=== PATIENT | male | born 1945 | race Caucasian/White ===

== ENCOUNTER 2022-11-18 12:54 | Outpatient (OUT) | payer OTHER, SELFPAY | END 2022-11-18 12:55 | disposition home or self-care (01) | PROVIDERS: PCP Podiatrist Foot & Ankle Surgery; Visit Provider Podiatrist Foot & Ankle Surgery | DX: L60.3 Nail dystrophy (principal) | CPT/HCPCS: 11721 ==

== ENCOUNTER 2022-12-15 11:53 | Outpatient (OUT) | payer OTHER, SELFPAY ==
[2022-12-15 12:46] LABS: Anion Gap 11.4; BUN Creatinine Ratio 17.8; Calcium 8.5 mg/dL (8.5-10.1); Carbon Dioxide 22.7 mmol/L (21.0-32.0); Chloride 104 mmol/L (98-107); Estimated GFR (African America >60 (>=60); Estimated GFR (Non-African Ame >60 (>=60); Glucose 205 mg/dL (74-106); Potassium 4.1 mmol/L (3.5-5.1); Sodium 134 mmol/L (136-145)
[2022-12-15 13:24] LABS: Vitamin B12 <80.0 pg/mL (193.0-986.0)
== END 2022-12-15 11:54 | disposition home or self-care (01) ==
LOC: LAB 11:57
PROVIDERS: PCP Podiatrist Foot & Ankle Surgery; Visit Provider Internal Medicine
DX: E11.42 Type 2 diabetes mellitus with diabetic polyneuropathy (principal); I10 Essential (primary) hypertension
CPT/HCPCS: 36415; 80048; 82607; 82746

== ENCOUNTER 2022-12-17 10:30 | Outpatient (OUT) | payer OTHER, SELFPAY | END 2022-12-17 10:31 | disposition home or self-care (01) | PROVIDERS: PCP Internal Medicine; Visit Provider Internal Medicine | DX: E53.8 Deficiency of other specified B group vitamins (principal) | CPT/HCPCS: 36415; 83516; 86341 ==

== ENCOUNTER 2023-02-04 11:08 | Outpatient (OUT) | payer OTHER, SELFPAY ==
[2023-02-04 12:07] LABS: Alanine Aminotransferase 41 U/L (16-63); Albumin Globulin Ratio 1.1; Albumin Level 3.7 g/dL (3.4-5.0); Alkaline Phosphatase 93 U/L (46-116); Anion Gap 15.9; Aspartate Amino Transferase 24 U/L (15-37); BUN Creatinine Ratio 20.7; Bilirubin Total 0.7 mg/dL (0.2-1.0); Calcium 8.8 mg/dL (8.5-10.1); Carbon Dioxide 26.7 mmol/L (21.0-32.0); Chloride 102 mmol/L (98-107); Chol HDL Ratio 2.6; Cholesterol 105 mg/dL (<=200); Estimated GFR (African America >60 (>=60); Estimated GFR (Non-African Ame >60 (>=60); Globulin 3.3 g/dL; Glucose 193 mg/dL (74-106); HDL Cholesterol 40 mg/dL (40-60); Potassium 4.6 mmol/L (3.5-5.1); Sodium 140 mmol/L (136-145); Triglycerides 140 mg/dL (<=150)
[2023-02-04 12:15] LABS: Estimated Average Glucose 171 mg/dL; Glycohemoglobin A1C 7.6 % (4.5-6.2)
== END 2023-02-04 11:09 | disposition home or self-care (01) ==
LOC: LAB 11:12
PROVIDERS: PCP Internal Medicine; Visit Provider Internal Medicine
DX: I50.32 Chronic diastolic (congestive) heart failure (principal); E78.5 Hyperlipidemia, unspecified; E11.9 Type 2 diabetes mellitus without complications; E53.8 Deficiency of other specified B group vitamins
CPT/HCPCS: 36415; 80053; 80061; 82607; 83036

== ENCOUNTER 2023-03-04 13:05 | Outpatient (OUT) | payer OTHER, SELFPAY ==
--- OUTSIDE RECORDS SUMMARY | 2023-03-04 13:11 | XMS_ITS | CCD ---
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 Name Role Phone PHYSICIAN, DEFAULT Unavailable Unavailable PHYSICIAN, DEFAULT Unavailable Unavailable NADERER, MICHAEL Unavailable Unavailable CHRISTIAN ROSA Unavailable Unavailable GOMEZ, SHANTELL Unavailable Unavailable GOMEZ, SHANTELL Unavailable Unavailable Radha Sawant Unavailable Minerva Irwin Unavailable MUKESH, MATIAS Attending Unavailable CHRISTIANO DOUGLAS Attending Unavailable NADERER, DR MICHAEL Coto Primary Care Unavailable HIGHLANDER, MENDEZ Pedraza Attending Unavailable HIGHLANDER, PETER D Admitting Unavailable NADERER, DR MICHAEL Coto Primary Care Unavailable HIGHLANDER, MENDEZ Pedraza Attending Unavailable HIGHLANDER, PETER D Admitting Unavailable NADERER, DR MICHAEL Coto Primary Care Unavailable HIGHLANDER, MENDEZ Pedraza Attending Unavailable HIGHLANDER, PETER Keila Admitting Unavailable HIGHLANDER, MENDEZ Pedraza Attending Unavailable NADERER, DR MICHAEL Coto Primary Care Unavailable HIGHLANDER, PETER Keila Admitting Unavailable NADERER, DR MICHAEL Coto Admitting Unavailable NADERER, DR MICHAEL Coto Primary Care Unavailable NADERER, DR MICHAEL Coto Consulting Unavailable NADERER, DR MICHAEL Coto Attending Unavailable FAWWAD, TEMPLETON H Attending Unavailable NADERER, DR MICHAEL Coto Primary Care Unavailable FAWWAD, TEMPLETON H Admitting Unavailable FAWWAD, TEMPLETON H Consulting Unavailable ZIEBER, DR ADRIA Cardenas Consulting Unavailable NADERER, DR MICHAEL Coto Primary Care Unavailable MUKESH, MATIAS Attending Unavailable MUKESH, MATIAS Admitting Unavailable MUKESH, MATIAS Consulting Unavailable NADERER, DR MICHAEL Coto Primary Care Unavailable MUKESH, MATIAS Attending Unavailable MUKESH, MATIAS Admitting Unavailable MUKESH, MATIAS Consulting Unavailable SARAVIA, KAYCE Consulting Unavailable NADERER, DR MICHAEL Coto Primary Care Unavailable MUKESH, MATIAS Attending Unavailable MUKESH, MATIAS Admitting Unavailable MUKESH, MATIAS Consulting Unavailable SARAH, DR MICHAEL Coto Attending Unavailable NADERER, DR MICHAEL Coto Admitting Unavailable NADERERonald, DR MICHAEL Coto Primary Care Unavailable NADERERonald, DR MICHAEL Coto Consulting Unavailable MARKER ., DR SALCEDO Attending Unavailable MARKER ., DR SALCEDO Consulting Unavailable NADERER, DR MICHAEL Coto Primary Care Unavailable MARKER ., DR SALCEDO Admitting Unavailable PAULINE WISDOM Consulting Unavailable YELENA DIAZ Unavailable Unavailable Primary Care Provider UnavailGENOVEVA Couch Attending Unavailable GENOVEVA POND Admitting Unavailable DO Trell Damian Attending Provider MD Michael Smith Primary Care Provider Trell Damian Attending Chula Damian, Trell Ramirez Admitting Michael Armendariz Primary Care Unavailable Mitzy Neves Unavailable AMANDA ROSA Attending Unavailable SHAIKH MANJARREZ Attending Unavailable Allergies Allergy Classification Reported Allergen(s) Allergy Type Date of Onset Reaction(s) Facility (1 source) Penicillins Drug allergy (disorder) 05-04-19 18 [facility] (1 source) No Known Allergies; Translations: [No Known Allergies] Propensity to adverse reactions (disorder) [facility] (5 sources) penicillAMINE Drug Allergy he heard [facility] Other (1 source) Penicillin; Translations: [PENICILLIN G] Drug Allergy 10-21-19 [facility] Rep[facility] (1 source) Penicillin Drug Allergy [facility] (1 source) Penicillins Propensity to adverse reactions to drug 09-24-19 23 [facility] Medications Current Medications Medication Drug Class(es) Dates Sig (Normalized) Sig (Original) [id number] 60 actuat albuterol 0.09 mg/actuat metered dose inhaler (1 source) beta2-Adrenergic Agonist Start: 02-14-2023 take 2 puff(s) by inhalation four times daily as needed Albuterol Sulfate HFA 108 (90 Base) MCG/ACT 2 puffs Inhalation 4 times a day prn Feb, Active Aspirin (6 sources) Platelet Aggregation Inhibitor, Nonsteroidal Anti-inflammatory Drug take 1 tablet by mouth once daily aspirin 81 MG EC tablet Take 1 tablet by mouth daily 0 Active Baby Aspirin Act nile atorvastatin (6 sources) HMG-CoA Reductase Inhibitor take 1 tablet by mouth once daily atorvastatin (LIPITOR) 40 MG tablet Take 1 tablet by mouth daily 0 Active Lipitor Active calcium chloride 0.0014 meq/ml / potassium chloride 0.004 meq/ml / sodium chloride 0.103 meq/ml / sodium lactate 0.028 meq/ml injectable solution (1 source) Start: 10-05-2022 lactated ringe rs IV soln infusion cefdinir 300 mg oral capsule (1 source) Cephalosporin Antibacterial Start: 03-20-2022 take 1 capsule by mouth every twelve hours Cefdinir 300 MG 1 capsule Orally BID for 10 days Mar, Active clopidogrel (10 sources) P2Y12 Platelet Inhibitor take 1 tablet by mouth every twenty-four hours Clopidogrel Bisulfate 75 MG 1 tablet Orally Once a day Active Plavix Active doxycycline hyclate 100 mg oral tablet (1 source) Tetracycline-class Drug Start: 02-14-2023 take 1 tablet by mouth every twelve hours Doxycycline Hyclate 100 MG 1 tablet Orally Twice a day for 10 day(s) Feb, Active empagliflozin (2 sources) Sodium-Glucose Cotransporter 2 Inhibitor JARDIANCE Active ferrous sulfate 325 mg oral tablet (5 sources) take 1 tablet by mouth every twenty-four hours FeroSul 325 (65 Fe) MG 1 tablet Orally Once a day Active take 1 tablet by ganga th three times daily at mealtime ferrous sulfate (IRON 325) 325 (65 Fe) M G tablet Take 1 tablet by mouth 3 times daily (with meals) 0 Active furosemide 20 mg oral tablet (5 sources) Loop Diuretic take 1 tablet by mouth every twenty-four hours Furosemide 20 MG 1 tablet Orally Once a day Active glyBURIDE 2.5 mg oral tablet (1 source) Sulfonylurea take 1 tablet by mouth twice daily at mealtime glyBURIDE (DIABETA) 2.5 MG tablet Take 1 tablet by mouth 2 times daily (with meals) 0 Active glyBURIDE 2.5 mg / metFORMIN hydrochloride 500 mg oral tablet (5 sources) Biguanide, Sulfonylurea take 1 tablet by mouth every twenty-four hours Glyburide-Metfor min 2.5-500 MG 1 tablet with a meal Orally Once a day Active hydroCHLOROthiazide 25 mg / lisinopril 20 mg oral tablet (5 sources) Thiazide Diuretic, Angiotensin Converting Enzyme Inhibitor take 1 tablet by mouth every twenty-four hours Lisinopril-hydro CHLOROthiazide 20-25 MG 1 tablet Orally Once a day Active lisinopril 40 mg oral tablet (1 source) Angiotensin Converting Enzyme Inhibitor take 1 tablet by mouth once daily lisinopril (PRINIVIL;ZESTRI L) 40 MG tablet Take 1 tablet by mouth daily 0 Active methylPREDNISolone 4 mg oral tablet (1 source) Corticosteroid Start: 2022 Medrol 4 MG as directed Orally As Directed for 6 days Feb, Active Metoprolol (6 sources) beta-Adrenergic Katie take 1 tablet by mouth once daily metoprolol succinate (TOPROL XL) 50 MG extended release tablet Take 1 tablet by mouth daily 0 Active Toprol XL Active naproxen 500 mg oral tablet (6 sources) Nonsteroidal Anti-inflammatory Drug take 1 tablet by mouth every twelve hours Naproxen 500 MG 1 tablet as needed Orally every 12 hrs Active take 1 tablet by ganga th twice daily at mealtime naproxen (NAPROSYN) 500 MG tablet Take 1 tablet by mouth 2 times daily (with meals) 0 Active ofloxacin 3 mg/ml ophthalmic solution (1 source) Quinolone Antimicrobial Start: 03-20-2022 Ofloxacin 0.3 % 10 drops into affected ear Otic Once a day for 7 day(s) Mar, Active omeprazole 40 mg delayed release oral capsule (1 source) Proton Pump Inhibitor take 1 capsule by mouth once daily omeprazole (PRILOSEC) 40 MG delayed release capsule Take 1 capsule by mouth daily 0 Active phenylephrine hydrochloride 25 mg/ml ophthalmic solution (1 source) alpha-1 Adrenergic Agonist Start: 10-05-2022 phenylephrine (MYDFRIN) 2.5 % ophthalmic solution 1 drop pioglitazone (5 sources) Peroxisome Proliferator Receptor alpha Agonist, Peroxisome Proliferator Receptor gamma Agonist, Thiazolidinedione take 1 tablet by mouth once daily pioglitazone (ACTOS) 45 MG tablet Take 1 tablet by mouth daily 0 Active Pioglitazone HCl Active potassium chloride 10 meq extended release oral tablet (1 source) take 1 tablet by mouth once daily potassium chloride (KLOR-CON) 10 MEQ extended release tablet Take 1 tablet by mouth daily 0 Active predniSONE 20 mg oral tablet (3 sources) Start: 05-27-19 take 1 tablet by mouth every twelve hours prednisone 20 MG 1 tablet Orally Twice a day for 5 days May, Active proparacaine hydrochloride 5 mg/ml ophthalmic solution (1 source) Local Anesthetic Start: 10-06-19 proparacaine (ALCAINE) 0.5 % ophthalmic solution 1 drop 5 ml sodium chloride 9 mg/ml injection (7 sources) Start: 10-06-19 take 1 dose intravenously twice daily 5-40 mL, IntraVENous, EVERY 12 HOURS SCHEDULED (2 times per day), First dose on Wed10/05/22 at 2100, Until Discontinued For Line Patency: Peripheral IV = 5 mL; Midline or Central Line = 10 mL/lumen. If following IV push medication, administer flush at same rate as the IV push. Flush volume is determined by type of infusion therapy being given. F or non-viscous solutions use: Periphera l IV = 5 mL Midline or Central Line = 10 mL/lumen &nbsp ;For viscous solutions (i.e. blood components, parenteral nutrition, contrast media, or after obtaining blood sample) use: Periphera l IV = 10 mL Midline or Central Line = 20 mL/lumen Post-op Start: 10-05-2022 IntraVENous, a t 5-250 mL/hr, PRN, if patient receiving piggyback infusions and maintenance fluids are not ordered OR KVO fluids to protect IV site / prevent frequent line interruptions/ long duration, Starting on Wed10/05/22 at 1144 For piggyback infusion, administer at same rate as piggyback for a total of 25 mL. Enter 25 mL into dose field and piggyback rate into rate field of order. If piggyback is infusing at a rate less than 100 mL/hr, enter 25 mL into dose field and 100 mL/hr into rate field of order. For KVO fluids, enter rate of 20 mL/hr or less into rate field of order. Post-op Start: 10-05-2022 take 5-40 mL intrave nously once as needed 5-40 mL, IntraVENous, PRN, Starting on Wed10/05/22 at 1144, Until Discontinued, Line Care, After every IV line use For Line Patency: Peripheral IV = 5 mL; Midline or Central Line = 10 mL/lumen. If following IV push medication, administer flush at same rate as the IV push. Flush volume is determined by type of infusion therapy being given. For non-viscous solutions use: Peripheral IV = 5 mL Midline or Central Line = 10 mL/lumen For viscous solutions (i.e. blood components, parenteral nutrition, contrast media, or after obtaining blood sample) use: Peripheral IV = 10 mL Midline or Central Line = 20 mL/lumen Post-op Start: 10-05-2022 0.9 % sodium c hloride infusion Start: 10-05-2022 sodium chlorid e flush 0.9 % injection 5-40 mL tetracaine hydrochloride 5 mg/ml ophthalmic solution (1 source) Rosalie Local Anesthetic Start: 10-05-2022 tetraca ine (TETRAVISC) 0.5 % ophthalmic solution 1 drop tropicamide 10 mg/ml ophthalmic solution (1 source) Anticholinergic Start: 10-05-2022 tropicamide (MYDRIACYL) 1 % ophthalmic solution 1 drop Completed/Discontinued Medications Medication Drug Class(es) Dates Sig (Normalized) Sig (Original) sulfamethoxazole 800 mg / trimethoprim 160 mg oral tablet (5 sources) Dihydrofolate Reductase Inhibitor Antibacterial, Sulfonamide Antimicrobial Start: 05-26-2019 take 1 tablet by mouth every twelve hours Bactrim DS 800-160 MG 1 tablet Orally Twice a day for 10 days May, Not-Taking/PRN Problems Active Problems Problem Classification Problem Date Documented Date Episodic/Chronic Cataract (4 sources) 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; Translations: [Combined forms of age-related cataract, left eye] Onset: 10-04-2022 Resolved: 10-05-2022 Chronic Chronic obstructive pulmonary disease and bronchiectasis (1 source) Bronchitis, not specified as acute or chronic Episodic Coronary atherosclerosis and other heart disease (6 sources) Atherosclerotic heart disease of [place] coronary artery with unstable angina pectoris; Translations: [Atherosclerotic heart disease of [place] coronary artery without angina pectoris] Onset: 05-04-2017 Chronic Diabetes mellitus with complications (7 sources) Type 2 diabetes mellitus with hyperglycemia; Translations: [Type 2 diabetes mellitus with diabetic neuropathy, unspecified] Onset: 07-25-2021 Chronic Diabetes mellitus without complication (1 source) Type 2 diabetes mellitus without complications; Translations: [TYPE 2 DIABETES MELLITUS WITHOUT COMPLICATIONS] Onset: 05-04-2017 Chronic Disorders of lipid metabolism (5 sources) Hyperlipidemia, unspecified; Translations: [Pure hypercholesterolemia, unspecified] Onset: 05-04-2017 Chronic Essential hypertension (10 sources) Essential (primary) hypertension; Translations: [Hypertensive disorder] Onset: 05-04-2017 Chronic Fever of unknown origin (4 sources) Fever, unspecified; Translations: [FEVER UNSPECIFIED] Onset: 07-16-2022 Episodic Headache; including migraine (4 sources) Headache; including migraine; Translations: [HEADACHE UNSPECIFIED] Onset: 04-03-2022 Other aftercare (2 sources) retirement (current) use of aspirin; Translations: [DIORAMIST (CURRENT) USE OF ASPIRIN] Onset: 05-04-2017 Episodic Other aftercare (1 source) retirement (current) use of oral hypoglycemic drugs; Translations: [DIORAMIST USE ORAL HYPOGLYCEMIC DX] Onset: 07-20-2022 Episodic Other aftercare (5 sources) Other fpc (current) drug therapy; Translations: [OTH DIORAMIST CURRENT DRUG THERAPY] Onset: 07-23-2021 Episodic Other and ill-defined heart disease (1 source) Heart disease, unspecified; Translations: [Heart disease, unspecified] Onset: 02-01-2023 Chronic Other diseases of kidney and ureters (1 source) Unspecified hydronephrosis; Translations: [UNSPECIFIED HYDRONEPHROSIS] Onset: 07-20-2022 Episodic Other nutritional; endocrine; and metabolic disorders (1 source) Obesity, unspecified; Translations: [OBESITY UNSPECIFIED] Onset: 07-25-2021 Chronic Otitis media and related conditions (2 sources) Otitis media, unspecified, left ear; Translations: [Other acute nonsuppurative otitis media, bilateral] Episodic Unclassified (2 sources) Unknown / UNK(Unknown) Onset: 05-04-2017 Unclassified (1 source) retirement (current) use of oral hypoglycemic drugs; Translations: [MCC (CURRENT) USE OF ORAL HYPOGLYCEMIC DRUGS] Onset: 05-04-2017 Unclassified (1 source) CONTACT W/AND (SUSP) EXPOS COVID-19; Translations: [CONTACT W/AND (SUSP) EXPOS COVID-19] Onset: 07-20-2022 Urinary tract infections (1 source) Urinary tract infection, site not specified; Translations: [UTI SITE NOT SPECIFIED] Onset: 07-20-2022 Episodic Past or Other Problems Problem Classification Problem Date Documented Date Episodic/Chronic Immunizations and screening for infectious disease (1 source) Contact with and (suspected) exposure to other viral communicable diseases; Translations: [Contact with and (suspected) exposure to other viral communicable diseases Z20.828] Onset: 12-05-2020 Resolved: 12-05-2020 Episodic Malaise and fatigue (1 source) Other fatigue; Translations: [OTHER FATIGUE] Onset: 05-04-2017 Episodic Mycoses (1 source) Tinea unguium; Translations: [TINEA UNGUIUM] Onset: 09-23-2021 Episodic Other lower respiratory disease (1 source) Shortness of breath; Translations: [SHORTNESS OF BREATH] Onset: 05-04-2017 Episodic Other lower respiratory disease (2 sources) Shortness of breath; Translations: [Shortness of Breath] Onset: 12-01-2021 Episodic Other lower respiratory disease (4 sources) Other forms of dyspnea; Translations: [OTHER FORMS OF DYSPNEA] Onset: 09-29-2021 Episodic Other skin disorders (1 source) Corns and callosities; Translations: [CORNS AND CALLOSITIES] Onset: 03-31-2022 Episodic Other skin disorders (1 source) Nail dystrophy; Translations: [NAIL DYSTROPHY] Onset: 03-31-2022 Episodic Skin and subcutaneous tissue infections (4 sources) Cutaneous abscess of left foot; Translations: [CUTANEOUS ABSCESS OF LEFT FOOT] Onset: 03-25-2022 Episodic Unclassified (5 sources) Abnormal result of other cardiovascular function study; Translations: [Encounter for screening for malignant neoplasm of prostate] Onset: 05-04-2017 Episodic Viral infection (1 source) COVID-19; Translations: [COVID-19 U07.1] Onset: 12-05-2020 Resolved: 12-05-2020 Results Test Name Value Interpretation Reference Range Facility Alanine aminotransferase [En zymatic activity/volume] in Serum or PlasmaOrdered By: Trell Damian on 02-01-2023 ALT [Catalytic activity/Vol] 30 U/L 7-52 [facility] Albumin [Mass/volume] in Ser um or Plasma by Bromocresol green (BCG) dye binding methoOrdered By: Trell Damian on 02-01-2023 Albumin BCG dye [Mass/Vol] 4.1 g/dL 3.5-5.7 [facility] Alkaline phosphatase [Enzyma tic activity/volume] in Serum or PlasmaOrdered By: Trell Damian on 02-01-2023 ALP [Catalytic activity/Vol] 74 U/L 34-104 [facility] Aspartate aminotransferase [ Enzymatic activity/volume] in Serum or PlasmaOrdered By: Trell Damian on 02-01-2023 AST [Catalytic activity/Vol] 29 U/L 13-39 [facility] Bilirubin Test strip Ql (U)O rdered By: Trell Damian on 02-01-2023 Bilirubin Ql (U) Negative Negative [facility] Bilirubin.total [Mass/volume ] in Serum or PlasmaOrdered By: Trell Damian 02-01-2023 Bilirubin [Mass/Vol] 0.6 mg/dL 0.3-1.0 [facility] Calcium [Mass/volume] in Ser um or PlasmaOrdered By: Trell Damian 02-01-2023 Calcium [Mass/Vol] 9.2 mg/dL 8.6-10.3 [facility] Carbon dioxide, total [Moles /volume] in Serum or PlasmaOrdered By: Trell Damian 02-01-2023 CO2 [Moles/Vol] 27.3 mmol/L 21.0-31.0 [facility] Chloride [Moles/volume] in S jose juan or PlasmaOrdered By: Trell Damian on 02-01-2023 Chloride [Moles/Vol] 104 mmol/L 98-107 [facility] Color Auto (U)Ordered By: Ravinder Damian on 02-01-2023 Color (U) Yellow Yellow [facility] Comprehensive Metabolic Pane alicia 02-01-2023 Albumin [Mass/Vol] 4.1 g/dL Normal 3.5-5.7 [facility] Comment on above: Performed By: #### U A, CMP #### [facility] [address] [place] [address] Albumin/Globulin [Mass ratio] 1.9 {ratio} Normal [facility] Comment on above: Performed By: #### U A, CMP #### [address] ALP [Catalytic activity/Vol] 74 U/L Normal 34-104 [facility] Comment on above: Result Comment: PERF ORMED BY: [place] [address] PATHOLOGIST SOLID WASTE ANALYST OPHELIA ZIMMERMAN M.D. Performed By: #### U A, CMP #### [address] ALT [Catalytic activity/Vol] 30 U/L Normal 7-52 [facility] Comment on above: Performed By: #### U A, CMP #### [address] Anion gap [Moles/Vol] 14.3 mmol/L Normal 6.0-15.0 [facility] Comment on above: Performed By: #### U A, CMP #### [address] AST [Catalytic activity/Vol] 29 U/L Normal 13-39 [facility] Comment on above: Performed By: #### U A, CMP #### [address] Bilirubin [Mass/Vol] 0.6 mg/dL Normal 0.3-1.0 [facility] Comment on above: Performed By: #### U A, CMP #### [facility] [address] [place] [address] Calcium [Mass/Vol] 9.2 mg/dL Normal 8.6-10.3 [facility] Comment on above: Performed By: #### U A, CMP #### [facility] [address] [place] [address] [place] Chloride [Moles/Vol] 104 mmol/L Normal 98-107 [facility] Comment on above: Performed By: #### U A, CMP #### [facility] [address] CO2 [Moles/Vol] 27.3 mmol/L Normal 21.0-31.0 [facility] Comment on above: Performed By: #### U A, CMP #### [facility] [address] Creatinine [Mass/Vol] 1.01 mg/dL Normal 0.70-1.30 [facility] Comment on above: Performed By: #### U A, CMP #### [place] [address] [place] GFR/1.73 sq M.predicted MDRD (S/P/Bld) [Vol rate/Area] mL/min/{1.73_m2} [facility] Comment on above: Performed By: #### U A, CMP #### [place] [address] [place] Globulin (S) [Mass/Vol] 2.2 g/dL [facility] Comment on above: Performed By: #### U A, CMP #### [address] Glucose [Mass/Vol] 183 mg/dL High 70-100 [facility] Comment on above: Result Comment: [facility] Glucose Reference Range is dependent on time and content of last meal. Glucose of more than 200 mg/dL in a nonstressed, ambulatory subject supports the diagnosis of Diabetes Mellitus. ADA recommended reference range Performed By: #### U A, CMP #### [facility] [address] [place] [address] [place] Potassium [Moles/Vol] 4.6 mmol/L Normal 3.5-5.1 [facility] Comment on above: Performed By: #### U A, CMP #### [facility] [address] [place] [address] [place] Protein [Mass/Vol] 6.3 g/dL Low 6.4-8.9 [facility] Comment on above: Performed By: #### U A, CMP #### [facility] [address] [place] [address] [place] Sodium [Moles/Vol] 141 mmol/L Normal 136-145 [facility] Comment on above: Performed By: #### U A, CMP #### [facility] [address] [place] [address] [place] Urea nitrogen [Mass/Vol] 22 mg/dL Normal 7-25 [facility] Comment on above: Performed By: #### U A, CMP #### [facility] [address] Creatinine [Mass/volume] in Serum or PlasmaOrdered By: Trell Damian on 02-01-2023 Creatinine [Mass/Vol] 1.01 mg/dL 0.70-1.30 [facility] echo [facility] echo transthoracic [facility] [address] [place] [address] Echocardiogram Signed Patient: Thea Winston MR#: [id number] 33 : 1945 Acct:[id number] Age/Sex: 77 / M ADM Date: 02/01/23 Loc: Room: Type: [facility] Attending Dr: Trell Damian DO Ordering Provider: Trell Damian DO Date of Service: 02/01/23[facility]: Heart Disease. Copies to: Trell Laird MD Weight: 242 lb Performed By: Kylah Thomas RDCS BSA: 2.4 m2 BP: 128/59 mmHg HR: 67 Reason For Study: Heart Disease. History: PCI. HTN. HLD. DM. Interpretation Summary The left ventricular wall motion is normal. Mild concentric left ventricular hypertrophy. Ejection Fraction = 60-65%. A variety of Doppler measurements indicate impaired left ventricular relaxation, which is associated with grade I/IV or mild diastolic dysfunction. There is trace tricuspid regurgitation. The right ventricular systolic pressure is 35 mmHg. Right ventricular systolic pressure is consistent with mild pulmonary hypertension. The aortic root is 4 cm Mild aortic root dilatation. There is no comparison study available. Procedure/Quality: A two-dimensional transthoracic echocardiogram with color flow and Doppler was performed. The study was technically good in quality. Left Ventricle: The left ventricular size is normal. Mild concentric left ventricular hypertrophy. Upper septal hypertrophy (sigmoid septum), normal variant. Ejection Fraction = 60-65%. A variety of Doppler measurements indicate impaired left ventricular relaxation, which is associated with grade I/IV or mild diastolic dysfunction. The left ventricular wall motion is normal. Left Atrium: The left atrium appears normal in size. Right Atrium: The right atrium appears normal in size. Right Ventricle: The right ventricular size, thickness and function are normal. Aortic Valve: The aortic valve is normal in structure and function. No aortic regurgitation is present. Mitral Valve: The mitral valve is normal in structure and function. There is no mitral regurgitation noted. Tricuspid Valve: The tricuspid valve is normal in structure and function. There is trace tricuspid regurgitation. The right ventricular systolic pressure is 35 mmHg. Right ventricular systolic pressure is consistent with mild pulmonary hypertension. Pulmonic Valve: The pulmonic valve is normal in structure and function. Arteries: Mild aortic root dilatation. The aortic root is 4 cm. Pericardium/Pleura: No pericardial effusion seen. There is no pleural effusion. IVC/Hepatic Viens: The inferior vena cava is normal in size, with a normal collapsibility index. Measurements with Normals IVSd: 1.5 cm (0.7-1.1 cm)LVIDd: 3.9 cm (3.7-5.4 cm) LVPWd: 1.2 cm (0.7-1.1 cm)LVIDs: 2.1 cm (2.3-3.6 cm) LA dimension: 4.6 cm (2.3-4.0 cm)Ao root diam: 3.5 cm(2.0-3.6 cm) asc Aorta Diam: 4.0 cm(2.1-3.4cm) Doppler with Normals LV V1 max: 156.3 cm/sec (0.7-1.7m/s)MV E max jason: 100.0 cm/sec(0.8-1.3m/s) MV A max jason: 86.4 cm/sec(0.0-0.0m/s) MV E/A: 1.2 (<1.5) MMode/2D Measurements Calculations TAPSE: 3.1 cm FS: 45.0 % Ao root area: LVOT diam: 2.4 cm RV S Jason: EDV(Teich): 9.9 cm2 LVOT area: 4.4 cm2 16.3 cm/sec 64.2 ml ESV(Teich): 14.8 ml EF(Teich): 76.9 % __ LVLd ap4: 8.8 cm SV(MOD-sp4): LAV(MOD-sp4): LA A2 area: 19.6 cm2 EDV(MOD-sp4): 74.1 ml 54.5 ml 106.0 ml LAV(MOD-sp2): LA A4 area: 20.9 cm2 LVLs ap4: 7.7 cm 48.7 ml LA length (vol): ESV(MOD-sp4): 6.3 cm 31.9 ml LA vol: 55.2 ml EF(MOD-sp4): 69.9 % LA vol index: 23.2 ml/m2 Doppler Measurements Calculations MV dec time: E/E' lat: 17.3 MV dec slope: Ao V2 max: 0.26 sec E/E' med: 13.1 162.9 cm/sec 382.9 cm/sec2 Ao max P.6 mmHg Ao mean P.6 mmHg Ao V2 mean: 121.8 cm/sec Ao V2 VTI: 34.1 cm MANDI(I,D): 4.2 cm2 MANDI(V,D): 4.2 cm2 __ LV V1 max PG: TV max PG: TR max jason: 9.8 mmHg 32.0 mmHg 282.3 cm/sec LV V1 mean PG: TR max P.9 mmHg 5.6 mmHg LV V1 mean: 111.9 cm/sec LV V1 VTI: 32.5 cm Measurements from QLAB BSA (): 2.4 m2 CI (): ED Mass (): LAEF (): 29.0 % 2.4 l/min/m2 181.0 grams __ DIALLO (): LAVmax (): LAVmin (): 38.0 ml Pat Height (): 53.0 ml 190.0 cm 23.0 ml/m2 __ Pat Weight (HM): 109.8 kg QLAB Heart Model EDV (HM)_phl: 143.0 ml EF (HM)_phl: 59.0 % ED Current (HM)_phl: 60.0 % ESV (HM)_phl: 59.0 ml HR (HM)_phl: 67.0 BPMES Current (HM)_phl: 30.0 % LV Length ED (HM)_phl: 97.0 mmSV (HM)_phl: 85.0 ml ED Default (HM)_phl: 60.0 % LV Length ES (HM)_phl: 78.0 mm ES Default (HM)_phl: 30.0 % Transcribed By: JOHNATHAN Performed At: 02/01/23 0852 Sig (more content not included)... Normal [facility] Globulin Calc (S) [Mass/Vol] Ordered By: Trell Damian on 02-01-2023 Globulin (S) [Mass/Vol] 2.2 g/dL [facility] Glucose [Mass/volume] in Ser um or PlasmaOrdered By: Trell Damian on 02-01-2023 Glucose [Mass/Vol] 183 mg/dL 70-100 [facility] Comment on above: ADA recommended refe rence rangeRandom Glucose Reference Range is dependent on time and content of last meal. Glucose of more than 200 mg/dL in a nonstressed, ambulatory subject supports the diagnosis of Diabetes Mellitus. Ketones Auto test strip (U) [Mass/Vol]Ordered By: Trell Damian on 02-01-2023 Ketones (U) [Mass/Vol] Negative Negative [facility] Nitrite Test strip Ql (U)Ord ered By: Trell Damian on 02-01-2023 Nitrite Ql (U) Negative Negative [facility] No Panel InformationOrdered By: Trell Damian on 02-01-2023 Estimated GFR (CKD-EPI) > 60.0 mL/Min [facility] Creatinine Clearance (Chem N/A [facility] Potassium [Moles/volume] in Serum or PlasmaOrdered By: Trell Damian on 02-01-2023 Potassium [Moles/Vol] 4.6 mmol/L 3.5-5.1 [facility] Protein Auto test strip (U) [Mass/Vol]Ordered By: Trell Damian on 02-01-2023 Protein (U) [Mass/Vol] Negative Negative [facility] Protein [Mass/volume] in Ser um or PlasmaOrdered By: Trell Damian on 02-01-2023 Protein [Mass/Vol] 6.3 g/dL 6.4-8.9 [facility] Serum or plasma albumin/glob ulin mass ratioOrdered By: Trell Damian on 02-01-2023 Albumin/Globulin [Mass ratio] 1.9 {ratio} [facility] Serum or plasma anion gap de terminationOrdered By: Trell Damian on 02-01-2023 Anion gap [Moles/Vol] 14.3 mmol/L 6.0-15.0 [facility] Sodium [Moles/volume] in Ser um or PlasmaOrdered By: Trell Damian on 02-01-2023 Sodium [Moles/Vol] 141 mmol/L 136-145 [facility] Specific gravity Auto test s trip (U) [Rel density]Ordered By: Trell Glass on 02-01-2023 Specific gravity (U) [Rel density] 1.033 1.001-1.03 0 [facility] Urea nitrogen [Mass/volume] in Serum or PlasmaOrdered By: Trell Damian on 02-01-2023 Urea nitrogen [Mass/Vol] 22 mg/dL 7-25 [facility] Urinalysison 02-01-2023 Appearance (U) Clear Normal Clear [facility] Comment on above: Order Comment: Name Collection Type:: Clean-Voided Midstream Performed By: #### U A, CMP #### [facility] [address] [place] [address] [place] Bilirubin,Urine Negative Normal Negative [facility] Comment on above: Order Comment: Name Collection Type:: Clean-Voided Midstream Performed By: #### U A, CMP #### [facility] [address] [place] [address] [place] Color (U) Yellow Normal Yellow [facility] Comment on above: Order Comment: Name Collection Type:: Clean-Voided Midstream Performed By: #### U A, CMP #### [facility] [address] [place] [address] [place] Glucose Ql (U) >=1000 High Normal [facility] Comment on above: Order Comment: Name Collection Type:: Clean-Voided Midstream Performed By: #### U A, CMP #### [facility] [address] [place] [address] [place] Ketones Ql (U) Negative Normal Negative [facility] Comment on above: Order Comment: Name Collection Type:: Clean-Voided Midstream Performed By: #### U A, CMP #### [facility] [address] [place] [address] [place] Leukocyte esterase Test strip Ql (U) Negative Normal Negative [facility] Comment on above: Order Comment: Name Collection Type:: Clean-Voided Midstream Performed By: #### U A, CMP #### [facility] [address] [place] [address] [place] Nitrite,Urine Negative Normal Negative [facility] Comment on above: Order Comment: Name Collection Type:: Clean-Voided Midstream Performed By: #### U A, CMP #### [facility] [address] [place] [address] [place] Occult Blood,Urine Negative Normal Negative [facility] Comment on above: Order Comment: Name Collection Type:: Clean-Voided Midstream Result Comment: PERF ORMED BY: [place] [address] PATHOLOGIST [employer] ANALYST OPHELIA ZIMMERMAN M.D. Performed By: #### U A, CMP #### [facility] [address] [place] [address] [place] pH (U) 5.5 [pH] Normal 5.0-9.0 [facility] Comment on above: Order Comment: Name Collection Type:: Clean-Voided Midstream Performed By: #### U A, CMP #### [facility] [address] Protein,Urine Negative Normal Negative [facility] Comment on above: Order Comment: Name Collection Type:: Clean-Voided Midstream Performed By: #### U A, CMP #### [facility] [address] [place] [address] Specificy [place],Urine 1.033 High 1.001-1.03 0 [facility] Comment on above: Order Comment: Name Collection Type:: Clean-Voided Midstream Performed By: #### U A, CMP #### [facility] [address] [place] [address] Urobilinogen,Urine Normal Normal Normal [facility] Comment on above: Order Comment: Name Collection Type:: Clean-Voided Midstream Performed By: #### U A, CMP #### [facility] [address] [place] [address] Urine clarity by refractomet ry automatedOrdered By: Trell Damian on 02-01-2023 Clarity Refractometry automated (U) Clear Clear [facility] Urine glucose measurement by automated test strip (mass/volume)Ordered By: Trell Damian on 02-01-2023 Glucose Auto test strip (U) [Mass/Vol] >=1000 mg/dL Normal [facility] Urine hemoglobin detection b y automated test stripOrdered By: Trell Damian on 02-01-2023 Hemoglobin Auto test strip Ql (U) Negative Negative [facility] Urine leukocyte esterase det ection by automated test stripOrdered By: Trell Damian on 02-01-2023 Leukocyte esterase Auto test strip Ql (U) Negative Negative [facility] Urobilinogen Auto test strip (U) [Mass/Vol]Ordered By: Trell Damian on 02-01-2023 Urobilinogen (U) [Mass/Vol] Normal mg/dL Normal [facility] pH Auto test strip (U)Ordere d By: Trell Gillianemmaeber on 02-01-2023 pH (U) 5.5 [pH] 5.0-9.0 [facility] Glucose, Whole Bloodon 10-05 Glucose [Mass/Vol] 135 mg/dL High 74 - 100 mg/dL [facility] Interpretation and review of laboratory results Abnormal [facility] CBC AUTO DIFFon 07-17-2022 BASO # 0.0 103/ul Normal 0.0-0.1 [facility] Comment on above: Performed By: #### A 1C #### [facility] [address] [place] [address] Dr. Ana Pandey Basophils/100 WBC (Bld) 0.2 % Normal 0.2-2.0 [facility] Comment on above: Performed By: #### A 1C #### [facility] [address] [place] [address] Dr. Ana Pandey EO # 0.1 103/ul Normal 0.0-0.7 [facility] Comment on above: Performed By: #### A 1C #### [facility] [address] [place] [address] Dr. Ana Pandey Eosinophils/100 WBC (Bld) 0.9 % Normal 0.9-7.0 [facility] Comment on above: Performed By: #### A 1C #### [facility] [address] [place] [address] Dr. Ana Pandey Erythrocyte distribution width (RBC) [Ratio] 15.1 % Critically high 11.0-15.0 [facility] Comment on above: Performed By: #### A 1C #### [facility] [address] [place] [address] Dr. Ana Pandey Hematocrit (Bld) [Volume fraction] 33.6 % Critically low 42.0-54.0 [facility] Comment on above: Performed By: #### A 1C #### [facility] [address] [place] [address] Dr. Ana Pandey Hemoglobin (Bld) [Mass/Vol] 10.9 g/dL Critically low 14.0-18.0 [facility] Comment on above: Performed By: #### A 1C #### [facility] [address] [place] [address] Dr. Ana Pandey IG # 0.05 10e3/ul Critically high 0.00-0.03 [facility] Comment on above: Performed By: #### A 1C #### [facility] [address] [address] [address] Ana Pandey IG % 0.5 % Normal 0.0-0.5 [facility] Comment on above: Performed By: #### A 1C #### [facility] [address] [place] [address] Dr. Ana Pandye LYMPH # 0.9 103/ul Critically low 1.2-3.8 [facility] Comment on above: Performed By: #### A 1C #### [facility] [address] [place] [address] Dr. Ana Pandey Lymphocytes/100 WBC (Bld) 8.5 % Critically low 20.5-60.0 [facility] Comment on above: Performed By: #### A 1C #### [facility] [address] [place] [address] Dr. Ana Pandey MANUAL DIFF REQ NO Normal [facility] Comment on above: Performed By: #### A 1C #### [facility] [address] [place] [address] Dr. Ana Pandey MCH (RBC) [Entitic mass] 29.0 pg Normal 25.9-34.0 [facility] Comment on above: Performed By: #### A 1C #### [facility] [address] [place] [address] Dr. Ana Pandey MCHC (RBC) [Mass/Vol] 32.4 g/dL Normal 29.9-35.2 [facility] Comment on above: Performed By: #### A 1C #### [facility] [address] [place] [address] Dr. Ana Pandey MCV (RBC) [Entitic vol] 89.4 fL Normal 80.0-94.0 [facility] Comment on above: Performed By: #### A 1C #### [facility] [address] [place] [address] Dr. Ana Pandey MONO # 0.6 103/ul Normal 0.3-0.8 [facility] Comment on above: Performed By: #### A 1C #### [facility] [address] [place] [address] Dr. Ana Pandey Monocytes/100 WBC (Bld) 6.1 % Normal 1.7-12.0 [facility] Comment on above: Performed By: #### A 1C #### [facility] [address] [place] [address] Dr. Ana Pandey NEUT # 8.4 103/ul Critically high 1.4-6.5 [facility] Comment on above: Performed By: #### A 1C #### [facility] [address] [place] [address] Dr. Ana Pandey Neutrophils/100 WBC (Bld) 83.8 % Critically high 43.0-75.0 [facility] Comment on above: Performed By: #### A 1C #### [facility] [address] [place] [address] Dr. Ana Pandey Platelet mean volume (Bld) [Entitic vol] 9.7 fL Normal 9.5-13.5 [facility] Comment on above: Performed By: #### A 1C #### [facility] [address] [place] [address] Dr. Ana Pandey PLT 220 103/ul Normal 150-450 [facility] Comment on above: Performed By: #### A 1C #### [facility] [address] [place] [address] Dr. Ana Pandey RBC 3.76 106/ul Critically low 4.70-6.10 [facility] Comment on above: Performed By: #### A 1C #### [facility] [address] [place] [address] Dr. Ana Pandey WBC 10.0 103/ul Normal 4.0-11.0 [facility] Comment on above: Performed By: #### A 1C #### [facility] [address] ABD/PELVIS WO CONon 07-17 CT ABD/PELVIS WO CON EXAMINATION: CT ABD /PELVIS WO CON, 07/16/2022 9:52 PM EDT HISTORY: CALCULUS OF KIDNEY COMPARISON: None. TECHNIQUE: CT scan of the abdomen and pelvis was performed without IV contrast. CT dose reduction technique was used, including Automated Exposure Control. FINDINGS: There is bibasilar atelectasis. There is coronary artery disease. Abdomen: Please note that the sensitivity for detection of focal lesions or vascular disease is markedly reduced without intravenous contrast. The liver and spleen are unremarkable. There is no intra or extrahepatic biliary duct dilatation. The gallbladder is unremarkable. There is mild left hydronephrosis and hydroureter with no renal or ureteral calculus seen. There is colonic diverticulosis without evidence of acute inflammation. Otherwise, the pancreas, adrenal glands, right kidney, and bowel loops, including the appendix, are unremarkable. There is no mesenteric or retroperitoneal lymphadenopathy. Pelvis: There is borderline prostatomegaly. There is urinary bladder wall thickening with diverticula. The rectum is unremarkable. There is no iliac or inguinal lymphadenopathy. There is mild atherosclerotic disease. Bone windows show no aggressive osseous lesions. IMPRESSION: 1. Mild left hydronephrosis and hydroureter with no ureteral calculus seen. These findings could be secondary to a recently passed calculus. 2. Borderline prostamegaly. 3. Urinary bladder wall thickening and diverticula. These findings could be secondary to chronic outlet obstruction from the prostatomegaly; however, please correlate with urinalysis for infection. 4. Colonic diverticulosis without evidence of acute inflammation. 5. Normal appendix. Electronically authenticated by: Bowen WISDOM Date: 2022-07-16 23:30 Normal [facility] CULTURE BLOODon 07-17-2022 Microscopic examination of blood, culture Culture Observations: NO GROWTH AT 36-48 HOURS. FINAL TO FOLLOW. Normal [facility] Comment on above: Performed By: #### B TEST SPECIALIST, CMP #### [facility] [address] [address] [address] Ana Pandey Microscopic examination of blood, culture Culture Observations: NO GROWTH AT 36-48 HOURS. FINAL TO FOLLOW. Normal [facility] Comment on above: Performed By: #### B TEST SPECIALIST, CMP #### [facility] [address] [place] [address] Dr. Ana Pandey CULTURE URINEon 07-17-2022 CULTURE URINE Culture Observations : AMINA TO FOLLOW. Isolate 1 Escherichia coli >100,000 cfu/mL of Normal [facility] Comment on above: Performed By: #### B TEST SPECIALIST, CMP #### [facility] [address] [place] [address] Dr. Ana Pandey ER URINE PROFILEon 3 Bilirubin Ql (U) Negative Normal NEGATIVE [facility] Comment on above: Performed By: #### Sumaya MEDELLIN UMICRO #### [facility] [address] [place] [address] Dr. Ana Pandey Clarity (U) CLEAR Normal CLEAR [facility] Comment on above: Performed By: #### Sumaya MEDELLIN UMICRO #### [facility] [address] [place] [address] Dr. Ana Pandey Color (U) LT. YELLOW Normal YELLOW [facility] Comment on above: Performed By: #### Sumaya MEDELLIN UMICRO #### [facility] [address] [place] [address] Dr. Ana BENITEZ A micrscopic examina tion will be performed if indicated. Normal [facility] Comment on above: Performed By: #### Sumaya MEDELLIN UMICRO #### [facility] [address] [place] [address] Dr. Ana Pandey Glucose Ql (U) Negative Normal NEGATIVE [facility] Comment on above: Performed By: #### Sumaya MEDELLIN UMICRO #### [facility] [address] [place] [address] Dr. Ana Pandey Hemoglobin Ql (U) MODERATE Abnormal NEGATIVE [facility] Comment on above: Performed By: #### Sumaya MEDELLIN UMICRO #### [facility] [address] [place] [address] Dr. Ana Pandey Ketones Ql (U) Negative Normal NEGATIVE [facility] Comment on above: Performed By: #### JUSTYNA FARAHRO #### [facility] [address] [place] [address] Dr. Ana Pandey LEUKOCYTES MODERATE Abnormal NEGATIVE [facility] Comment on above: Performed By: #### Sumaya MEDELLIN UMICRO #### [facility] [address] [place] [address] Dr. Ana Pandey Nitrite Ql (U) Positive Abnormal NEGATIVE [facility] Comment on above: Performed By: #### JUSTYNA FARAHRO #### [facility] [address] [place] [address] Dr. Ana Pandey pH (U) 5.0 [pH] Normal 5-9 [facility] Comment on above: Performed By: #### JUSTYNA FARAHRO #### [facility] [address] [place] [address] Dr. Ana Pandey SPEC GRAVITY 1.025 Normal 1.005-<=1. 025 [facility] Comment on above: Performed By: #### JUSTYNA FARAHRO #### [facility] [address] [place] [address] Dr. Ana Pandey UA PROTEIN Negative Normal NEGATIVE/ TRACE [facility] Comment on above: Performed By: #### JUSTYNA FARAHRO #### [facility] [address] [place] [address] Dr. Ana Pandey UR MICRO IND INDICATED Normal [facility] Comment on above: Performed By: #### JUSTYNA FARAHRO #### [facility] [address] [place] [address] Dr. Ana Pandey Urobilinogen Qn (U) 0.2 {Casie'U}/dL Normal 0.2 - 1. 0 [facility] Comment on above: Performed By: #### JUSTYNA FARAHRO #### [facility] [address] [place] [address] Dr. Ana Pandey LACTATE/LACTIC ACIDon 2022 Lactate [Moles/Vol] 2.0 mmol/L Normal 0.4-2.0 [facility] Comment on above: Performed By: #### L ACT #### [facility] [address] [address] [address] Ana Pandey PROF 14(COMP METB)on 023 Albumin [Mass/Vol] 3.2 g/dL Critically low 3.4-5.0 [facility] Comment on above: Performed By: #### C MP #### [facility] [address] [place] [address] Dr. Ana Pandey Albumin/Globulin [Mass ratio] 1.0 {ratio} Normal [facility] Comment on above: Performed By: #### C MP #### [facility] [address] [place] [address] Dr. Ana Pandey ALP [Catalytic activity/Vol] 75 U/L Normal 46-116 [facility] Comment on above: Performed By: #### C MP #### [facility] [address] [place] [address] Dr. Ana Pandey ALT [Catalytic activity/Vol] 24 U/L Normal 16-63 [facility] Comment on above: Performed By: #### C MP #### [facility] [address] [place] [address] Dr. Ana Pandey Anion gap [Moles/Vol] 13.0 mmol/L Normal [facility] Comment on above: Performed By: #### C MP #### [facility] [address] [place] [address] Dr. Ana Pandey AST [Catalytic activity/Vol] 19 U/L Normal 15-37 [facility] Comment on above: Performed By: #### C MP #### [facility] [address] [place] [address] Dr. Ana Pandey Bilirubin [Mass/Vol] 0.6 mg/dL Normal 0.2-1.0 [facility] Comment on above: Performed By: #### C MP #### [facility] [address] [place] [address] Dr. Ana Pandey Calcium [Mass/Vol] 8.6 mg/dL Normal 8.5-10.[address] [facility] Comment on above: Performed By: #### C MP #### [facility] [address] [address] [address] Ana Pandey Chloride [Moles/Vol] 106 mmol/L Normal 98-107 [facility] Comment on above: Performed By: #### C MP #### [facility] [address] [address] [address] Ana Pandey CO2 [Moles/Vol] 25.0 mmol/L Normal 21.0-32.0 [facility] Comment on above: Performed By: #### C MP #### [facility] [address] [address] [address] Ana Pandey Creatinine [Mass/Vol] 1.34 mg/dL Critically high 0.70-1.30 [facility] Comment on above: Performed By: #### C MP #### [facility] [address] [place] [address] Dr. Ana Pandey EGFR-AF TANZANIAN >60 Normal >=60 [facility] Comment on above: Performed By: #### C MP #### [facility] [address] [address] [address] Ana Pandey EGFR-NON AF TANZANIAN 52 mL/min/1.73m2 Critically low >=60 [facility] Comment on above: Performed By: #### C MP #### [facility] [address] [address] [address] Ana Pandey Globulin (S) [Mass/Vol] 3.2 g/dL Normal [facility] Comment on above: Performed By: #### C MP #### [facility] [address] [address] [address] Ana Pandey Glucose [Mass/Vol] 136 mg/dL Critically high 74-106 [facility] Comment on above: Performed By: #### C MP #### [facility] [address] [address] [address] Ana Pandey Potassium [Moles/Vol] 4.0 mmol/L Normal 3.5-5.1 [facility] Comment on above: Performed By: #### C MP #### [facility] [address] [address] [address] Ana Pandey Protein [Mass/Vol] 6.4 g/dL Normal 6.4-8.2 [facility] [place] Comment on above: Performed By: #### C MP #### [facility] [address] [place] [address] Dr. Ana Pandey Sodium [Moles/Vol] 140 mmol/L Normal 136-145 [facility] Comment on above: Performed By: #### C MP #### [facility] [address] [place] [address] Dr. Ana Pandey Urea nitrogen [Mass/Vol] 23.0 mg/dL Critically high 7.0-18.0 [facility] Comment on above: Performed By: #### C MP #### [facility] [address] [place] [address] Dr. Ana Pandey Urea nitrogen/Creatinine [Mass ratio] 17.2 mg/mg Normal [facility] Comment on above: Performed By: #### C MP #### [facility] [address] [place] [address] Dr. Ana Pandey URINE MICROSCOPIC ONLYon BACTERIA LARGE Abnormal NONE SEEN [facility] Comment on above: Performed By: #### JUSTYNA FARAHRO #### [facility] [address] [place] [address] Dr. Ana Pandey Bacteria identified Cx Nom (U) INDICATED Normal [facility] Comment on above: Performed By: #### Sumaya MEDELLIN UMICRO #### [facility] [address] [place] [address] Dr. Ana Pandey CAST NONE SEEN Normal NONE SEEN [facility] Comment on above: Performed By: #### Sumaya MEDELLIN UMICRO #### [facility] [address] [place] [address] Dr. Ana Pandey Crystals LM Nom (Urine sed) NONE SEEN Normal NONE SEEN [facility] Comment on above: Performed By: #### Sumaya MEDELLIN UMICRO #### [facility] [address] [place] [address] Dr. Ana Pandey Epithelial cells LM Ql (Urine sed) RARE Normal NONE SEEN /RARE [facility] Comment on above: Performed By: #### E LACIE UMЕЛЕНАRO #### [facility] [address] [place] [address] Dr. Ana Pandey MUCOUS NONE SEEN Normal NONE SEEN [facility] Comment on above: Performed By: #### E LACIE UMICRO #### [facility] [address] [place] [address] Dr. Ana Pandey RBC 0-2 Normal 0-2 [facility] Comment on above: Performed By: #### E LACIE UMICRO #### [facility] [address] [place] [address] Dr. Ana Pandey WBC 20-50 Abnormal NONE SEEN [facility] Comment on above: Performed By: #### Sumaya MEDELLIN UMICRO #### [facility] [address] [place] [address] Dr. Ana Pandey XR CHEST 1 Von 07-17-2022 XR CHEST 1 V EXAM: XR CHEST 1 V HISTORY: COUGH COMPARISON: Chest x-ray 09/10/2021 TECHNIQUE: Single frontal view chest x-ray FINDINGS: Mild bibasilar linear atelectasis. No lung consolidation, large pleural effusions, pneumothorax, or acute bony abnormality. Cardiac size is borderline prominent, similar to prior exam. IMPRESSION: Mild bibasilar streaky linear lung atelectasis. Otherwise, no radiographic evidence for acute chest abnormality. Electronically authenticated by: YELENA DIAZ Date: 2022-07-16 23:14 Normal [facility] Covid-19 PCR (CVDTBH)on 07-06 SARS-CoV-2 (COVID-19) RNA EDD+probe Ql (Unsp spec) Not detected Normal NOT DETECTED [facility] Comment on above: Performed By: #### A 1C #### [facility] [address] [place] [address] Dr. Ana Pandey INFLUENZA A AND B AGon 07-16 INFLUENZA A AG Negative Normal NEGATIVE SEE COMMENT [facility] Comment on above: Performed By: #### A 1C #### [facility] [address] [place] [address] Dr. Ana Pandey INFLUENZA B AG Negative Normal NEGATIVE SEE COMMENT [facility] Comment on above: Performed By: #### A 1C #### [facility] [address] [place] [address] Dr. Ana Pandey SYMPTOMATIC COVID-19 ANTIGEN on 07-16-2022 EUA Statement SEE BELOW Normal [facility] Comment on above: Result Comment: This test has not been FDA cleared or approved, but has been authorized by the FDA under an Emergency Use Authorization (EUA) for use by authorized laboratories certified under CLIA that meet the requirements to perform moderate or high complexity testing. This test has been authorized only for the detection of proteins from SARS-CoV-2, not for any other viruses or pathogens. The emergency use of this test is authorized for the duration of the declaration that circumstances exist justifying the authorization of emergency use of in vitro diagnostic tests for detection and/or diagnosis of Covid-19 under section 564(b)(1) of the Act, 21 U.S.C. 360bbb-3(b)(1), unless the declaration is terminated or authorization is revoked sooner. Performed By: #### C VDAGS #### [facility] [address] [place] [address] Dr. Ana Pandey SARS-CoV-2 (COVID-19) RNA EDD+probe Ql (Unsp spec) Negative Normal NEGATIVE [facility] Comment on above: Performed By: #### C VDAGS #### [facility] [address] [place] [address] Dr. Ana Pandey Follow-Upon 05-20-2022 Follow-Up [id number] Rom Winston 1945 M Date Provider Department Center 05/20/2022 MATIAS LOZA [facility] Family History Problem Relation Age of Onset Heart disease Father Family Status - Relation Status Age at Father Level of Service:39404 DE OFFICE/OUTPATIENT ESTABLISHED MOD MDM 30-39 MIN Reason for Visit and Comments: Follow-up [621628] Normal [facility] GLYCOHEMOGLOBIN A1Con 2022 ADA RECOMMENDATION SEE BELOW Normal [facility] Comment on above: Result Comment: ADA RECOMMENDED LIMIT 4.0 - 6.0 ADA THERAPEUTIC TARGET < 7.0 ACTION SUGGESTED > 7.0 Performed By: #### A 1C #### [facility] [address] [address] [address] Ana Pandey Glucose [Mass/Vol] 154 mg/dL Normal [facility] Comment on above: Performed By: #### A 1C #### [facility] [address] [address] [address] Ana Pandey HbA1c (Bld) [Mass fraction] 7.0 % Critically high 4.5-6.2 [facility] Comment on above: Performed By: #### A 1C #### [facility] [address] [place] [address] Dr. Ana Pandey SED RATE [facility] 2022 SED RATE 30 mm/hr Critically high <=20 [facility] Comment on above: Performed By: #### A 1C #### [facility] [address] [place] [address] Dr. Ana Pandey Office Visiton 12-01-2021 Follow-up visit [id number] Rom Winston s Ronald 1945 Date Provider Department Center 12/01/2021 CHRISTIANO LAFLEUR SIENNA [place] Family History Problem Relation Age of Onset Heart disease Father Family Status - Relation Status Age at Father Level of Service:86709 DE OFFICE/OUTPATIENT ESTABLISHED MOD MDM 30-39 MIN Reason for Visit and Comments: Coronary Artery Disease [187] Shortness of Breath [736989] Hypertension [860093] Normal [facility] Abstracton 11-07-2021 Abstract [id number] Rom Winston 1945 Date Provider Department Center 11/07/2021 CATA FRENCH SIENNA [place] Family History Problem Relation Age of Onset Heart disease Father Family Status - Relation Status Age at Father Normal [facility] NM STRESS/REST MULTIon 09-29 NM STRESS/REST MULTI Patient: LEONARDO WINSTON TOMMY Tate Exam Date: 09/29/2021 : 1945 Gender:M Ordering : MATIAS MAYORGA Admission #: [id number] Family : Order #: [id number] CLICK HERE TO VIEW EXAM RADIOLOGY REPORT PROCEDURE: RADIONUCLIDE IMAGING STRESS/REST MULTI COMPARISON: NM STRESS/REST MULTI, 04/16/2017. INDICATIONS: Dyspnea on exertion TECHNIQUE: Exam Description: Stress/Rest one day protocol gated SPECT Rest Imagin.4 mCi Tc-99m Cardiolite IV on 09/29/2021 Stress Imaging 30.1 mCi Tc-99m Cardiolite IV on 09/29/2021 Exercise Protocol: 0.4 mg Lexiscan given IV Heart Rate (bpm): Rest: 60 Max: 83 PMHR: 58 Blood Pressure: Rest: 154/76 Max: 154/76 Symptoms: Rest and peak stress ECG findings were normal and the exercise portion of the study was normal per attending physician Dr. Sanchez . For more details please see separate cardiac stress test report. FINDINGS: QUALITY OF STUDY: Excellent. PERFUSION DEFECT: None. LOCATION: N/A SIZE: N/A. SEVERITY: N/A. TYPE: N/A. WALL MOTION: Normal. LV SIZE: Normal. 95 mL. TID / TCD: None; 0.9 LVEF: Normal. Calculated EF 69%. SUMMARY: Myocardial perfusion imaging study is NORMAL. CONCLUSION: 1. Normal nuclear medicine myocardial perfusion scan. Dictated by: Adria Graham M.D. on 09/29/2021 at 15:18 Approved by: Adria Graham M.D. on 09/29/2021 at 15:22 Normal [facility] PROF CHEM 8 (BAS METB)on Anion gap [Moles/Vol] 13.1 mmol/L Normal [facility] Comment on above: Performed By: #### B TEST SPECIALIST, CMP #### [facility] [address] [address] [address] Ana Pandey Calcium [Mass/Vol] 8.6 mg/dL Normal 8.5-10.[address] [facility] Comment on above: Performed By: #### B TEST SPECIALIST, CMP #### [facility] [address] [address] [address] Ana Pandey Chloride [Moles/Vol] 104 mmol/L Normal 98-107 [facility] Comment on above: Performed By: #### B TEST SPECIALIST, CMP #### [facility] [address] [address] [address] Ana Pandey CO2 [Moles/Vol] 25.9 mmol/L Normal 21.0-32.0 [facility] Comment on above: Performed By: #### B TEST SPECIALIST, CMP #### [facility] [address] [address] [address] Ana Pandey Creatinine [Mass/Vol] 0.92 mg/dL Normal 0.70-1.30 [facility] Comment on above: Performed By: #### B TEST SPECIALIST, CMP #### [facility] [address] [address] [address] Ana Pandey EGFR-AF TANZANIAN >60 Normal >=60 [facility] Comment on above: Performed By: #### B TEST SPECIALIST, CMP #### [facility] [address] [place] [address] Dr. Ana Pandey EGFR-NON AF TANZANIAN >60 Normal >=60 [facility] Comment on above: Performed By: #### B TEST SPECIALIST, CMP #### [facility] [address] [address] [address] Ana Pandey Glucose [Mass/Vol] 102 mg/dL Normal 74-[address] [facility] Comment on above: Performed By: #### B TEST SPECIALIST, CMP #### [facility] [address] [address] [address] Ana Pandey Potassium [Moles/Vol] 4.0 mmol/L Normal 3.5-5.1 [facility] Comment on above: Performed By: #### B TEST SPECIALIST, CMP #### [facility] [address] [address] [address] Ana Pandey Sodium [Moles/Vol] 139 mmol/L Normal 136-145 [facility] Comment on above: Performed By: #### B TEST SPECIALIST, CMP #### [facility] [address] [address] [address] Ana Pandey Urea nitrogen [Mass/Vol] 24.0 mg/dL Critically high 7.0-18.0 [facility] Comment on above: Performed By: #### B TEST SPECIALIST, CMP #### [facility] [address] [place] [address] Dr. Ana Pandey Urea nitrogen/Creatinine [Mass ratio] 26.1 mg/mg Normal [facility] Comment on above: Performed By: #### B TEST SPECIALIST, CMP #### [facility] [address] [place] [address] Dr. Ana Pandey BNPon 09-10-2021 Natriuretic peptide B (Bld) [Mass/Vol] 305.0 pg/mL Normal <=1,800.0 [facility] Comment on above: Performed By: #### B TEST SPECIALIST, CMP #### [facility] [address] [place] [address] Dr. Ana Pandey CBC AUTO DIFFon 09-10-2021 BASO # 0.0 103/ul Normal 0.0-0.1 [facility] Comment on above: Performed By: #### A 1C #### [facility] [address] [place] [address] Dr. Ana Pandey Basophils/100 WBC (Bld) 0.5 % Normal 0.2-2.0 [facility] Comment on above: Performed By: #### A 1C #### [facility] [address] [place] [address] Dr. Ana Pandey EO # 0.1 103/ul Normal 0.0-0.7 [facility] Comment on above: Performed By: #### A 1C #### [facility] [address] [place] [address] Dr. Ana Pandey Eosinophils/100 WBC (Bld) 1.9 % Normal 0.9-7.0 [facility] Comment on above: Performed By: #### A 1C #### [facility] [address] [place] [address] Dr. Ana Pandey Erythrocyte distribution width (RBC) [Ratio] 15.4 % Critically high 11.0-15.0 [facility] Comment on above: Performed By: #### A 1C #### [facility] [address] [place] [address] Dr. Ana Pandey Hematocrit (Bld) [Volume fraction] 38.6 % Critically low 42.0-54.0 [facility] Comment on above: Performed By: #### A 1C #### [facility] [address] [place] [address] Dr. Ana Pandey Hemoglobin (Bld) [Mass/Vol] 12.2 g/dL Critically low 14.0-18.0 [facility] Comment on above: Performed By: #### A 1C #### [facility] [address] [place] [address] Dr. Ana Pandey IG # 0.01 10e3/ul Normal 0.00-0.03 [facility] Comment on above: Performed By: #### A 1C #### [facility] [address] [place] [address] Dr. Ana Pandey IG % 0.1 % Normal 0.0-0.5 [facility] Comment on above: Performed By: #### A 1C #### [facility] [address] [place] [address] Dr. Ana Pandey LYMPH # 1.6 103/ul Normal 1.2-3.8 [facility] Comment on above: Performed By: #### A 1C #### [facility] [address] [place] [address] Dr. Ana Pandey Lymphocytes/100 WBC (Bld) 21.1 % Normal 20.5-60.0 [facility] Comment on above: Performed By: #### A 1C #### [facility] [address] [place] [address] Dr. Ana Pandey MANUAL DIFF REQ NO Normal [facility] Comment on above: Performed By: #### A 1C #### [facility] [address] [place] [address] Dr. Ana Pandey MCH (RBC) [Entitic mass] 28.7 pg Normal 25.9-34.0 [facility] Comment on above: Performed By: #### A 1C #### [facility] [address] [place] [address] Dr. Ana Pandey MCHC (RBC) [Mass/Vol] 31.6 g/dL Normal 29.9-35.2 [facility] Comment on above: Performed By: #### A 1C #### [facility] [address] [address] [address] Ana Pandey MCV (RBC) [Entitic vol] 90.8 fL Normal 80.0-94.0 [facility] Comment on above: Performed By: #### A 1C #### [facility] [address] [address] [address] Ana Pandey MONO # 0.6 103/ul Normal 0.3-0.8 [facility] Comment on above: Performed By: #### A 1C #### [facility] [address] [address] [address] Ana Pandey Monocytes/100 WBC (Bld) 7.4 % Normal 1.7-12.0 [facility] Comment on above: Performed By: #### A 1C #### [facility] [address] [address] [address] Ana Pandey NEUT # 5.1 103/ul Normal 1.4-6.5 [facility] Comment on above: Performed By: #### A 1C #### [facility] [address] [address] [address] Ana Pandey Neutrophils/100 WBC (Bld) 69.0 % Normal 43.0-75.0 [facility] Comment on above: Performed By: #### A 1C #### [facility] [address] [address] [address] Ana Pandey Platelet mean volume (Bld) [Entitic vol] 9.9 fL Normal 9.5-13.5 [facility] Comment on above: Performed By: #### A 1C #### [facility] [address] [address] [address] Ana Pandey PLT 194 103/ul Normal 150-450 [facility] Comment on above: Performed By: #### A 1C #### [facility] [address] [address] [address] Ana Pandey RBC 4.25 106/ul Critically low 4.70-6.10 [facility] Comment on above: Performed By: #### A 1C #### [facility] [address] [place] [address] Dr. Ana Pandey WBC 7.4 103/ul Normal 4.0-11.0 [facility] Comment on above: Performed By: #### A 1C #### [facility] [address] [place] [address] Dr. Ana Pandey PROF 14(COMP METB)on 022 Albumin [Mass/Vol] 3.5 g/dL Normal 3.4-5.[address] [facility] Comment on above: Performed By: #### B TEST SPECIALIST, CMP #### [facility] [address] [place] [address] Dr. Ana Pandey Albumin/Globulin [Mass ratio] 1.2 {ratio} Normal [facility] Comment on above: Performed By: #### B TEST SPECIALIST, CMP #### [facility] [address] [place] [address] Dr. Ana Pandey ALP [Catalytic activity/Vol] 67 U/L Normal 46-116 [facility] Comment on above: Performed By: #### B TEST SPECIALIST, CMP #### [facility] [address] [place] [address] Dr. Ana Pandey ALT [Catalytic activity/Vol] 37 U/L Normal 16-63 [facility] Comment on above: Performed By: #### B TEST SPECIALIST, CMP #### [facility] [address] [place] [address] Dr. Ana Pandey Anion gap [Moles/Vol] 11.6 mmol/L Normal [facility] Comment on above: Performed By: #### B TEST SPECIALIST, CMP #### [facility] [address] [place] [address] Dr. Ana Pandey AST [Catalytic activity/Vol] 30 U/L Normal 15-37 [facility] Comment on above: Performed By: #### B TEST SPECIALIST, CMP #### [facility] [address] [place] [address] Dr. Ana Pandey Bilirubin [Mass/Vol] 0.5 mg/dL Normal 0.2-1.0 [facility] Comment on above: Performed By: #### B TEST SPECIALIST, CMP #### [facility] [address] [address] [address] Ana Pandey Calcium [Mass/Vol] 8.9 mg/dL Normal 8.5-10.[address] [facility] Comment on above: Performed By: #### B TEST SPECIALIST, CMP #### [facility] [address] [address] [address] Ana Pandey Chloride [Moles/Vol] 107 mmol/L Normal 98-107 [facility] Comment on above: Performed By: #### B TEST SPECIALIST, CMP #### [facility] [address] [place] [address] Dr. Ana Pandey CO2 [Moles/Vol] 26.9 mmol/L Normal 21.0-32.0 [facility] Comment on above: Performed By: #### B TEST SPECIALIST, CMP #### [facility] [address] [place] [address] Dr. Ana Pandey Creatinine [Mass/Vol] 0.93 mg/dL Normal 0.70-1.30 [facility] Comment on above: Performed By: #### B TEST SPECIALIST, CMP #### [facility] [address] [place] [address] Dr. Ana Pandey EGFR-AF TANZANIAN >60 Normal >=60 [facility] Comment on above: Performed By: #### B TEST SPECIALIST, CMP #### [facility] [address] [place] [address] Dr. Ana Pandey EGFR-NON AF TANZANIAN >60 Normal >=60 [facility] Comment on above: Performed By: #### B TEST SPECIALIST, CMP #### [facility] [address] [address] [address] Ana Pandey Globulin (S) [Mass/Vol] 2.8 g/dL Normal [facility] Comment on above: Performed By: #### B TEST SPECIALIST, CMP #### [facility] [address] [address] [address] Ana Pandey Glucose [Mass/Vol] 169 mg/dL Critically high 74-106 [facility] Comment on above: Performed By: #### B TEST SPECIALIST, CMP #### [facility] [address] [address] [address] Ana Pandey Potassium [Moles/Vol] 4.5 mmol/L Normal 3.5-5.1 [facility] Comment on above: Performed By: #### B TEST SPECIALIST, CMP #### [facility] [address] [address] [address] Ana Pandey Protein [Mass/Vol] 6.3 g/dL Critically low 6.4-8.2 [facility] Comment on above: Performed By: #### B TEST SPECIALIST, CMP #### [facility] [address] [address] [address] Ana Pandey Sodium [Moles/Vol] 141 mmol/L Normal 136-[address] [facility] Comment on above: Performed By: #### B TEST SPECIALIST, CMP #### [facility] [address] [place] [address] Dr. Ana Pandey Urea nitrogen [Mass/Vol] 20.0 mg/dL Critically high 7.0-18.0 [facility] Comment on above: Performed By: #### B TEST SPECIALIST, CMP #### [facility] [address] [address] [address] Ana Pandey Urea nitrogen/Creatinine [Mass ratio] 21.5 mg/mg [facility] Comment on above: Performed By: #### B TEST SPECIALIST, CMP #### [facility] [address] [address] [address] Ana Pandey XR CHEST 2 Von 09-10-2021 XR CHEST 2 V EXAM: CHEST 2 VIEWS HISTORY: Dyspnea TECHNIQUE: PA and lateral views chest. COMPARISON: None. FINDINGS: The lungs are mildly hyperinflated with small bilateral pleural effusions and mild bibasilar atelectasis. No lobar consolidation or pneumothorax. Pulmonary vasculature is within normal limits. The cardiomediastinal silhouette is normal. IMPRESSION: 1. Small bilateral pleural effusions with mild bibasilar atelectasis. No focal lung consolidation. 2. Normal heart size. Negative for pulmonary edema. Electronically authenticated by: KAYCE SARAVIA Date: 2021-09-10 14:23 Normal [facility] CBC AUTO DIFFon 07-23-2021 BASO # 0.1 103/ul Normal 0.0-0.1 [facility] Comment on above: Performed By: #### C BC #### [facility] [address] [place] [address] Dr. Ana Pandey Basophils/100 WBC (Bld) 0.6 % Normal 0.2-2.0 [facility] Comment on above: Performed By: #### C BC #### [facility] [address] [address] [address] Ana Pandey EO # 0.2 103/ul Normal 0.0-0.7 [facility] Comment on above: Performed By: #### C BC #### [facility] [address] [place] [address] Dr. Ana Pandey Eosinophils/100 WBC (Bld) 2.5 % Normal 0.9-7.0 [facility] Comment on above: Performed By: #### C BC #### [facility] [address] [place] [address] Dr. Ana Pandey Erythrocyte distribution width (RBC) [Ratio] 15.0 % Normal 11.0-15.0 [facility] [facility] Comment on above: Performed By: #### C BC #### [facility] [address] [place] [address] Dr. Ana Pandey Hematocrit (Bld) [Volume fraction] 46.4 % Normal 42.0-54.0 [facility] Comment on above: Performed By: #### C BC #### [facility] [address] [place] [address] Dr. Ana Pandey Hemoglobin (Bld) [Mass/Vol] 14.2 g/dL Normal 14.0-18.0 [facility] Comment on above: Performed By: #### C BC #### [facility] [address] [place] [address] Dr. Ana Pandey IG # 0.02 10e3/ul Normal 0.00-0.03 [facility] Comment on above: Performed By: #### C BC #### [facility] [address] [place] [address] Dr. Ana Pandey IG % 0.2 % Normal 0.0-0.5 [facility] Comment on above: Performed By: #### C BC #### [facility] [address] [place] [address] Dr. Ana Pandey LYMPH # 2.5 103/ul Normal 1.2-3.8 [facility] Comment on above: Performed By: #### C BC #### [facility] [address] [place] [address] Dr. Ana Pandey Lymphocytes/100 WBC (Bld) 27.9 % Normal 20.5-60.0 [facility] Comment on above: Performed By: #### C BC #### [facility] [address] [place] [address] Dr. Ana Pandey MANUAL DIFF REQ NO Normal [facility] Comment on above: Performed By: #### C BC #### [facility] [address] [place] [address] Dr. Ana Pandey MCH (RBC) [Entitic mass] 27.8 pg Normal 25.9-34.0 [facility] Comment on above: Performed By: #### C BC #### [facility] [address] [place] [address] Dr. Ana Pandey MCHC (RBC) [Mass/Vol] 30.6 g/dL Normal 29.9-35.2 [facility] Comment on above: Performed By: #### C BC #### [facility] [address] [place] [address] Dr. Ana Pandey MCV (RBC) [Entitic vol] 90.8 fL Normal 80.0-94.0 [facility] Comment on above: Performed By: #### C BC #### [facility] [address] [place] [address] Dr. Ana Pandey MONO # 0.7 103/ul Normal 0.3-0.8 [facility] Comment on above: Performed By: #### C BC #### [facility] [address] [place] [address] Dr. Ana Pandey Monocytes/100 WBC (Bld) 8.0 % Normal 1.7-12.0 [facility] Comment on above: Performed By: #### C BC #### [facility] [address] [place] [address] Dr. Ana Pandey NEUT # 5.4 103/ul Normal 1.4-6.5 [facility] Comment on above: Performed By: #### C BC #### [facility] [address] [place] [address] Dr. Ana Pandey Neutrophils/100 WBC (Bld) 60.8 % Normal 43.0-75.0 [facility] Comment on above: Performed By: #### C BC #### [facility] [address] [place] [address] Dr. Ana Pandey Platelet mean volume (Bld) [Entitic vol] 10.6 fL Normal 9.5-13.5 [facility] Comment on above: Performed By: #### C BC #### [facility] [address] [place] [address] Dr. Ana Pandey PLT 248 103/ul Normal 150-450 [facility] Comment on above: Performed By: #### C BC #### [facility] [address] [place] [address] Dr. Ana Pandey RBC 5.11 106/ul Normal 4.70-6.10 [facility] Comment on above: Performed By: #### C BC #### [facility] [address] [place] [address] Dr. Ana Pandey WBC 8.8 103/ul Normal 4.0-11.0 [facility] Comment on above: Performed By: #### C BC #### [facility] [address] [place] [address] Dr. Ana Pandey GLYCOHEMOGLOBIN A1Con 2021 ADA RECOMMENDATION SEE BELOW Normal [facility] Comment on above: Result Comment: ADA RECOMMENDED LIMIT 4.0 - 6.0 ADA THERAPEUTIC TARGET < 7.0 ACTION SUGGESTED > 7.0 Performed By: #### A 1C #### [facility] [address] [place] [address] Dr. Ana Pandey Glucose [Mass/Vol] 146 mg/dL Normal [facility] Comment on above: Performed By: #### A 1C #### [facility] [address] [address] [address] Ana Pandey HbA1c (Bld) [Mass fraction] 6.7 % Critically high 4.5-6.2 [facility] Comment on above: Performed By: #### A 1C #### [facility] [address] [address] [address] Ana Pandey LIPID PROFILEon 07-23-2021 CHOL-HDL RATIO NORM SEE BELOW Normal [facility] Comment on above: Result Comment: 3.3 - 4.4 LOW RISK 4.4 - 7.1 AVERAGE RISK 7.1 - 11.0 MODERATE RISK >11.0 HIGH RISK Performed By: #### A 1C #### [facility] [address] [address] [address] Ana Pandey Cholesterol [Mass/Vol] 98 mg/dL Normal <=200 [facility] Comment on above: Performed By: #### A 1C #### [facility] [address] [address] [address] Ana Pandey Cholesterol in HDL [Mass/Vol] 42 mg/dL Normal 40-60 [facility] Comment on above: Performed By: #### A 1C #### [facility] [address] [address] [address] Ana Pandey Cholesterol in LDL [Mass/Vol] 43.2 mg/dL Normal [facility] Comment on above: Performed By: #### A 1C #### [facility] [address] [address] [address] Ana Pandey Cholesterol.total/Cho lesterol in HDL [Mass ratio] 2.3 {ratio} Normal [facility] Comment on above: Performed By: #### A 1C #### [facility] [address] [address] [address] Ana Pandey HDL NORMAL > or = 60 mg/dl - LO W CARDIOVASCULAR RISK <40 mg/dl - HIGH CARDIOVASCULAR RISK Normal [facility] Comment on above: Performed By: #### A 1C #### [facility] [address] [address] [address] Ana Pandey LDL CALC NORMAL SEE BELOW Normal [facility] Comment on above: Result Comment: <100 mg/dl OPTIMAL 100 - 129 mg/dl NEAR OR ABOVE OPTIMAL 130 - 159 mg/dl BORDERLINE HIGH 160 - 189 mg/dl HIGH >190 mg/dl VERY HIGH Performed By: #### A 1C #### [facility] [address] [address] [address] Ana Pandey Triglyceride [Mass/Vol] 64 mg/dL Normal <=150 [facility] Comment on above: Performed By: #### A 1C #### [facility] [address] [address] [address] Ana Pandey VLDL CALC 12.8 mg/dL Normal [facility] Comment on above: Performed By: #### A 1C #### [facility] [address] [place] [address] Dr. Ana Pandey LIVER PROFILEon 07-23-2021 Albumin [Mass/Vol] 3.9 g/dL Normal 3.4-5.[address] [facility] Comment on above: Performed By: #### A 1C #### [facility] [address] [address] [address] Ana Pandey Albumin/Globulin [Mass ratio] 1.2 {ratio} Normal [facility] Comment on above: Performed By: #### A 1C #### [facility] [address] [place] [address] Dr. Ana Pandey ALP [Catalytic activity/Vol] 74 U/L Normal 46-116 [facility] Comment on above: Performed By: #### A 1C #### [facility] [address] [place] [address] Dr. Ana Pandey ALT [Catalytic activity/Vol] 52 U/L Normal 16-63 [facility] Comment on above: Performed By: #### A 1C #### [facility] [address] [place] [address] Dr. Ana Pandey AST [Catalytic activity/Vol] 43 U/L Critically high 15-37 [facility] Comment on above: Performed By: #### A 1C #### [facility] [address] [address] [address] Ana Pandey BILI, CONJUGATED 0.2 mg/dL Normal 0.0-0.2 [facility] Comment on above: Performed By: #### A 1C #### [facility] [address] [place] [address] Dr. Ana Pandey Bilirubin [Mass/Vol] 0.6 mg/dL Normal 0.2-1.0 [facility] Comment on above: Performed By: #### A 1C #### [facility] [address] [place] [address] Dr. Ana Pandey Globulin (S) [Mass/Vol] 3.2 g/dL Normal [facility] Comment on above: Performed By: #### A 1C #### [facility] [address] [place] [address] Dr. Ana Pandey Protein [Mass/Vol] 7.1 g/dL Normal 6.4-8.2 [facility] [place] Comment on above: Performed By: #### A 1C #### [facility] [address] [place] [address] Dr. Ana Pandey MICROALBUMIN, RAND URon 07-06 mALB 1.8 mg/L Normal <=30.0 [facility] Comment on above: Performed By: #### A 1C #### [facility] [address] [place] [address] Dr. Ana Pandey PROF CHEM 8 (BAS METB)on Anion gap [Moles/Vol] 12.1 mmol/L Normal [facility] Comment on above: Performed By: #### A 1C #### [facility] [address] [place] [address] Dr. Ana Pandey Calcium [Mass/Vol] 8.7 mg/dL Normal 8.5-10.1 [facility] Comment on above: Performed By: #### A 1C #### [facility] [address] [place] [address] Dr. Ana Pandey Chloride [Moles/Vol] 102 mmol/L Normal 98-107 [facility] Comment on above: Performed By: #### A 1C #### [facility] [address] [address] [address] Ana Pandey CO2 [Moles/Vol] 28.1 mmol/L Normal 21.0-32.0 [facility] Comment on above: Performed By: #### A 1C #### [facility] [address] [address] [address] Ana Pandey Creatinine [Mass/Vol] 0.94 mg/dL Normal 0.70-1.30 [facility] Comment on above: Performed By: #### A 1C #### [facility] [address] [address] [address] Ana Pandey EGFR-AF TANZANIAN >60 Normal >=60 [facility] Comment on above: Performed By: #### A 1C #### [facility] [address] [address] [address] Ana Pandey EGFR-NON AF TANZANIAN >60 Normal >=60 [facility] Comment on above: Performed By: #### A 1C #### [facility] [address] [address] [address] Ana Pandey Glucose [Mass/Vol] 102 mg/dL Normal 74-106 [facility] Comment on above: Performed By: #### A 1C #### [facility] [address] [address] [address] Ana Pandey Potassium [Moles/Vol] 4.2 mmol/L Normal 3.5-5.1 [facility] Comment on above: Performed By: #### A 1C #### [facility] [address] [address] [address] Ana Pandey Sodium [Moles/Vol] 138 mmol/L Normal 136-145 [facility] Comment on above: Performed By: #### A 1C #### [facility] [address] [address] [address] Ana Pandey Urea nitrogen [Mass/Vol] 28.0 mg/dL Critically high 7.0-18.0 [facility] Comment on above: Performed By: #### A 1C #### [facility] [address] [address] [address] Ana Pandey Urea nitrogen/Creatinine [Mass ratio] 29.8 mg/mg Normal [facility] Comment on above: Performed By: #### A 1C #### [facility] [address] [address] [address] Ana Pandey TSHon 07-23-2021 TSH 4.104 uIU/mL Critically high 0.358-3.74 0 [facility] Comment on above: Performed By: #### A 1C #### [facility] [address] [address] [address] Ana Pandey TSH RANGE SEE BELOW Normal [facility] Comment on above: Result Comment: <0.3 4 UIU/ml HYPERTHYROID 0.34-5.60 UIU/ml EUTHYROID >5.60 UIU/ml HYPOTHYROID Performed By: #### A 1C #### [facility] [address] [address] [address] Ana Pandey COVID Quick Testingon 2020 Result Positive [employer] Other Cardiovascular Lab Reporton 05-05-2017 Cardiovascular Lab Report [facility] Patient Name: [facility] MR #: [id number] Physician: Shantell Gomez,Department of M.D.Medicine Service Date: 05/04/2017Division of Birthdate: 4Cardiology Room #: 3AB [id number] [facility]Services[facility] [place] [id number] Fax Cardiovascular Laboratory ReportREFERRING PHYSICIANS: Christian Rosa M.D. and Michael Smith M.D.CLINICAL PRESENTATION: Mr. Thea Winston is a 71-year-old male, pastmedical history significant for type 2 diabetes mellitus, hyperlipidemia,and hypertension. The patient was recently evaluated by my colleague, Dr.Dan Rosa. The patient reported worsening dyspnea on exertion over thepast 6 months. His noticed that he gets out of breath with mild levelof exertion. He had a cardiac stress test, which showed an inferior fixeddefect. Given his risk factor burden, Dr. Rosa recommended cardiaccatheterization.ANGELIKA KOLB IMPRESSION:1. Severe stenosis of the mid LAD and a large 2nd diagonal branch status post successful bifurcation stenting.2. The circumflex is patent.3. The distal RCA has a 40% stenosis.PLAN:1. Aggressive medical therapy for CAD.2. Aspirin 81 mg daily long-term.3. Plavix 75 mg daily for at least 1 year, consider long-term if low bleeding risk due to bifurcation stenting.4. High-intensity statin therapy. His statin has been switched to atorvastatin 40 mg daily.5. Start metoprolol-XL 25 mg daily for CAD.6. Outpatient followup with Dr. Jacobo Rosa, MS Cardiology.7. Okay to refer to cardiac rehabilitation and okay to start within one week.8. Aggressive medical therapy for diabetes, hypertension, and hyperlipidemia.PROCEDURES: Coronary angiogram, right heart catheterization, ultrasoundguidance for vascular access, conscious sedation 159 minutes, PCI LAD, PCI2nd diagonal branch, FFR of the LAD.INDICATION: Unstable angina, CCS class 3 symptoms, abnormal cardiac stresstest.DESCRIPTION OF PROCEDURE: The patient was brought to the cardiaccatheterization lab in a fasting state. Informed written consent wasobtained. He was prepped and draped in the usual sterile fashion of theright wrist and bilateral groin. Time-out was performed. He was givenVersed and fentanyl for sedation. 1% lidocaine was infiltrated over theright radial artery and the right internal jugular vein. First usingultrasound guidance and micropuncture access technique, a 6-Singaporean sheathwas placed in the right internal jugular vein. Using a Dougherty catheter,the right heart catheterization was then performed. Pressures wereobtained in the right atrium, right ventricle, pulmonary artery, andpulmonary capillary wedge position. Oxygen saturation was drawn from thepulmonary artery and the Sly cardiac output and cardiac index were thencalculated. The Dougherty catheter was then removed.Next, a 6-Singaporean Terumo Glidesheath slender was placed in the right radialartery. The radial anti-vasospasm cocktail of nitroglycerin and verapamilwas administered through the sheath. All catheter exchanges were made overthe J-tip Ayala guidewire. Diagnostic coronary angiography was performedwith a JL3.5, and a JR5 catheter. Coronary angiography was performed inmultiple orthogonal views using hand injection of contrast.At this time, it was apparent that the 2nd diagonal branch was large andhad an 80% stenosis. The mid LAD had a diffuse 70% stenosis. However, Idecided to check the severity with an FFR testing.A [employer] left 6-Singaporean guide was engaged to left main coronaryartery.The [employer] Verrata FFR wire was then zeroed outside of the body and thenthe pressure tracings were normalized at the catheter guide tip. Thevolcano Verrata wire was then manipulated at the distal LAD. The FFR wasthen measured after adenosine was infused at a rate of 140 mcg/kg/minthrough the intravenous access. The FFR was recorded at 0.77, which is inthe ischemic range and is positive FFR test.Next, I elected to proceed with bifurcation stenting of the LAD and the 2nddiagonal branch. The 2nd diagonal branch was a large vessel approximately2.75 mm in diameter. The LAD was a large vessel approximately 3.0-3.5 mmin diameter. I elected to pursue a crush technique. The FFR wire wasalready in the LAD.A Prowater was manipulated to the 2nd diagonal branch.Pre dilation was performed. Initially an Emerge 2.5 x 12 was used in thediagonal branch and an Emerge 3.0 x 15 was used in the LAD and serialdilations of the diagonal branch LAD were performed including a kissingballoon dilation.Next, I tried to pass a 2.75 x 28 mm stent to the 2nd diagonal branch.However, it could not pass. This was then removed.Further pre dilations were performed with a 3.0 x 12 mm balloon.Next, a Synergy 2.5 x 20 mm drug-eluting stent was deployed in the 2nddiagonal branch. It was deployed with a portion back in the LAD. Theportion in the LAD was then crushed using an [employer] apex 3.0 x 12 mmnoncompliant balloon, which was already parked in the mid to distal LAD .The balloons were then removed. After the crush technique, the diagonalwire, which had previously been removed was then re-crossed across thestent struts and then the stent struts were dilated into the side branchusing a sprinter Legend 1.25 x 8 mm balloon and then an Emerge 2.0 x 12 mmballoon and then an NC Quantum apex 2.5 x 12 mm balloon. The entirediagonal stent was then post dilated.Next, the LAD stent was positioned. This was a Synergy 3.0 x 32 mmdrug-eluting stent. The side branch wire was then withdrawn back and theLAD stent was deployed at 14 atmospheres.Next, a proximal optimization technique (POT) was performed, an NC Quantumapex 3.5 x 8 mm noncompliant balloon was inflated at 10-12 atmospheres inthe mid LAD at the ostium of the diagonal side branch and in the proximalportion of the stent.Next, the Prowater was re-crossed across the stent struts into the sidebranch. This was dilated once again using a sprinter Legend 1.25 x 10 mmballoon and then an Emerge 2.0 x 12 mm balloon.Finally a kissing balloon dilation was performed, for final post dilation.A 2.5 x 15 mm NC Quantum apex was positioned in the diagonal branch and a3.0 x 15 mm balloon was positioned in the LAD. The entire length of theLAD stent and diagonal branches were then post dilated and kissing balloondilation was performed at the bifurcation as well at 6 to 8 atmospheresthroughout. At this point, the final result was very good. There was 0%residual stenosis in the mid LAD. The diagonal branch looked very good aswell. It had a 30% stenosis at the outflow of the diagonal stent, but thiswas considered adequate and there were no procedural complications.TOTAL CONSCIOUS SEDATION TIME: 159 minutes.TOTAL CONTRAST: 220 mL.TOTAL FLUOROSCOPY TIME: 40 minutes 57 seconds, 4.4 Gy.FINDINGS: HEMODYNAMICS:1. RA mean 6.2. RV 29/7.3. PA 28/11 (MEP 18).4. Pulmonary capillary wedge pressure mean 11.5. AO 99/61 (MAP 75).6. Sly cardiac output 6.9 L/minute.7. Sly cardiac index 2.9 L/minute per meter squared.8. PA sat 63%, AO sat 94%.CORONARY ANGIOGRAPHY:Left main coronary artery: Patent to the left main. The left mainbifurcates into LAD and the circumflex.Left anterior descending coronary artery: The LAD is a large vessel andgives rise to 2 diagonal branches. The 2nd diagonal branch is a largevessel. The proximal LAD has a 30% stenosis. The mid LAD has 2 areas ofserial 70% stenosis. The severity of this stenosis was confirmed with FFRanalysis, which showed an FFR of 0.77, which is consistent with asignificant ischemia producing stenosis.The 2nd diagonal branch has an 80% stenosis in its proximal segment.After the bifurcation stenting there was 0% residual stenosis in the LADand a widely patent stent. The 2nd diagonal branch has a widely patentstent and has a 30% stenosis after the stent.Left circumflex coronary artery. The circumflex is patent.Right coronary artery. The RCA is a large vessel and has a 30%-40%stenosis in the distal segment. The PDA and LIDIA are widely patent.Electronically Signed by:hSantell Gomez M.D. 05/11/2017 08:15 P Shantell Gomez M.D.Date Dict: 05/04/2017/12:44 P/Shantell Gomez M.D.Date Trans: 05/05/2017 09:35 A/[id number] c: Christian Rosa M.D. [address] [place] [id number] Michael Smith M.D. [facility] [address] [facility] Vital Signs Date Time Vital Sign Value Performing Clinician Facility 02-14-2023 12:10-0500 Body height 190.5 cm Mitzy Neves Other [employer] Other 02-14-2023 12:10-0500 Body mass index (BMI) [Ratio] 30.57 kg/m2 Mitzy Neves Other [employer] [facility] Other 02-14-2023 12:10-0500 Body temperature 98 [degF] Mitzy Neves Other [employer] Other 02-14-2023 12:10-0500 Body weight 110.95 kg Mitzy Neves Other [employer] Other 02-14-2023 12:10-0500 Diastolic blood pressure 60 mm[Hg] Mitzy Neves Other [employer] Other 02-14-2023 12:10-0500 Respiratory rate 18 /min Mitzy Neves Other [employer] Other 02-14-2023 12:10-0500 SaO2% (BldA) [Mass fraction] 98 % Mitzy Neves Other [employer] Other 02-14-2023 12:10-0500 Systolic blood pressure 135 mm[Hg] Mitzy Neves Other [employer] Other 10-05-2022 11:30-0400 Diastolic blood pressure 58 mm[Hg] Genoveva Shamar DO Work Phone: [facility] 10-05-2022 11:30-0400 Heart rate 58 /min Genoveva Shamar DO Work Phone: [facility] 10-05-2022 11:30-0400 Respiratory rate 16 /min Genoveva Shamar DO Work Phone: [facility] 10-05-2022 11:30-0400 SaO2% (BldA) [Mass fraction] 98 % Genoveva Shamar DO Work Phone: [facility] 10-05-2022 11:30-0400 Systolic blood pressure 126 mm[Hg] Genoveva Shamar DO Work Phone: [facility] 10-05-2022 11:11-0400 Body temperature 96.91 [degF] Genoveva Shamar DO Work Phone: [facility] 10-05-2022 10:00-0400 Body height 190.5 cm Genoveva Pond DO Work Phone: [facility] 10-05-2022 10:00-0400 Body mass index (BMI) [Ratio] 32.12 kg/m2 Genoveva Pond DO Work Phone: [facility] 10-05-2022 10:00-0400 Body weight 116.57 kg Genoveva Pond DO Work Phone: [facility] 05-26-2022 12:50-0400 Body height 190.5 cm Minerva Irwin Other [employer] Other 05-26-2022 12:50-0400 Body mass index (BMI) [Ratio] 31.87 kg/m2 Minerva Irwin Other [employer] Other 05-26-2022 12:50-0400 Body temperature 97.1 [degF] Minerva Irwin Other [employer] Other 05-26-2022 12:50-0400 Body weight 115.67 kg Minerva Irwin Other [employer] Other 05-26-2022 12:50-0400 Respiratory rate 18 /min Minerva Irwin Other [employer] Other 05-26-2022 12:50-0400 SaO2% (BldA) [Mass fraction] 97 % Minerva Irwin Other [employer] Other 03-20-2022 14:00-0500 Body height 190.5 cm Minerva Irwin Other [employer] Other 03-20-2022 14:00-0500 Body mass index (BMI) [Ratio] 28.74 kg/m2 Minerva Irwin Other [employer] Other 03-20-2022 14:00-0500 Body temperature 97.7 [degF] Minerva Irwin Other [employer] Other 03-20-2022 14:00-0500 Body weight 104.33 kg Minerva Irwin Other [employer] Other 03-20-2022 14:00-0500 Respiratory rate 18 /min Minerva Irwin Other [employer] Other 03-20-2022 14:00-0500 SaO2% (BldA) [Mass fraction] 97 % Minerva Irwin Other [employer] Other 12-05-2020 17:15-0400 Body height 190.5 cm Radha Savana Other [employer] Other 12-05-2020 17:15-0400 Body temperature 98.8 [degF] Radha Sawant Other [employer] Other 12-05-2020 17:15-0400 SaO2% (BldA) [Mass fraction] 97 % Radha Sawant Other [employer] Other Encounters Encounter Date Encounter Type Care Provider Facility Start: 02-25-2023 End: 02-25-2023 ambulatory SHAIKH LOKI Not Available Start: 02-14-2023 End: 02-14-2023 ambulatory Mitzy Neves Other [employer] Other Start: 02-14-2023 Office outpatient visit 15 minutes Mitzy Neves [facility] Start: 02-09-2023 End: 02-09-2023 ambulatory AMANDA AICHHOLZ Not Available Start: 02-01-2023 End: 02-01-2023 ambulatory Trell Ramirez Nati Facility:[facility] Start: 02-01-2023 End: 02-01-2023 ambulatory MD Michael Smith Work Phone: [facility] Work Phone: Start: 02-01-2023 End: 02-01-2023 Patient encounter procedure MD Michael Smith Work Phone: [facility] Work Phone: Start: 10-05-2022 End: 10-05-2022 ambulatory GENOVEVA Souza [facility] Start: 10-05-2022 End: 10-05-2022 Subsequent hospital visit by physician Genoveva Pond DO [facility] Phone[facility] Start: 07-22-2022 ambulatory MENDEZ Smart [facility] Start: 07-16-2022 End: 07-17-[address] MATIAS MAXWELL . Facility:[facility] Start: 06-26-2022 End: 06-26-2022 ambulatory Minerva Irwin Other [employer] Other Start: 06-26-2022 Telephone encounter Minerva Irwin [facility] Start: 05-26-2022 End: 05-26-2022 ambulatory Minerva Irwin Other [employer] Other Start: 05-26-2022 Office outpatient visit 25 minutes Minerva Irwin [facility] Start: 05-20-2022 End: 05-20-2022 ambulatory MATIAS MAYORGA [facility] Start: 05-08-2022 End: 05-09-[address] MICHAEL SMITH Facility:[facility] Start: 04-03-2022 End: 04-04-2022 ambulatory SHAIKH Vijaya MANJARREZ Facility:[facility] Start: 03-25-2022 End: 03-26-[address] MICHAEL SMITH Facility:[facility] Start: 03-20-2022 End: 03-20-2022 ambulatory Minerva Irwin Other [place] [employer] Other Start: 03-20-2022 Office outpatient visit 25 minutes Minerva Sidhuler [facility] Start: 12-24-2021 End: 12-25-[address] MICHAEL SMITH Facility:[facility] Start: 12-01-2021 End: 12-01-2021 [facility] Start: 09-29-2021 End: 09-30-[address] ADRIA GRAHAM Facility:[facility] Start: 09-18-2021 End: 09-19-[address] MICHAEL SMITH Facility:[facility] Start: 09-15-2021 End: 09-16-[address] MICHAEL SMITH Facility:[facility] Start: 09-10-2021 End: 09-11-2021 ambulatory KAYCE SARAVIA Facility:[facility] Start: 07-23-2021 End: 07-24-[address] MICHAEL SMITH Facility:[facility] Start: 12-05-2020 Office outpatient visit 15 minutes Radha Sawant [facility] Start: 05-04-2017 End: 05-05-2017 Ambulatory MICHAEL SMITH Facility:[facility] Start: 04-28-2017 End: 04-29-2017 Ambulatory DEFAULT PHYSICIAN Facility:[facility] Procedures Date Procedure Procedure Detail Performing Clinician Start: 10-05-2022 GLUCOSE, WHOLE BLOOD Bl air Y Shamar DO Work Phone: Start: 10-05-2022 Ecg routine ecg w/le ast 12 lds w/i&r Genoveva Y Shamar DO Work Phone: Start: 07-23-[address] MICHAEL BLUE Comment on above: Performed By: #### B TEST SPECIALIST, CMP #### [facility] [address] [place], [place] [id number] Dr. Ana Pandey Plan of Treatment Date Care Activity Detail Author Start: 10-06-2022 Influenza vaccination Flu vaccine (# 1) [facility] [employer] [facility] Start: 10-05-2022 Annual Wellness Visi t (AWV) Annual Wellness Visit (AWV) [facility] Start: 10-05-2022 End: 10-05-2022 Xcapsl ctrc rmvl insj io lens prosth w/o ecp EYE CATARACT EMULSIFICATION IOL IMPLANT Combined forms of age-related cataract of left eye 10/05/2022 10:44 AM EDT [facility] Start: 09-01-2008 Pneumococcal 65+ yea rs Vaccine (1 - PCV) Pneumococcal 65+ years Vaccine (1 - PCV) [facility] Start: 09-01-1993 Shingles vaccine (1 of 2) Shingles vaccine (1 of 2) [facility] Start: 09-01-1962 DTaP/Tdap/Td vaccine (1 - Tdap) DTaP/Tdap/Td vaccine (1 - Tdap) [facility] Start: 09-01-1961 Hepatitis C screening Hepatitis C sc reen [facility] Start: 1955 Depression Screen Depression Screen [facility] Start: 09-01-1953 Lipid panel Lipids [facility] Start: 03-03-1944 COVID-19 Vaccine (#1) COVID-19 Vacci ne (#1) [facility] EKG 12 Lead EKG 12 Lead ECG Routine 10/05/2022 10:15 AM EDT [facility] Oxygen therapy [Mini mum Data Set] Initiate Oxygen Therapy Protocol Respiratory Care Routine Daily until discontinued starting 10/05/2022 [facility] Comment on above: Daily until disconti nued starting 10/05/2022 Oxygen therapy [[facility] mum Data Set] Initiate Oxygen Therapy Protocol Respiratory Care Routine Daily until discontinued starting 10/05/2022 [facility] Comment on above: Daily until disconti nued starting 10/05/2022 Immunizations Immunization Date Immunization Notes Care Provider Kimberly triana 09-10-2013 tetanus toxoid, adsorbed Radha Sawant Other [employer] Other Payers Date Payer Category Payer Self-pay [id number] 2023 Unknown [id number] 2020 Unknown [id number] 1959 Medicare [id number] [id number] 1959 Unknown [id number] [id number] 1943 Unknown [id number] 2.16.840.1.327254.3.579.2.593 1943 Unknown [id number] 2.16.840.1.031083.3.579.2.593 1943 Unknown [id number] 2.16.840.1.391841.3.579.2.593 1943 Unknown [id number] 2.16.840.1.881664.3.579.2.593 1943 Unknown [id number] 2.16.840.1.175041.3.579.2.593 1943 Unknown [id number] 2.16.840.1.322705.3.579.2.593 1943 Unknown [id number] 2.16.840.1.694858.3.579.2.593 1943 Unknown [id number] 2.16.840.1.268315.3.579.2.593 1943 Unknown [id number] 2.16.840.1.109024.3.579.2.593 1943 Unknown [id number] 2.16.840.1.372451.3.579.2.593 1943 Unknown [id number] 2.16.840.1.826036.3.579.2.593 1943 Unknown [id number] 2.16.840.1.722234.3.579.2.173 1943 Unknown [id number] 2.16.840.1.785724.3.579.2.1259 1943 Unknown [id number] 2.16.840.1.683586.3.579.2.1259 Medicare [id number] Medicare [facility] [id number] Unknown Unknown [id number] [id number] Social History Date Type Detail Facility Unknown if ever smoked [employer] Other Sex Assigned At Sex Assigned At Bir th [employer] Other Start: 09-22-2022 Tobacco smoking status NHIS Never smoked tobacco [facility] Start: 09-22-2022 Tobacco use and exposure Smokeless tobacco non-user [facility] Start: 10-05-2022 Alcohol intake Lifetime non-d alverto (finding) [facility] Start: 1945 Sex Assigned At Not on file B ON [facility] Start: 1945 Sex Assigned At Male F [facility] Clinical Notes 12-05-2020 to 02-14-2023 Note Date & Type Note Facility 02-14-2023 Evaluation note Encounter Date Diagnosis Assessment Notes Feb, Bronchitis (ICD-10 - J40) Drink plenty fluids, get plenty of rest. Continue home medications as prescribed. Take the doxycycline as prescribed until gone. Take the Medrol Dosepak as prescribed until gone. Use the albuterol inhaler as prescribed as needed for cough or shortness of breath. Continue to take [id number]-hru-stxwd er cough medicine as needed for cough. Follow-up with your family physician if no improvement in 2 to 3 days [employer] Other 07-31-2023 History of Present illness Narrative* Mervat Burgos RN - 10/05/2022 11:32 AM EDT Discharge instructions reviewed with patient and patient's . Both imply understanding. Discharge Criteria Inpatients must meet Criteria 1 through 7. All other patients are either YES or N/A. If a NO is chosen then Anesthesia or Surgeon must be notified. 1. Minimum 30 minutes after last dose of sedative medication. Yes 2. Systolic BP between 90 - 160. Diastolic BP between 60 - 90. Yes 3. Pulse between 60 - 120 Yes 4. Respirations between 8 - 25. Yes 5. SpO2 92% - 100%. Yes 6. Able to cough and swallow or return to baseline function. Yes 7. Alert and oriented or return to baseline mental status. Yes 8. Demonstrates controlled, coordinated movements, ambulates with steady gait, or return to baseline activity function. Yes 9. Minimal or no pain or nausea, or at a level tolerable and acceptable to patient. Yes 10. Takes and retains oral fluids as allowed. Yes 11. Procedural / perioperative site stable. Minimal or no bleeding. Yes 12. If GI endoscopy procedure, minimal or no abdominal distention or passing flatus. N/A 13. Written discharge instructions and emergency telephone number provided. Yes 14. Accompanied by a responsible adult. Yes * Noelle Leary RN - 09/25/2022 7:48 AM EDT Lab work from July from [facility] received in this office. * Noelle Leary RN - 09/24/2022 10:44 AM EDT Spoke with patient regarding recent lab work and EKG. Patient states he just had labs done becauseof a UTI. Patient will call PCP to have lab results sent to this office. Patient has not had an EKG and does not want to come in prior to procedure. Encouraged patient to arrive early day of procedure to complete EKG. Informed patient procedure would be cancelled if EKG shows abnormality, patient verbalizes understanding. * Ewa Trivedi RN - 09/23/2022 11:41 AM EDT Patient received NPO instructions and pre-op medication instructions to be taken on the day of the procedure with a small sip of water. Pt was also given pre-op eye drop instructions from Dr. Moura. Instructed pt to take prilosec and metoprolol with a small sip of water prior to arriving to the hospital the day of surgery. * Ewa Trivedi RN - 09/22/2022 2:30 PM EDT Attempted PAT phone call; no answer; message left to return PAT phone call. documented in this encounterB[facility] Discharge instructions* Discharge Instructions* Mervat Burgos RN - 10/05/2022 11:15 AM EDT SAME DAY SURGERY DISCHARGE INSTRUCTIONS 1. Do not drive or operate hazardous machinery for 24 hours. 2. Do not make important personal or business decisions for 24 hours. 3. Do not drink alcoholic beverages for 24 hours. 4. Do not smoke tobacco products for 24 hours. 5. Limit your activities for 24 hours. Do not engage in heavy work until your surgeon gives you permission. 6. Patient should not be left alone for 12-24 hours following surgical procedure. 7. Wash hands before and after incision care. It is important to practice good personal hygiene during the post op period. 8. Report the following signs or any questions regarding your physical condition to your surgeon immediately: Excessive swelling of, or around the wound area. Redness. Temperature of 100 degrees (F) or above. Excessive pain. 9. Call your surgeon for any questions regarding your surgery. CATARACT DISCHARGE INSTRUCTIONS Do not remove eye patch/shield today. Protect the operated eye during sleep by covering it with clear plastic shield. Tape the shield securely to the face before retiring . Do this for one week after surgery. Avoid bumping the operated eye during the daytime. Sensitivity to light and watering of the eye is normal during the first month. Wearing of dark glasses will help these symptoms and this is optional. Minor crusting and discharge adherent to the lid margins will persist till the incision heals. Cleanse the lids by application of a warm compress several times a day as needed. Use of either the operated eye or unoperated eye is not harmful. Until the new glasses are prescribed, the operated eye may be out of focus and may not see details clearly. Vision maybe clearer in the operated eye without glasses. You may do everything necessary to care for yourself, including hair care, tooth brushing, dressing, etc. Light work,including stooping over and lifting, is not harmful. Please phone if any problems arise during the healing period. The office number is [phone]. Take surgery bag and all eye drops to Dr. Pond's office tomorrow at 9:20am. You may resume your normal diet. Start your eye drops tomorrow after your post-op appointment: Ofloxacin/Polytrim one drop to the operated eye 4 times daily Prednisolone one drop to the operated eye 4 times daily documented in this encounterB[facility] note* Encounter Date Diagnosis Assessment Notes Treatment Notes Treatment Clinical Notes May, Acute effusion of both middle ears (ICD-10 - H65.193) Discussed diagnosis with patient, explained to patient that there is middle ear fluid without signs of bacterial infection, antibiotics are not indicated at this time. This is commonly due to ET dysfunction, viral illness, allergies, barotrauma, or recent AOM. Advised patient that fluid in middle ear may take several weeks to resolve. Take rx medication as directed. Supportive treatment as directed, push fluids/test, Tylenol, heat packs for discomfort. Advised that patient would benefit from ENT referral d/t consistent concerns/visits. Offered referral, patient declines at this time. Patient verbalizes understanding and is agreeable to treatment plan [employer] Other [id number] NoteContinue [facility]UnCl[facility]-2023 NoteHypertension is Overall well controlled- At PCPs office it was 130/72- Even in office he started at 160/78 and when I repeated it he was down to 144/77 Continue all current medications Function been normalUnClinton [facility]03-15-2023 NotePt is here for a 6 month F/U [facility]03-15-2023 NoteUTP CARDIOLOGY PROGRESS NOTE HPI: Thea Winston is a 76 y.o. male here for Coronary artery disease, hypertension, mixed hyperlipidemia 76 y.o. male patient with a past medical history including CAD s/p bifurcating stenting to mid LAD and 2nd diag in 2018, HTN, HLD, DM type II, osteoarthritis. Patient presents to cardiology clinic for follow-up. Overall patient states he feels well denies any activity limiting symptoms reports typical shortness of breath otherwise he is doing well. Lexiscan stress test performed in 09/2021 was without evidence of reversible ischemia. Echo demonstrated normal EF, moderately elevated right sided heart pressures, and mildly dilated ascending aorta at 3.9 cm. 07/23/21 CBC normal Renal function normal BUN 28, creatinine 0.94 Potassium normal 4.2 ALP 74 normal, AST 43 slightly low, ALT 52 otherwise liver function stable Cholesterol 98, HDL 42, Triglycerides 64, LDL 43.2 well-controlled Hemoglobin A1c 6.7 elevated continue risk factor modifications- heart healthy diet, regular exercise as tolerated and continue all medications. Denied chest pain, reports typical shortness of breath with exertion- no worse than usual, denied orthopnea Repeat b/p 144/77 and at PCP office last week states b/p 130/76 Review of Systems Constitutional: Negative. Respiratory: Positive for shortness of breath. Cardiovascular: Negative. Neurological: Negative. Visit Vitals BP 160/78 (BP Location: Left arm, Patient Position: Sitting) Pulse 78 Wt 117 kg (257 lb) SpO2 99% BMI 32.12 kg/m??? Smoking Status Never BSA 2.49 m??? Allergies Allergen Reactions Penicillin G Medications: Current Outpatient Medications on File Prior to Visit Medication Sig Dispense Refill aspirin 81 mg EC tablet Take 81 mg by mouth in the morning. atorvastatin (Lipitor) 40 mg tablet Take 40 mg by mouth in the morning. clopidogrel (Plavix) 75 mg tablet Take by mouth in the morning. ferrous sulfate 325 (65 Fe) MG tablet Take 65 mg by mouth with breakfast. furosemide (Lasix) 20 mg tablet Take 1 tablet by mouth in the morning. glyburide-metformin (Glucovance) 2.5-500 mg tablet Take 1 tablet by mouth with breakfast. lisinopril 40 mg tablet Take 40 mg by mouth in the morning. metoprolol succinate XL (Toprol-XL) 50 mg 24 hr tablet Take 50 mg by mouth in the morning. Do not crush or chew. naproxen (Naprosyn) 500 mg tablet Take 500 mg by mouth with breakfast and with evening meal. omeprazole (PriLOSEC) [address] capsule Take 40 mg by mouth before breakfast. Do not crush or chew. pioglitazone (Actos) 45 mg tablet Take 45 mg by mouth in the morning. potassium chloride ER (Micro-K) 10 mEq ER capsule Take 10 mEq by mouth in the morning and at bedtime. Do not crush or chew. No current facility-administered medications on file prior to visit. Physical Exam: Constitutional: Appearance: Normal appearance. Without apparent distress HENT: Head: Normocephalic and atraumatic. Nose: Nose normal. Mouth/Throat: Mouth: Mucous membranes are moist. Eyes: Extraocular Movements: Extraocular movements intact. Conjunctiva/sclera: Conjunctivae normal. Neck: Vascular: No JVD. Cardiovascular: Rate and Rhythm: Normal rate and regular rhythm. Pulses: Dorsalis pedis pulses are 3 on the right side and 3on the left side. Posterior tibial pulses are 3 on the right side and 3 on the left side. Heart sounds: Normal heart sounds, S1 normal and S2 normal. Pulmonary: Effort: Pulmonary effort is normal. Breath sounds: Normal breath sounds. Abdominal: General: Bowel sounds are normal. Palpations: Abdomen is soft. Musculoskeletal: General: Normal range of motion. Cervical back: Normal range of motion. Right lower leg: No edema. Left lower leg: No edema. Skin: General: Skin is warm and dry. Capillary Refill: Capillary refill takes less than 2 seconds. Neurological: General: No focal deficit present. Mental Status: he is alert and oriented to person, place, and time. Psychiatric: Mood and Affect: Mood normal. Behavior: Behavior normal. Thought Content: Thought content normal. Judgment: Judgment normal. Labs: 09/15/2021- Renal function normal- BUN 24, creatinine 0.92, potassium 4 07/23/21 CBC normal BUN 28, creatinine 0.94 Liver function normal Cholesterol 98, HDL 42, Triglycerides 64, LDL 43.2 A1c 6.7 Last lab values have been reviewed CV Testing: Echo 09/10/2021 Lexiscan stress Test 09/29/2021 normal myocardial perfusion, No ischemic changes noted on EKG Cardiac cath 05/04/2017 No echocardiogram results found for the past 12 months Assessment/Plan: CAD (coronary artery disease) Goal-directed medical therapy- Aspirin, Plavix, Lipitor, Toprol Denies any bleeding tendencies or concerns continue risk factor modifications- heart healthy diet, regular exercise as tolerated and continue all medications. Essential hypertension, benign Hypertension is Overall wel (more content not included)...[facility]03-15-2023 NoteGoal-directed medical therapy- Aspirin, Plavix, Lipitor, Toprol Denies any bleeding tendencies or concerns continue risk factor modifications- heart healthy diet, regular exercise as tolerated and continue all medications.[facility] 03-20-2022 Evaluation note* Encounter Date Diagnosis Assessment Notes Treatment Notes Treatment Clinical Notes Mar, Left acute otitis media (ICD-10 - H66.92) Discussed diagnosis with patient. Advised to take antibiotics as directed, complete entire course even if feeling better. Reviewed allergies and recent antibiotic use with patient. Use rx of drops as directed. Supportive care, Tylenol/Motrin as needed for aches/fever, warm compress to affected ear, push fluids and rest. Avoid use of Q-tips. Follow up with PCP if symptoms do not improve in the next 2-3 days. Immediate eval for severe ear pain, severe headache, neck pain/stiffness, pain, erythema, or redness behind the ear, fever, N/V, hearing loss, fever, or any other new or concerning symptoms. Patient verbalizes understanding and is agreeable to treatment plan [employer] Other 09-26-2022 NoteCardiology Follow Up Progress Note Chief Complaint: follow up HPI: Thea Winston is a 76 y.o. male patient with a past medical history including CAD s/p bifurcating stenting to mid LAD and 2nd diag in 2018, HTN, HLD, DM type II, osteoarthritis. Patient presents to cardiology clinic for follow-up. Patient states that he feels well. He denies any cardiac complaints or concerns. He denies any chest pain or shortness of breath. He has not had any chest pain since his stress test and since being started on lasix. He denies any lower extremity edema. No orthopnea or PND. No palpitations. No near syncope or syncope. Lexiscan stress test performed in 09/2021 was without evidence of reversible ischemia. Echo demonstrated normal EF, moderately elevated right sided heart pressures, and mildly dilated ascending aorta at 3.9 cm. Cardiology ROS: GENERAL: Denies fever, chills, night sweats, weight loss. HEENT: Denies changes in vision, photophobia, changes in hearing, epistaxis, oral bleeding. CARDIOVASCULAR: Denies chest pain, exertional dyspnea, orthopnea/PND, lower extremity edema, palpitations, lightheadedness/dizziness. RESPIRATORY: Denies SOB, coughing, wheezing GI: Denies abdominal pain, nausea/vomiting, heartburn, melena/hematochezia. RENAL: Denies dysuria, hematuria, flank pain. MSK: Denies muscle weakness/pain, arthralgias/joint pain. NEUROLOGIC: Denies LOC, weakness, numbness, headaches. SKIN: Denies abnormal rashes or bleeding. PSYCH: Denies significant anxiety, depression, sleep disturbances. Medications Current Outpatient Medications on File Prior to Visit Medication Sig Dispense Refill aspirin 81 mg EC tablet Take 81 mg by mouth in the morning. atorvastatin (Lipitor) 40 mg tablet Take 40 mg by mouth in the morning. clopidogrel (Plavix) 75 mg tablet Take by mouth in the morning. ferrous sulfate 325 (65 Fe) MG tablet Take 65 mg by mouth with breakfast. furosemide (Lasix) 20 mg tablet Take 1 tablet by mouth in the morning. glyburide-metformin (Glucovance) 2.5-500 mg tablet Take 1 tablet by mouth with breakfast. lisinopril 40 mg tablet Take 40 mg by mouth in the morning. metoprolol succinate XL (Toprol-XL) 50 mg 24 hr tablet Take 50 mg by mouth in the morning. Do not crush or chew. naproxen (Naprosyn) 500 mg tablet Take 500 mg by mouth with breakfast and with evening meal. omeprazole (PriLOSEC) [address] capsule Take 40 mg by mouth before breakfast. Do not crush or chew. pioglitazone (Actos) 45 mg tablet Take 45 mg by mouth in the morning. potassium chloride ER (Micro-K) 10 mEq ER capsule Take 10 mEq by mouth in the morning and at bedtime. Do not crush or chew. No current facility-administered medications on file prior to visit. Allergies Penicillin g Physical Exam VITAL SIGNS: BP 159/75 (BP Location: Left arm, Patient Position: Sitting) Pulse 69 Ht 1.905 m (6' 3 ) Wt 113 kg (250 lb) SpO2 96% BMI 31.25 kg/m??? Constitutional: Well developed, Well nourished, No acute distress, Non-toxic appearance. HENT: Normocephalic, Atraumatic, Bilateral external ears have normal appearance, Bilateral TMs clear, Oropharynx moist, No oral or pharyngeal exudates, Nose appears normal, nares are patent. Eyes: PERRLA, EOMI, Conjunctiva normal, No discharge. Neck: Normal range of motion, No tenderness, Supple, No stridor. No cervical lymphadenopathy noted. Cardiovascular: Normal heart rate, Normal rhythm, No murmurs, No rubs, No gallops. Thorax & Lungs: Normal breath sounds, No respiratory distress, No wheezing, No chest tenderness to palpation. Abdomen: Bowel sounds normal, Soft, Nontender, No masses, No pulsatile masses. Skin: Warm, Dry, No erythema, No rash. Back: No tenderness, No CVA tenderness. Extremities: Intact distal pulses, No edema, No tenderness, No cyanosis, No clubbing. Musculoskeletal: Good range of motion in all major joints with 5/5 muscle strength in all muscle groups, No tenderness to palpation or major deformities noted. Neurologic: Alert & oriented x 3, Normal motor function in all major muscle groups, Normal sensory function to all major dermatomes, No focal deficits noted. Psychiatric: Affect normal, Judgment normal, Mood normal. Impression: -CAD: no angina or anginal equivalents -Heart rate with preserved ejection fraction: continue current medication regimen. Patient appears euvolemic on exam. -Mildly dilated ascending aorta 3.9 cm Plan: -Continue aspirin 81 mg daily, atorvastatin 40 mg daily, clopidogrel 75 mg daily, and Toprol XL 50 mg daily for CAD -Continue Lasix for heart failure with preserved ejection fraction -Would recommend repeating echocardiogram in 1 year for monitoring of ascending aorta -Aggressive risk factor modification -Plan of care discussed with patient. All questions were answered. Patient voices understanding and is agreeable with current plan. -Patient was educated on red flag symptoms. Strict (more content not included)...[facility]09-26-2022 NoteSubjective Thea Winston is a 76 y.o. male. Chief Complaint: Patient here for 2 mo follow up CAD, chest pain, and dyspnea on exertion. Had normal stress test in September 2021. Dr. Smith recently started him on lasix and potassium for LE edema, which has improved. Chest pain has resolved. States his SOB is improving also. Review of Systems Cardiovascular: Positive for dyspnea on exertion and leg swelling. All other systems reviewed and are negative. Objective Physical Exam Vital Signs There were no vitals taken for this visit. Lab Review: Assessment/Plan There were no encounter diagnoses.[facility]07-25-2022 NoteCARDIAC STRESS TEST Requesting Physician: Procedure Date:09/29/2021 INDICATION: Dyspnea on exertion. METHOD: The patient was brought to the Stress Lab in a resting and fasting state. He was connected to the appropriate hemodynamic and electrocardiographic monitoring. He underwent infusion of 0.4 mg of IV Lexiscan. Cardiolite was injected per protocol. He was monitored for the standard duration and transferred to the Nuclear Lab for imaging. There were no complications. FINDINGS: HEMODYNAMICS: Resting heart rate was 60 beats per minute, increasing to a maximum of 82 beats per minute. Resting blood pressure was 154/76, decreasing to 130/62. ELECTROCARDIOGRAPHY: Rest EKG: Sinus rhythm, 60 beats per minute, first degree AV block, right bundle branch block, abnormal EKG. During infusion and recovery: No significant ST-T wave changes noted, no significant arrhythmia seen. FINAL IMPRESSIONS: 1. No ischemic EKG changes seen on Lexiscan Pharmacological Stress Test. 2. Nuclear images are to be read, interpreted and reported in a separate dictation.[facility] [id number] Evaluation note* Encounter Date Diagnosis Assessment Notes Treatment Notes Treatment Clinical Notes Nov, Contact with and (suspected) exposure to other viral communicable diseases (ICD-10 - Z20.828) Nov, COVID-19 (ICD-10 - U07.1) Today you tested positive for the COVID virus. This mean you need to follow all CDC quarantine guidelines found at [email or web address] v. It is important to rest, increase fluids, and stay at home. Contact PCP and inform them of results. Medications like Mucinex, Cepacol, Tylenol, saline nasal spray are over the counter medications that can help with the symptoms. Current guidelines include staying home for at least 10 days, having no fever above 100.4 for 24 hours without medication and having significant improvement of symptoms before you are allowed to stop your quarantine. Contact primary care and ask for guidance is essential to follow up Nov, Other Additional time spent conducting pre-visit phone call, screening for symptoms, instructions on social distancing, application and removal of PPE, and cleaning of examination room, equipment and supplies was preformed. Patient education given for testing methodology and results. Patient care instructions given in writting by [facility] Care At Home document. [employer] Other Evaluation noteNo [employer] Other Evaluation note* Diagnosis Combined forms of age-related cataract of left eye- Primary Other and combined forms of senile cataract documented in this encounter [facility] noteNo assessment information available [facility] Work Phone: Hisjrpm general Narrative - Reported* Type Description Date Medical History DM Medical History HTN Medical History Arthritis Medical History hypercholesterolemia Surgical History Cyst off back Surgical History Polyps removed Surgical History heart stent Surgical History shoulder Hospitalization History see above [employer] Other Hisrtrf general Narrative - Reported* Type Description Date Medical History DM Medical History HTN Medical History Arthritis Medical History hypercholesterolemia Surgical History Cyst off back Surgical History Polyps removed Surgical History heart stent Surgical History shoulder Surgical History cataract surgery 07/2022 Hospitalization History see above [employer] Other Summary Purpose Family History No Family History Records FoundNo Family History Records FoundNo Family History Records FoundNo Family History Records FoundNo Family History Records FoundNo Family History Records Found Advance Directives No Advanced Directives Records FoundLatest Code Status on File Code Status Date Activated Date Inactivated Comments Full Code 10/05/2022 9:57 AM Advance Directive Response Recorded Date/ Time Advance Directives No January 14, 2023 12:44pm Chief Complaint and Reason for Visit Chief Complaint i51.9 Additional Source Comments (unrecognized sect ion and content) No Status Records FoundNo Status Records FoundNo Status Records FoundNo Status Records FoundNo Status Records FoundNo Status Records Found INFORMATION SOURCE (unrecogn ized section and content) DATE CREATED AUTHOR 08/27/2017 [facility] DATE CREATED AUTHOR AUTHOR'S ORGANIZ ATION 05/21/2022 [facility] DATE CREATED AUTHOR AUTHOR'S ORGANIZ ATION 07/20/2022 [facility] DATE CREATED AUTHOR AUTHOR'S ORGANIZ ATION 10/05/2022 [facility] DATE CREATED AUTHOR AUTHOR'S ORGANIZ ATION 02/08/2023 [facility] DATE CREATED AUTHOR AUTHOR'S ORGANIZ ATION 02/26/2023 [facility] EPIC REASON FOR VISIT (unrecogniz ed section and content) Specialty Diagnoses / Procedures Referred By Contbridget t Referred To Contact Diagnoses Combined forms of age-related cataract of left eye Combined forms of age-related cataract of left eye [H25.812] Procedures DE XCAPSL CTRC RMVL INSJ IO LENS PROSTH W/O ECP EYE CATARACT EMULSIFICATION IOL IMPLANT Genoveva Pond Y, DO [address] [place] [address] [facility] [address] [place] [address] Referral ID Status Reason Start Date Expiration Date Visits Re quested Visits Authorized [id number] 1 1 Scheduled Active and Recently Administ ered Medications (unrecognized section and content) Medication Order 10/03/2022 10/04/2022 10/05/2022 phenylephrine (MYDFRIN) 2.5 % ophthalmic solution 1 drop 1 drop, Left Eye, SEE ADMIN INSTRUCTIONS, Starting on Wed10/05/22 at 0957, Until Discontinued, To operative eye(s) for 3-5 doses every 5 minutes, starting 30 minutes prior to surgery until dilated, RPh - enter number of doses based on parameters defined by the physician in the admin. comments., Pre-op (day of surgery) 1023 (Given - Provid er: Elizabeth Williamson RN)1029 (Given - Provider: Elizabeth Williamson RN)1038 (Given - Provider: Elizabeth Williamson RN) proparacaine (ALCAINE) 0.5 % ophthalmic solution 1 drop 1 drop, Left Eye, SEE ADMIN INSTRUCTIONS, Starting on Wed10/05/22 at 0957, Until Discontinued, Into the operative eye(s) every 5 minutes for PRN doses starting 30 minutes prior to surgery., Pre-op (day of surgery) 1023 (Given - Provid er: Elizabeth Williamson RN)1029 (Given - Provider: Elizabeth Williamson RN)1038 (Given - Provider: Elizabeth Williamson RN) sodium chloride flush 0.9 % injection 5-40 mL 5-40 mL, IntraVENous, EVERY 12 HOURS SCHEDULED (2 times per day), First dose on Wed10/05/22 at 1015, Until Discontinued, For Line Patency: Peripheral IV = 5 mL; Midline or Central Line = 10 mL/lumen. If following IV push medication, administer flush at same rate as the IV push. Flush volume is determined by type of infusion therapy being given. For non-viscous solutions use: Peripheral IV = 5 mL Midline or Central Line = 10 mL/lumen For viscous solutions (i.e. blood components, parenteral nutrition, contrast media, or after obtaining blood sample) use: Peripheral IV = 10 mL Midline or Central Line = 20 mL/lumen, Pre-op (day of surgery) 1042 (Canceled Entry - Provider: Elizabeth Williamson RN)2100 (Due) sodium chloride flush 0.9 % injection 5-40 mL 5-40 mL, IntraVENous, EVERY 12 HOURS SCHEDULED (2 times per day), First dose on Wed10/05/22 at 2100, Until Discontinued, For Line Patency: Peripheral IV = 5 mL; Midline or Central Line = 10 mL/lumen. If following IV push medication, administer flush at same rate as the IV push. Flush volume is determined by type of infusion therapy being given. For non-viscous solutions use: Peripheral IV = 5 mL Midline or Central Line = 10 mL/lumen For viscous solutions (i.e. blood components, parenteral nutrition, contrast media, or after obtaining blood sample) use: Peripheral IV = 10 mL Midline or Central Line = 20 mL/lumen, Post-op 2100 (Due) tetracaine (TETRAVISC) 0.5 % ophthalmic solution 1 drop 1 drop, Left Eye, SEE ADMIN INSTRUCTIONS, Starting on Wed10/05/22 at 0957, Until Discontinued, Into the operative eye(s) every 5 minutes for PRN doses starting 30 minutes prior to surgery., Pre-op (day of surgery) 1042 (Given - Provid er: Elizabeth Williamson RN) tropicamide (MYDRIACYL) 1 % ophthalmic solution 1 drop 1 drop, Left Eye, SEE ADMIN INSTRUCTIONS, Starting on Wed10/05/22 at 0957, Until Discontinued, To operative eye(s) for 3-5 doses every 5 minutes, starting 30 minutes prior to surgery until dilated, RPh - enter number of doses based on parameters defined by the physician in the admin. comments., Pre-op (day of surgery) 1023 (Given - Provid er: Elizabeth Williamson RN)1029 (Given - Provider: Elizabeth Williamson RN)1038 (Given - Provider: Elizabeth Williamson RN) Continuous Medication Order 10/03/2022 10/04/2022 10/05/2022 0.9 % sodium chloride infusion IntraVENous, at 125 mL/hr, CONTINUOUS, Starting on Wed10/05/22 at 1015, Pre-op (day of surgery) 1042 (Canceled Entry - Provider: Elizabeth Williamson RN) lactated ringers IV soln infusion IntraVENous, at 100 mL/hr, CONTINUOUS, Starting on Wed10/05/22 at 1015, Pre-op (day of surgery) 1038 (New Bag - Prov ider: Elizabeth Williamson RN) PRN Medication Order 10/03/2022 10/04/2022 10/05/2022 0.9 % sodium chloride infusion IntraVENous, at 5-250 mL/hr, PRN, if patient receiving piggyback infusions and maintenance fluids are not ordered OR KVO fluids to protect IV site / prevent frequent line interruptions/ long duration, Starting on Wed10/05/22 at 0957, For piggyback infusion, administer at same rate as piggyback for a total of 25 mL. Enter 25 mL into dose field and piggyback rate into rate field of order. If piggyback is infusing at a rate less than 100 mL/hr, enter 25 mL into dose field and 100 mL/hr into rate field of order. For KVO fluids, enter rate of 20 mL/hr or less into rate field of order., Pre-op (day of surgery) 0.9 % sodium chloride infusion IntraVENous, at 5-250 mL/hr, PRN, if patient receiving piggyback infusions and maintenance fluids are not ordered OR KVO fluids to protect IV site / prevent frequent line interruptions/ long duration, Starting on Wed10/05/22 at 1144, For piggyback infusion, administer at same rate as piggyback for a total of 25 mL. Enter 25 mL into dose field and piggyback rate into rate field of order. If piggyback is infusing at a rate less than 100 mL/hr, enter 25 mL into dose field and 100 mL/hr into rate field of order. For KVO fluids, enter rate of 20 mL/hr or less into rate field of order., Post-op balanced salts (BSS) 500 mL, EPINEPHrine 0.5 mg (CANCELED) PRN, Starting on Wed10/05/22 at 1123, Intra-op 1123 (Given - Provid er: Genoveva Pond DO) lidocaine PF 1 % injection (CANCELED) PRN, Starting on Wed10/05/22 at 1054, Until Wed10/05/22 at 1109, Intra-op 1054 (Given - Provid er: Genoveva Pond DO) sodium chloride flush 0.9 % injection 5-40 mL 5-40 mL, IntraVENous, PRN, Starting on Wed10/05/22 at 0957, Until Discontinued, Line Care, After every IV line use, For Line Patency: Peripheral IV = 5 mL; Midline or Central Line = 10 mL/lumen. If following IV push medication, administer flush at same rate as the IV push. Flush volume is determined by type of infusion therapy being given. For non-viscous solutions use: Peripheral IV = 5 mL Midline or Central Line = 10 mL/lumen For viscous solutions (i.e. blood components, parenteral nutrition, contrast media, or after obtaining blood sample) use: Peripheral IV = 10 mL Midline or Central Line = 20 mL/lumen, Pre-op (day of surgery) sodium chloride flush 0.9 % injection 5-40 mL 5-40 mL, IntraVENous, PRN, Starting on Wed10/05/22 at 1144, Until Discontinued, Line Care, After every IV line use, For Line Patency: Peripheral IV = 5 mL; Midline or Central Line = 10 mL/lumen. If following IV push medication, administer flush at same rate as the IV push. Flush volume is determined by type of infusion therapy being given. For non-viscous solutions use: Peripheral IV = 5 mL Midline or Central Line = 10 mL/lumen For viscous solutions (i.e. blood components, parenteral nutrition, contrast media, or after obtaining blood sample) use: Peripheral IV = 10 mL Midline or Central Line = 20 mL/lumen, Post-op tetracaine (TETRAVISC) 0.5 % ophthalmic solution (CANCELED) PRN, Starting on Wed10/05/22 at 1040, Until Wed10/05/22 at 1109, Intra-op 1040 (Given - Provid er: Genoveva Pond DO) Care Teams (unrecognized sec tion and content) Team Status: Active Member Role Status Dates Michael Smith MD Primary Care Provider Active Team Status: Inactive Member Role Status Dates Trell Damian DO Attending Provider Activ e Michael Smith MD Primary Care Provider Active Goals (unrecognized section and content) Goals may be documented in a n alternate section FOR RECORDS PERTAINING TO PATIENTS WHO ARE OR HAVE BEEN ENROLLED IN A CHEMICAL DEPENDENCY/SUBSTANCEABUSE PROGRAM, SOME INFORMATION MAY BE OMITTED. This clinical summary was aggregated from multiple sources. Caution should be exercised in using it in the provision of clinical care. This summary normalizes information from multiple sources, and as a consequence, information in this document may materially change the coding, format and clinical context of patient data. In addition, data may be omitted in some cases. CLINICAL DECISIONS SHOULD BE BASED ON THE PRIMARY CLINICAL RECORDS. [employer] [facility]. provides no warranty or guarantee of the accuracy or completeness of information in this document.
--- NOTE | 2023-03-04 13:15 | XR_ITS ---
[address] [address] Patient Name: THEA BONILLA MRN: [id number] date: 1945 Sex: M Assigned Patient Location: [facility] Current Patient Location: Accession/Order Number: [id number] Exam Date: 03/04/2023 13:20 Report Date: 03/05/2023 09:14 At the request of: SHAIKH LOKI Procedure: XR chest 2V EXAM: XR chest 2V HISTORY: Acute Bronchitis With Wheezing J20.9 COMPARISON: None. TECHNIQUE: PA and lateral views of the chest. FINDINGS: The cardiomediastinal silhouette is normal. No focal consolidation is identified. There is no pneumothorax. No pleural effusion is noted. The osseous structures are intact. XR/XR chest 2V IMPRESSION: No acute cardiopulmonary process. Electronically authenticated by: ADA PAINTER Date: 03/05/2023 09:14
== END 2023-03-04 13:06 | disposition home or self-care (01) ==
LOC: RAD 13:09
PROVIDERS: PCP Internal Medicine; Visit Provider Internal Medicine
DX: J20.9 Acute bronchitis, unspecified (principal)
CPT/HCPCS: 71046

== ENCOUNTER 2023-03-17 13:11 | Outpatient (OUT) | payer OTHER, SELFPAY ==
--- OUTSIDE RECORDS SUMMARY | 2023-03-17 13:15 | XMS_ITS | CCD ---
Author Name Unknown Address [address] [place] [address] Organization [facility] Team Providers Care Regulatory Agency Director Name Role Phone PHYSICIAN, DEFAULT Unavailable Unavailable PHYSICIAN, DEFAULT Unavailable Unavailable NADERER, MICHAEL Unavailable Unavailable CHRISTIAN ROSA Unavailable Unavailable GOMEZ, OZIEL Unavailable Unavailable GOMEZ, OZIEL Unavailable Unavailable Radha Sawant Unavailable Minerva Irwin [...] FAWWAD, TEMPLETON H Consulting Unavailable ZIEBER, DR MIC Cardenas Consulting Unavailable NADERER, DR MICHAEL Coto [...] NADERER, DR MICHAEL Coto Primary Care Unavailable NADERERonald, [...] Provider MD Michael Smith Primary Care Provider [phone] Trell Damian Attending Chula Damian, Trell Ramirez Admitting Michael Armendariz Primary Care Unavailable Mitzy Neves Unavailable SHAIKH MANJARREZ Attending Unavailable AMANDA ROSA Attending Unavailable SHAIKH MANJARREZ Attending Unavailable Allergies Allergy Classification Reported Allergen(s) Allergy Type Date of Onset Reaction(s) Facility (1 source) Penicillins Drug allergy (disorder) 05-04-19 18 [facility] Repository (1 source) No Known Allergies; Translations: [No Known Allergies] Propensity to adverse reactions (disorder) [facility] Repository (5 sources) penicillAMINE Drug Allergy he heard [facility] Other (1 source) Penicillin; Translations: [PENICILLIN G] Drug Allergy 10-21-19 [facility] Repository (1 source) Penicillin Drug Allergy [facility] Repository (1 source) Penicillins Propensity to adverse reactions to drug 09-24-19 23 [facility] Medications Current Medications Medication Drug Class(es) Dates Sig (Normalized) Sig (Original) [id number] actuat albuterol 0.09 mg/actuat metered dose [...] disease (6 sources) Atherosclerotic heart disease of [place] coronary artery with unstable angina pectoris; Translations: [Atherosclerotic heart disease of [place] coronary artery without angina pectoris] Onset: 05-04-2017 [...] sources) retirement (current) use of aspirin; Translations: [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) USE OF ASPIRIN] Onset: 05-04-2017 Episodic Other aftercare (1 source) 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; Translations: [MAINTENANCE CRAFTSMAN USE ORAL HYPOGLYCEMIC DX] Onset: 07-20-2022 Episodic Other aftercare (5 sources) Other nursing home (current) drug therapy; Translations: [OTH MAINTENANCE CRAFTSMAN CURRENT DRUG THERAPY] Onset: 07-23-2021 Episodic Other [...] / UNK(Unknown) Onset: 05-04-2017 Unclassified (1 source) 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; Translations: [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) USE OF ORAL HYPOGLYCEMIC DRUGS] Onset: [...] 02-01-2023 ALT [Catalytic activity/Vol] 30 U/L 7-52 [facility] Albumin [Mass/volume] in Ser um or Plasma by Bromocresol green (BCG) dye binding methoOrdered By: Trell Damian on 02-01-2023 Albumin BCG dye [Mass/Vol] 4.1 g/dL 3.5-5.7 [facility] Alkaline phosphatase [Enzyma tic activity/volume] in Serum or PlasmaOrdered By: Trell Damian on 02-01-2023 ALP [Catalytic activity/Vol] 74 U/L 34-104 [facility] Aspartate aminotransferase [ Enzymatic activity/volume] in Serum or PlasmaOrdered By: Trell Damian on 02-01-2023 AST [Catalytic activity/Vol] 29 U/L 13-39 [facility] Bilirubin Test strip Ql (U)O rdered By: Trell Damian on 02-01-2023 Bilirubin Ql (U) Negative Negative [facility] Bilirubin.total [Mass/volume ] in Serum or PlasmaOrdered By: Trell Damian 02-01-2023 Bilirubin [Mass/Vol] 0.6 mg/dL 0.3-1.0 [facility] Calcium [Mass/volume] in Ser um or PlasmaOrdered By: Trell Damian 02-01-2023 Calcium [Mass/Vol] 9.2 mg/dL 8.6-10.3 [facility] Carbon dioxide, total [Moles /volume] in Serum or PlasmaOrdered By: Trell Damian on 02-01-2023 CO2 [Moles/Vol] 27.3 mmol/L 21.0-31.0 [facility] Chloride [Moles/volume] in S jose juan or PlasmaOrdered By: Trell Damian on 02-01-2023 Chloride [Moles/Vol] 104 mmol/L 98-107 [facility] Color Auto (U)Ordered By: Ravinder Damian on 02-01-2023 Color (U) Yellow Yellow [facility] Comprehensive Metabolic Pane alicia 02-01-2023 Albumin [Mass/Vol] 4.1 g/dL Normal 3.5-5.7 [facility] Comment on above: Performed By: #### U A, CMP #### [facility] [address] [place] [address] Albumin/Globulin [Mass ratio] 1.9 {ratio} Normal [facility] Comment on above: Performed By: #### U A, CMP #### [address] ALP [Catalytic activity/Vol] 74 U/L Normal 34-104 [facility] Comment on above: Result Comment: PERF ORMED BY: [place] [address] PATHOLOGIST GROCERY WORKER OPHELIA ZIMMERMAN M.D. Performed By: #### U A, CMP #### [address] ALT [Catalytic activity/Vol] 30 U/L Normal 7-52 [facility] Comment on above: Performed By: #### U A, CMP #### [address] Anion gap [Moles/Vol] 14.3 mmol/L Normal 6.0-15.0 [facility] Comment on above: Performed By: #### U A, CMP #### [address] AST [Catalytic activity/Vol] 29 U/L Normal 13-39 [facility] Comment on above: Performed By: #### U A, CMP #### [facility] [address] [place] [address] Bilirubin [Mass/Vol] 0.6 mg/dL Normal 0.3-1.0 [facility] Comment on above: Performed By: #### U A, CMP #### [address] Calcium [Mass/Vol] 9.2 mg/dL Normal 8.6-10.3 [facility] Comment on above: Performed By: #### U A, CMP #### [address] [place] [address] [place] Chloride [Moles/Vol] 104 mmol/L Normal 98-107 [facility] Comment on above: Performed By: #### U A, CMP #### [address] CO2 [Moles/Vol] 27.3 mmol/L Normal 21.0-31.0 [facility] Comment on above: Performed By: #### U A, CMP #### [address] Creatinine [Mass/Vol] 1.01 mg/dL Normal 0.70-1.30 [facility] Comment on above: Performed By: #### U A, CMP #### [address] GFR/1.73 sq M.predicted MDRD (S/P/Bld) [Vol rate/Area] mL/min/{1.73_m2} [facility] Comment on above: Performed By: #### U A, CMP #### [address] Globulin (S) [Mass/Vol] 2.2 g/dL [facility] Comment on above: Performed By: #### U A, CMP #### [address] Glucose [Mass/Vol] 183 mg/dL High 70-100 [facility] Comment on above: Result Comment: [facility] Glucose Reference Range is dependent on time and content of last meal. Glucose of more than 200 mg/dL in a nonstressed, ambulatory subject supports the diagnosis of Diabetes Mellitus. ADA recommended reference range Performed By: #### U A, CMP #### [place] [address] [place] Potassium [Moles/Vol] 4.6 mmol/L Normal 3.5-5.1 [facility] Comment on above: Performed By: #### U A, CMP #### [address] Protein [Mass/Vol] 6.3 g/dL Low 6.4-8.9 [facility] Comment on above: Performed By: #### U A, CMP #### [facility] [address] Sodium [Moles/Vol] 141 mmol/L Normal 136-145 [facility] Comment on above: Performed By: #### U A, CMP #### [facility] [address] [place] [address] [place] Urea nitrogen [Mass/Vol] 22 mg/dL Normal 7-25 [facility] Comment on above: Performed By: #### U A, CMP #### [facility] [address] Creatinine [Mass/volume] in Serum or PlasmaOrdered By: Trell Damian on 02-01-2023 Creatinine [Mass/Vol] 1.01 mg/dL 0.70-1.30 [facility] echo transthoracicon [facility] echo transthoracic [facility] Main [place] [address] [place] [address] Echocardiogram Signed Patient: Thea Winston MR#: [id number] 33 : 1945 Acct:[id number] Age/Sex: 77 / M ADM Date: 02/01/23 Loc: Room: Type: [facility] Attending Dr: Trell Damian DO Ordering Provider: Trell Damian DO Date of Service: 02/01/23/ [facility] transt[facility]: Heart Disease. Copies to: Trell [...] V1 max: 156.3 cm/sec (0.7-1.7m/s)MV E max cb: 100.0 cm/sec(0.8-1.3m/s) MV A max cb: 86.4 cm/sec(0.0-0.0m/s) MV E/A: 1.2 (<1.5) MMode/2D Measurements Calculations TAPSE: 3.1 cm FS: 45.0 % Ao root area: LVOT diam: 2.4 cm RV S Cb: EDV(Teich): 9.9 cm2 LVOT area: 4.4 cm2 [...] max PG: TV max PG: TR max cb: 9.8 mmHg 32.0 mmHg 282.3 cm/sec LV [...] ES Default (HM)_phl: 30.0 % Transcribed By: SCV Performed At: 02/01/23 0852 Sig (more content not included)... Normal [facility] Globulin Calc (S) [Mass/Vol] Ordered By: Trell Damian on 02-01-2023 Globulin (S) [Mass/Vol] 2.2 g/dL [facility] Glucose [Mass/volume] in Ser um or PlasmaOrdered By: Trell Damian on 02-01-2023 Glucose [Mass/Vol] 183 mg/dL 70-100 [facility] Comment on above: ADA recommended refe rence rangeRandom Glucose Reference Range is dependent on time and content of last meal. Glucose of more than 200 mg/dL in a nonstressed, ambulatory subject supports the diagnosis of Diabetes Mellitus. Ketones Auto test strip (U) [Mass/Vol]Ordered By: Trell Damian on 02-01-2023 Ketones (U) [Mass/Vol] Negative Negative [facility] Nitrite Test strip Ql (U)Ord ered By: Trell Damian on 02-01-2023 Nitrite Ql (U) Negative Negative [facility] No Panel InformationOrdered By: Trell Damian on 02-01-2023 Estimated GFR (CKD-EPI) > 60.0 mL/Min [facility] Creatinine Clearance (Chem N/A [facility] Potassium [Moles/volume] in Serum or PlasmaOrdered By: Trell Damian on 02-01-2023 Potassium [Moles/Vol] 4.6 mmol/L 3.5-5.1 [facility] Protein Auto test strip (U) [Mass/Vol]Ordered By: Trell Glass on 02-01-2023 Protein (U) [Mass/Vol] Negative Negative [facility] Protein [Mass/volume] in Ser um or PlasmaOrdered By: Trell Damian on 02-01-2023 Protein [Mass/Vol] 6.3 g/dL 6.4-8.9 [facility] Serum or plasma albumin/glob ulin mass ratioOrdered By: Trell Damian on 02-01-2023 Albumin/Globulin [Mass ratio] 1.9 {ratio} [facility] Serum or plasma anion gap de terminationOrdered By: Trell Damian on 02-01-2023 Anion gap [Moles/Vol] 14.3 mmol/L 6.0-15.0 [facility] Sodium [Moles/volume] in Ser um or PlasmaOrdered By: Trell Glass on 02-01-2023 Sodium [Moles/Vol] 141 mmol/L 136-145 [facility] Specific gravity Auto test s trip (U) [Rel density]Ordered By: Trell Glass on 02-01-2023 Specific gravity (U) [Rel density] 1.033 1.001-1.03 0 [facility] Urea nitrogen [Mass/volume] in Serum or PlasmaOrdered By: Trell Damian on 02-01-2023 Urea nitrogen [Mass/Vol] 22 mg/dL 7-25 [facility] Urinalysison 02-01-2023 Appearance (U) Clear Normal Clear [facility] Comment on above: Order Comment: Name Collection Type:: Clean-Voided Midstream Performed By: #### U A, CMP #### [facility] [address] [place] [address] [place] Bilirubin,Urine Negative Normal Negative [facility] Comment on above: Order Comment: Name Collection Type:: Clean-Voided Midstream Performed By: #### U A, CMP #### [facility] [address] [place] [address] [place] Color (U) Yellow Normal Yellow [facility] Comment on above: Order Comment: Name Collection Type:: Clean-Voided Midstream Performed By: #### U A, CMP #### [facility] [address] [place] [address] [place] Glucose Ql (U) >=1000 High Normal [facility] Comment on above: Order Comment: Name Collection Type:: Clean-Voided Midstream Performed By: #### U A, CMP #### [facility] [address] [place] [address] [place] Ketones Ql (U) Negative Normal Negative [facility] Comment on above: Order Comment: Name Collection Type:: Clean-Voided Midstream Performed By: #### U A, CMP #### [facility] [address] [place] [address] [place] Leukocyte esterase Test strip Ql (U) Negative Normal Negative [facility] Comment on above: Order Comment: Name Collection Type:: Clean-Voided Midstream Performed By: #### U A, CMP #### [facility] [address] [place] [address] [place] Nitrite,Urine Negative Normal Negative [facility] Comment on above: Order Comment: Name Collection Type:: Clean-Voided Midstream Performed By: #### U A, CMP #### [facility] [address] [place] [address] [place] Occult Blood,Urine Negative Normal Negative [facility] Comment on above: Order Comment: Name Collection Type:: Clean-Voided Midstream Result Comment: PERF ORMED BY: [place] [address] PATHOLOGIST GROCERY WORKER OPHELIA ZIMMERMAN M.D. Performed By: #### U A, CMP #### [facility] [address] pH (U) 5.5 [pH] Normal 5.0-9.0 [facility] Comment on above: Order Comment: Name Collection Type:: Clean-Voided Midstream Performed By: #### U A, CMP #### [facility] [address] [place] [address] Protein,Urine Negative Normal Negative [facility] Comment on above: Order Comment: Name Collection Type:: Clean-Voided Midstream Performed By: #### U A, CMP #### [facility] [address] [place] [address] Specificy [place],Urine 1.033 High 1.001-1.03 0 [facility] Comment on above: Order Comment: Name Collection Type:: Clean-Voided Midstream Performed By: #### U A, CMP #### [facility] [address] [place] [address] Urobilinogen,Urine Normal Normal Normal [facility] Comment on above: Order Comment: Name Collection Type:: Clean-Voided Midstream Performed By: #### U A, CMP #### [facility] [address] [place] [address] Urine clarity by refractomet ry automatedOrdered By: Trell Damian on 02-01-2023 Clarity Refractometry automated (U) Clear Clear [facility] Urine glucose measurement by automated test strip (mass/volume)Ordered By: Trell Damian on 02-01-2023 Glucose Auto test strip (U) [Mass/Vol] >=1000 mg/dL Normal [facility] Urine hemoglobin detection b y automated test stripOrdered By: Trell Damian on 02-01-2023 Hemoglobin Auto test strip Ql (U) Negative Negative [facility] Urine leukocyte esterase det ection by automated test stripOrdered By: Trell Damian on 02-01-2023 Leukocyte esterase Auto test strip Ql (U) Negative Negative [facility] Urobilinogen Auto test strip (U) [Mass/Vol]Ordered By: Trell Damian on 02-01-2023 Urobilinogen (U) [Mass/Vol] Normal mg/dL Normal [facility] pH Auto test strip (U)Ordere d By: Trell Damian on 02-01-2023 pH (U) 5.5 [pH] 5.0-9.0 [facility] Glucose, Whole Bloodon 10-05 Glucose [Mass/Vol] 135 mg/dL High 74 - 100 mg/dL [facility] Interpretation and review of laboratory results Abnormal [facility] CBC AUTO DIFFon 07-17-2022 BASO # 0.0 103/ul Normal 0.0-0.1 [facility] Comment on above: Performed By: #### A 1C #### [facility] [address] [place] [address] Dr. Ana Pandey Basophils/100 WBC (Bld) 0.2 % Normal 0.2-2.0 [facility] Comment on above: Performed By: #### A 1C #### [facility] [address] [place] [address] Dr. Ana Pandey EO # 0.1 103/ul Normal 0.0-0.7 [facility] Comment on above: Performed By: #### A 1C #### [facility] [address] [place] [address] Dr. Ana Pandey Eosinophils/100 WBC (Bld) 0.9 % Normal 0.9-7.0 [facility] Comment on above: Performed By: #### A 1C #### [facility] [address] [address] [address] Ana Pandey Erythrocyte distribution width (RBC) [Ratio] 15.1 % Critically high 11.0-15.0 [facility] Comment on above: Performed By: #### A 1C #### [facility] [address] [place] [address] Dr. Ana Pandey Hematocrit (Bld) [Volume fraction] 33.6 % Critically low 42.0-54.0 [facility] Comment on above: Performed By: #### A 1C #### [facility] [address] [place] [address] Dr. Ana Pandey Hemoglobin (Bld) [Mass/Vol] 10.9 g/dL Critically low 14.0-18.0 [facility] Comment on above: Performed By: #### A 1C #### [facility] [address] [place] [address] Dr. Ana Pandey IG # 0.05 10e3/ul Critically high 0.00-0.03 [facility] Comment on above: Performed By: #### A 1C #### [facility] [address] [place] [address] Dr. Ana Pandey IG % 0.5 % Normal 0.0-0.5 [facility] Comment on above: Performed By: #### A 1C #### [facility] [address] [place] [address] Dr. Ana Pandey LYMPH # 0.9 103/ul Critically low 1.2-3.8 [facility] Comment on above: Performed By: #### A 1C #### [facility] [address] [place] [address] Dr. Ana Pandey Lymphocytes/100 WBC (Bld) 8.5 % Critically low 20.5-60.0 [facility] Comment on above: Performed By: #### A 1C #### [facility] [address] [place] [address] Dr. Ana Pandey MANUAL DIFF REQ NO Normal [facility] Comment on above: Performed By: #### A 1C #### [facility] [address] [place] [address] Dr. Ana Pandey MCH (RBC) [Entitic mass] 29.0 pg Normal 25.9-34.0 [facility] Comment on above: Performed By: #### A 1C #### [facility] [address] [place] [address] Dr. Ana Pandey MCHC (RBC) [Mass/Vol] 32.4 g/dL Normal 29.9-35.2 [facility] Comment on above: Performed By: #### A 1C #### [facility] [address] [place] [address] Dr. Ana Pandey MCV (RBC) [Entitic vol] 89.4 fL Normal 80.0-94.0 [facility] Comment on above: Performed By: #### A 1C #### [facility] [address] [place] [address] Dr. Ana Pandey MONO # 0.6 103/ul Normal 0.3-0.8 [facility] Comment on above: Performed By: #### A 1C #### [facility] [address] [place] [address] Dr. Ana Pandey Monocytes/100 WBC (Bld) 6.1 % Normal 1.7-12.0 [facility] Comment on above: Performed By: #### A 1C #### [facility] [address] [place] [address] Dr. Ana Pandey NEUT # 8.4 103/ul Critically high 1.4-6.5 [facility] Comment on above: Performed By: #### A 1C #### [facility] [address] [place] [address] Dr. Ana Pandey Neutrophils/100 WBC (Bld) 83.8 % Critically high 43.0-75.0 [facility] Comment on above: Performed By: #### A 1C #### [facility] [address] [place] [address] Dr. Ana Pandey Platelet mean volume (Bld) [Entitic vol] 9.7 fL Normal 9.5-13.5 [facility] Comment on above: Performed By: #### A 1C #### [facility] [address] [place] [address] Dr. Ana Pandey PLT 220 103/ul Normal 150-450 [facility] Comment on above: Performed By: #### A 1C #### [facility] [address] [place] [address] Dr. Ana Pandey RBC 3.76 106/ul Critically low 4.70-6.10 [facility] Comment on above: Performed By: #### A 1C #### [facility] [address] [place] [address] Dr. Ana Pandey WBC 10.0 103/ul Normal 4.0-11.0 [facility] Comment on above: Performed By: #### A 1C #### [facility] [address] [address] [address] ABD/PELVIS WO CONon [...] Bowen WISDOM Date: 2022-07-16 23:30 Normal [facility] CULTURE BLOODon 07-17-2022 Microscopic examination of blood, culture Culture Observations: NO GROWTH AT 36-48 HOURS. FINAL TO FOLLOW. Normal [facility] Comment on above: Performed By: #### B HOSPITAL SUPERVISOR, CMP #### [facility] [address] [address] [address] Ana Pandey Microscopic examination of blood, culture Culture Observations: NO GROWTH AT 36-48 HOURS. FINAL TO FOLLOW. Normal [facility] Comment on above: Performed By: #### B HOSPITAL SUPERVISOR, CMP #### [facility] [address] [place] [address] Dr. Ana Pandey CULTURE URINEon 07-17-2022 CULTURE URINE Culture Observations : AMINA TO FOLLOW. Isolate 1 Escherichia coli >100,000 cfu/mL of Normal [facility] Comment on above: Performed By: #### B HOSPITAL SUPERVISOR, CMP #### [facility] [address] [place] [address] Dr. Ana Pandey ER URINE PROFILEon 3 Bilirubin Ql (U) Negative Normal NEGATIVE [facility] Comment on above: Performed By: #### Sumaya MEDELLIN UMЕЛЕНАRO #### [facility] [address] [place] [address] Dr. Ana Pandey Clarity (U) CLEAR Normal CLEAR [facility] Comment on above: Performed By: #### JUSTYNA FARAHRO #### [facility] [address] [place] [address] Dr. Ana Pandey Color (U) LT. YELLOW Normal YELLOW [facility] Comment on above: Performed By: #### JUSTYNA FARAHRO #### [facility] [address] [place] [address] Dr. Ana Pandey ERULYNSEYD A micrscopic examina tion will be performed if indicated. Normal [facility] Comment on above: Performed By: #### Sumaya MEDELLIN UMICRO #### [facility] [address] [place] [address] Dr. Ana Pandey Glucose Ql (U) Negative Normal NEGATIVE [facility] Comment on above: Performed By: #### Sumaya MEDELLIN UMЕЛЕНАRO #### [facility] [address] [place] [address] Dr. Ana Pandey Hemoglobin Ql (U) MODERATE Abnormal NEGATIVE [facility] Comment on above: Performed By: #### Sumaya MEDELLIN UMICRO #### [facility] [address] [place] [address] Dr. Ana Pandey Ketones Ql (U) Negative Normal NEGATIVE [facility] Comment on above: Performed By: #### Sumaya MEDELLIN UMICRO #### [facility] [address] [place] [address] Dr. Ana Pandey LEUKOCYTES MODERATE Abnormal NEGATIVE [facility] Comment on above: Performed By: #### Sumaya MEDELLIN, UMICRO #### [facility] [address] [place] [address] Dr. Ana Pandey Nitrite Ql (U) Positive Abnormal NEGATIVE [facility] Comment on above: Performed By: #### Sumaya MEDELLIN UMICRO #### [facility] [address] [place] [address] Dr. Ana Pandey pH (U) 5.0 [pH] Normal 5-9 [facility] Comment on above: Performed By: #### Sumaya MEDELLIN UMICRO #### [facility] [address] [place] [address] Dr. Ana Pandey SPEC GRAVITY 1.025 Normal 1.005-<=1. 025 [facility] Comment on above: Performed By: #### Sumaya MEDELLIN UMICRO #### [facility] [address] [place] [address] Dr. Ana Pandey UA PROTEIN Negative Normal NEGATIVE/ TRACE [facility] Comment on above: Performed By: #### Sumaya MEDELLIN UMICRO #### [facility] [address] [place] [address] Dr. Ana Pandey UR MICRO IND INDICATED Normal [facility] Comment on above: Performed By: #### Sumaya MEDELLIN UMICRO #### [facility] [address] [place] [address] Dr. Ana Pandey Urobilinogen Qn (U) 0.2 {Casie'U}/dL Normal 0.2 - 1. 0 [facility] Comment on above: Performed By: #### Sumaya MEDELLIN, UMICRO #### [facility] [address] [place] [address] Dr. Ana Pandey LACTATE/LACTIC ACIDon 2022 Lactate [Moles/Vol] 2.0 mmol/L Normal 0.4-2.0 [facility] Comment on above: Performed By: #### L ACT #### [facility] [address] [place] [address] Dr. Ana Pandey PROF 14(COMP METB)on 023 Albumin [Mass/Vol] 3.2 g/dL Critically low 3.4-5.0 [facility] Comment on above: Performed By: #### C MP #### [facility] [address] [place] [address] Dr. Ana Pandey Albumin/Globulin [Mass ratio] 1.0 {ratio} Normal [facility] Comment on above: Performed By: #### C MP #### [facility] [address] [place] [address] Dr. Ana Pandey ALP [Catalytic activity/Vol] 75 U/L Normal 46-116 [facility] Comment on above: Performed By: #### C MP #### [facility] [address] [place] [address] Dr. Ana Pandey ALT [Catalytic activity/Vol] 24 U/L Normal 16-63 [facility] Comment on above: Performed By: #### C MP #### [facility] [address] [place] [address] Dr. Ana Pandey Anion gap [Moles/Vol] 13.0 mmol/L Normal [facility] Comment on above: Performed By: #### C MP #### [facility] [address] [place] [address] Dr. Ana Pandey AST [Catalytic activity/Vol] 19 U/L Normal 15-37 [facility] Comment on above: Performed By: #### C MP #### [facility] [address] [place] [address] Dr. Ana Pandey Bilirubin [Mass/Vol] 0.6 mg/dL Normal 0.2-1.0 [facility] Comment on above: Performed By: #### C MP #### [facility] [address] [place] [address] Dr. Ana Pandey Calcium [Mass/Vol] 8.6 mg/dL Normal 8.5-10.1 [facility] Comment on above: Performed By: #### C MP #### [facility] [address] [address] [address] Ana Pandey Chloride [Moles/Vol] 106 mmol/L Normal 98-107 [facility] Comment on above: Performed By: #### C MP #### [facility] [address] [address] [address] Ana Pandey CO2 [Moles/Vol] 25.0 mmol/L Normal 21.0-32.0 [facility] Comment on above: Performed By: #### C MP #### [facility] [address] [address] [address] Ana Pandey Creatinine [Mass/Vol] 1.34 mg/dL Critically high 0.70-1.30 [facility] Comment on above: Performed By: #### C MP #### [facility] [address] [address] [address] Ana Pandey EGFR-AF HONDURAN >60 Normal >=60 [facility] Comment on above: Performed By: #### C MP #### [facility] [address] [address] [address] Ana Pandey EGFR-NON AF HONDURAN 52 mL/min/1.73m2 Critically low >=60 [facility] Comment on above: Performed By: #### C MP #### [facility] [address] [address] [address] Ana Pandey Globulin (S) [Mass/Vol] 3.2 g/dL Normal [facility] Comment on above: Performed By: #### C MP #### [facility] [address] [address] [address] Ana Pandey Glucose [Mass/Vol] 136 mg/dL Critically high 74-106 [facility] Comment on above: Performed By: #### C MP #### [facility] [address] [address] [address] Ana Pandey Potassium [Moles/Vol] 4.0 mmol/L Normal 3.5-5.1 [facility] Comment on above: Performed By: #### C MP #### [facility] [address] [address] [address] Ana Pandey Protein [Mass/Vol] 6.4 g/dL Normal 6.4-8.2 [facility] Comment on above: Performed By: #### C MP #### [facility] [address] [address] [address] Ana Pandey Sodium [Moles/Vol] 140 mmol/L Normal 136-145 [facility] Comment on above: Performed By: #### C MP #### [facility] [address] [address] [address] Ana Pandey Urea nitrogen [Mass/Vol] 23.0 mg/dL Critically high 7.0-18.0 [facility] Comment on above: Performed By: #### C MP #### [facility] [address] [place] [address] Dr. Ana Pandey Urea nitrogen/Creatinine [Mass ratio] 17.2 mg/mg Normal [facility] Comment on above: Performed By: #### C MP #### [facility] [address] [place] [address] Dr. Ana Pandey URINE MICROSCOPIC ONLYon BACTERIA LARGE Abnormal NONE SEEN [facility] Comment on above: Performed By: #### Sumaya MEDELLIN UMICRO #### [facility] [address] [place] [address] Dr. Ana Pandey Bacteria identified Cx Nom (U) INDICATED Normal [facility] Comment on above: Performed By: #### Sumaya MEDELLIN UMICRO #### [facility] [address] [place] [address] Dr. Ana Pandey CAST NONE SEEN Normal NONE SEEN [facility] Comment on above: Performed By: #### Sumaya MEDELLIN UMICRO #### [facility] [address] [place] [address] Dr. Ana Pandey Crystals LM Nom (Urine sed) NONE SEEN Normal NONE SEEN [facility] Comment on above: Performed By: #### Sumaya MEDELLIN UMICRO #### [facility] [address] [place] [address] Dr. Ana Pandey Epithelial cells LM Ql (Urine sed) RARE Normal NONE SEEN /RARE [facility] Comment on above: Performed By: #### E JUSTYNA MEDELLINRO #### [facility] [address] [place] [address] Dr. Ana Pandey MUCOUS NONE SEEN Normal NONE SEEN [facility] Comment on above: Performed By: #### JUSTYNA FARAHRO #### [facility] [address] [place] [address] Dr. Ana Pandey RBC 0-2 Normal 0-2 [facility] Comment on above: Performed By: #### JUSTYNA FARAHRO #### [facility] [address] [place] [address] Dr. Ana Pandey WBC 20-50 Abnormal NONE SEEN [facility] Comment on above: Performed By: #### JUSTYNA FARAHRO #### [facility] [address] [place] [address] Dr. Ana Pandey XR CHEST 1 Von [...] YELENA DIAZ Date: 2022-07-16 23:14 Normal [facility] Covid-19 PCR (CVDTB)on 07-06 SARS-CoV-2 (COVID-19) RNA EDD+probe Ql (Unsp spec) Not detected Normal NOT DETECTED [facility] Comment on above: Performed By: #### A 1C #### [facility] [address] [place] [address] Dr. Ana Pandey INFLUENZA A AND B AGon 07-16 INFLUENZA A AG Negative Normal NEGATIVE SEE COMMENT [facility] Comment on above: Performed By: #### A 1C #### [facility] [address] [place] [address] Dr. Ana Pandey INFLUENZA B AG Negative Normal NEGATIVE SEE COMMENT [facility] Comment on above: Performed By: #### A 1C #### [facility] [address] [place] [address] Dr. Ana Pandey SYMPTOMATIC COVID-19 ANTIGEN on 07-16-2022 EUA Statement SEE BELOW Normal [facility] Comment on above: Result Comment: This test [...] sooner. Performed By: #### C VDAGS #### [facility] [address] [place] [address] Dr. Ana Pandey SARS-CoV-2 (COVID-19) RNA EDD+probe Ql (Unsp spec) Negative Normal NEGATIVE [facility] Comment on above: Performed By: #### C VDAGS #### [facility] [address] [place] [address] Dr. Ana Pandey Follow-Upon 05-20-2022 Follow-Up [id number] Rom Winston 1945 M Date Provider Department Center 05/20/2022 MATIAS LOZA [facility] Family History Problem Relation Age of Onset Heart disease Father Family Status - Relation Status Age at Father Level of Service:05137 [place] OFFICE/OUTPATIENT ESTABLISHED MOD MDM 30-39 MIN Reason for Visit and Comments: Follow-up [826462] Normal [facility] GLYCOHEMOGLOBIN A1Con 2022 ADA RECOMMENDATION SEE BELOW Normal [facility] Comment on above: Result Comment: ADA RECOMMENDED LIMIT 4.0 - 6.0 ADA THERAPEUTIC TARGET < 7.0 ACTION SUGGESTED > 7.0 Performed By: #### A 1C #### [facility] [address] [address] [address] Ana Pandey Glucose [Mass/Vol] 154 mg/dL Normal [facility] Comment on above: Performed By: #### A 1C #### [facility] [address] [address] [address] Ana Pandey HbA1c (Bld) [Mass fraction] 7.0 % Critically high 4.5-6.2 [facility] Comment on above: Performed By: #### A 1C #### [facility] [address] [address] [address] Ana Pandey SED RATE [facility] 2022 SED RATE 30 mm/hr Critically high <=20 [facility] Comment on above: Performed By: #### A 1C #### [facility] [address] [address] [address] Ana Pandey Office Visiton 12-01-2021 Follow-up visit [id number] Rom Winston 1945 Date Provider Department Center 12/01/2021 CHRISTIANO LAFLEUR SIENNA Bhandari [facility] Family History Problem Relation Age of Onset Heart disease Father Family Status - Relation Status Age at Father Level of Service:97284 [place] OFFICE/OUTPATIENT ESTABLISHED MOD MDM 30-39 MIN Reason for Visit and Comments: Coronary Artery Disease [187] Shortness of Breath [645437] Hypertension [197115] Normal [facility] Abstracton 11-07-2021 Abstract [id number] Rom Winston 1945 Date Provider Department Center 11/07/2021 CATA FRENCH SIENNA [facility] Family History Problem Relation Age of Onset Heart disease Father Family Status - Relation Status Age at Father Normal [facility] NM STRESS/REST MULTIon 09-29 NM STRESS/REST MULTI Patient: LEONARDO WINSTON Exam Date: 09/29/2021 : 1945 Gender:M Ordering : MATIAS MAYORGA Admission #: [id number] Family : Order #: [id number] CLICK HERE TO VIEW EXAM RADIOLOGY REPORT [...] nuclear medicine myocardial perfusion scan. Dictated by: Mic Graham M.D. on 09/29/2021 at 15:18 Approved by: Mic Graham M.D. on 09/29/2021 at 15:22 Normal [facility] PROF CHEM 8 (BAS METB)on Anion gap [Moles/Vol] 13.1 mmol/L Normal [facility] Comment on above: Performed By: #### B HOSPITAL SUPERVISOR, CMP #### [facility] [address] [address] [address] Ana Pandey Calcium [Mass/Vol] 8.6 mg/dL Normal 8.5-10.1 [facility] Comment on above: Performed By: #### B HOSPITAL SUPERVISOR, CMP #### [facility] [address] [address] [address] Ana Pandey Chloride [Moles/Vol] 104 mmol/L Normal 98-107 [facility] Comment on above: Performed By: #### B HOSPITAL SUPERVISOR, CMP #### [facility] [address] [address] [address] Ana Pandey CO2 [Moles/Vol] 25.9 mmol/L Normal 21.0-32.0 [facility] Comment on above: Performed By: #### B HOSPITAL SUPERVISOR, CMP #### [facility] [address] [address] [address] Ana Pandey Creatinine [Mass/Vol] 0.92 mg/dL Normal 0.70-1.30 [facility] Comment on above: Performed By: #### B HOSPITAL SUPERVISOR, CMP #### [facility] [address] [place] [address] Dr. Ana Pandey EGFR-AF HONDURAN >60 Normal >=60 [facility] Comment on above: Performed By: #### B HOSPITAL SUPERVISOR, CMP #### [facility] [address] [place] [address] Dr. Ana Pandey EGFR-NON AF HONDURAN >60 Normal >=60 [facility] Comment on above: Performed By: #### B HOSPITAL SUPERVISOR, CMP #### [facility] [address] [address] [address] Ana Pandey Glucose [Mass/Vol] 102 mg/dL Normal 74-106 [facility] Comment on above: Performed By: #### B HOSPITAL SUPERVISOR, CMP #### [facility] [address] [address] [address] Ana Pandey Potassium [Moles/Vol] 4.0 mmol/L Normal 3.5-5.1 [facility] Comment on above: Performed By: #### B HOSPITAL SUPERVISOR, CMP #### [facility] [address] [address] [address] Ana Pandey Sodium [Moles/Vol] 139 mmol/L Normal 136-145 [facility] Comment on above: Performed By: #### B HOSPITAL SUPERVISOR, CMP #### [facility] [address] [address] [address] Ana Pandey Urea nitrogen [Mass/Vol] 24.0 mg/dL Critically high 7.0-18.0 [facility] Comment on above: Performed By: #### B HOSPITAL SUPERVISOR, CMP #### [facility] [address] [place] [address] Dr. Ana Pandey Urea nitrogen/Creatinine [Mass ratio] 26.1 mg/mg Normal [facility] Comment on above: Performed By: #### B HOSPITAL SUPERVISOR, CMP #### [facility] [address] [place] [address] Dr. Ana Pandey BNPon 09-10-2021 Natriuretic peptide B (Bld) [Mass/Vol] 305.0 pg/mL Normal <=1,800.0 [facility] Comment on above: Performed By: #### B HOSPITAL SUPERVISOR, CMP #### [facility] [address] [place] [address] Dr. Ana Pandey CBC AUTO DIFFon 09-10-2021 BASO # 0.0 103/ul Normal 0.0-0.1 [facility] Comment on above: Performed By: #### A 1C #### [facility] [address] [place] [address] Dr. Ana Pandey Basophils/100 WBC (Bld) 0.5 % Normal 0.2-2.0 [facility] Comment on above: Performed By: #### A 1C #### [facility] [address] [place] [address] Dr. Ana Pandey EO # 0.1 103/ul Normal 0.0-0.7 [facility] Comment on above: Performed By: #### A 1C #### [facility] [address] [place] [address] Dr. Ana Pandey Eosinophils/100 WBC (Bld) 1.9 % Normal 0.9-7.0 [facility] Comment on above: Performed By: #### A 1C #### [facility] [address] [place] [address] Dr. Ana Pandey Erythrocyte distribution width (RBC) [Ratio] 15.4 % Critically high 11.0-15.0 [facility] Comment on above: Performed By: #### A 1C #### [facility] [address] [place] [address] Dr. Ana Pandey Hematocrit (Bld) [Volume fraction] 38.6 % Critically low 42.0-54.0 [facility] Comment on above: Performed By: #### A 1C #### [facility] [address] [place] [address] Dr. Ana Pandey Hemoglobin (Bld) [Mass/Vol] 12.2 g/dL Critically low 14.0-18.0 [facility] Comment on above: Performed By: #### A 1C #### [facility] [address] [place] [address] Dr. Ana Pandey IG # 0.01 10e3/ul Normal 0.00-0.03 [facility] Comment on above: Performed By: #### A 1C #### [facility] [address] [place] [address] Dr. Ana Pandey IG % 0.1 % Normal 0.0-0.5 [facility] Comment on above: Performed By: #### A 1C #### [facility] [address] [place] [address] Dr. Ana Pandey LYMPH # 1.6 103/ul Normal 1.2-3.8 [facility] Comment on above: Performed By: #### A 1C #### [facility] [address] [place] [address] Dr. Ana Pandey Lymphocytes/100 WBC (Bld) 21.1 % Normal 20.5-60.0 [facility] Comment on above: Performed By: #### A 1C #### [facility] [address] [place] [address] Dr. Ana Pandey MANUAL DIFF REQ NO Normal [facility] Comment on above: Performed By: #### A 1C #### [facility] [address] [place] [address] Dr. Ana Pandey MCH (RBC) [Entitic mass] 28.7 pg Normal 25.9-34.0 [facility] Comment on above: Performed By: #### A 1C #### [facility] [address] [place] [address] Dr. Ana Pandey MCHC (RBC) [Mass/Vol] 31.6 g/dL Normal 29.9-35.2 [facility] Comment on above: Performed By: #### A 1C #### [facility] [address] [place] [address] Dr. Ana Pandey MCV (RBC) [Entitic vol] 90.8 fL Normal 80.0-94.0 [facility] Comment on above: Performed By: #### A 1C #### [facility] [address] [place] [address] Dr. Ana Pandey MONO # 0.6 103/ul Normal 0.3-0.8 [facility] Comment on above: Performed By: #### A 1C #### [facility] [address] [place] [address] Dr. Ana Pandey Monocytes/100 WBC (Bld) 7.4 % Normal 1.7-12.0 [facility] Comment on above: Performed By: #### A 1C #### [facility] [address] [place] [address] Dr. Ana Pandey NEUT # 5.1 103/ul Normal 1.4-6.5 [facility] Comment on above: Performed By: #### A 1C #### [facility] [address] [place] [address] Dr. Ana Pandey Neutrophils/100 WBC (Bld) 69.0 % Normal 43.0-75.0 [facility] Comment on above: Performed By: #### A 1C #### [facility] [address] [place] [address] Dr. Ana Pandey Platelet mean volume (Bld) [Entitic vol] 9.9 fL Normal 9.5-13.5 [facility] Comment on above: Performed By: #### A 1C #### [facility] [address] [place] [address] Dr. Ana Pandey PLT 194 103/ul Normal 150-450 [facility] Comment on above: Performed By: #### A 1C #### [facility] [address] [place] [address] Dr. Ana Pandey RBC 4.25 106/ul Critically low 4.70-6.10 [facility] Comment on above: Performed By: #### A 1C #### [facility] [address] [place] [address] Dr. Ana Pandey WBC 7.4 103/ul Normal 4.0-11.0 [facility] Comment on above: Performed By: #### A 1C #### [facility] [address] [place] [address] Dr. Ana Pandey PROF 14(COMP METB)on 022 Albumin [Mass/Vol] 3.5 g/dL Normal 3.4-5.0 [facility] Comment on above: Performed By: #### B HOSPITAL SUPERVISOR, CMP #### [facility] [address] [place] [address] Dr. Ana Pandey Albumin/Globulin [Mass ratio] 1.2 {ratio} Normal [facility] Comment on above: Performed By: #### B HOSPITAL SUPERVISOR, CMP #### [facility] [address] [place] [address] Dr. Ana Pandey ALP [Catalytic activity/Vol] 67 U/L Normal 46-116 [facility] Comment on above: Performed By: #### B HOSPITAL SUPERVISOR, CMP #### [facility] [address] [place] [address] Dr. Ana Pandey ALT [Catalytic activity/Vol] 37 U/L Normal 16-63 [facility] Comment on above: Performed By: #### B HOSPITAL SUPERVISOR, CMP #### [facility] [address] [place] [address] Dr. Ana Pandey Anion gap [Moles/Vol] 11.6 mmol/L Normal [facility] Comment on above: Performed By: #### B HOSPITAL SUPERVISOR, CMP #### [facility] [address] [place] [address] Dr. Ana Pandey AST [Catalytic activity/Vol] 30 U/L Normal 15-37 [facility] Comment on above: Performed By: #### B HOSPITAL SUPERVISOR, CMP #### [facility] [address] [place] [address] Dr. Ana Pandey Bilirubin [Mass/Vol] 0.5 mg/dL Normal 0.2-1.0 [facility] Comment on above: Performed By: #### B HOSPITAL SUPERVISOR, CMP #### [facility] [address] [place] [address] Dr. Ana Pandey Calcium [Mass/Vol] 8.9 mg/dL Normal 8.5-10.1 [facility] Comment on above: Performed By: #### B HOSPITAL SUPERVISOR, CMP #### [facility] [address] [address] [address] Ana Pandey Chloride [Moles/Vol] 107 mmol/L Normal 98-107 [facility] Comment on above: Performed By: #### B HOSPITAL SUPERVISOR, CMP #### [facility] [address] [place] [address] Dr. Ana Pandey CO2 [Moles/Vol] 26.9 mmol/L Normal 21.0-32.0 [facility] Comment on above: Performed By: #### B HOSPITAL SUPERVISOR, CMP #### [facility] [address] [place] [address] Dr. Ana Pandey Creatinine [Mass/Vol] 0.93 mg/dL Normal 0.70-1.30 [facility] Comment on above: Performed By: #### B HOSPITAL SUPERVISOR, CMP #### [facility] [address] [place] [address] Dr. Ana Pandey EGFR-AF HONDURAN >60 Normal >=60 [facility] Comment on above: Performed By: #### B HOSPITAL SUPERVISOR, CMP #### [facility] [address] [place] [address] Dr. Ana Pandey EGFR-NON AF HONDURAN >60 Normal >=60 [facility] Comment on above: Performed By: #### B HOSPITAL SUPERVISOR, CMP #### [facility] [address] [place] [address] Dr. Ana Pandey Globulin (S) [Mass/Vol] 2.8 g/dL Normal [facility] Comment on above: Performed By: #### B HOSPITAL SUPERVISOR, CMP #### [facility] [address] [place] [address] Dr. Ana Pandey Glucose [Mass/Vol] 169 mg/dL Critically high 74-106 [facility] Comment on above: Performed By: #### B HOSPITAL SUPERVISOR, CMP #### [facility] [address] [address] [address] Ana Pandey Potassium [Moles/Vol] 4.5 mmol/L Normal 3.5-5.1 [facility] Comment on above: Performed By: #### B HOSPITAL SUPERVISOR, CMP #### [facility] [address] [address] [address] Ana Pandey Protein [Mass/Vol] 6.3 g/dL Critically low 6.4-8.2 [facility] Comment on above: Performed By: #### B HOSPITAL SUPERVISOR, CMP #### [facility] [address] [address] [address] Ana Pandey Sodium [Moles/Vol] 141 mmol/L Normal 136-145 [facility] Comment on above: Performed By: #### B HOSPITAL SUPERVISOR, CMP #### [facility] [address] [address] [address] Ana Pandey Urea nitrogen [Mass/Vol] 20.0 mg/dL Critically high 7.0-18.0 [facility] Comment on above: Performed By: #### B HOSPITAL SUPERVISOR, CMP #### [facility] [address] [address] [address] Ana Pandey Urea nitrogen/Creatinine [Mass ratio] 21.5 mg/mg [facility] Comment on above: Performed By: #### B HOSPITAL SUPERVISOR, CMP #### [facility] [address] [place] [address] Dr. Ana Pandey XR CHEST 2 Von [...] by: KAYCE SARAVIA Date: 2021-09-10 14:23 Normal [facility] CBC AUTO DIFFon 07-23-2021 BASO # 0.1 103/ul Normal 0.0-0.1 [facility] Comment on above: Performed By: #### C BC #### [facility] [address] [place] [address] Dr. Ana Pandey Basophils/100 WBC (Bld) 0.6 % Normal 0.2-2.0 [facility] Comment on above: Performed By: #### C BC #### [facility] [address] [place] [address] Dr. Ana Pandey EO # 0.2 103/ul Normal 0.0-0.7 [facility] Comment on above: Performed By: #### C BC #### [facility] [address] [place] [address] Dr. Ana Pandey Eosinophils/100 WBC (Bld) 2.5 % Normal 0.9-7.0 [facility] Comment on above: Performed By: #### C BC #### [facility] [address] [place] [address] Dr. Ana Pandey Erythrocyte distribution width (RBC) [Ratio] 15.0 % Normal 11.0-15.0 [facility] Comment on above: Performed By: #### C BC #### [facility] [address] [place] [address] Dr. Ana Pandey Hematocrit (Bld) [Volume fraction] 46.4 % Normal 42.0-54.0 [facility] Comment on above: Performed By: #### C BC #### [facility] [address] [place] [address] Dr. Ana Pandey Hemoglobin (Bld) [Mass/Vol] 14.2 g/dL Normal 14.0-18.0 [facility] Comment on above: Performed By: #### C BC #### [facility] [address] [place] [address] Dr. Ana Pandey IG # 0.02 10e3/ul Normal 0.00-0.03 [facility] Comment on above: Performed By: #### C BC #### [facility] [address] [place] [address] Dr. Ana Pandey IG % 0.2 % Normal 0.0-0.5 [facility] Comment on above: Performed By: #### C BC #### [facility] [address] [place] [address] Dr. Ana Pandey LYMPH # 2.5 103/ul Normal 1.2-3.8 [facility] Comment on above: Performed By: #### C BC #### [facility] [address] [place] [address] Dr. Ana Pandey Lymphocytes/100 WBC (Bld) 27.9 % Normal 20.5-60.0 [facility] Comment on above: Performed By: #### C BC #### [facility] [address] [place] [address] Dr. Ana Pandey MANUAL DIFF REQ NO Normal [facility] Comment on above: Performed By: #### C BC #### [facility] [address] [place] [address] Dr. Ana Pandey MCH (RBC) [Entitic mass] 27.8 pg Normal 25.9-34.0 [facility] Comment on above: Performed By: #### C BC #### [facility] [address] [place] [address] Dr. Ana Pandey MCHC (RBC) [Mass/Vol] 30.6 g/dL Normal 29.9-35.2 [facility] Comment on above: Performed By: #### C BC #### [facility] [address] [place] [address] Dr. Ana Pandey MCV (RBC) [Entitic vol] 90.8 fL Normal 80.0-94.0 [facility] Comment on above: Performed By: #### C BC #### [facility] [address] [place] [address] Dr. Ana Pandey MONO # 0.7 103/ul Normal 0.3-0.8 [facility] Comment on above: Performed By: #### C BC #### [facility] [address] [place] [address] Dr. Ana Pandey Monocytes/100 WBC (Bld) 8.0 % Normal 1.7-12.0 [facility] Comment on above: Performed By: #### C BC #### [facility] [address] [place] [address] Dr. Ana Pandey NEUT # 5.4 103/ul Normal 1.4-6.5 [facility] Comment on above: Performed By: #### C BC #### [facility] [address] [place] [address] Dr. Ana Pandey Neutrophils/100 WBC (Bld) 60.8 % Normal 43.0-75.0 [facility] Comment on above: Performed By: #### C BC #### [facility] [address] [place] [address] Dr. Ana Pandey Platelet mean volume (Bld) [Entitic vol] 10.6 fL Normal 9.5-13.5 [facility] Comment on above: Performed By: #### C BC #### [facility] [address] [place] [address] Dr. Ana Pandey PLT 248 103/ul Normal 150-450 [facility] Comment on above: Performed By: #### C BC #### [facility] [address] [place] [address] Dr. Ana Pandey RBC 5.11 106/ul Normal 4.70-6.10 [facility] Comment on above: Performed By: #### C BC #### [facility] [address] [place] [address] Dr. Ana Pandey WBC 8.8 103/ul Normal 4.0-11.0 [facility] Comment on above: Performed By: #### C BC #### [facility] [address] [place] [address] Dr. Ana Pandey GLYCOHEMOGLOBIN A1Con 2021 ADA RECOMMENDATION SEE BELOW Normal [facility] Comment on above: Result Comment: ADA RECOMMENDED LIMIT 4.0 - 6.0 ADA THERAPEUTIC TARGET < 7.0 ACTION SUGGESTED > 7.0 Performed By: #### A 1C #### [facility] [address] [place] [address] Dr. Ana Pandey Glucose [Mass/Vol] 146 mg/dL Normal [facility] Comment on above: Performed By: #### A 1C #### [facility] [address] [address] [address] Ana Pandey HbA1c (Bld) [Mass fraction] 6.7 % Critically high 4.5-6.2 [facility] Comment on above: Performed By: #### A 1C #### [facility] [address] [address] [address] Ana Pandey LIPID PROFILEon 07-23-2021 CHOL-HDL RATIO NORM SEE BELOW Normal [facility] Comment on above: Result Comment: 3.3 - 4.4 LOW RISK 4.4 - 7.1 AVERAGE RISK 7.1 - 11.0 MODERATE RISK >11.0 HIGH RISK Performed By: #### A 1C #### [facility] [address] [place] [address] Dr. Ana Pandey Cholesterol [Mass/Vol] 98 mg/dL Normal <=200 [facility] Comment on above: Performed By: #### A 1C #### [facility] [address] [address] [address] Ana Pandey Cholesterol in HDL [Mass/Vol] 42 mg/dL Normal 40-60 [facility] Comment on above: Performed By: #### A 1C #### [facility] [address] [place] [address] Dr. Ana Pandey Cholesterol in LDL [Mass/Vol] 43.2 mg/dL Normal [facility] Comment on above: Performed By: #### A 1C #### [facility] [address] [address] [address] Ana Pandey Cholesterol.total/Cho lesterol in HDL [Mass ratio] 2.3 {ratio} Normal [facility] Comment on above: Performed By: #### A 1C #### [facility] [address] [place] [address] Dr. Ana Pandey HDL NORMAL > or = 60 mg/dl - LO W CARDIOVASCULAR RISK <40 mg/dl - HIGH CARDIOVASCULAR RISK Normal [facility] Comment on above: Performed By: #### A 1C #### [facility] [address] [address] [address] Ana Pandey LDL CALC NORMAL SEE BELOW Normal [facility] Comment on above: Result Comment: <100 mg/dl OPTIMAL 100 - 129 mg/dl NEAR OR ABOVE OPTIMAL 130 - 159 mg/dl BORDERLINE HIGH 160 - 189 mg/dl HIGH >190 mg/dl VERY HIGH Performed By: #### A 1C #### [facility] [address] [place] [address] Dr. Ana Pandey Triglyceride [Mass/Vol] 64 mg/dL Normal <=150 [facility] Comment on above: Performed By: #### A 1C #### [facility] [address] [place] [address] Dr. Ana Pandey VLDL CALC 12.8 mg/dL Normal [facility] Comment on above: Performed By: #### A 1C #### [facility] [address] [place] [address] Dr. Ana Pandey LIVER PROFILEon 07-23-2021 Albumin [Mass/Vol] 3.9 g/dL Normal 3.4-5.0 [facility] Comment on above: Performed By: #### A 1C #### [facility] [address] [place] [address] Dr. Ana Pandey Albumin/Globulin [Mass ratio] 1.2 {ratio} Normal [facility] Comment on above: Performed By: #### A 1C #### [facility] [address] [place] [address] Dr. Ana Pandey ALP [Catalytic activity/Vol] 74 U/L Normal 46-116 [facility] Comment on above: Performed By: #### A 1C #### [facility] [address] [place] [address] Dr. Ana Pandey ALT [Catalytic activity/Vol] 52 U/L Normal 16-63 [facility] Comment on above: Performed By: #### A 1C #### [facility] [address] [place] [address] Dr. Ana Pandey AST [Catalytic activity/Vol] 43 U/L Critically high 15-37 [facility] Comment on above: Performed By: #### A 1C #### [facility] [address] [address] [address] Ana Pandey BILI, CONJUGATED 0.2 mg/dL Normal 0.0-0.2 [facility] Comment on above: Performed By: #### A 1C #### [facility] [address] [address] [address] Ana Pandey Bilirubin [Mass/Vol] 0.6 mg/dL Normal 0.2-1.0 [facility] Comment on above: Performed By: #### A 1C #### [facility] [address] [address] [address] Ana Pandey Globulin (S) [Mass/Vol] 3.2 g/dL Normal [facility] Comment on above: Performed By: #### A 1C #### [facility] [address] [place] [address] Dr. Ana Pandey Protein [Mass/Vol] 7.1 g/dL Normal 6.4-8.2 [facility] Comment on above: Performed By: #### A 1C #### [facility] [address] [place] [address] Dr. Ana Pandey MICROALBUMIN, RAND URon 07-06 mALB 1.8 mg/L Normal <=30.0 [facility] Comment on above: Performed By: #### A 1C #### [facility] [address] [place] [address] Dr. Ana Pandey PROF CHEM 8 (BAS METB)on Anion gap [Moles/Vol] 12.1 mmol/L Normal [facility] Comment on above: Performed By: #### A 1C #### [facility] [address] [address] [address] Ana Pandey Calcium [Mass/Vol] 8.7 mg/dL Normal 8.5-10.1 [facility] Comment on above: Performed By: #### A 1C #### [facility] [address] [address] [address] Ana Pandey Chloride [Moles/Vol] 102 mmol/L Normal 98-107 [facility] Comment on above: Performed By: #### A 1C #### [facility] [address] [address] [address] Ana Pandey CO2 [Moles/Vol] 28.1 mmol/L Normal 21.0-32.0 [facility] Comment on above: Performed By: #### A 1C #### [facility] [address] [address] [address] Ana Pandey Creatinine [Mass/Vol] 0.94 mg/dL Normal 0.70-1.30 [facility] Comment on above: Performed By: #### A 1C #### [facility] [address] [address] [address] Ana Pandey EGFR-AF HONDURAN >60 Normal >=60 [facility] Comment on above: Performed By: #### A 1C #### [facility] [address] [place] [address] Dr. Ana Pandey EGFR-NON AF HONDURAN >60 Normal >=60 [facility] Comment on above: Performed By: #### A 1C #### [facility] [address] [place] [address] Dr. Ana Pandey Glucose [Mass/Vol] 102 mg/dL Normal 74-106 [facility] Comment on above: Performed By: #### A 1C #### [facility] [address] [place] [address] Dr. Ana Pandey Potassium [Moles/Vol] 4.2 mmol/L Normal 3.5-5.1 [facility] Comment on above: Performed By: #### A 1C #### [facility] [address] [address] [address] Ana Pandey Sodium [Moles/Vol] 138 mmol/L Normal 136-145 [facility] Comment on above: Performed By: #### A 1C #### [facility] [address] [place] [address] Dr. Ana Pandey Urea nitrogen [Mass/Vol] 28.0 mg/dL Critically high 7.0-18.0 [facility] Comment on above: Performed By: #### A 1C #### [facility] [address] [address] [address] Ana Pandey Urea nitrogen/Creatinine [Mass ratio] 29.8 mg/mg Normal [facility] Comment on above: Performed By: #### A 1C #### [facility] [address] [address] [address] Ana Pandey TSHon 07-23-2021 TSH 4.104 uIU/mL Critically high 0.358-3.74 0 [facility] Comment on above: Performed By: #### A 1C #### [facility] [address] [address] [address] Ana Pandey TSH RANGE SEE BELOW Normal [facility] Comment on above: Result Comment: <0.3 4 UIU/ml HYPERTHYROID 0.34-5.60 UIU/ml EUTHYROID >5.60 UIU/ml HYPOTHYROID Performed By: #### A 1C #### [facility] [address] [address] [address] Ana Pandey COVID Quick Testingon 2020 Result Positive [facility] Other Cardiovascular Lab Reporton 05-05-2017 Cardiovascular Lab Report [facility] Patient Name: Thea Winston [facility] MR #: [id number] Physician: Oziel Gomez,Department of M.D.Medicine Service Date: 05/04/2017Division of Birthdate: 4Cardiology Room #: 3AB [id number] [facility]Services[facility] [place] [id number] Fax Cardiovascular Laboratory ReportREFERRING PHYSICIANS: Christian Rosa [...] his risk factor burden, Dr. Rosa recommended cardiaccatheterization.FIN AL IMPRESSION:1. Severe stenosis of the mid LAD [...] CAD.6. Outpatient followup with Dr. Jacobo Rosa, [facility] [facility].7. Okay to refer to cardiac rehabilitation [...] usingultrasound guidance and micropuncture access technique, a 6-Georgian sheathwas placed in the right internal jugular vein. Using a Dougherty catheter,the right heart catheterization was then performed. Pressures wereobtained in the right atrium, right ventricle, pulmonary artery, andpulmonary capillary wedge position. Oxygen saturation was drawn from thepulmonary artery and the Sly cardiac output and cardiac index were thencalculated. The Dougherty catheter was then removed.Next, a 6-Georgian Terum[employer] Glidesheath slender was placed in the [...] check the severity with an FFR testing.[employer] ERAD left 6-Georgian guide was engaged to left main coronaryartery.The 51fanli Verrata FFR wire was then zeroed outside [...] the LAD was then crushed using an [employer] apex 3.0 x 12 mmnoncompliant balloon, which [...] PDA and LIDIA are widely patent.Electronically Signed by:Oziel Gomez M.D. 05/11/2017 08:15 P Oziel Gomez M.D.Date Dict: 05/04/2017/12:44 P/Oziel Gomez M.D.Date Trans: 05/05/2017 09:35 A/[id number] c: Christian Rosa M.D. [address] [place] [id number] Michael Smith M.D. [facility] [address] [place] [facility] Vital Signs Date Time Vital Sign Value Performing Clinician Facility 02-14-2023 12:10-0500 Body height 190.5 cm Mitzy Neves Other [facility] Other 02-14-2023 12:10-0500 Body mass index (BMI) [Ratio] 30.57 kg/m2 Mitzy Neves Other [facility] Other 02-14-2023 12:10-0500 Body temperature 98 [degF] Mitzy Neves Other [facility] Other 02-14-2023 12:10-0500 Body weight 110.95 kg Mitzy Neves Other [facility] Other 02-14-2023 12:10-0500 Diastolic blood pressure 60 mm[Hg] Mitzy Neves Other [facility] Other 02-14-2023 12:10-0500 Respiratory rate 18 /min Mitzy Neves Other [facility] Other 02-14-2023 12:10-0500 SaO2% (BldA) [Mass fraction] 98 % Mitzy Neves Other [facility] Other 02-14-2023 12:10-0500 Systolic blood pressure 135 mm[Hg] Mitzy Neves Other [facility] Other 10-05-2022 11:30-0400 Diastolic blood pressure 58 mm[Hg] Genoveva Pond DO Work Phone: [employer] 10-05-2022 11:30-0400 Heart rate 58 /min Genoveva Pond DO Work Phone: [employer] 10-05-2022 11:30-0400 Respiratory rate 16 /min Genoveva Pond DO Work Phone: [facility] 10-05-2022 11:30-0400 SaO2% (BldA) [Mass fraction] 98 % Genoveva Pond DO Work Phone: [employer] 10-05-2022 11:30-0400 Systolic blood pressure 126 mm[Hg] Genoveva Pond DO Work Phone: [employer] 10-05-2022 11:11-0400 Body temperature 96.91 [degF] Genoveva Pond DO Work Phone: [employer] 10-05-2022 10:00-0400 Body height 190.5 cm Genoveva Pond DO Work Phone: [facility] [employer] 10-05-2022 10:00-0400 Body mass index (BMI) [Ratio] 32.12 kg/m2 Genoveva Pond DO Work Phone: [facility] [employer] 10-05-2022 10:00-0400 Body weight 116.57 kg Genoveva Pond DO Work Phone: [facility] 05-26-2022 12:50-0400 Body height 190.5 cm Minerva Irwin Other [facility] Other 05-26-2022 12:50-0400 Body mass index (BMI) [Ratio] 31.87 kg/m2 Minerva Irwin Other [facility] Other 05-26-2022 12:50-0400 Body temperature 97.1 [degF] Minerva Irwin Other [facility] Other 05-26-2022 12:50-0400 Body weight 115.67 kg Minerva Irwin Other [facility] Other 05-26-2022 12:50-0400 Respiratory rate 18 /min Minerva Irwin Other [facility] Other 05-26-2022 12:50-0400 SaO2% (BldA) [Mass fraction] 97 % Minerva Irwin Other [facility] Other 03-20-2022 14:00-0500 Body height 190.5 cm Minerva Irwin Other [facility] Other 03-20-2022 14:00-0500 Body mass index (BMI) [Ratio] 28.74 kg/m2 Minerva Irwin Other [facility] Other 03-20-2022 14:00-0500 Body temperature 97.7 [degF] Minerva Irwin Other [facility] Other 03-20-2022 14:00-0500 Body weight 104.33 kg Minerva Irwin Other [facility] Other 03-20-2022 14:00-0500 Respiratory rate 18 /min Minerva Irwin Other [facility] Other 03-20-2022 14:00-0500 SaO2% (BldA) [Mass fraction] 97 % Minerva Irwin Other [facility] Other 12-05-2020 17:15-0400 Body height 190.5 cm Radha Savana Other [facility] Other 12-05-2020 17:15-0400 Body temperature 98.8 [degF] Radha Sawant Other [facility] Other 12-05-2020 17:15-0400 SaO2% (BldA) [Mass fraction] 97 % Radha Sawant Other [facility] Other Encounters Encounter Date Encounter Type Care Provider Facility Start: 03-15-2023 End: 03-15-2023 ambulatory SHAIKH LOKI Not Available Start: 02-25-2023 End: 02-25-2023 ambulatory SHAIKH LOKI Not Available Start: 02-14-2023 End: 02-14-2023 ambulatory Mitzy Neves Other [facility] Other Start: 02-14-2023 Office outpatient visit 15 minutes Mitzy Neves [facility] Start: 02-09-2023 End: 02-09-2023 ambulatory AMANDA ROSA Not Available Start: 02-01-2023 End: 02-01-2023 ambulatory Trell Ramirez Nati Facility:[facility] Start: 02-01-2023 End: 02-01-2023 ambulatory MD Michael Smith Work Phone: [facility] Work Phone: Start: 02-01-2023 End: 02-01-2023 Patient encounter procedure MD Michael Smith Work Phone: [facility] Work Phone: Start: 10-05-2022 End: 10-05-2022 ambulatory GENOVEVA Souza [facility] Start: 10-05-2022 End: 10-05-2022 Subsequent hospital visit by physician Genoveva Pond DO Work Phone: [facility] Start: 07-22-2022 ambulatory MENDEZ GAN Faci lity:[facility] Start: 07-16-2022 End: 07-17-[address] MATIAS MAXWELL . Facility:[facility] Start: 06-26-2022 End: 06-26-2022 ambulatory Minerva Irwin Other [facility] Other Start: 06-26-2022 Telephone encounter Minerva Irwin [facility] Start: 05-26-2022 End: 05-26-2022 ambulatory Minerva Irwin Other [facility] Other Start: 05-26-2022 Office outpatient visit 25 minutes Minerva Irwin [facility] Start: 05-20-2022 End: 05-20-2022 ambulatory MATIAS MAYORGA [facility] Start: 05-08-2022 End: 05-09-[address] MICHAEL SMITH Facility:[facility] Start: 04-03-2022 End: 04-04-2022 ambulatory SHAIKH Vijaya MANJARREZ Facility:[facility] Start: 03-25-2022 End: 03-26-[address] MICHAEL SMITH Facility:[facility] Start: 03-20-2022 End: 03-20-2022 ambulatory Minerva Irwin Other [facility] Other Start: 03-20-2022 Office outpatient visit 25 minutes Minerva Dc [facility] Start: 12-24-2021 End: 12-25-[address] MICHAEL SMITH Facility:[facility] Start: 12-01-2021 End: 12-01-2021 [facility] Start: 09-29-2021 End: 09-30-[address] MIC GRAHAM Facility:[facility] Start: 09-18-2021 End: 09-19-[address] MICHAEL SMITH Facility:[facility] Start: 09-15-2021 End: 09-16-[address] MICHAEL SMITH Facility:[facility] Start: 09-10-2021 End: 09-11-2021 ambulatory KAYCE SARAVIA Facility:[facility] Start: 07-23-2021 End: 07-24-[address] MICHAEL SMITH Facility:[facility] Start: 12-05-2020 Office outpatient visit 15 minutes Radha Sawant [facility] Start: 05-04-2017 End: 05-05-2017 Ambulatory MICHAEL SMITH Facility:[facility] Start: 04-28-2017 End: 04-29-2017 Ambulatory DEFAULT PHYSICIAN Facility:[facility] Procedures Date Procedure Procedure Detail Performing Clinician Start: 10-05-2022 GLUCOSE, WHOLE BLOOD Bl air Y Shamar DO Work Phone: Start: 10-05-2022 Ecg routine ecg w/le ast 12 lds w/i&r Genoveva Y Shamar DO Work Phone: Start: 07-23-[address] MICHAEL BLUE Comment on above: Performed By: #### B HOSPITAL SUPERVISOR, CMP #### [facility] [address] [place] [address] Dr. Ana Pandey Plan of Treatment Date Care Activity Detail Author Start: 10-06-2022 Influenza vaccination Flu vaccine (# 1) [facility] Start: 10-05-2022 Annual Wellness Visi t (AWV) Annual Wellness Visit (AWV) [facility] Start: 10-05-2022 End: 10-05-2022 Xcapsl ctrc rmvl insj io lens prosth w/o ecp EYE CATARACT EMULSIFICATION IOL IMPLANT Combined forms of age-related cataract of left eye 10/05/2022 10:44 AM EDT [facility] Start: 09-01-2008 Pneumococcal 65+ yea rs Vaccine (1 - PCV) Pneumococcal 65+ years Vaccine (1 - PCV) [facility] Start: 09-01-1993 Shingles vaccine (1 of 2) Shingles vaccine (1 of 2) [facility] Start: 09-01-1962 DTaP/Tdap/Td vaccine (1 - Tdap) DTaP/Tdap/Td vaccine (1 - Tdap) [facility] Start: 09-01-1961 Hepatitis C screening Hepatitis C sc reen [facility] Start: 1955 Depression Screen Depression Screen [facility] Start: 09-01-1953 Lipid panel Lipids [facility] Start: 03-03-1944 COVID-19 Vaccine (#1) COVID-19 Vacci ne (#1) [facility] EKG 12 Lead EKG 12 Lead ECG Routine 10/05/2022 10:15 AM EDT [facility] Oxygen therapy [Mini mum Data Set] Initiate Oxygen Therapy Protocol Respiratory Care Routine Daily until discontinued starting 10/05/2022 [facility] Comment on above: Daily until disconti nued starting 10/05/2022 Oxygen therapy [Mini mum Data Set] Initiate Oxygen Therapy Protocol Respiratory Care Routine Daily until discontinued starting 10/05/2022 [facility] Comment on above: Daily until disconti nued starting 10/05/2022 Immunizations Immunization Date Immunization Notes Care Provider Kimberly triana 09-10-2013 tetanus toxoid, adsorbed Radha Sawant Other [facility] Other Payers Date Payer Category Payer Self-pay [id number] 2023 Unknown [id number] 2020 Unknown [id number] .[id number] 1959 Medicare [id number] 2.16.840.1.072535. 1959 Unknown [id number] 2.16.840.1.179223.19 1943 Unknown [id number] 2.16.840.1.615063.3.579.2.593 1943 Unknown [id number] 2.16.840.1.815232.3.579.2.593 1943 Unknown [id number] 2.16.840.1.047626.3.579.2.593 1943 Unknown [id number] 2.16.840.1.882910.3.579.2.593 1943 Unknown [id number] 2.16.840.1.515364.3.579.2.593 1943 Unknown [id number] 2.16.840.1.590000.3.579.2.593 1943 Unknown [id number] 2.16.840.1.585616.3.579.2.593 1943 Unknown [id number] 2.16.840.1.227565.3.579.2.593 1943 Unknown [id number] 2.16.840.1.300068.3.579.2.593 1943 Unknown [id number] 2.16.840.1.726630.3.579.2.593 1943 Unknown [id number] 2.16.840.1.373152.3.579.2.593 1943 Unknown [id number] 2.16.840.1.701641.3.579.2.173 1943 Unknown [id number] 2.16.840.1.144687.3.579.2.1259 1943 Unknown [id number] 2.16.840.1.630376.3.579.2.1259 1943 Unknown [id number] 2.16.840.1.752204.3.579.2.1259 Medicare [id number] Medicare [facility] PFFS [id number] Unknown Unknown [id number] 2.16.840.1.716101.3.579.2.531 Social History Date Type Detail Facility Unknown if ever smoked [facility] Other Sex Assigned At Sex Assigned At Bir th [facility] Other Start: 09-22-2022 Tobacco smoking status NHIS Never smoked tobacco [facility] Start: 09-22-2022 Tobacco use and exposure Smokeless tobacco non-user [employer] Start: 10-05-2022 Alcohol intake Lifetime non-d alverto (finding) [facility] Start: 1945 Sex Assigned At Not on file [facility] Start: 1945 Sex Assigned At Male F [facility] Clinical Notes 12-05-2020 to 02-14-2023 Note Date [...] or shortness of breath. Continue to take cajv-cif-hbqpt er cough medicine as needed for cough. Follow-up with your family physician if no improvement in 2 to 3 days [facility] Other 07-31-2023 History of Present illness Narrative* [...] AM EDT Lab work from July from [facility] received in this office. * Noelle Leary [...] PAT phone call. [facility] Hospital Discharge instructions* Discharge Instructions* Mervat Burgos [...] the healing period. The office number is [phone]. Take surgery bag and all eye drops to Dr. Pond's office tomorrow at 9:20am. You may resume your normal diet. Start your eye drops tomorrow after your post-op appointment: Ofloxacin/Polytrim one drop to the operated eye 4 times daily Prednisolone one drop to the operated eye 4 times daily documented in this encounterB[facility] Evaluation note* Encounter Date Diagnosis Assessment Notes [...] understanding and is agreeable to treatment plan [facility] Other 03-15-2023 NoteContinue LipitorUnThe [facility]03-[facility]-2023 NoteHypertension is Overall well controlled- At PCPs office it was 130/72- Even in office he started at 160/78 and when I repeated it he was down to 144/77 Continue all current medications [facility]2023 NotePt is here for a 6 month F/U ROSUnThe [facility]03-15-2023 NoteUTP CARDIOLOGY PROGRESS NOTE HPI: Thea Winston [...] Hypertension is Overall wel (more content not included)...[facility]03-15-2023 NoteGoal-directed medical therapy- Aspirin, Plavix, Lipitor, Toprol Denies any bleeding tendencies or concerns continue risk factor modifications- heart healthy diet, regular exercise as tolerated and continue all medications.[facility] 03-20-2022 Evaluation note* Encounter Date Diagnosis Assessment [...] understanding and is agreeable to treatment plan [facility] Other 09-26-2022 NoteCardiology Follow Up Progress Note [...] red flag symptoms. Strict (more content not included)...[facility]09-26-2022 NoteSubjective Thea Winston is a 76 y.o. [...] Lab Review: Assessment/Plan There were no encounter diagnoses.[facility]07-25-2022 NoteCARDIAC STRESS TEST Requesting Physician: Procedure Date:09/29/2021 [...] interpreted and reported in a separate dictation.[id number] Evaluation note* Encounter Date Diagnosis Assessment Notes Treatment Notes Treatment Clinical Notes Nov, Contact with and (suspected) exposure to other viral communicable diseases (ICD-10 - Z20.828) Nov, COVID-19 (ICD-10 - U07.1) Today you tested positive for the COVID virus. This mean you need to follow all [facility] quarantine guidelines found at [email or web address]. It is important to rest, increase [...] Patient care instructions given in writting by [facility] Care At Home document. [facility] Other Evaluation noteNo InformationNort [employer] Other Evaluation note* Diagnosis Combined forms of age-related cataract of left eye- Primary Other and combined forms of senile cataract documented in this encounter [facility] noteNo assessment information available [facility] Work Phone: [facility] Narrative - Reported* Type Description Date Medical History DM Medical History HTN Medical History Arthritis Medical History hypercholesterolemia Surgical History Cyst off back Surgical History Polyps removed Surgical History heart stent Surgical History shoulder Hospitalization History see above [facility] Other [facility] Narrative - Reported* Type Description Date Medical History DM Medical History HTN Medical History Arthritis Medical History hypercholesterolemia Surgical History Cyst off back Surgical History Polyps removed Surgical History heart stent Surgical History shoulder Surgical History cataract surgery 07/2022 Hospitalization History see above [facility] Other Summary Purpose Family History No Family [...] section and content) DATE CREATED AUTHOR 08/27/2017 [facility] DATE CREATED AUTHOR AUTHOR'S ORGANIZ ATION 05/21/2022 [facility] DATE CREATED AUTHOR AUTHOR'S ORGANIZ ATION 07/20/2022 [facility] DATE CREATED AUTHOR AUTHOR'S ORGANIZ ATION 10/05/2022 [facility] DATE CREATED AUTHOR AUTHOR'S ORGANIZ ATION 02/08/2023 [facility] DATE CREATED AUTHOR AUTHOR'S ORGANIZ ATION 03/16/2023 [facility] EPIC REASON FOR VISIT (unrecogniz ed section and content) Specialty Diagnoses / Procedures Referred By Korey t Referred To Contact Diagnoses Combined forms of age-related cataract of left eye Combined forms of age-related cataract of left eye [H25.812] Procedures GA XCAPSL CTRC RMVL INSJ IO LENS PROSTH W/O ECP EYE CATARACT EMULSIFICATION IOL IMPLANT Genoveva Pond, DO [address] [place] [address] [facility] [address] [place] [address] Referral ID Status Reason Start Date Expiration Date Visits Re quested Visits Authorized [id number] 1 1 Scheduled Active and Recently Administ [...] 30 minutes prior to surgery until dilated, [facility] - enter number of doses based on [...] BE BASED ON THE PRIMARY CLINICAL RECORDS. [employer] provides no warranty or guarantee of the accuracy or completeness of information in this document.
== END 2023-03-17 13:12 | disposition home or self-care (01) ==
LOC: WC 13:11
PROVIDERS: PCP Internal Medicine; Visit Provider Physician Assistant
DX: L60.3 Nail dystrophy (principal); E11.40 Type 2 diabetes mellitus with diabetic neuropathy, unspecified; E11.65 Type 2 diabetes mellitus with hyperglycemia; L84 Corns and callosities
CPT/HCPCS: 11056; 11721

== ENCOUNTER 2023-05-03 11:37 | Outpatient (OUT) | payer OTHER, SELFPAY ==
--- NOTE | 2023-05-03 | XR_ITS ---
The [address] [address] Patient Name: THEA BONILLA MRN: [id number] date: 1945 Sex: M Assigned Patient Location: Current Patient Location: LAB Accession/Order Number: [id number] Exam Date: 05/03/2023 11:38 Report Date: 05/03/2023 15:34 At the request of: LUCY REID Procedure: XR foot RT min 3V PROCEDURE: XR foot RT min 3V COMPARISON: None. HISTORY: RIGHT FOOT PAIN FINDINGS: BONES:No acute fracture or dislocation. Bulky enthesopathic spurring the calcaneus at the Achilles and plantar insertions. Mild to moderate degenerative changes with joint space narrowing and marginal osteophyte formation SOFT TISSUES:Negative. No visible soft tissue swelling. EFFUSION:None visible. OTHER: Scattered calcifications XR/XR foot RT min 3V IMPRESSION: Degenerative changes No acute fracture Electronically authenticated by: MAYNOR THURSTON Date: 05/03/2023 15:34
== END 2023-05-03 11:38 | disposition home or self-care (01) ==
LOC: WC 11:37
PROVIDERS: PCP Internal Medicine; Visit Provider Physician Assistant
DX: L02.611 Cutaneous abscess of right foot (principal); M79.671 Pain in right foot; E11.621 Type 2 diabetes mellitus with foot ulcer; L97.412 Non-pressure chronic ulcer of right heel and midfoot with fat layer exposed
CPT/HCPCS: 10060; 36415; 73630; 80048; 85025; 85652; 86140; 87070; 87150; 87186; G0463

== ENCOUNTER 2023-05-03 12:16 | Outpatient (OUT) | payer OTHER, SELFPAY ==
[2023-05-03 12:39] LABS: Basophils Absolute Auto 0.1 10^3/uL (0.0-0.1); Basophils Percent Auto 0.6 % (0.2-2.0); Eosinophils Absolute Auto 0.2 10^3/uL (0.0-0.7); Eosinophils Percent Auto 1.3 % (0.9-7.0); Hematocrit 40.3 % (42.0-54.0); Hemoglobin 12.2 g/dL (14.0-18.0); Immature Granulocytes Abs Auto 0.05 10^3/uL (0.00-0.03); Immature Granulocytes Pct Auto 0.4 % (0.0-0.5); Lymphocytes Absolute Auto 1.8 10^3/uL (1.2-3.8); Lymphocytes Percent Auto 15.3 % (20.5-60.0); Mean Corpuscular HGB Conc 30.3 g/dL (29.9-35.2); Mean Corpuscular Hemoglobin 26.6 pg (25.9-34.0); Mean Corpuscular Volume 87.8 fL (80.0-94.0); Mean Platelet Volume 10.1 fL (9.5-13.5); Monocytes Absolute Auto 0.9 10^3/uL (0.3-0.8); Monocytes Percent Auto 7.8 % (1.7-12.0); Neutrophils Absolute Auto 8.8 10^3/uL (1.4-6.5); Neutrophils Percent Auto 74.6 % (43.0-75.0); Platelet Count 310 10^3/uL (150-450); Red Blood Count 4.59 10^6/uL (4.70-6.10); White Blood Count 11.7 10^3/uL (4.0-11.0)
[2023-05-03 12:40] LABS: Erythrocyte Sedimentation Rate 96 mm/hr (<=20)
[2023-05-03 12:52] LABS: Anion Gap 16.4; BUN Creatinine Ratio 12.1; C Reactive Protein 6.72 mg/dL (<=0.50); Calcium 8.9 mg/dL (8.5-10.1); Carbon Dioxide 24.5 mmol/L (21.0-32.0); Chloride 103 mmol/L (98-107); Estimated GFR (African America >60 (>=60); Estimated GFR (Non-African Ame >60 (>=60); Glucose 221 mg/dL (74-106); Potassium 3.9 mmol/L (3.5-5.1); Sodium 140 mmol/L (136-145)
== END 2023-05-03 12:17 | disposition home or self-care (01) ==
PROVIDERS: PCP Internal Medicine; Visit Provider Physician Assistant
DX: L02.611 Cutaneous abscess of right foot (principal)
CPT/HCPCS: 36415; 80048; 85025; 85652; 86140; 87070; 87150; 87186

== ENCOUNTER 2023-05-13 09:03 | Outpatient (OUT) | payer OTHER, SELFPAY ==
--- OUTSIDE RECORDS SUMMARY | 2023-05-13 09:07 | XMS_ITS | CCD ---
Author Name Unknown Address [address] [place] [address] Organization [facility] Care Team Providers [facility] Director Name Role Phone PHYSICIAN, DEFAULT Unavailable Unavailable PHYSICIAN, DEFAULT Unavailable Unavailable MICHAEL SMITH Unavailable Unavailable CHRISTIAN ROSA Unavailable Unavailable GOMEZ, SHANTELL Unavailable Unavailable GOMEZ, SHANTELL Unavailable Unavailable Radha Sawant Unavailable Dc, Minerva Unavailable MUKESH, MATIAS Attending Unavailable ALGHOTHCHRISTIANO NATHAN Attending Unavailable NADERER, DR MICHAEL Coto Primary Care Unavailable HIGHLANDER, MENDEZ Pedraza Attending Unavailable HIGHLANDER, PETER D Admitting Unavailable NADERER, DR MICHAEL Coto Primary Care Unavailable HIGHLANDER, MENDEZ Pedraza Attending Unavailable HIGHLANDER, MENDEZ Pedraza Admitting Unavailable NADERER, DR MICHAEL Coto Primary Care Unavailable HIGHLANDER, MENDEZ Pedraza Attending Unavailable HIGHLANDER, MENDEZ Pedraza Admitting Unavailable HIGHLANDER, MENDEZ Pedraza Attending Unavailable NADERER, DR MICHAEL Coto Primary Care Unavailable HIGHLANDER, MENDEZ Pedraza Admitting Unavailable NADERER, DR MICHAEL Coto Admitting [...] Admitting Unavailable MUKESH, MATIAS Consulting Unavailable SARAVIA, WINCHA Consulting Unavailable NADERER, DR MICHAEL Coto Primary Care Unavailable MUKESH, MATIAS Attending Unavailable MUKESH, MATIAS Admitting Unavailable MUKESH, MATIAS Consulting Unavailable NADERERonald, DR MICHAEL Coto Attending Unavailable NADERER, DR MICHAEL Coto Admitting Unavailable NADERER, DR MICHAEL Coto Primary Care Unavailable NADERER, DR MICHAEL Coto Consulting Unavailable MARKER ., DR SALCEDO Attending Unavailable MARKER ., DR SALCEDO Consulting Unavailable NADERER, DR MICHAEL Coto Primary Care Unavailable MARKER ., DR SALCEDO Admitting Unavailable PAULINE WISDOM Consulting Unavailable YELENA DIAZ Consulting Unavailable Unavailable Primary Care Provider Unavailabl e GENOVEVA POND Attending Unavailable GENOVEVA POND Admitting Unavailable [place], DO Trell Ramirez Attending Provider MD Michael Smith Primary Care Provider Mitzy Neves Unavailable Nati, Trell Ramirez Attending Unaantonietta godinez [facility], Trell Ramirez Admitting Chula Smith, Michael Primary Care Unavailable Michael Smith MD Unavailable Shaikh Ambrocio MD Primary Care Provider SHAIKH AMBROCIO Attending Unavailable SHAIKH AMBROCIO Attending Unavailable AMANDA ROSA Attending Unavailable SHAIKH AMBROCIO Attending Unavailable Allergies Allergy Classification Reported Allergen(s) Allergy Type Date of Onset Reaction(s) Facility (1 source) Penicillins Drug allergy (disorder) 05-04-19 18 [facility]OF [facility] Repository (1 source) No Known Allergies; Translations: [No Known Allergies] Propensity to adverse reactions (disorder) [facility] Repository (5 sources) penicillAMINE Drug Allergy he heard [facility] Other (1 source) Penicillin; Translations: [PENICILLIN G] Drug Allergy 10-21-19 [facility] Repository (1 source) Penicillin Drug Allergy [facility] Repository (1 source) Penicillins Propensity to adverse reactions to drug 09-24-19 [facility] (1 source) penicillAMINE Drug Allergy 02-15-20 [facility] Repository (2 sources) Penicillins Propensity to adverse reactions 02-06-20 Other [facility] Medications Current Medications Medication Drug Class(es) Dates Sig (Normalized) Sig (Original) [id number] 60 actuat albuterol 0.09 mg/actuat metered dose inhaler (1 source) beta2-Adrenergic Agonist Start: 02-14-2023 take 2 puff(s) by inhalation four times daily as needed Albuterol Sulfate HFA 108 (90 Base) MCG/ACT 2 puffs Inhalation 4 times a day prn Feb, Active aspirin 81 mg delayed release oral tablet (8 sources) Platelet Aggregation Inhibitor, Nonsteroidal Anti-inflammatory Drug take 1 tablet by mouth in the morning aspirin 81 MG EC tablet Take 81 mg by mouth in the morning. 0 Active Baby Aspirin Act nile atorvastatin 40 mg oral tablet (9 sources) HMG-CoA Reductase Inhibitor Start: 04-22-2023 take 40 mg by mouth once daily Atorvastatin Active 40 MG PO Daily April 22, 2023 12:00am Lipitor Active BD Plastipak Syringe 21G X 1 3 ML misc (2 sources) Start: 12-16-2022 inject 1 [IU] by subcutaneous injection once daily as needed BD Plastipak Syringe 21G X 1 3 ML misc Inject 1 unit marking on U-100 syringe under the skin Daily as needed 0 12/16/2022 Active benzonatate 100 mg oral capsule (1 source) Non-narcotic Antitussive Start: 04-22-2023 take 100 mg by mouth three times daily Benzonatate Active 100 MG PO Three times daily 21 April 22, 2023 12:00am calcium chloride 0.0014 meq/ml / potassium chloride 0.004 meq/ml / sodium chloride 0.103 meq/ml / sodium lactate 0.028 meq/ml injectable solution (1 source) Start: 10-05-2022 lactated ringers IV soln infusion cefdinir 300 mg oral capsule (1 source) Cephalosporin Antibacterial Start: 03-20-2022 take 1 capsule by mouth every twelve hours Cefdinir 300 MG 1 capsule Orally BID for 10 days Mar, Active clopidogrel 75 mg oral tablet (13 sources) P2Y12 Platelet Inhibitor Start: 03-24-2023 take 1 tablet by mouth once daily Clopidogrel Active 1 TAB PO Daily April 22, 2023 12:00am FreeTextSi tablet Orally Once a day; Note: Source Status: Taking; Provider: Pura Forrester ( ) take 1 tablet by ganga th every twenty-four hours Clopidogrel Bisulfate 75 MG 1 tablet Orally Once a day Active Plavix Active Continuous Blood Gluc Biological Photographer (FreeStyle Vi 2 [place]) device (2 sources) Continuous Blood Gluc Biological Photographer (FreeStyle Vi 2 [place]) device Continuous Blood Gluc Sensor (FreeStyle Vi 2 Sensor) misc (2 sources) Continuous Blood Gluc Sensor (FreeStyle Vi 2 Sensor) misc doxycycline hyclate 100 mg oral tablet (1 source) Tetracycline-class Drug Start: 02-15-20 23 take 1 tablet by mouth every twelve hours Doxycycline Hyclate 100 MG 1 tablet Orally Twice a day for 10 day(s) Feb, Active empagliflozin 25 mg oral tablet (5 sources) Sodium-Glucose Cotransporter 2 Inhibitor Start: 04-22-19 24 take 1 tablet by mouth once daily Empagliflozin (Jardiance) 25 mg tablet Active 25 MG PO Daily April 22, 2023 12:00am JARDIANCE Active ferrous sulfate (8 sources) Start: 04-22-2023 take 1 tablet by ganga th once daily Ferrous Sulfate Active 1 TAB PO Daily April 22, 2023 12:00am FreeTextSi tablet Orally Once a day; Note: Source Status: Taking; Provider: Pura Forrester ( ) take 1 tablet by mouth at mealti me ferrous sulfate 325 (65 Fe) MG tablet Take 325 mg by mouth in the morning. Take with meals. 0 Active take 1 tablet by ganga th three times daily at mealtime ferrous sulfate (IRON 325) 325 (65 Fe) M G tablet Take 1 tablet by mouth 3 times daily (with meals) 0 Active furosemide 20 mg oral tablet (9 sources) Loop Diuretic Start: 04-22-2023 take 1 tablet by mouth once daily Furosemide Active 1 TAB PO Daily April 22, 2023 12:00am FreeTextSi tablet Orally Once a day; Note: Source Status: Taking; Provider: Pura Forrester ( ) Start: 04-15-2023 End: 07-14-2023 take 1 tablet by mouth in the morning furosemide (Lasix) 40 MG tablet Indications: Chronic heart failure with preserved ejection fraction (HFpEF) (CMS/HCC) Take 1 tablet (40 mg) by mouth in the morning. 90 tablet 0 04/15/2023 07/14/2023 Active take 1 tablet by ganga th every twenty-four hours Furosemide 20 MG 1 tablet Orally Once a day Active gabapentin 300 mg oral capsule (2 sources) Anti-epileptic Agent take 1 capsule by mouth in the morning, then take 1 capsule by mouth in the evening, then take 1 capsule by mouth at bedtime gabapentin (Neurontin) 300 MG capsule Take 300 mg by mouth in the morning and 300 mg in the evening and 300 mg before bedtime. 0 Active Glucose Blood (ACCU-CHEK SMARTVIEW ) (2 sources) Glucose Blood (ACCU-CHEK SMARTVIEW ) by In Vitro route. 0 Active glyBURIDE 2.5 mg oral tablet (1 source) Sulfonylurea take 1 tablet by mouth twice daily at mealtime glyBURIDE (DIABETA) 2.5 MG tablet Take 1 tablet by mouth 2 times daily (with meals) 0 Active glyBURIDE 2.5 mg / metFORMIN hydrochloride 500 mg oral tablet (8 sources) Biguanide, Sulfonylurea Start: 04-22-19 take 1 tablet by mouth once daily Glyburide-Metformi n Active 1 TAB PO Daily April 22, 2023 12:00am FreeTextSi tablet with a meal Orally Once a day; Note: Source Status: Taking; Provider: Pura Forrester ( ) Start: 04-15-2023 End: 10-12-2023 take 1 tablet by mouth in the morning glyBURIDE-metFORMIN (Glucovance) 2.5-500 MG tablet Indications: Type 2 diabetes mellitus with hyperglycemia (CMS/HCC) Take 1 tablet by mouth in the morning and 1 tablet before bedtime. 180 tablet 1 04/15/2023 10/12/2023 Active take 1 tablet by ganga th every twenty-four hours Glyburide-Metformin 2.5-500 MG 1 tablet with a meal Orally Once a day Active hydroCHLOROthiazide 25 mg / lisinopril 20 mg oral tablet (5 sources) Thiazide Diuretic, Angiotensin Converting Enzyme Inhibitor take 1 tablet by mouth every twenty-four hours Lisinopril-hydroCHLOROthiazide 20-25 MG 1 tablet Orally Once a day Active lisinopril 40 mg oral tablet (1 source) Angiotensin Converting Enzyme Inhibitor take 1 tablet by mouth once daily lisinopril (PRINIVIL;ZESTRIL) 40 MG tablet Take 1 tablet by mouth daily 0 Active methylPREDNISolone 4 mg oral tablet (1 source) Corticosteroid St ar t: Medrol 4 MG as directed Oral ly As Directed for 6 days Feb, Active 24 hr metoprolol succinate 100 mg extended release oral tablet (10 sources) beta-Adrenergic Katie St ar t: 24 take 1 tablet by mouth once daily Metoprolol Succinate (Toprol Xl) 100 mg tablet extended release 24 hr Active 100 MG PO Daily April 22, 2023 12:00am Start: 04-21-2023 End: 10-18-2023 take 1 tablet by mouth every twenty-four hours in the morning metoprolol succinate XL (Toprol-XL) 100 MG 24 hr tablet Indications: Coronary arteriosclerosis in [place] artery (CMS/HCC) Take 1 tablet (100 mg) by mouth in the morning. Do not crush or chew.. 90 tablet 1 04/21/2023 10/18/2023 Active take 1 tablet by ganga th once daily metoprolol succinate (TOPROL XL) 50 MG extended release tablet Take 1 tablet by mouth daily 0 Active Toprol XL Active naproxen 500 mg delayed release oral tablet (8 sources) Nonsteroidal Anti-inflammatory Drug take 1 tablet by mouth in the morning naproxen (EC Naprosyn) 500 MG EC tablet Take 500 mg by mouth in the morning and 500 mg in the evening. Take with meals. Do not crush, chew, or split. . 0 Active take 1 tablet by mouth every twe lve hours Naproxen 500 MG 1 tablet as needed Orally every 12 hrs Active take 1 tablet by ganga th twice daily at mealtime naproxen (NAPROSYN) 500 MG tablet Take 1 tablet by mouth 2 times daily (with meals) 0 Active ofloxacin 3 mg/ml ophthalmic solution (3 sources) Quinolone Antimicrobial Start: 03-20-2022 Ofloxa caryl 0.3 % 10 drops into affected ear Otic Once a day for 7 day(s) Mar, Active ofloxacin (Floxi n) 0.3 % otic solution Administer 5 drops into each ear in the morning. 0 Active omeprazole 40 mg delayed release oral capsule (3 sources) Proton Pump Inhibitor take 1 capsule by mouth before mealtime omeprazole (PriLOSEC) [address] capsule Take 40 mg by mouth in the morning. Take before meals. Do not crush or chew. . 0 Active phenylephrine hydrochloride 25 mg/ml ophthalmic solution (1 source) alpha-1 Adrenergic Agonist Start: 023 phenylephrine (MYDFRIN) 2.5 % ophthalmic solution 1 drop pioglitazone (5 sources) Peroxisome Proliferator Receptor alpha Agonist, Peroxisome Proliferator Receptor gamma Agonist, Thiazolidinedione take 1 tablet by mouth once daily pioglitazone (ACTOS) 45 MG tablet Take 1 tablet by mouth daily 0 Active Pioglitazone HCl Active potassium chloride 10 meq extended release oral capsule (4 sources) Start: 04-22-2023 take 10 mEq by mouth once daily Potassium Chloride Active 10 MEQ PO Daily April 22, 2023 12:00am take 1 tablet by mouth once angeline y potassium chloride (KLOR-CON) 10 MEQ extended release tablet Take 1 tablet by mouth daily 0 Active predniSONE 20 mg oral tablet (4 sources) Start: 04-22-2023 take 20 mg by mouth twice daily Prednisone Active 20 MG PO Twice daily 10 April 22, 2023 12:00am Start: 05-26-2022 take 1 tablet by ganga th every twelve hours prednisone 20 MG 1 tablet Orally Twice a day for 5 days May, Active proparacaine hydrochloride 5 mg/ml ophthalmic solution (1 source) Local Anesthetic Start: 10-05-2022 proparacaine (ALCAINE) 0.5 % ophthalmic solution 1 drop 5 ml sodium chloride 9 mg/ml injection (7 sources) Start: 10-05-2022 take 1 dose intravenously twice daily 5-40 mL, IntraVENous, EVERY 12 HOURS SCHEDULED (2 times per day), First dose on Wed10/05/22 at 2100, Until Discontinued For Line Patency: Peripheral IV = 5 mL; Midline or Central Line = 10 mL/lumen.&nbs p; If following IV push medication, administer flush at same rate as the IV push. Flush volume is determined by type of infusion therapy being given. &nbsp ;For non-viscous solutions use: Periphe ral IV = 5 mL Midline or Central Line = 10 mL/lumen &nb sp;For viscous solutions (i.e. blood components, parenteral nutrition, contrast media, or after obtaining blood sample) use: Periphe ral IV = 10 mL Midline or Central [...] e flush 0.9 % injection 5-40 mL spironolactone 25 mg oral tablet (5 sources) Aldosterone Antagonist Start: 03-19-2023 End: 06-17-2023 take 25 mg by mouth once daily Spironolactone Active 25 MG PO Daily April 22, 2023 12:00am SUMAtriptan 100 mg oral tablet (2 sources) Serotonin-1b and Serotonin-1d Receptor Agonist take 1 tablet by mouth once SUMAtriptan (Imitrex) 100 MG tablet Take 100 mg by mouth 1 (one) time if needed for migraine. 0 Active Syringe 20G X 1 3 ML misc (2 sources) Syringe 20G X 1 3 ML misc tetracaine hydrochloride 5 mg/ml ophthalmic solution (1 source) Rosalie Local Anesthetic Start: 10-05-2022 tetracaine (TETRAVISC) 0.5 % ophthalmic solution 1 drop tropicamide 10 mg/ml ophthalmic solution (1 source) Anticholinergic Start: 10-05-2022 tropicamide (MYDRIACYL) 1 % ophthalmic solution 1 drop vitamin B12 (7 sources) Vitamin B12 Start: 04-22-2023 take 1000 ug by mouth once daily Cyanocobalamin (Vitamin B-12) Active 1000 MCG PO Daily April 22, 2023 12:00am Start: 03-16-2023 cyanocobalamin (Vitamin B-12) injection 100 mcg Start: 02-25-2023 End: 08-24-2023 take 1 tablet by mouth in the morning cyanocobalamin ([facility] Vitamin B-12) 1000 MCG tablet Indications: Vitamin B12 deficiency Take 1 tablet (1,000 mcg) by mouth in the morning. 90 tablet 1 02/25/2023 08/24/2023 Active Start: 12-16-2022 cyanocobalamin (Vitamin B-12) 1000 MCG/ML injection Inject 1 mL into the shoulder, thigh, or buttocks every 30 (thirty) days 0 12/16/2022 Active Completed/Discontinued Medications Medication Drug Class(es) Dates Sig (Normalized) Sig (Original) sulfamethoxazole 800 mg / trimethoprim 160 mg oral tablet (5 sources) Dihydrofolate Reductase Inhibitor Antibacterial, Sulfonamide Antimicrobial Start: 05-26-2019 take 1 tablet by mouth every twelve hours Bactrim DS 800-160 MG 1 tablet Orally Twice a day for 10 days May, Not-Taking/PRN Problems Active Problems Problem Classification Problem Date Documented Date Episodic/Chronic Acute bronchitis (2 sources) Acute bronchitis co-occurrent with wheeze; Translations: [Acute bronchitis, unspecified] Onset: 3 02-25-2023 Episodic Cataract (4 sources) 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; Translations: [Combined forms of age-related cataract, left eye] Onset: 3 Resolved: 3 Chronic Chronic obstructive pulmonary disease and bronchiectasis (1 source) Bronchitis, not specified as acute or chronic Episodic Congestive heart failure; nonhypertensive (3 sources) Chronic heart failure co-occurrent with normal ejection fraction; Translations: [Chronic diastolic (congestive) heart failure] Onset: 3 04-15-2023 Chronic Coronary atherosclerosis and other heart disease (9 sources) Atherosclerotic heart disease of [place] coronary artery with unstable angina pectoris; Translations: [Atherosclerotic heart disease of [place] coronary artery without angina pectoris] Onset: 8 Chronic Diabetes mellitus with complications (9 sources) Type 2 diabetes mellitus with hyperglycemia; Translations: [Type 2 diabetes mellitus with diabetic neuropathy, unspecified] Onset: 2 Chronic Diabetes mellitus without complication (4 sources) Type 2 diabetes mellitus without complications; Translations: [Type 2 diabetes mellitus] Onset: 8 02-25-2023 Chronic Disorders of lipid metabolism (8 sources) Hyperlipidemia, unspecified; Translations: [Pure hypercholesterolemia, unspecified] Onset: 8 Chronic Essential hypertension (15 sources) Essential (primary) hypertension; Translations: [Hypertensive disorder] Onset: 8 Chronic Fever of unknown origin (4 sources) Fever, unspecified; Translations: [FEVER UNSPECIFIED] Onset: 3 Episodic Headache; including migraine (4 sources) Headache; including migraine; Translations: [HEADACHE UNSPECIFIED] Onset: 3 Osteoarthritis (3 sources) Osteoarthritis of acromioclavicular joint; Translations: [Primary osteoarthritis, unspecified shoulder] Onset: 3 02-08-2023 Chronic Other aftercare (2 sources) group home (current) use of aspirin; Translations: [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 (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) USE OF ASPIRIN] Onset: 8 Episodic Other aftercare (1 source) group home (current) use of oral hypoglycemic drugs; Translations: [NURSING HOME USE ORAL HYPOGLYCEMIC DX] Onset: 3 Episodic Other aftercare (5 sources) Other jail (current) drug therapy; Translations: [OTH NURSING HOME CURRENT DRUG THERAPY] Onset: 2 Episodic Other and ill-defined heart disease (1 source) Heart disease, unspecified; Translations: [Heart disease, unspecified] Onset: 3 Chronic Other diseases of kidney and ureters (1 source) Unspecified hydronephrosis; Translations: [UNSPECIFIED HYDRONEPHROSIS] Onset: 3 Episodic Other nutritional; endocrine; and metabolic disorders (1 source) Obesity, unspecified; Translations: [OBESITY UNSPECIFIED] Onset: 2 Chronic Other upper respiratory infections (2 sources) Viral upper respiratory tract infection; Translations: [Acute upper respiratory infection, unspecified] 04-22-2023 Episodic Otitis media and related conditions (2 sources) Otitis media, unspecified, left ear; Translations: [Other acute nonsuppurative otitis media, bilateral] Episodic Unclassified (2 sources) Unknown / UNK(Unknown) Onset: 8 Unclassified (1 source) terminal superintendent (current) use of oral hypoglycemic drugs; Translations: [NURSING HOME (CURRENT) USE OF ORAL HYPOGLYCEMIC DRUGS] Onset: 8 Unclassified (1 source) CONTACT W/AND (SUSP) EXPOS COVID-19; Translations: [CONTACT W/AND (SUSP) EXPOS COVID-19] Onset: 3 Urinary tract infections (1 source) Urinary tract infection, site not specified; Translations: [UTI SITE NOT SPECIFIED] Onset: 3 Episodic Past or Other Problems Problem Classification Problem Date Documented Date Episodic/Chronic Immunizations and screening for infectious disease (1 source) Contact with and (suspected) exposure to other viral communicable diseases; Translations: [Contact with and (suspected) exposure to other viral communicable diseases Z20.828] Onset: 12-05-2020 Resolved: 12-05-2020 Episodic Malaise and fatigue (1 source) Other fatigue; Translations: [OTHER FATIGUE] Onset: 05-04-2017 Episodic Mood disorders (2 sources) Mood disorders Onset: 02-25-2023 02-25-2023 Mycoses (1 source) Tinea unguium; Translations: [TINEA [...] 02-01-2023 ALT [Catalytic activity/Vol] 30 U/L 7-52 [facility] Albumin [Mass/volume] in Ser um or Plasma by Bromocresol green (BCG) dye binding methoOrdered By: Trell Damian on 02-01-2023 Albumin BCG dye [Mass/Vol] 4.1 g/dL 3.5-5.7 [facility] Alkaline phosphatase [Enzyma tic activity/volume] in Serum or PlasmaOrdered By: Trell Damian on 02-01-2023 ALP [Catalytic activity/Vol] 74 U/L 34-104 [facility] Aspartate aminotransferase [ Enzymatic activity/volume] in Serum or PlasmaOrdered By: Trell Damian on 02-01-2023 AST [Catalytic activity/Vol] 29 U/L 13-39 [facility] Bilirubin Test strip Ql (U)O rdered By: Trell Damian on 02-01-2023 Bilirubin Ql (U) Negative Negative [facility] Bilirubin.total [Mass/volume ] in Serum or PlasmaOrdered By: Trell Damian on 02-01-2023 Bilirubin [Mass/Vol] 0.6 mg/dL 0.3-1.0 [facility] Calcium [Mass/volume] in Ser um or PlasmaOrdered By: Trell Damian on 02-01-2023 Calcium [Mass/Vol] 9.2 mg/dL 8.6-10.3 [facility] Carbon dioxide, total [Moles /volume] in Serum or PlasmaOrdered By: Trell Damian on 02-01-2023 CO2 [Moles/Vol] 27.3 mmol/L 21.0-31.0 [facility] Chloride [Moles/volume] in S jose juan or PlasmaOrdered By: Trell Damian on 02-01-2023 Chloride [Moles/Vol] 104 mmol/L 98-107 [facility] Color Auto (U)Ordered By: Ravinder Damian on 02-01-2023 Color (U) Yellow Yellow [facility] Comprehensive Metabolic Pane alicia 02-01-2023 Albumin [Mass/Vol] 4.1 g/dL Normal 3.5-5.7 [facility] Comment on above: Performed By: #### U A, CMP #### [facility] [address] [place] [address] Albumin/Globulin [Mass ratio] 1.9 {ratio} Normal [facility] Comment on above: Performed By: #### U A, CMP #### [facility] [address] [place] [address] [place] ALP [Catalytic activity/Vol] 74 U/L Normal 34-104 [facility] Comment on above: Result Comment: PERF ORMED BY: [place] [address] PATHOLOGIST DESK MANAGER OPHELIA ZIMMERMAN M.D. Performed By: #### U A, CMP #### [facility] [address] [place] [address] [place] ALT [Catalytic activity/Vol] 30 U/L Normal 7-52 [facility] Comment on above: Performed By: #### U A, CMP #### [facility] [address] [place] [address] [place] Anion gap [Moles/Vol] 14.3 mmol/L Normal 6.0-15.0 [facility] Comment on above: Performed By: #### U A, CMP #### [facility] [address] [place] [address] [place] AST [Catalytic activity/Vol] 29 U/L Normal 13-39 [facility] Comment on above: Performed By: #### U A, CMP #### [facility] [address] Bilirubin [Mass/Vol] 0.6 mg/dL Normal 0.3-1.0 [facility] Comment on above: Performed By: #### U A, CMP #### [facility] [address] [place] [address] [place] Calcium [Mass/Vol] 9.2 mg/dL Normal 8.6-10.3 [facility] Comment on above: Performed By: #### U A, CMP #### [facility] [address] [place] [address] [place] Chloride [Moles/Vol] 104 mmol/L Normal 98-107 [facility] Comment on above: Performed By: #### U A, CMP #### [facility] [address] [place] [address] [place] CO2 [Moles/Vol] 27.3 mmol/L Normal 21.0-31.0 [facility] Comment on above: Performed By: #### U A, CMP #### [facility] [address] [place] [id number] [place] Creatinine [Mass/Vol] 1.01 mg/dL Normal 0.70-1.30 [facility] Comment on above: Performed By: #### U A, CMP #### [facility] [address] [place] [address] [place] GFR/1.73 sq M.predicted MDRD (S/P/Bld) [Vol rate/Area] mL/min/{1.73_m2} Normal [facility] Comment on above: Performed By: #### U A, CMP #### [facility] [address] Globulin (S) [Mass/Vol] 2.2 g/dL Normal [facility] Comment on above: Performed By: #### U A, CMP #### [facility] [address] [place] [address] [place] Glucose [Mass/Vol] 183 mg/dL High 70-100 [facility] Comment on above: Result Comment: [facility] Glucose Reference Range is dependent on time and content of last meal. Glucose of more than 200 mg/dL in a nonstressed, ambulatory subject supports the diagnosis of Diabetes Mellitus. ADA recommended reference range Performed By: #### U A, CMP #### [facility] [address] Potassium [Moles/Vol] 4.6 mmol/L Normal 3.5-5.1 [facility] Comment on above: Performed By: #### U A, CMP #### [facility] [address] [place] [address] [place] Protein [Mass/Vol] 6.3 g/dL Low 6.4-8.9 [facility] Comment on above: Performed By: #### U A, CMP #### [facility] [address] [place] [address] [place] Sodium [Moles/Vol] 141 mmol/L Normal 136-145 [facility] Comment on above: Performed By: #### U A, CMP #### [facility] [address] [place] [id number] [place] Urea nitrogen [Mass/Vol] 22 mg/dL Normal 7-25 [facility] Comment on above: Performed By: #### U A, CMP #### [facility] [address] [place] [id number] [place] Creatinine [Mass/volume] in Serum or PlasmaOrdered By: Trell Damian on 02-01-2023 Creatinine [Mass/Vol] 1.01 mg/dL 0.70-1.30 [facility] echo transthoracicon [facility] echo transthoracic [facility] Main [place] [address] [place] [address] Echocardiogram Signed Patient: Thea Winston MR#: [id number] 33 : 1945 Acct:[id number] Age/Sex: 77 / M ADM Date: 02/01/23 Loc: Room: Type: [facility] Attending Dr: Trell Damian DO Ordering Provider: Trell Damian DO Date of Service: 02/01/23/ [facility] echo transthoracic: Heart Disease. Copies to: Trell [...] 190.0 cm 23.0 ml/m2 __ Pat Weight (): 109.8 kg QLAB Heart Model EDV ()_phl: 143.0 ml EF ()_phl: 59.0 % ED Current ()_phl: 60.0 % ESV ()_phl: 59.0 ml HR ()_phl: 67.0 BPMES Current ()_phl: 30.0 % LV Length ED ()_phl: 97.0 mmSV ()_phl: 85.0 ml ED Default ()_phl: 60.0 % LV Length ES ()_phl: 78.0 mm ES Default ()_phl: 30.0 % Transcribed By: SCV Performed At: 02/01/23 0852 Sig (more content not included)... Normal [facility] Globulin Calc (S) [Mass/Vol] Ordered By: Trell Damian on 02-01-2023 Globulin (S) [Mass/Vol] 2.2 g/dL [facility] Glucose [Mass/volume] in Ser um or PlasmaOrdered By: Trell Damian on 02-01-2023 Glucose [Mass/Vol] 183 mg/dL 70-100 [facility] Comment on above: ADA recommended refe rence rangeRandom Glucose Reference Range is dependent on time and content of last meal. Glucose of more than 200 mg/dL in a nonstressed, ambulatory subject supports the diagnosis of Diabetes Mellitus. Ketones Auto test strip (U) [Mass/Vol]Ordered By: Trell Damian on 02-01-2023 Ketones (U) [Mass/Vol] Negative Negative [facility] Nitrite Test strip Ql (U)Ord ered By: Trell Damian on 02-01-2023 Nitrite Ql (U) Negative Negative [facility] No Panel InformationOrdered By: Trell Damian on 02-01-2023 Estimated GFR (CKD-EPI) > 60.0 mL/Min [facility] Creatinine Clearance (Chem N/A [facility] Potassium [Moles/volume] in Serum or PlasmaOrdered By: Trell Damian on 02-01-2023 Potassium [Moles/Vol] 4.6 mmol/L 3.5-5.1 [facility] Protein Auto test strip (U) [Mass/Vol]Ordered By: Trell Damian on 02-01-2023 Protein (U) [Mass/Vol] Negative Negative [facility] Protein [Mass/volume] in Ser um or PlasmaOrdered By: Trell Damian on 02-01-2023 Protein [Mass/Vol] 6.3 g/dL 6.4-8.9 [facility] Serum or plasma albumin/glob ulin mass ratioOrdered By: Trell Glass on 02-01-2023 Albumin/Globulin [Mass ratio] 1.9 {ratio} [facility] Serum or plasma anion gap de terminationOrdered By: Trell Damian on 02-01-2023 Anion gap [Moles/Vol] 14.3 mmol/L 6.0-15.0 [facility] Sodium [Moles/volume] in Ser um or PlasmaOrdered By: Trell Glass on 02-01-2023 Sodium [Moles/Vol] 141 mmol/L 136-145 [facility] Specific gravity Auto test s trip (U) [Rel density]Ordered By: Trell [facility] on 02-01-2023 Specific gravity (U) [Rel density] 1.033 1.001-1.03 0 [facility] Urea nitrogen [Mass/volume] in Serum or PlasmaOrdered By: Trell [facility] on 02-01-2023 Urea nitrogen [Mass/Vol] 22 mg/dL 7- [facility] Urinalysison 02-01-2023 Appearance (U) Clear Normal Clear [facility] Comment on above: Order Comment: Name Collection Type:: Clean-Voided Midstream Performed By: #### U A, CMP #### [facility] [address] [place] [address] Bilirubin,Urine Negative Normal Negative [facility] Comment on above: Order Comment: Name Collection Type:: Clean-Voided Midstream Performed By: #### U A, CMP #### [facility] [address] [place] [address] [place] Color (U) Yellow Normal Yellow [facility] Comment on above: Order Comment: Name Collection Type:: Clean-Voided Midstream Performed By: #### U A, CMP #### [facility] [address] [place] [address] [place] Glucose Ql (U) >=1000 High Normal [facility] Comment on above: Order Comment: Name Collection Type:: Clean-Voided Midstream Performed By: #### U A, CMP #### [facility] [address] [place] [address] [place] Ketones Ql (U) Negative Normal Negative [facility] Comment on above: Order Comment: Name Collection Type:: Clean-Voided Midstream Performed By: #### U A, CMP #### [address] Leukocyte esterase Test strip Ql (U) Negative Normal Negative [facility] Comment on above: Order Comment: Name Collection Type:: Clean-Voided Midstream Performed By: #### U A, CMP #### [address] Nitrite,Urine Negative Normal Negative [facility] Comment on above: Order Comment: Name Collection Type:: Clean-Voided Midstream Performed By: #### U A, CMP #### [address] Occult Blood,Urine Negative Normal Negative [facility] Comment on above: Order Comment: Name Collection Type:: Clean-Voided Midstream Result Comment: PERF ORMED BY: [place] [address] PATHOLOGIST DESK MANAGER OPHELIA ZIMMERMAN M.D. Performed By: #### U A, CMP #### [place] [address] [place] pH (U) 5.5 [pH] Normal 5.0-9.0 [facility] Comment on above: Order Comment: Name Collection Type:: Clean-Voided Midstream Performed By: #### U A, CMP #### [facility] [address] [place] [address] [place] Protein,Urine Negative Normal Negative [facility] Comment on above: Order Comment: Name Collection Type:: Clean-Voided Midstream Performed By: #### U A, CMP #### [facility] [address] [place] [address] [place] Specificy [place],Urine 1.033 High 1.001-1.03 0 [facility] Comment on above: Order Comment: Name Collection Type:: Clean-Voided Midstream Performed By: #### U A, CMP #### [address] [place] [address] [facility] Urobilinogen,Urine Normal Normal Normal [facility] Comment on above: Order Comment: Name Collection Type:: Clean-Voided Midstream Performed By: #### U A, CMP #### [facility] [address] [place] [id number] [place] Urine clarity by refractomet ry automatedOrdered By: Trell Damian on 02-01-2023 Clarity Refractometry automated (U) Clear Clear [facility] Urine glucose measurement by automated test strip (mass/volume)Ordered By: Trell Damian on 02-01-2023 Glucose Auto test strip (U) [Mass/Vol] >=1000 mg/dL Normal [facility] Urine hemoglobin detection b y automated test stripOrdered By: Trell Damian on 02-01-2023 Hemoglobin Auto test strip Ql (U) Negative Negative [facility] Urine leukocyte esterase det ection by automated test stripOrdered By: Trell Damian on 02-01-2023 Leukocyte esterase Auto test strip Ql (U) Negative Negative [facility] Urobilinogen Auto test strip (U) [Mass/Vol]Ordered By: Trell Damian on 02-01-2023 Urobilinogen (U) [Mass/Vol] Normal mg/dL Normal [facility] pH Auto test strip (U)Ordere d By: Trell Damian on 02-01-2023 pH (U) 5.5 [pH] 5.0-9.0 [facility] Glucose, Whole Bloodon 10-05 Glucose [Mass/Vol] 135 mg/dL High 74 - 100 mg/dL [facility] Interpretation and review of laboratory results Abnormal [facility] CBC AUTO DIFFon 07-17-2022 BASO # 0.0 103/ul Normal 0.0-0.1 [facility] Comment on above: Performed By: #### A 1C #### [facility] [address] [place] [address] [address] Ana Pandey Basophils/100 WBC (Bld) 0.2 % Normal 0.2-2.0 [facility] Comment on above: Performed By: #### A 1C #### [facility] [address] [place] [address] Dr. Ana Pandey EO # 0.1 103/ul Normal 0.0-0.7 [facility] Comment on above: Performed By: #### A 1C #### [facility] [address] [place] [address] Dr. Ana Pandey Eosinophils/100 WBC (Bld) 0.9 % Normal 0.9-7.0 [facility] Comment on above: Performed By: #### A 1C #### [facility] [address] [place] [address] Dr. Ana Pandey Erythrocyte distribution width (RBC) [Ratio] 15.1 % Critically high 11.0-15.0 [facility] Comment on above: Performed By: #### A 1C #### [facility] [address] [place] [address] Dr. Ana Pandey Hematocrit (Bld) [Volume fraction] 33.6 % Critically low 42.0-54.0 [facility] Comment on above: Performed By: #### A 1C #### [facility] [address] [place] [address] Dr. Ana Pandey Hemoglobin (Bld) [Mass/Vol] 10.9 g/dL Critically low 14.0-18.0 [facility] Comment on above: Performed By: #### A 1C #### [facility] [address] [place] [address] Dr. Ana Pandey IG # 0.05 10e3/ul Critically high 0.00-0.03 [facility] Comment on above: Performed By: #### A 1C #### [facility] [address] [place] [address] Dr. Ana Pandey IG % 0.5 % Normal 0.0-0.5 [facility] Comment on above: Performed By: #### A 1C #### [facility] [address] [place] [address] Dr. Ana Pandey LYMPH # 0.9 103/ul Critically low 1.2-3.8 [facility] Comment on above: Performed By: #### A 1C #### [facility] [address] [place] [address] Dr. Ana Pandey Lymphocytes/100 WBC (Bld) 8.5 % Critically low 20.5-60.0 [facility] Comment on above: Performed By: #### A 1C #### [facility] [address] [place] [address] Dr. Ana Pandey MANUAL DIFF REQ NO Normal [facility] Comment on above: Performed By: #### A 1C #### [facility] [address] [place] [address] Dr. Ana Pandey MCH (RBC) [Entitic mass] 29.0 pg Normal 25.9-34.0 [facility] Comment on above: Performed By: #### A 1C #### [facility] [address] [place] [address] Dr. Ana Pandey MCHC (RBC) [Mass/Vol] 32.4 g/dL Normal 29.9-35.2 [facility] Comment on above: Performed By: #### A 1C #### [facility] [address] [place] [address] Dr. Ana Pandey MCV (RBC) [Entitic vol] 89.4 fL Normal 80.0-94.0 [facility] Comment on above: Performed By: #### A 1C #### [facility] [address] [place] [address] Dr. Ana Pandey MONO # 0.6 103/ul Normal 0.3-0.8 [facility] Comment on above: Performed By: #### A 1C #### [facility] [address] [place] [address] Dr. Ana Pandey Monocytes/100 WBC (Bld) 6.1 % Normal 1.7-12.0 [facility] Comment on above: Performed By: #### A 1C #### [facility] [address] [place] [address] Dr. Ana Pandey NEUT # 8.4 103/ul Critically high 1.4-6.5 [facility] Comment on above: Performed By: #### A 1C #### [facility] [address] [place] [address] [address] Ana Pandey Neutrophils/100 WBC (Bld) 83.8 % Critically high 43.0-75.0 [facility] Comment on above: Performed By: #### A 1C #### [facility] [address] [address] [address] Ana Pandey Platelet mean volume (Bld) [Entitic vol] 9.7 fL Normal 9.5-13.5 [facility] Comment on above: Performed By: #### A 1C #### [facility] [address] [address] [address] Ana Pandey PLT 220 103/ul Normal 150-450 [facility] Comment on above: Performed By: #### A 1C #### [facility] [address] [place] [address] Dr. Ana Pandey RBC 3.76 106/ul Critically low 4.70-6.10 [facility] Comment on above: Performed By: #### A 1C #### [facility] [address] [address] [address] Ana Pandey WBC 10.0 103/ul Normal 4.0-11.0 [facility] Comment on above: Performed By: #### A 1C #### [facility] [address] [place] [address] ABD/PELVIS WO CONon [...] by: Bowen WISDOM Date: 2022-07-16 23:30 Normal [facility] CULTURE BLOODon 07-17-2022 Microscopic examination of blood, culture Culture Observations: NO GROWTH AT 36-48 HOURS. FINAL TO FOLLOW. Normal [facility] Comment on above: Performed By: #### B ABRASIVE COATING MACHINE OPERATOR, CMP #### [facility] [address] [place] [address] Dr. Ana Pandey Microscopic examination of blood, culture Culture Observations: NO GROWTH AT 36-48 HOURS. FINAL TO FOLLOW. Normal [facility] Comment on above: Performed By: #### B ABRASIVE COATING MACHINE OPERATOR, CMP #### [facility] [address] [place] [address] Dr. Ana Pandey CULTURE URINEon 07-17-2022 CULTURE URINE Culture Observations : AMINA TO FOLLOW. Isolate 1 Escherichia coli >100,000 cfu/mL of Normal [facility] Comment on above: Performed By: #### B ABRASIVE COATING MACHINE OPERATOR, CMP #### [facility] [address] [address] [address] Ana Pandey ER URINE PROFILEon 3 Bilirubin Ql (U) Negative Normal NEGATIVE [facility] Comment on above: Performed By: #### E NEERAJ MEDELLIN #### [facility] [address] [place] [address] Dr. Ana Pandey Clarity (U) CLEAR Normal CLEAR [facility] Comment on above: Performed By: #### Sumaya MEDELLIN UMICRO #### [facility] [address] [place] [address] Dr. Ana Pandey Color (U) LT. YELLOW Normal YELLOW [facility] Comment on above: Performed By: #### Sumaya MEDELLIN UMICRO #### [facility] [address] [place] [address] Dr. Ana Pandey ERUAHD A micrscopic examina tion will be performed if indicated. Normal [facility] Comment on above: Performed By: #### Sumaya MEDELLIN UMICRO #### [facility] [address] [place] [address] Dr. Ana Pandey Glucose Ql (U) Negative Normal NEGATIVE [facility] Comment on above: Performed By: #### Sumaya MEDELLIN UMICRO #### [facility] [address] [place] [address] Dr. Ana Pandey Hemoglobin Ql (U) MODERATE Abnormal NEGATIVE [facility] Comment on above: Performed By: #### Sumaya MEDELLIN UMICRO #### [facility] [address] [place] [address] Dr. Ana Pandey Ketones Ql (U) Negative Normal NEGATIVE [facility] Comment on above: Performed By: #### Sumaya MEDELLIN UMICRO #### [facility] [address] [place] [address] Dr. Ana Pandey LEUKOCYTES MODERATE Abnormal NEGATIVE [facility] Comment on above: Performed By: #### Sumaya MEDELLIN UMICRO #### [facility] [address] [place] [address] Dr. Ana Pandey Nitrite Ql (U) Positive Abnormal NEGATIVE [facility] Comment on above: Performed By: #### Sumaya MEDELLIN UMICRO #### [facility] [address] [place] [address] Dr. Ana Pandey pH (U) 5.0 [pH] Normal 5-9 [facility] Comment on above: Performed By: #### Sumaya MEDELLIN UMICRO #### [facility] [address] [place] [address] Dr. Ana Pandey SPEC GRAVITY 1.025 Normal 1.005-<=1. 025 [facility] Comment on above: Performed By: #### NEERAJ FARAH #### [facility] [address] [place] [address] Dr. Ana Pandey UA PROTEIN Negative Normal NEGATIVE/ TRACE [facility] Comment on above: Performed By: #### NEERAJ FARAH #### [facility] [address] [place] [address] Dr. Ana Pandey UR MICRO IND INDICATED Normal [facility] Comment on above: Performed By: #### NEERAJ FARAH #### [facility] [address] [place] [address] Dr. Ana Pandey Urobilinogen Qn (U) 0.2 {Casie'U}/dL Normal 0.2 - 1. 0 [facility] Comment on above: Performed By: #### NEERAJ FARAH #### [facility] [address] [place] [address] Dr. Ana Pandey LACTATE/LACTIC ACIDon 2022 Lactate [Moles/Vol] 2.0 mmol/L Normal 0.4-2.0 [facility] Comment on above: Performed By: #### L ACT #### [facility] [address] [place] [address] Dr. Ana Pandey PROF 14(COMP METB)on 023 Albumin [Mass/Vol] 3.2 g/dL Critically low 3.4-5.0 [facility] Comment on above: Performed By: #### C MP #### [facility] [address] [place] [address] Dr. Ana Pandey Albumin/Globulin [Mass ratio] 1.0 {ratio} Normal [facility] Comment on above: Performed By: #### C MP #### [facility] [address] [place] [address] Dr. Ana Pandey ALP [Catalytic activity/Vol] 75 U/L Normal 46-116 [facility] Comment on above: Performed By: #### C MP #### [facility] [address] [address] [address] Ana Pandey ALT [Catalytic activity/Vol] 24 U/L Normal 16-63 [facility] Comment on above: Performed By: #### C MP #### [facility] [address] [place] [address] Dr. Ana Pandey Anion gap [Moles/Vol] 13.0 mmol/L Normal [facility] Comment on above: Performed By: #### C MP #### [facility] [address] [place] [address] Dr. Ana Pandey AST [Catalytic activity/Vol] 19 U/L Normal 15-37 [facility] Comment on above: Performed By: #### C MP #### [facility] [address] [place] [address] Dr. Ana Pandey Bilirubin [Mass/Vol] 0.6 mg/dL Normal 0.2-1.0 [facility] Comment on above: Performed By: #### C MP #### [facility] [address] [place] [address] Dr. Ana Pandey Calcium [Mass/Vol] 8.6 mg/dL Normal 8.5-10.1 [facility] Comment on above: Performed By: #### C MP #### [facility] [address] [place] [address] Dr. Ana Pandey Chloride [Moles/Vol] 106 mmol/L Normal 98-107 [facility] Comment on above: Performed By: #### C MP #### [facility] [address] [place] [address] Dr. Ana Pandey CO2 [Moles/Vol] 25.0 mmol/L Normal 21.0-32.0 [facility] Comment on above: Performed By: #### C MP #### [facility] [address] [place] [address] Dr. Ana Pandey Creatinine [Mass/Vol] 1.34 mg/dL Critically high 0.70-1.30 [facility] Comment on above: Performed By: #### C MP #### [facility] [address] [place] [address] Dr. Ana Pandey EGFR-AF PAKISTANI >60 Normal >=60 [facility] Comment on above: Performed By: #### C MP #### [facility] [address] [address] [address] Ana Pandey EGFR-NON AF PAKISTANI 52 mL/min/1.73m2 Critically low >=60 [facility] Comment on above: Performed By: #### C MP #### [facility] [address] [address] [address] Ana Pandey Globulin (S) [Mass/Vol] 3.2 g/dL Normal [facility] Comment on above: Performed By: #### C MP #### [facility] [address] [address] [address] Ana Pandey Glucose [Mass/Vol] 136 mg/dL Critically high 74-106 [facility] Comment on above: Performed By: #### C MP #### [facility] [address] [address] [address] Ana Pandey Potassium [Moles/Vol] 4.0 mmol/L Normal 3.5-5.1 [facility] Comment on above: Performed By: #### C MP #### [facility] [address] [address] [address] Ana Pandey Protein [Mass/Vol] 6.4 g/dL Normal 6.4-8.2 [facility] Comment on above: Performed By: #### C MP #### [facility] [address] [address] [address] Ana Pandey Sodium [Moles/Vol] 140 mmol/L Normal 136-145 [facility] Comment on above: Performed By: #### C MP #### [facility] [address] [address] [address] Ana Pandey Urea nitrogen [Mass/Vol] 23.0 mg/dL Critically high 7.0-18.0 [facility] Comment on above: Performed By: #### C MP #### [facility] [address] [address] [address] Ana Pandey Urea nitrogen/Creatinine [Mass ratio] 17.2 mg/mg Normal [facility] Comment on above: Performed By: #### C MP #### [facility] [address] [place] [address] Dr. Ana Pandey URINE MICROSCOPIC ONLYon BACTERIA LARGE Abnormal NONE SEEN [facility] Comment on above: Performed By: #### E RUR, UMICRO #### [facility] [address] [place] [address] Dr. Ana Pandey Bacteria identified Cx Nom (U) INDICATED Normal [facility] Comment on above: Performed By: #### E RUR, UMICRO #### [facility] [address] [place] [address] Dr. Ana Pandey CAST NONE SEEN Normal NONE SEEN [facility] Comment on above: Performed By: #### E RUR, UMICRO #### [facility] [address] [place] [address] Dr. Ana Pandey Crystals LM Nom (Urine sed) NONE SEEN Normal NONE SEEN [facility] Comment on above: Performed By: #### E RUR, UMICRO #### [facility] [address] [place] [address] Dr. Ana Pandey Epithelial cells LM Ql (Urine sed) RARE Normal NONE SEEN /RARE [facility] Comment on above: Performed By: #### E RUR, UMICRO #### [facility] [address] [place] [address] Dr. Ana Pandey MUCOUS NONE SEEN Normal NONE SEEN [facility] Comment on above: Performed By: #### E RUR, UMICRO #### [facility] [address] [place] [address] Dr. Ana Pandey RBC 0-2 Normal 0-2 [facility] Comment on above: Performed By: #### E RUR, UMICRO #### [facility] [address] [place] [address] Dr. Ana Pandey WBC 20-50 Abnormal NONE SEEN [facility] Comment on above: Performed By: #### E RUR, UMICRO #### [facility] [address] [place] [address] Dr. Ana Pandey XR CHEST 1 Von [...] YELENA DIAZ Date: 2022-07-16 23:14 Normal [facility] Covid-19 PCR (CVDTBH)on 07-06 SARS-CoV-2 (COVID-19) RNA EDD+probe Ql (Unsp spec) Not detected Normal NOT DETECTED [facility] Comment on above: Performed By: #### A 1C #### [facility] [address] [place] [address] Dr. Ana Pandey INFLUENZA A AND B AGon 07-16 INFLUENZA A AG Negative Normal NEGATIVE SEE COMMENT [facility] Comment on above: Performed By: #### A 1C #### [facility] [address] [place] [address] Dr. Ana Pandey INFLUENZA B AG Negative Normal NEGATIVE SEE COMMENT [facility] Comment on above: Performed By: #### A 1C #### [facility] [address] [place] [address] Dr. Ana Pandey SYMPTOMATIC COVID-19 ANTIGEN on 07-16-2022 EUA Statement SEE BELOW Normal [facility] Comment on above: Result Comment: This [...] is revoked sooner. Performed By: #### C MAREKS #### [facility] [address] [place] [address] Dr. Ana Pandey SARS-CoV-2 (COVID-19) RNA EDD+probe Ql (Unsp spec) Negative Normal NEGATIVE [facility] Comment on above: Performed By: #### C KATAGS #### [facility] [address] [place] [address] Dr. Ana Pandey Follow-Upon 05-20-2022 Follow-Up [id number] Rom Winston 1945 M Date Provider Department Center 05/20/2022 MATIAS LOZA CARD [facility] Family History Problem Relation Age of Onset Heart disease Father Family Status - Relation Status Age at Father Level of Service:44611 NE OFFICE/OUTPATIENT ESTABLISHED MOD MDM 30-39 MIN Reason for Visit and Comments: Follow-up [644863] Normal [facility] GLYCOHEMOGLOBIN A1Con 2022 ADA RECOMMENDATION SEE BELOW Normal [facility] Comment on above: Result Comment: ADA RECOMMENDED LIMIT 4.0 - 6.0 ADA THERAPEUTIC TARGET < 7.0 ACTION SUGGESTED > 7.0 Performed By: #### A 1C #### [facility] [address] [place] [address] Dr. Ana Pandey Glucose [Mass/Vol] 154 mg/dL Normal [facility] Comment on above: Performed By: #### A 1C #### [facility] [address] [place] [address] Dr. Ana Pandey HbA1c (Bld) [Mass fraction] 7.0 % Critically high 4.5-6.2 [facility] Comment on above: Performed By: #### A 1C #### [facility] [address] [place] [address] Dr. Ana Pandey SED RATE WESTERGRENon 2022 SED RATE 30 mm/hr Critically high <=20 [facility] Comment on above: Performed By: #### A 1C #### [facility] [address] [address] [address] Ana Pandey Office Visiton 12-01-2021 Follow-up visit [id number] Lilia Winstondemetrio s R 1945 Provider Department Center 12/01/2021 3848-BETTESHANNACHRISTIANO SERVIN CARD [facility] Family History Problem Relation Age of Onset Heart disease Father Family Status - Relation Status Age at Father Level of Service:45146 NE OFFICE/OUTPATIENT ESTABLISHED MOD MDM 30-39 MIN Reason for Visit and Comments: Coronary Artery Disease [187] Shortness of Breath [703704] Hypertension [577559] Normal [facility] Abstracton 11-07-2021 Abstract [id number] Rom Winston tayler R 1945 Provider Department Center 11/07/2021 CATA FRENCH [facility] Family History Problem Relation Age of Onset Heart disease Father Family Status - Relation Status Age at Father Normal [facility] NM STRESS/REST MULTIon 09-29 NM STRESS/REST MULTI Patient: LEONARDO WINSTON Exam Date: 09/29/2021 : 1945 Gender:M Ordering : MATIAS MAYORGA Admission #: [id number] Family : Order #: [id number] CLICK HERE TO VIEW EXAM RADIOLOGY REPORT [...] Graham M.D. on 09/29/2021 at 15:22 Normal [facility] PROF CHEM 8 (BAS METB)on Anion gap [Moles/Vol] 13.1 mmol/L Normal [facility] Comment on above: Performed By: #### B ABRASIVE COATING MACHINE OPERATOR, CMP #### [facility] [address] [place] [address] Dr. Ana Pandey Calcium [Mass/Vol] 8.6 mg/dL Normal 8.5-10.1 [facility] Comment on above: Performed By: #### B ABRASIVE COATING MACHINE OPERATOR, CMP #### [facility] [address] [place] [address] Dr. Ana Pandey Chloride [Moles/Vol] 104 mmol/L Normal 98-107 [facility] Comment on above: Performed By: #### B ABRASIVE COATING MACHINE OPERATOR, CMP #### [facility] [address] [place] [address] Dr. Ana Pandey CO2 [Moles/Vol] 25.9 mmol/L Normal 21.0-32.0 [facility] Comment on above: Performed By: #### B ABRASIVE COATING MACHINE OPERATOR, CMP #### [facility] [address] [place] [address] Dr. Ana Pandey Creatinine [Mass/Vol] 0.92 mg/dL Normal 0.70-1.30 [facility] Comment on above: Performed By: #### B ABRASIVE COATING MACHINE OPERATOR, CMP #### [facility] [address] [place] [address] Dr. Ana Pandey EGFR-AF PAKISTANI >60 Normal >=60 [facility] Comment on above: Performed By: #### B ABRASIVE COATING MACHINE OPERATOR, CMP #### [facility] [address] [place] [address] Dr. nAa Pandey EGFR-NON AF PAKISTANI >60 Normal >=60 [facility] Comment on above: Performed By: #### B ABRASIVE COATING MACHINE OPERATOR, CMP #### [facility] [address] [place] [address] Dr. Ana Pandey Glucose [Mass/Vol] 102 mg/dL Normal 74-106 [facility] Comment on above: Performed By: #### B ABRASIVE COATING MACHINE OPERATOR, CMP #### [facility] [address] [place] [address] Dr. Ana Pandey Potassium [Moles/Vol] 4.0 mmol/L Normal 3.5-5.1 [facility] Comment on above: Performed By: #### B ABRASIVE COATING MACHINE OPERATOR, CMP #### [facility] [address] [place] [address] Dr. Ana Pandey Sodium [Moles/Vol] 139 mmol/L Normal 136-145 [facility] Comment on above: Performed By: #### B ABRASIVE COATING MACHINE OPERATOR, CMP #### [facility] [address] [place] [address] Dr. Ana Pandey Urea nitrogen [Mass/Vol] 24.0 mg/dL Critically high 7.0-18.0 [facility] Comment on above: Performed By: #### B ABRASIVE COATING MACHINE OPERATOR, CMP #### [facility] [address] [place] [address] Dr. Ana Pandey Urea nitrogen/Creatinine [Mass ratio] 26.1 mg/mg Normal [facility] Comment on above: Performed By: #### B ABRASIVE COATING MACHINE OPERATOR, CMP #### [facility] [address] [place] [address] Dr. Ana Pandey BNPon 09-10-2021 Natriuretic peptide B (Bld) [Mass/Vol] 305.0 pg/mL Normal <=1,800.0 [facility] Comment on above: Performed By: #### B ABRASIVE COATING MACHINE OPERATOR, CMP #### [facility] [address] [place] [address] Dr. Ana Pandey CBC AUTO DIFFon 09-10-2021 BASO # 0.0 103/ul Normal 0.0-0.1 [facility] Comment on above: Performed By: #### A 1C #### [facility] [address] [place] [address] Dr. Ana Pandey Basophils/100 WBC (Bld) 0.5 % Normal 0.2-2.0 [facility] Comment on above: Performed By: #### A 1C #### [facility] [address] [place] [address] Dr. Ana Pandey EO # 0.1 103/ul Normal 0.0-0.7 [facility] Comment on above: Performed By: #### A 1C #### [facility] [address] [place] [address] Dr. Ana Pandey Eosinophils/100 WBC (Bld) 1.9 % Normal 0.9-7.0 [facility] Comment on above: Performed By: #### A 1C #### [facility] [address] [place] [address] Dr. Ana Pandey Erythrocyte distribution width (RBC) [Ratio] 15.4 % Critically high 11.0-15.0 [facility] Comment on above: Performed By: #### A 1C #### [facility] [address] [place] [address] Dr. Ana Pandey Hematocrit (Bld) [Volume fraction] 38.6 % Critically low 42.0-54.0 [facility] Comment on above: Performed By: #### A 1C #### [facility] [address] [place] [address] Dr. Ana Pandey Hemoglobin (Bld) [Mass/Vol] 12.2 g/dL Critically low 14.0-18.0 [facility] Comment on above: Performed By: #### A 1C #### [facility] [address] [place] [address] Dr. Ana Pandey IG # 0.01 10e3/ul Normal 0.00-0.03 [facility] Comment on above: Performed By: #### A 1C #### [facility] [address] [place] [address] Dr. Ana Pandey IG % 0.1 % Normal 0.0-0.5 [facility] Comment on above: Performed By: #### A 1C #### [facility] [address] [place] [address] Dr. Ana Pandey LYMPH # 1.6 103/ul Normal 1.2-3.8 [facility] Comment on above: Performed By: #### A 1C #### [facility] [address] [place] [address] Dr. Ana Pandey Lymphocytes/100 WBC (Bld) 21.1 % Normal 20.5-60.0 [facility] Comment on above: Performed By: #### A 1C #### [facility] [address] [place] [address] Dr. Ana Pandey MANUAL DIFF REQ NO Normal [facility] Comment on above: Performed By: #### A 1C #### [facility] [address] [place] [address] Dr. Ana Pandey MCH (RBC) [Entitic mass] 28.7 pg Normal 25.9-34.0 [facility] Comment on above: Performed By: #### A 1C #### [facility] [address] [place] [address] Dr. Ana Pandey MCHC (RBC) [Mass/Vol] 31.6 g/dL Normal 29.9-35.2 [facility] Comment on above: Performed By: #### A 1C #### [facility] [address] [place] [address] Dr. Ana Pandey MCV (RBC) [Entitic vol] 90.8 fL Normal 80.0-94.0 [facility] Comment on above: Performed By: #### A 1C #### [facility] [address] [place] [address] Dr. Ana Pandey MONO # 0.6 103/ul Normal 0.3-0.8 [facility] Comment on above: Performed By: #### A 1C #### [facility] [address] [place] [address] Dr. Ana Pandey Monocytes/100 WBC (Bld) 7.4 % Normal 1.7-12.0 [facility] Comment on above: Performed By: #### A 1C #### [facility] [address] [place] [address] Dr. Ana Pandey NEUT # 5.1 103/ul Normal 1.4-6.5 [facility] Comment on above: Performed By: #### A 1C #### [facility] [address] [place] [address] Dr. Ana Pandey Neutrophils/100 WBC (Bld) 69.0 % Normal 43.0-75.0 [facility] Comment on above: Performed By: #### A 1C #### [facility] [address] [place] [address] Dr. Ana Pandey Platelet mean volume (Bld) [Entitic vol] 9.9 fL Normal 9.5-13.5 [facility] Comment on above: Performed By: #### A 1C #### [facility] [address] [place] [address] Dr. Ana Pandey PLT 194 103/ul Normal 150-450 [facility] Comment on above: Performed By: #### A 1C #### [facility] [address] [place] [address] Dr. Ana Pandey RBC 4.25 106/ul Critically low 4.70-6.10 [facility] Comment on above: Performed By: #### A 1C #### [facility] [address] [place] [address] Dr. Ana Pandey WBC 7.4 103/ul Normal 4.0-11.0 [facility] Comment on above: Performed By: #### A 1C #### [facility] [address] [place] [address] Dr. Ana Pandey PROF 14(COMP METB)on 022 Albumin [Mass/Vol] 3.5 g/dL Normal 3.4-5.0 [facility] Comment on above: Performed By: #### B ABRASIVE COATING MACHINE OPERATOR, CMP #### [facility] [address] [place] [address] Dr. Ana Pandey Albumin/Globulin [Mass ratio] 1.2 {ratio} Normal [facility] Comment on above: Performed By: #### B ABRASIVE COATING MACHINE OPERATOR, CMP #### [facility] [address] [address] [address] Ana Pandey ALP [Catalytic activity/Vol] 67 U/L Normal 46-116 [facility] Comment on above: Performed By: #### B ABRASIVE COATING MACHINE OPERATOR, CMP #### [facility] [address] [address] [address] Ana Pandey ALT [Catalytic activity/Vol] 37 U/L Normal 16-63 [facility] Comment on above: Performed By: #### B ABRASIVE COATING MACHINE OPERATOR, CMP #### [facility] [address] [place] [address] Dr. Ana Pandey Anion gap [Moles/Vol] 11.6 mmol/L Normal [facility] Comment on above: Performed By: #### B ABRASIVE COATING MACHINE OPERATOR, CMP #### [facility] [address] [place] [address] Dr. Ana Pandey AST [Catalytic activity/Vol] 30 U/L Normal 15-37 [facility] Comment on above: Performed By: #### B ABRASIVE COATING MACHINE OPERATOR, CMP #### [facility] [address] [place] [address] Dr. Ana Pandey Bilirubin [Mass/Vol] 0.5 mg/dL Normal 0.2-1.0 [facility] Comment on above: Performed By: #### B ABRASIVE COATING MACHINE OPERATOR, CMP #### [facility] [address] [place] [address] Dr. Ana Pandey Calcium [Mass/Vol] 8.9 mg/dL Normal 8.5-10.1 [facility] Comment on above: Performed By: #### B ABRASIVE COATING MACHINE OPERATOR, CMP #### [facility] [address] [place] [address] Dr. Ana Pandey Chloride [Moles/Vol] 107 mmol/L Normal 98-107 [facility] Comment on above: Performed By: #### B ABRASIVE COATING MACHINE OPERATOR, CMP #### [facility] [address] [address] [address] Ana Pandey CO2 [Moles/Vol] 26.9 mmol/L Normal 21.0-32.0 [facility] Comment on above: Performed By: #### B ABRASIVE COATING MACHINE OPERATOR, CMP #### [facility] [address] [address] [address] Ana Pandey Creatinine [Mass/Vol] 0.93 mg/dL Normal 0.70-1.30 [facility] Comment on above: Performed By: #### B ABRASIVE COATING MACHINE OPERATOR, CMP #### [facility] [address] [address] [address] Ana Pandey EGFR-AF PAKISTANI >60 Normal >=60 [facility] Comment on above: Performed By: #### B ABRASIVE COATING MACHINE OPERATOR, CMP #### [facility] [address] [address] [address] Ana Pandey EGFR-NON AF PAKISTANI >60 Normal >=60 [facility] Comment on above: Performed By: #### B ABRASIVE COATING MACHINE OPERATOR, CMP #### [facility] [address] [place] [address] Dr. Ana Pandey Globulin (S) [Mass/Vol] 2.8 g/dL Normal [facility] Comment on above: Performed By: #### B ABRASIVE COATING MACHINE OPERATOR, CMP #### [facility] [address] [place] [address] Dr. Ana Pandey Glucose [Mass/Vol] 169 mg/dL Critically high 74-106 [facility] Comment on above: Performed By: #### B ABRASIVE COATING MACHINE OPERATOR, CMP #### [facility] [address] [place] [address] Dr. Ana Pandey Potassium [Moles/Vol] 4.5 mmol/L Normal 3.5-5.1 [facility] Comment on above: Performed By: #### B ABRASIVE COATING MACHINE OPERATOR, CMP #### [facility] [address] [place] [address] Dr. Ana Pandey Protein [Mass/Vol] 6.3 g/dL Critically low 6.4-8.2 [facility] Comment on above: Performed By: #### B ABRASIVE COATING MACHINE OPERATOR, CMP #### [facility] [address] [place] [address] Dr. Ana Pandey Sodium [Moles/Vol] 141 mmol/L Normal 136-145 [facility] Comment on above: Performed By: #### B ABRASIVE COATING MACHINE OPERATOR, CMP #### [facility] [address] [place] [address] Dr. Ana Pandey Urea nitrogen [Mass/Vol] 20.0 mg/dL Critically high 7.0-18.0 [facility] Comment on above: Performed By: #### B ABRASIVE COATING MACHINE OPERATOR, CMP #### [facility] [address] [address] [address] Ana Pandey Urea nitrogen/Creatinine [Mass ratio] 21.5 mg/mg Normal [facility] Comment on above: Performed By: #### B ABRASIVE COATING MACHINE OPERATOR, CMP #### [facility] [address] [place] [address] Dr. Ana Pandey XR CHEST 2 Von [...] by: KAYCE SARAVIA Date: 2021-09-10 14:23 Normal [facility] CBC AUTO DIFFon 07-23-2021 BASO # 0.1 103/ul Normal 0.0-0.1 [facility] Comment on above: Performed By: #### C BC #### [facility] [address] [place] [address] Dr. Ana Pandey Basophils/100 WBC (Bld) 0.6 % Normal 0.2-2.0 [facility] Comment on above: Performed By: #### C BC #### [facility] [address] [place] [address] Dr. Ana Pandey EO # 0.2 103/ul Normal 0.0-0.7 [facility] Comment on above: Performed By: #### C BC #### [facility] [address] [place] [address] Dr. Ana Pandey Eosinophils/100 WBC (Bld) 2.5 % Normal 0.9-7.0 [facility] Comment on above: Performed By: #### C BC #### [facility] [address] [place] [address] Dr. Ana Pandey Erythrocyte distribution width (RBC) [Ratio] 15.0 % Normal 11.0-15.0 [facility] Comment on above: Performed By: #### C BC #### [facility] [address] [place] [address] Dr. Ana Pandey Hematocrit (Bld) [Volume fraction] 46.4 % Normal 42.0-54.0 [facility] Comment on above: Performed By: #### C BC #### [facility] [address] [place] [address] Dr. Ana Pandey Hemoglobin (Bld) [Mass/Vol] 14.2 g/dL Normal 14.0-18.0 [facility] Comment on above: Performed By: #### C BC #### [facility] [address] [place] [address] Dr. Ana Pandey IG # 0.02 10e3/ul Normal 0.00-0.03 [facility] Comment on above: Performed By: #### C BC #### [facility] [address] [place] [address] Dr. Ana Pandey IG % 0.2 % Normal 0.0-0.5 [facility] Comment on above: Performed By: #### C BC #### [facility] [address] [place] [address] Dr. Ana Pandey LYMPH # 2.5 103/ul Normal 1.2-3.8 [facility] Comment on above: Performed By: #### C BC #### [facility] [address] [place] [address] Dr. Ana Pandey Lymphocytes/100 WBC (Bld) 27.9 % Normal 20.5-60.0 [facility] Comment on above: Performed By: #### C BC #### [facility] [address] [place] [address] Dr. Ana Pandey MANUAL DIFF REQ NO Normal [facility] Comment on above: Performed By: #### C BC #### [facility] [address] [place] [address] Dr. Ana Pandey MCH (RBC) [Entitic mass] 27.8 pg Normal 25.9-34.0 [facility] Comment on above: Performed By: #### C BC #### [facility] [address] [place] [address] Dr. Ana Pandey MCHC (RBC) [Mass/Vol] 30.6 g/dL Normal 29.9-35.2 [facility] Comment on above: Performed By: #### C BC #### [facility] [address] [place] [address] Dr. Ana Pandey MCV (RBC) [Entitic vol] 90.8 fL Normal 80.0-94.0 [facility] Comment on above: Performed By: #### C BC #### [facility] [address] [place] [address] Dr. Ana Pandey MONO # 0.7 103/ul Normal 0.3-0.8 [facility] Comment on above: Performed By: #### C BC #### [facility] [address] [place] [address] Dr. Ana Pandey Monocytes/100 WBC (Bld) 8.0 % Normal 1.7-12.0 [facility] Comment on above: Performed By: #### C BC #### [facility] [address] [place] [address] Dr. Ana Pandey NEUT # 5.4 103/ul Normal 1.4-6.5 [facility] Comment on above: Performed By: #### C BC #### [facility] [address] [place] [address] Dr. Ana Pandey Neutrophils/100 WBC (Bld) 60.8 % Normal 43.0-75.0 [facility] Comment on above: Performed By: #### C BC #### [facility] [address] [place] [address] Dr. Ana Pandey Platelet mean volume (Bld) [Entitic vol] 10.6 fL Normal 9.5-13.5 [facility] Comment on above: Performed By: #### C BC #### [facility] [address] [address] [address] Ana Pandey PLT 248 103/ul Normal 150-450 [facility] Comment on above: Performed By: #### C BC #### [facility] [address] [address] [address] Ana Pandey RBC 5.11 106/ul Normal 4.70-6.10 [facility] Comment on above: Performed By: #### C BC #### [facility] [address] [address] [address] Ana Pandey WBC 8.8 103/ul Normal 4.0-11.0 [facility] Comment on above: Performed By: #### C BC #### [facility] [address] [place] [address] Dr. Ana Pandey GLYCOHEMOGLOBIN A1Con 2021 ADA RECOMMENDATION SEE BELOW Normal [facility] Comment on above: Result Comment: ADA RECOMMENDED LIMIT 4.0 - 6.0 ADA THERAPEUTIC TARGET < 7.0 ACTION SUGGESTED > 7.0 Performed By: #### A 1C #### [facility] [address] [place] [address] Dr. Ana Pandey Glucose [Mass/Vol] 146 mg/dL Normal [facility] Comment on above: Performed By: #### A 1C #### [facility] [address] [place] [address] Dr. Ana Pandey HbA1c (Bld) [Mass fraction] 6.7 % Critically high 4.5-6.2 [facility] Comment on above: Performed By: #### A 1C #### [facility] [address] [place] [address] Dr. Ana Pandey LIPID PROFILEon 07-23-2021 CHOL-HDL RATIO NORM SEE BELOW Normal [facility] Comment on above: Result Comment: 3.3 - 4.4 LOW RISK 4.4 - 7.1 AVERAGE RISK 7.1 - 11.0 MODERATE RISK >11.0 HIGH RISK Performed By: #### A 1C #### [facility] [address] [place] [address] Dr. Ana Pandey Cholesterol [Mass/Vol] 98 mg/dL Normal <=200 [facility] Comment on above: Performed By: #### A 1C #### [facility] [address] [address] [address] Ana Pandey Cholesterol in HDL [Mass/Vol] 42 mg/dL Normal 40-60 [facility] Comment on above: Performed By: #### A 1C #### [facility] [address] [address] [address] Ana Pandey Cholesterol in LDL [Mass/Vol] 43.2 mg/dL Normal [facility] Comment on above: Performed By: #### A 1C #### [facility] [address] [address] [address] Ana Pandey Cholesterol.total/Cho lesterol in HDL [Mass ratio] 2.3 {ratio} Normal [facility] Comment on above: Performed By: #### A 1C #### [facility] [address] [place] [address] Dr. Ana Pandye HDL NORMAL > or = 60 mg/dl - LO W CARDIOVASCULAR RISK <40 mg/dl - HIGH CARDIOVASCULAR RISK Normal [facility] Comment on above: Performed By: #### A 1C #### [facility] [address] [place] [address] Dr. Ana Pandey LDL CALC NORMAL SEE BELOW Normal [facility] Comment on above: Result Comment: <100 mg/dl OPTIMAL 100 - 129 mg/dl NEAR OR ABOVE OPTIMAL 130 - 159 mg/dl BORDERLINE HIGH 160 - 189 mg/dl HIGH >190 mg/dl VERY HIGH Performed By: #### A 1C #### [facility] [address] [address] [address] Ana Pandey Triglyceride [Mass/Vol] 64 mg/dL Normal <=150 [facility] Comment on above: Performed By: #### A 1C #### [facility] [address] [place] [address] Dr. Ana Pandey VLDL CALC 12.8 mg/dL Normal [facility] Comment on above: Performed By: #### A 1C #### [facility] [address] [address] [address] Ana Pandey LIVER PROFILEon 07-23-2021 Albumin [Mass/Vol] 3.9 g/dL Normal 3.4-5.0 [facility] Comment on above: Performed By: #### A 1C #### [facility] [address] [place] [address] Dr. Ana Pandey Albumin/Globulin [Mass ratio] 1.2 {ratio} Normal [facility] Comment on above: Performed By: #### A 1C #### [facility] [address] [place] [address] Dr. Ana Pandey ALP [Catalytic activity/Vol] 74 U/L Normal 46-116 [facility] Comment on above: Performed By: #### A 1C #### [facility] [address] [place] [address] Dr. Ana Pandey ALT [Catalytic activity/Vol] 52 U/L Normal 16-63 [facility] Comment on above: Performed By: #### A 1C #### [facility] [address] [place] [address] Dr. Ana Pandey AST [Catalytic activity/Vol] 43 U/L Critically high 15-37 [facility] Comment on above: Performed By: #### A 1C #### [facility] [address] [place] [address] Dr. Ana Pandey BILI, CONJUGATED 0.2 mg/dL Normal 0.0-0.2 [facility] Comment on above: Performed By: #### A 1C #### [facility] [address] [place] [address] Dr. Ana Pandey Bilirubin [Mass/Vol] 0.6 mg/dL Normal 0.2-1.0 [facility] Comment on above: Performed By: #### A 1C #### [facility] [address] [place] [address] Dr. Ana Pandey Globulin (S) [Mass/Vol] 3.2 g/dL Normal [facility] Comment on above: Performed By: #### A 1C #### [facility] [address] [place] [address] Dr. Ana Pandey Protein [Mass/Vol] 7.1 g/dL Normal 6.4-8.2 [facility] Comment on above: Performed By: #### A 1C #### [facility] [address] [place] [address] Dr. Ana Pandey MICROALBUMIN, RAND URon 07-06 mALB 1.8 mg/L Normal <=30.0 [facility] Comment on above: Performed By: #### A 1C #### [facility] [address] [place] [address] Dr. Ana Pandey PROF CHEM 8 (BAS METB)on Anion gap [Moles/Vol] 12.1 mmol/L Normal [facility] Comment on above: Performed By: #### A 1C #### [facility] [address] [place] [address] Dr. Ana Pandey Calcium [Mass/Vol] 8.7 mg/dL Normal 8.5-10.1 [facility] Comment on above: Performed By: #### A 1C #### [facility] [address] [place] [address] Dr. Ana Pandey Chloride [Moles/Vol] 102 mmol/L Normal 98-107 [facility] Comment on above: Performed By: #### A 1C #### [facility] [address] [place] [address] Dr. Ana Pandey CO2 [Moles/Vol] 28.1 mmol/L Normal 21.0-32.0 [facility] Comment on above: Performed By: #### A 1C #### [facility] [address] [place] [address] Dr. Ana Pandey Creatinine [Mass/Vol] 0.94 mg/dL Normal 0.70-1.30 [facility] Comment on above: Performed By: #### A 1C #### [facility] [address] [place] [address] Dr. Ana Pandey EGFR-AF PAKISTANI >60 Normal >=[address] [facility] Comment on above: Performed By: #### A 1C #### [facility] [address] [place] [address] Dr. Ana Pandey EGFR-NON AF PAKISTANI >60 Normal >=60 [facility] Comment on above: Performed By: #### A 1C #### [facility] [address] [place] [address] Dr. Ana Pandey Glucose [Mass/Vol] 102 mg/dL Normal 74-106 [facility] Comment on above: Performed By: #### A 1C #### [facility] [address] [place] [address] Dr. Ana Pandey Potassium [Moles/Vol] 4.2 mmol/L Normal 3.5-5.1 [facility] Comment on above: Performed By: #### A 1C #### [facility] [address] [place] [address] Dr. Ana Pandey Sodium [Moles/Vol] 138 mmol/L Normal 136-145 [facility] Comment on above: Performed By: #### A 1C #### [facility] [address] [place] [address] Dr. Ana Pandey Urea nitrogen [Mass/Vol] 28.0 mg/dL Critically high 7.0-18.0 [facility] Comment on above: Performed By: #### A 1C #### [facility] [address] [place] [address] Dr. Ana Pandey Urea nitrogen/Creatinine [Mass ratio] 29.8 mg/mg Normal [facility] Comment on above: Performed By: #### A 1C #### [facility] [address] [place] [address] Dr. Ana Pandey TSHon 07-23-2021 TSH 4.104 uIU/mL Critically high 0.358-3.74 0 [facility] Comment on above: Performed By: #### A 1C #### [facility] [address] [place] [address] Dr. Ana Pandey TSH RANGE SEE BELOW Normal [facility] Comment on above: Result Comment: <0.3 4 UIU/ml HYPERTHYROID 0.34-5.60 UIU/ml EUTHYROID >5.60 UIU/ml HYPOTHYROID Performed By: #### A 1C #### [facility] [address] [place], [place] [address] Dr. Ana BURKETT Quick Testingon 2020 Result Positive [facility] Other Cardiovascular Lab Reporton 05-05-2017 Cardiovascular Lab Report [facility] Patient Name: Thea Winston [facility] MR #: [id number] Physician: Shantell Gomez,Department of M.D.Medicine Service Date: 05/04/2017Division of Birthdate: 4Cardiology Room #: 3AB [id number] CardiovascularServicesUniv [facility] [address] [place], [place] [address]Azvcy Fax Cardiovascular Laboratory ReportREFERRING PHYSICIANS: Christian Rosa M.D. and Michael Smith M.D.CLINICAL PRESENTATION: Mr. Thae Winston is a 71-year-old male, pastmedical history [...] CAD.6. Outpatient followup with Dr. Jacobo Rosa, [place] Cardiology.7. Okay to refer to cardiac rehabilitation [...] usingultrasound guidance and micropuncture access technique, a 6-Telugu sheathwas placed in the right internal jugular vein. Using a Dougherty catheter,the right heart catheterization was then performed. Pressures wereobtained in the right atrium, right ventricle, pulmonary artery, andpulmonary capillary wedge position. Oxygen saturation was drawn from thepulmonary artery and the Sly cardiac output and cardiac index were thencalculated. The Dougherty catheter was then removed.Next, a 6-Telugu Terumo Glidesheath slender was placed in the [...] check the severity with an FFR testing.A [employer] left 6-Telugu guide was engaged to left main coronaryartery.The [employer] Verrata FFR wire was then zeroed outside [...] the LAD was then crushed using an NC [employer] apex 3.0 x 12 mmnoncompliant balloon, which [...] PDA and LIDIA are widely patent.Electronically Signed by:Shantell Gomez M.D. 05/11/2017 08:15 P Shantell Gomez M.D.Date Dict: 05/04/2017/12:44 P/Shantell Gomez M.D.Date Trans: 05/05/2017 09:35 A/[id number] c: Christian Rosa M.D. [address] [facility] [address] Michael Smith M.D. [address] [place] [address] [facility] Vital Signs Date Time Vital Sign Value Performing Clinician Facility 04-22-2023 14:27-0500 Body height 190.5 cm MD Michael Smith Work Phone: [facility] 04-22-2023 14:27-0500 Body mass index (BMI) [Ratio] 29.7 kg/m2 MD Michael Smith Work Phone: [facility] 04-22-2023 14:27-0500 Body temperature 97.6 [degF] MD Michael Smith Work Phone: [facility] 04-22-2023 14:27-0500 Body weight 107.67 kg MD Michael Smith Work Phone: [facility] 04-22-2023 14:27-0500 Heart rate 67 /min MD Michael Smith Work Phone: [facility] 04-22-2023 14:27-0500 Respiratory rate 18 /min MD Michael Smith Work Phone: [facility] 04-22-2023 14:27-0500 SaO2% (BldA) [Mass fraction] 95 % MD Michael Smith Work Phone: [facility] 02-14-2023 12:10-0500 Body height 190.5 cm Mitzy Neves Other [facility] 02-14-2023 12:10-0500 Body mass index (BMI) [Ratio] 30.57 kg/m2 Mitzy Neves Other [facility] Other 02-14-2023 12:10-0500 Body temperature 98 [degF] Mitzy Neves Other [facility] Other 02-14-2023 12:10-0500 Body weight 110.95 kg Mitzy Pura Other [facility] Other 02-14-2023 12:10-0500 Body weight 110.94 kg MD Michael Smith Work Phone: [facility] 02-14-2023 12:10-0500 Diastolic blood pressure 60 mm[Hg] Mitzy Pura Other [facility] 02-14-2023 12:10-0500 Respiratory rate 18 /min Mitzy Pura Other [facility] Other 02-14-2023 12:10-0500 SaO2% (BldA) [Mass fraction] 98 % Mitzy Pura Other [facility] Other 02-14-2023 12:10-0500 Systolic blood pressure 135 mm[Hg] Mitzy Pura Other [facility] 10-05-2022 11:30-0400 Diastolic blood pressure 58 mm[Hg] Genoveva Shamar DO Work Phone: [facility] 10-05-2022 11:30-0400 Heart rate 58 /min Genoveva Shamar DO Work Phone: [facility] 10-05-2022 11:30-0400 Respiratory rate 16 /min Genoveva Shamar DO Work Phone: [facility] 10-05-2022 11:30-0400 SaO2% (BldA) [Mass fraction] 98 % Genoveva Shamar DO Work Phone: [facility] 10-05-2022 11:30-0400 Systolic blood pressure 126 mm[Hg] Genoveva Pond DO Work Phone: [facility] 10-05-2022 11:11-0400 Body temperature 96.91 [degF] Genoveva Pond DO Work Phone: [facility] 10-05-2022 10:00-0400 Body height 190.5 cm Genoveva Pond DO Work Phone: [facility] 10-05-2022 10:00-0400 Body mass index (BMI) [Ratio] 32.12 kg/m2 Genoveva Pond DO Work Phone: [facility] 10-05-2022 10:00-0400 Body weight 116.57 kg Genoveva Pond DO Work Phone: [facility] 05-26-2022 12:50-0400 Body height 190.5 cm Minerva Irwin Other [facility] Other 05-26-2022 12:50-0400 Body mass index (BMI) [Ratio] 31.87 kg/m2 Minerva Irwin Other [facility] Other 05-26-2022 12:50-0400 Body temperature 97.1 [degF] Minerva Irwin Other [facility] Other 05-26-2022 12:50-0400 Body weight 115.67 kg Minerva Irwin Other [facility] Other 05-26-2022 12:50-0400 Respiratory rate 18 /min Minerva Irwin Other [facility] Other 05-26-2022 12:50-0400 SaO2% (BldA) [Mass fraction] 97 % Minerva Irwin Other [facility] Other 03-20-2022 14:00-0500 Body height 190.5 cm Minerva Irwin Other [facility] Other 03-20-2022 14:00-0500 Body mass index (BMI) [Ratio] 28.74 kg/m2 Minerva Irwin Other [facility] Other 03-20-2022 14:00-0500 Body temperature 97.7 [degF] Minerva Dc Other [facility] Other 03-20-2022 14:00-0500 Body weight 104.33 kg Minerva Irwin Other [facility] Other 03-20-2022 14:00-0500 Respiratory rate 18 /min Minerva Irwin Other [facility] Other 03-20-2022 14:00-0500 SaO2% (BldA) [Mass fraction] 97 % Minerva Irwin Other [facility] Other 12-05-2020 17:15-0400 Body height 190.5 cm Radha Sawant Other [facility] Other 12-05-2020 17:15-0400 Body temperature 98.8 [degF] Radha Sawant Other [facility] Other 12-05-2020 17:15-0400 SaO2% (BldA) [Mass fraction] 97 % Radha Sawant Other [facility] Other Encounters Encounter Date Encounter Type Care Provider Facility Start: 04-26-2023 End: 04-26-2023 ambulatory SHAIKH LOLLY Not Available Start: 04-22-2023 End: 04-22-2023 ambulatory MD Michael Smith Work Phone: [facility] Work Phone: Start: 04-22-2023 End: 04-22-2023 Patient encounter procedure MD Michael Smith Work Phone: [facility] Work Phone: Start: 04-21-2023 Orders Only Shaikh Lolly PERALES Work Phone: [facility] Comment on above: Coronary arterioscle rosis in [place] artery (CMS/HCC) (Primary Dx) Start: 04-15-2023 Orders Only Shaikh Lolly PERALES Work Phone: [facility] Comment on above: Chronic heart failur e with preserved ejection fraction (HFpEF) (CMS/HCC) (Primary Dx) Start: 03-15-2023 End: 03-15-2023 ambulatory SHAIKH LOLLY Not Available Start: 02-25-2023 Patient encounter procedure Shaikh Lolly PERALES [facility] Start: 02-25-2023 End: 02-25-2023 ambulatory SHAIKH LOLLY Not Available Start: 02-14-2023 End: 02-14-2023 ambulatory Mitzy Neves Other [facility] Other Start: 02-14-2023 Office outpatient vi sit 15 minutes Mitzy Neves [facility] Start: 02-14-2023 End: 02-14-2023 Patient encounter procedure MD Michael Smith Work Phone: [facility] Work Phone: Start: 02-09-2023 End: 02-09-2023 ambulatory AMANDA ROSA Not Available Start: 02-01-2023 End: 02-01-2023 [facility] Start: 02-01-2023 End: 02-01-2023 ambulatory MD Michael Smith Work Phone: [facility] Work Phone: Start: 02-01-2023 End: 02-01-2023 Patient encounter procedure MD Michael Smith Work Phone: [facility] Work Phone: Start: 10-05-2022 End: 10-05-2022 [facility] Start: 10-05-2022 End: 10-05-2022 Subsequent hospital visit by physician Genoveva Pond DO Work Phone: [facility] Start: 07-22-2022 ambulatory MENDEZ Lópezi lity:[facility]1 Start: 07-16-2022 End: 07-17-[address] MATIAS MAXWELL . Facility:[facility] Start: 06-26-2022 End: 06-26-2022 ambulatory Minerva Irwin Other [facility] Other Start: 06-26-2022 Telephone encounter Minerva Irwin [facility] Start: 05-26-2022 End: 05-26-2022 ambulatory Minerva Irwin Other [facility] Other Start: 05-26-2022 Office outpatient vi sit 25 minutes Minerva Irwin [facility] Start: 05-20-2022 End: 05-20-2022 ambulatory MATIAS MAYORGA [facility] Start: 05-08-2022 End: 05-09-[address] IMCHAEL SMITH Facility:[facility] Start: 04-03-2022 End: 04-04-2022 ambulatory SHAIKH Vijaya AMBROCIO Facility:[facility] Start: 03-25-2022 End: 03-26-[address] MICHAEL SMITH Facility:[facility] Start: 03-20-2022 End: 03-20-2022 ambulatory Mienrva Irwin Other [facility] Other Start: 03-20-2022 Office outpatient vi sit 25 minutes Minerva Irwin [facility] Start: 12-24-2021 End: 12-25-[address] MICHAEL SMITH Facility:[facility] Start: 12-01-2021 End: 12-01-2021 ambulatory KEOKeila [facility] Start: 09-29-2021 End: 09-30-[address] ADRIA GRAHAM Facility:[facility] Start: 09-18-2021 End: 09-19-[address] MICHAEL SMITH Facility:[facility] Start: 09-15-2021 End: 09-16-[address] MICHAEL SMITH Facility:[facility] Start: 09-10-2021 End: 09-11-2021 ambulatory KAYCE SARAVIA Facility:[facility] Start: 07-23-2021 End: 07-24-[address] MICHAEL SMITH Facility:[facility] Start: 12-05-2020 Office outpatient vi sit 15 minutes Radha Sawant [facility] Start: 05-04-2017 End: 05-05-2017 Ambulatory MICHAEL SMITH Facility:[facility] Start: 04-28-2017 End: 04-29-2017 Ambulatory DEFAULT PHYSICIAN Facility:[facility] Procedures Date Procedure Procedure Detail Performing Clinician Start: 10-05-2022 GLUCOSE, WHOLE BLOOD Bl air Mike Pond DO Work Phone: Start: 10-05-2022 Ecg routine ecg w/le ast 12 lds w/i&r Genoveva Y Shamar ASKEW Work Phone: Start: 07-23-[address] MICHAEL BLUE Comment on above: Performed By: #### B ABRASIVE COATING MACHINE OPERATOR, CMP #### [facility] [address] [place] [address] Dr. Ana Pandey History of placement of stent for coronary artery disease H/O heart artery stent MD Michael Smith Work Phone: Plan of Treatment Date Care Activity Detail Author Start: 11-06-2024 Glaucoma screening Diabetes: R etinopathy Screening [facility] Start: 02-26-2024 Medicare Annual Wellness (AWV) Medicare Annual Wellness (AWV) [facility] Start: 05-31-2023 End: 05-31-2023 Patient encounter procedure 05/31/2023 10:45 AM EDT Office Visit [facility] [address] [place] [address] Shaikh Ambrocio MD [address] [place] [address] [facility] Start: 05-06-2023 Hemoglobin A1c measurement Diabetes: Hemoglobin A1C [facility] Start: 10-06-2022 Influenza vaccination Flu vaccine (# 1) [facility] Start: 10-05-2022 Annual Wellness Visi t (AWV) Annual Wellness Visit (AWV) [facility] Start: 10-05-2022 End: 10-05-2022 Xcapsl ctrc rmvl insj io lens prosth w/o ecp EYE CATARACT EMULSIFICATION IOL IMPLANT Combined forms of age-related cataract of left eye 10/05/2022 10:44 AM EDT [facility] Start: 07-13-2022 Urine screening for protein Diabetes: Urine Protein Screening [facility] Start: 09-01-2008 Pneumococcal 65+ yea rs Vaccine (1 - PCV) Pneumococcal 65+ years Vaccine (1 - PCV) [facility] Start: 09-01-1993 Shingles vaccine (1 of 2) Shingles vaccine (1 of 2) [facility] Start: 09-01-1962 DTaP/Tdap/Td vaccine (1 - Tdap) DTaP/Tdap/Td vaccine (1 - Tdap) [facility] Start: 09-01-1961 Hepatitis C screening Hepatitis C sc reen [facility] Start: 1955 Depression Screen Depression Screen [facility] Start: 09-01-1953 Lipid panel Lipids [facility] Start: 09-01-1949 Pneumococcal Vaccine : 65+ Years (1 - PCV) Pneumococcal Vaccine: 65+ Years (1 - PCV) [facility] Start: 03-03-1944 COVID-19 Vaccine (#1) COVID-19 Vacci ne (#1) [facility] EKG 12 Lead EKG 12 Lead ECG Routine 10/05/2022 10:15 AM EDT [facility] Oxygen therapy [[facility] mum Data Set] Initiate Oxygen Therapy Protocol Respiratory Care Routine Daily until discontinued starting 10/05/2022 [facility] Comment on above: Daily until disconti nued starting 10/05/2022 Oxygen therapy [Mini mum Data Set] Initiate Oxygen Therapy Protocol Respiratory Care Routine Daily until discontinued starting 10/05/2022 [facility] Comment on above: Daily until disconti nued starting 10/05/2022 Immunizations Immunization Date Immunization Notes Care Provider [facility] 12-25-2022 ABRYSVO - Respirator y syncytial virus (RSV), vaccine, bivalent, protein subunit RSV prefusion F, diluent reconstituted, 0.5 mL, PF Shaikh Lolly PERALES Work Phone: [facility] 11-26-2022 Influenza, High-dose Seasonal, Quadrivalent, Preservative Free Shaikh Lolly PERALES Work Phone: [facility] 12-25-2021 Influenza, Seasonal, Quadrivalent, Adjuvanted Shaikh Lolly PERALES Work Phone: [facility] 12-15-2020 Influenza, High-dose Seasonal, Quadrivalent, Preservative Free Shaikh Lolly PERALES Work Phone: [facility] 12-14-2019 influenza, injectabl e, quadrivalent, preservative free Shaikh Lolly PERALES Work Phone: [facility] 11-28-2019 Influenza, High-dose Seasonal, Quadrivalent, Preservative Free Shaikh Lolly PERALES Work Phone: [facility] 11-28-2019 zoster vaccine recombinant Shaikh Lolly PERALES Work Phone: [facility] 01-02-2018 influenza, high dose seasonal, preservative-free Shaikh Lolly PERALES Work Phone: [facility] 11-29-2016 influenza, high dose seasonal, preservative-free Shaikh Lolly PERALES Work Phone: [facility] 12-13-2015 influenza, high dose seasonal, preservative-free Shaikh Lolly PERALES Work Phone: [facility] 12-24-2014 influenza, high dose seasonal, preservative-free Shaikh Lolly PERALES Work Phone: [facility] 09-10-2013 tetanus toxoid, adsorbed Radha Savana Other [facility] 02-11-2012 influenza virus vaccine, whole virus Shaikh Lolly PERALES Work Phone: [facility] 01-19-2011 influenza virus vaccine, whole virus Shaikh Lolly PERALES Work Phone: [facility] Payers Date Payer Category Payer Self-pay [id number] 2023 Unknown [id number] 2022 Unknown 2020 Unknown [id number] 1959 Medicare [id number] .[id number]. 1959 Unknown [id number] 1943 Unknown [id number] 2.840.1.179672.3.579.2.593 1943 Unknown [id number] 2.16.840.1.185707.3.579.2.59 1943 Unknown [id number] 2.840.1.887538.3.579.2.593 1943 Unknown [id number] 2.840.1.135250.3.579.2.593 1943 Unknown [id number] 2.16.840.1.075732.3.579.2.593 1943 Unknown [id number] 2.16.840.1.337392.3.579.2.593 1943 Unknown [id number] 2.16.840.1.486785.3.579.2.593 1943 Unknown [id number] 2.16.840.1.896293.3.579.2.593 1943 Unknown [id number] 2.16.840.1.955128.3.579.2.593 1943 Unknown [id number] 2.16.840.1.592511.3.579.2.593 1943 Unknown [id number] 2.16.840.1.624148.3.579.2.593 1943 Unknown [id number] 2.16.840.1.361279.3.579.2.173 1943 Unknown [id number] 2.16.840.1.331348.3.579.2.1259 1943 Unknown [id number] 2.16.840.1.610076.3.579.2.1259 1943 Unknown [id number] 2.16.840.1.984125.3.579.2.1259 1943 Unknown [id number] 2.16.840.1.931915.3.579.2.1259 Medicare [id number] Medicare [employer] [facility] [id number] Medicare [employer] [facility] [id number] Unknown [id number] 2.16.840.1.179806.3.579.2.531 Social History Date Type Detail Facility Unknown if ever smoked [facility] Other Start: 02-25-2023 Sex Assigned At [facility] Other Start: 09-10-2013 End: 09-22-2022 Tobacco smoking status NHIS Never smoked tobacco [facility] Start: 09-22-2022 End: 02-09-2023 Tobacco use and exposure Smokeless tobacco non-user [facility] Start: 10-05-2022 End: 02-25-2023 Alcohol intake Lifetime non-drinker (finding) [facility] Start: 1945 Sex Assigned At Not on file [facility] Start: 1945 Sex Assigned At Male F [facility] Start: 02-25-2023 History of Social function [facility] Clinical Notes 12-05-2020 to 02-14-2023 Note Date [...] or shortness of breath. Continue to take rcwy-ycd-khasb er cough medicine as needed for cough. Follow-up with your family physician if no improvement in 2 to 3 days [facility] Other 07-31-2023 History of Present illness Narrative* [...] AM EDT Lab work from July from [facility] received in this office. * Noelle Leary [...] PAT phone call. [facility] Dis[facility]* Discharge Instructions* Mervat [...] the healing period. The office number is [phone]. Take surgery bag and all eye drops to Dr. Pond's office tomorrow at 9:20am. You may resume your normal diet. Start your eye drops tomorrow after your post-op appointment: Ofloxacin/Polytrim one drop to the operated eye 4 times daily Prednisolone one drop to the operated eye 4 times daily [facility] Evaluation note* Encounter Date Diagnosis Assessment [...] understanding and is agreeable to treatment plan [facility] Other [id number] NoteContinue [facility]UnUniversity [facility]-15-2023 NoteHypertension is Overall well controlled- At PCPs office it was 130/72- Even in office he started at 160/78 and when I repeated it he was down to 144/77 Continue all current medications Function been normalUn[facility]03-15-2023 NotePt is here for a 6 month F/U ROSUnUniversity Hospitals [facility]03-15-2023 NoteUTP CARDIOLOGY PROGRESS NOTE HPI: [...] Hypertension is Overall wel (more content not included)...[facility]03-15-2023 NoteGoal-directed medical therapy- Aspirin, Plavix, Lipitor, Toprol Denies any bleeding tendencies or concerns continue risk factor modifications- heart healthy diet, regular exercise as tolerated and continue all medications.[facility] 03-20-2022 Evaluation note* Encounter Date Diagnosis Assessment [...] understanding and is agreeable to treatment plan [facility] Other 09-26-2022 NoteCardiology Follow Up Progress Note [...] red flag symptoms. Strict (more content not included)...[facility]09-26-2022 NoteSubjective Thea Winston is a 76 y.o. [...] Lab Review: Assessment/Plan There were no encounter diagnoses.[facility]07-25-2022 NoteCARDIAC STRESS TEST Requesting Physician: Procedure Date:09/29/2021 [...] interpreted and reported in a separate dictation.[facility] [id number] Evaluation note* Encounter Date Diagnosis Assessment Notes Treatment Notes Treatment Clinical Notes Nov, Contact with and (suspected) exposure to other viral communicable diseases (ICD-10 - Z20.828) Nov, COVID-19 (ICD-10 - U07.1) Today you tested positive for the COVID virus. This mean you need to follow all CDC quarantine guidelines found at [email or web address] v. It is important to rest, increase [...] Patient care instructions given in writting by [facility] Care At Home document. [facility] Other Evaluation noteNo InformationNort Spime Other Evaluation note* Diagnosis Combined forms of age-related cataract of left eye- Primary Other and combined forms of senile cataract documented [facility] encounter [facility] assessment information available [facility] Work Phone: Evaluation note* Diagnosis Chronic heart failure with preserved ejection fraction (HFpEF) ([facility])- Primary documented in this encounter [facility] HealthcareEvaluation note* Diagnosis Coronary arteriosclerosis in [place] artery ([facility])- Primary documented in this encounter [facility] HealthcareEvaluation note* Diagnosis Onset Date Resolution Status Viral URI with cough acute [facility] Work Phone: Hisirgv general Narrative - Reported* Type Description Date Medical History DM Medical History HTN Medical History Arthritis Medical History hypercholesterolemia Surgical History Cyst off back Surgical History Polyps removed Surgical History heart stent Surgical History shoulder Hospitalization History see above [facility] Other Hisegvm general Narrative - Reported* Type Description Date Medical History DM Medical History HTN Medical History Arthritis Medical History hypercholesterolemia Surgical History Cyst off back Surgical History Polyps removed Surgical History heart stent Surgical History shoulder Surgical History cataract surgery 07/2022 Hospitalization History see above [facility] Other Summary Purpose Family History No Family History Records Found Relationship Condition Age at Onset Recorded Date/T jeannie brother Unknown father Hypertension Unknown Unknown Not Specified Unknown Advance Directives No Advanced Directives Records FoundLatest Code Status on File Code Status Date Activated Date Inactivated Comments Full Code 10/05/2022 9:57 AM Advance Directive Response Recorded Date/ Time Advance Directives No January 14, 2023 12:44pm Chief Complaint and Reason for Visit Chief Complaint i51.9 Chief Complaint i51.9 Chest Cold, Sore Throat, cough, heavy phlem Reason for Visit Viral URI with cough Additional Source Comments (unrecognized sect ion and content) No Status Records FoundNo Status Records FoundNo Status Records FoundNo Status Records FoundNo Status Records FoundNo Status Records Found INFORMATION SOURCE (unrecogn ized section and content) DATE CREATED AUTHOR 08/27/2017 [facility] DATE CREATED AUTHOR AUTHOR'S ORGANIZ ATION 05/21/2022 [facility] DATE CREATED AUTHOR AUTHOR'S ORGANIZ ATION 07/20/2022 [facility] DATE CREATED AUTHOR AUTHOR'S ORGANIZ ATION 10/05/2022 [facility] DATE CREATED AUTHOR AUTHOR'S ORGANIZ ATION 04/16/2023 [facility] DATE CREATED AUTHOR AUTHOR'S ORGANIZ ATION 04/27/2023 [facility] EPIC REASON FOR VISIT (unrecogniz ed section and content) Specialty Diagnoses / Procedures Referred By Korey gan Referred To Contact Diagnoses Combined forms of age-related cataract of left eye Combined forms of age-related cataract of left eye [H25.812] Procedures NE XCAPSL CTRC RMVL INSJ IO LENS PROSTH W/O ECP EYE CATARACT EMULSIFICATION IOL IMPLANT [address], [address] [place] [address] [facility] [address] [place] [address] Referral ID Status Reason Start Date Expiration Date Visits Re quested Visits Authorized [id number] 1 1 Scheduled Active and Recently Administ [...] Status Dates Trell Damian DO Attending Provider Natasha Smith MD Primary Care Provider Active [employer] Director Relationship Specialty Start Date End Date Michael Smith MD [address] [place] [phone] PCP - [facility] 12/06/22 Shaikh Ambrocio MD [address] [place] [phone] PCP - General Internal Medicine 02/25/23 [employer] Director Relationship Specialty Start Date End Date Michael Smith MD [address] [place] [phone] PCP - [facility] 12/06/22 Shaikh Ambrocio MD [address] [place] [phone] PCP - General Internal Medicine 02/25/23 Team Status: Inactive Member Role Status Dates Trell Damian DO Attending Provider Activ e Start: February 01, 2023 End: February 01, 2023 Michael Smith MD Primary Care Provider Active S tart: February 01, 2023 End: February 01, 2023 Team Status: Inactive Member Role Status Dates CHANTALE Staton Attending Provider Active S tart: February 14, 2023 End: February 14, 2023 Team Status: Inactive Member Role Status Dates Michael Smith MD Primary Care Provider Active S tart: April 22, 2023 End: April 22, 2023 Minerva Irwin APRN Attending Provider Active Start: April 22, 2023 End: April 22, 2023 Goals (unrecognized section and content) Goals may [...] BE BASED ON THE PRIMARY CLINICAL RECORDS. [facility] [employer] provides no warranty or guarantee of the accuracy or completeness of information in this document.
--- NOTE | 2023-05-13 10:36 | RT_ITS ---
[facility] Test Date: 2023-05-13 Pat Name: THEA BONILLA Department: Room: - Gender: Male [employer] Operator: Phu Jones RRT : 1945 Requested By: [id number] Order Number: [id number] Reading MD: Peter Castellanos Interpretive Statements Pulmonary function testing was completed according to ATS criteria. Findings were considered accurate and reproducible. No bronchodilator was administered due to normal spirometric values. Spirometry: -FEV1/FVC: Normal @ 78% -FEV1: Normal @ 102% -FVC: Normal @ 94% Lung volumes by plethysmography: -RV: High normal @ 102% -TLC: Normal @ 92% Diffusion capacity: -DLCO: Mild reduction @ 74% when corrected for Hb 12.2g/dL Flow-volume loop: -Normal variant 'knee shape' Impressions: -Normal spirometry and lung volumes with a mild isolated diffusion impairment. This pattern can be seen in, but not restricted to, cardiopulmonary vascular disorders, early interstitial lung disease, and early emphysema. Clinical correlation required. Electronically Signed On 05-18-2023 10:42:24 EDT by Peter Castellanos
--- NOTE | 2023-05-13 11:00 | FL_ITS ---
The [address] [address] Patient Name: THEA BONILLA MRN: [id number] date: 1945 Sex: M Assigned Patient Location: CARD Current Patient Location: CARD Accession/Order Number: [id number] Exam Date: 05/13/2023 10:38 Report Date: 05/13/2023 11:36 At the request of: SHAIKH LOKI Procedure: FL modified barium swallow EXAMINATION: FL modified barium swallow HISTORY: Chronic Cough R05.3 COMPARISON: No relevant comparison available. TECHNIQUE: A swallowing evaluation was performed with fluoroscopy in the usual manner. Standard level fluoroscopic mode of operation utilized. FINDINGS: ORAL PHASE: Normal deglutition. PHARYNGEAL PHASE: Normal swallowing. ASPIRATION: Single episode of penetration involving a tiny amount of thin liquid during initial swallowing. Patient cleared throat and initiated a small cough which easily cleared the small amount of material. STRUCTURE: Normal. No visible obstruction, stricture, or dilatation. OTHER: Negative. FL/FL modified barium swallow IMPRESSION: 1. Single episode of trace amount of penetration of thin liquid during swallowing which patient easily cleared. This may occur when the patient is eating/drinking and would account for his recurrent throat clearing during/after eating. Electronically authenticated by: ADRIA MCGEE Date: 05/13/2023 11:36
== END 2023-05-13 09:04 | disposition home or self-care (01) ==
LOC: CARD 09:03
PROVIDERS: PCP Internal Medicine; Visit Provider Internal Medicine
DX: R05.3 Chronic cough (principal); J20.9 Acute bronchitis, unspecified
CPT/HCPCS: 74230; 92611; 94010; 94726; 94729

== ENCOUNTER 2023-05-14 10:52 | Outpatient (OUT) | payer OTHER, SELFPAY ==
--- OUTSIDE RECORDS SUMMARY | 2023-05-14 10:58 | XMS_ITS | CCD ---
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 Foreman Name Role Phone PHYSICIAN, DEFAULT Unavailable Unavailable [...] Provider MD Michael Smith Primary Care Provider [phone] Mitzy Neves Unavailable Nati, Trell Ramirez Attending Unaantonietta godinez [facility], Trell Ramirez Admitting Chula Smith, Michael Primary Care Unavailable Michael Smith MD Unavailable Shaikh Ambrocio MD Primary Care Provider [phone] SHAIKH AMBROCIO Attending Unavailable SHAIKH AMBROCIO Attending Unavailable AMANDA ROSA Attending Unavailable SHAIKH AMBROCIO Attending Unavailable Allergies Allergy Classification Reported Allergen(s) Allergy Type Date of Onset Reaction(s) Facility (1 source) Penicillins Drug allergy (disorder) 05-04-19 18 AOF [facility] Repository (1 source) No Known Allergies; Translations: [No Known Allergies] Propensity to adverse reactions (disorder) [facility] Repository (5 sources) penicillAMINE Drug Allergy he heard [facility] Other (1 source) Penicillin; Translations: [PENICILLIN G] Drug Allergy 10-21-19 [facility] Repository (1 source) Penicillin Drug Allergy [facility] Repository (1 source) Penicillins Propensity to adverse reactions to drug 09-24-19 [facility] (1 source) penicillAMINE Drug Allergy 02-15-20 [facility] Repository (2 sources) Penicillins Propensity to adverse reactions 02-06-20 Other [facility] Medications Current Medications Medication Drug Class(es) Dates Sig (Normalized) Sig (Original) [id number] 60 actuat albuterol 0.09 mg/actuat metered dose [...] day Active Plavix Active Continuous Blood Gluc Dietetic Assistant (FreeStyle Vi 2 [place]) device (2 sources) Continuous Blood Gluc Dietetic Assistant (FreeStyle Vi 2 [place]) device Continuous Blood Gluc Sensor (FreeStyle Vi [...] 24 hr tablet Indications: Coronary arteriosclerosis in [place] artery (CMS/HCC) Take 1 tablet (100 mg) [...] disease (9 sources) Atherosclerotic heart disease of [place] coronary artery with unstable angina pectoris; Translations: [Atherosclerotic heart disease of [place] coronary artery without angina pectoris] Onset: 8 [...] 3 02-08-2023 Chronic Other aftercare (2 sources) USP (current) use of aspirin; Translations: [RE EXAMINER (CURRENT) USE OF ASPIRIN] Onset: 8 Episodic Other aftercare (1 source) USP (current) use of oral hypoglycemic drugs; Translations: [M[facility] USE ORAL HYPOGLYCEMIC DX] Onset: 3 Episodic Other aftercare (5 sources) Other snf (current) drug therapy; Translations: [OTH MCC CURRENT DRUG THERAPY] Onset: 2 Episodic Other [...] / UNK(Unknown) Onset: 8 Unclassified (1 source) 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; Translations: [...] 02-01-2023 ALT [Catalytic activity/Vol] 30 U/L 7-52 [facility] Albumin [Mass/volume] in Ser um or Plasma by Bromocresol green (BCG) dye binding methoOrdered By: Trell Damian on 02-01-2023 Albumin BCG dye [Mass/Vol] 4.1 g/dL 3.5-5.7 [facility] Alkaline phosphatase [Enzyma tic activity/volume] in Serum or PlasmaOrdered By: Trell Damian on 02-01-2023 ALP [Catalytic activity/Vol] 74 U/L 34-104 [facility] Aspartate aminotransferase [ Enzymatic activity/volume] in Serum or PlasmaOrdered By: Trell Damian on 02-01-2023 AST [Catalytic activity/Vol] 29 U/L 13-39 [facility] Bilirubin Test strip Ql (U)O rdered By: Trell Damian on 02-01-2023 Bilirubin Ql (U) Negative Negative [facility] Bilirubin.total [Mass/volume ] in Serum or PlasmaOrdered By: Trell Damian on 02-01-2023 Bilirubin [Mass/Vol] 0.6 mg/dL 0.3-1.0 [facility] Calcium [Mass/volume] in Ser um or PlasmaOrdered By: Trell Damian on 02-01-2023 Calcium [Mass/Vol] 9.2 mg/dL 8.6-10.3 [facility] Carbon dioxide, total [Moles /volume] in Serum or PlasmaOrdered By: Trell Damian on 02-01-2023 CO2 [Moles/Vol] 27.3 mmol/L 21.0-31.0 [facility] Chloride [Moles/volume] in S jose juan or PlasmaOrdered By: Trell Damain on 02-01-2023 Chloride [Moles/Vol] 104 mmol/L 98-107 [facility] Color Auto (U)Ordered By: Ravinder Damian on 02-01-2023 Color (U) Yellow Yellow [facility] Comprehensive Metabolic Pane alicia 02-01-2023 Albumin [Mass/Vol] 4.1 g/dL Normal 3.5-5.7 [facility] Comment on above: Performed By: #### U A, CMP #### [facility] [address] [place] [address] Albumin/Globulin [Mass ratio] 1.9 {ratio} Normal [facility] Comment on above: Performed By: #### U A, CMP #### [facility] [address] [place] [address] [place] ALP [Catalytic activity/Vol] 74 U/L Normal 34-104 [facility] Comment on above: Result Comment: PERF ORMED BY: [place] [address] PATHOLOGIST [employer] OPHELIA ZIMMERMAN M.D. Performed By: #### U A, CMP #### [facility] [address] [place] [address] [place] ALT [Catalytic activity/Vol] 30 U/L Normal 7-52 [facility] Comment on above: Performed By: #### U A, CMP #### [facility] [address] [place] [address] [place] Anion gap [Moles/Vol] 14.3 mmol/L Normal 6.0-15.0 [facility] Comment on above: Performed By: #### U A, CMP #### [facility] [address] [place] [address] [place] AST [Catalytic activity/Vol] 29 U/L Normal 13-39 [facility] Comment on above: Performed By: #### U A, CMP #### [facility] [address] Bilirubin [Mass/Vol] 0.6 mg/dL Normal 0.3-1.0 [facility] Comment on above: Performed By: #### U A, CMP #### [facility] [address] [place] [address] [place] Calcium [Mass/Vol] 9.2 mg/dL Normal 8.6-10.3 [facility] Comment on above: Performed By: #### U A, CMP #### [facility] [address] [place] [address] [place] Chloride [Moles/Vol] 104 mmol/L Normal 98-107 [facility] Comment on above: Performed By: #### U A, CMP #### [facility] [address] [place] [address] [place] CO2 [Moles/Vol] 27.3 mmol/L Normal 21.0-31.0 [facility] Comment on above: Performed By: #### U A, CMP #### [facility] [address] [place] [id number] [place] Creatinine [Mass/Vol] 1.01 mg/dL Normal 0.70-1.30 [facility] Comment on above: Performed By: #### U A, CMP #### [facility] [address] [place] [address] [place] GFR/1.73 sq M.predicted MDRD (S/P/Bld) [Vol rate/Area] mL/min/{1.73_m2} Normal [facility] Comment on above: Performed By: #### U A, CMP #### [facility] [address] Globulin (S) [Mass/Vol] 2.2 g/dL Normal [facility] Comment on above: Performed By: #### U A, CMP #### [facility] [address] [place] [address] [place] Glucose [Mass/Vol] 183 mg/dL High 70-100 [facility] Comment on above: Result Comment: [facility] Glucose Reference Range is dependent on time and content of last meal. Glucose of more than 200 mg/dL in a nonstressed, ambulatory subject supports the diagnosis of Diabetes Mellitus. ADA recommended reference range Performed By: #### U A, CMP #### [facility] [address] Potassium [Moles/Vol] 4.6 mmol/L Normal 3.5-5.1 [facility] Comment on above: Performed By: #### U A, CMP #### [facility] [address] [place] [address] [place] Protein [Mass/Vol] 6.3 g/dL Low 6.4-8.9 [facility] Comment on above: Performed By: #### U A, CMP #### [facility] [address] [place] [address] [place] Sodium [Moles/Vol] 141 mmol/L Normal 136-145 [facility] Comment on above: Performed By: #### U A, CMP #### [facility] [address] [place] [id number] [place] Urea nitrogen [Mass/Vol] 22 mg/dL Normal 7-25 [facility] Comment on above: Performed By: #### U A, CMP #### [facility] [address] [place] [id number] [place] Creatinine [Mass/volume] in Serum or PlasmaOrdered By: Trell Damian on 02-01-2023 Creatinine [Mass/Vol] 1.01 mg/dL 0.70-1.30 [facility] echo transthoracicon [facility] echo transthoracic [facility] [place] [address] [place] [address] Echocardiogram Signed Patient: Thea Winston MR#: [id number] 33 : 1945 Acct:[id number] Age/Sex: 77 / M ADM Date: 02/01/23 Loc: Room: Type: [facility] Attending Dr: Trell Damian DO Ordering Provider: Trell Damian DO Date of Service: 02/01/23/ [facility] echo transthoracic: Heart Disease. Copies to: [...] 0852 Sig (more content not included)... Normal [facility] Globulin Calc (S) [Mass/Vol] Ordered By: Trell Damian on 02-01-2023 Globulin (S) [Mass/Vol] 2.2 g/dL [facility] Glucose [Mass/volume] in Ser um or PlasmaOrdered By: Trell Damian on 02-01-2023 Glucose [Mass/Vol] 183 mg/dL 70-100 [facility] Comment on above: ADA recommended refe rence rangeRandom Glucose Reference Range is dependent on time and content of last meal. Glucose of more than 200 mg/dL in a nonstressed, ambulatory subject supports the diagnosis of Diabetes Mellitus. Ketones Auto test strip (U) [Mass/Vol]Ordered By: Trell Damian on 02-01-2023 Ketones (U) [Mass/Vol] Negative Negative [facility] Nitrite Test strip Ql (U)Ord ered By: Trell Damian on 02-01-2023 Nitrite Ql (U) Negative Negative [facility] No Panel InformationOrdered By: Trell Damian on 02-01-2023 Estimated GFR (CKD-EPI) > 60.0 mL/Min [facility] Creatinine Clearance (Chem N/A [facility] Potassium [Moles/volume] in Serum or PlasmaOrdered By: Trell Damian on 02-01-2023 Potassium [Moles/Vol] 4.6 mmol/L 3.5-5.1 [facility] Protein Auto test strip (U) [Mass/Vol]Ordered By: Trell Damian on 02-01-2023 Protein (U) [Mass/Vol] Negative Negative [facility] Protein [Mass/volume] in Ser um or PlasmaOrdered By: Trell Damian on 02-01-2023 Protein [Mass/Vol] 6.3 g/dL 6.4-8.9 [facility] Serum or plasma albumin/glob ulin mass ratioOrdered By: Trell Glass on 02-01-2023 Albumin/Globulin [Mass ratio] 1.9 {ratio} [facility] Serum or plasma anion gap de terminationOrdered By: Trell Damian on 02-01-2023 Anion gap [Moles/Vol] 14.3 mmol/L 6.0-15.0 [facility] Sodium [Moles/volume] in Ser um or PlasmaOrdered By: Trell Glass on 02-01-2023 Sodium [Moles/Vol] 141 mmol/L 136-145 [facility] Specific gravity Auto test s trip (U) [Rel density]Ordered By: Trell [facility] on 02-01-2023 Specific gravity (U) [Rel density] 1.033 1.001-1.03 0 [facility] Urea nitrogen [Mass/volume] in Serum or PlasmaOrdered By: Trell [facility] on 02-01-2023 Urea nitrogen [Mass/Vol] 22 mg/dL 7- [facility] Urinalysison 02-01-2023 Appearance (U) Clear Normal Clear [facility] Comment on above: Order Comment: Name Collection Type:: Clean-Voided Midstream Performed By: #### U A, CMP #### [facility] [address] [place] [address] Bilirubin,Urine Negative Normal Negative [facility] Comment on above: Order Comment: Name Collection Type:: Clean-Voided Midstream Performed By: #### U A, CMP #### [facility] [address] [place] [address] [place] Color (U) Yellow Normal Yellow [facility] Comment on above: Order Comment: Name Collection Type:: Clean-Voided Midstream Performed By: #### U A, CMP #### [facility] [address] [place] [address] [place] Glucose Ql (U) >=1000 High Normal [facility] Comment on above: Order Comment: Name Collection Type:: Clean-Voided Midstream Performed By: #### U A, CMP #### [facility] [address] [place] [address] [place] Ketones Ql (U) Negative Normal Negative [facility] Comment on above: Order Comment: Name Collection Type:: Clean-Voided Midstream Performed By: #### U A, CMP #### [address] Leukocyte esterase Test strip Ql (U) Negative Normal Negative [facility] Comment on above: Order Comment: Name Collection Type:: Clean-Voided Midstream Performed By: #### U A, CMP #### [address] Nitrite,Urine Negative Normal Negative [facility] Comment on above: Order Comment: Name Collection Type:: Clean-Voided Midstream Performed By: #### U A, CMP #### [address] Occult Blood,Urine Negative Normal Negative [facility] Comment on above: Order Comment: Name Collection Type:: Clean-Voided Midstream Result Comment: PERF ORMED BY: [place] [address] PATHOLOGIST [employer] OPHELIA ZIMMERMAN M.D. Performed By: #### U A, CMP #### [place] [address] [place] pH (U) 5.5 [pH] Normal 5.0-9.0 [facility] Comment on above: Order Comment: Name Collection Type:: Clean-Voided Midstream Performed By: #### U A, CMP #### [facility] [address] [place] [address] [place] Protein,Urine Negative Normal Negative [facility] Comment on above: Order Comment: Name Collection Type:: Clean-Voided Midstream Performed By: #### U A, CMP #### [facility] [address] [place] [address] [place] Specificy [place],Urine 1.033 High 1.001-1.03 0 [facility] Comment on above: Order Comment: Name Collection Type:: Clean-Voided Midstream Performed By: #### U A, CMP #### [address] [place] [address] [facility] Urobilinogen,Urine Normal Normal Normal [facility] Comment on above: Order Comment: Name Collection Type:: Clean-Voided Midstream Performed By: #### U A, CMP #### [facility] [address] [place] [id number] [place] Urine clarity by refractomet ry automatedOrdered By: Trell Damian on 02-01-2023 Clarity Refractometry automated (U) Clear Clear [facility] Urine glucose measurement by automated test strip (mass/volume)Ordered By: Trell Damian on 02-01-2023 Glucose Auto test strip (U) [Mass/Vol] >=1000 mg/dL Normal [facility] Urine hemoglobin detection b y automated test stripOrdered By: Trell Damian on 02-01-2023 Hemoglobin Auto test strip Ql (U) Negative Negative [facility] Urine leukocyte esterase det ection by automated test stripOrdered By: Trell Damian on 02-01-2023 Leukocyte esterase Auto test strip Ql (U) Negative Negative [facility] Urobilinogen Auto test strip (U) [Mass/Vol]Ordered By: Trell Damian on 02-01-2023 Urobilinogen (U) [Mass/Vol] Normal mg/dL Normal [facility] pH Auto test strip (U)Ordere d By: Trell Damian on 02-01-2023 pH (U) 5.5 [pH] 5.0-9.0 [facility] Glucose, Whole Bloodon 10-05 Glucose [Mass/Vol] 135 mg/dL High 74 - 100 mg/dL [facility] Interpretation and review of laboratory results Abnormal [facility] CBC AUTO DIFFon 07-17-2022 BASO # 0.0 103/ul Normal 0.0-0.1 [facility] Comment on above: Performed By: #### A 1C #### [facility] [address] [place] [address] [address] Ana Pandey Basophils/100 WBC (Bld) 0.2 % Normal 0.2-2.0 [facility] Comment on above: Performed By: #### A 1C #### [facility] [address] [place] [address] Dr. Ana Pandey EO # 0.1 103/ul Normal 0.0-0.7 [facility] Comment on above: Performed By: #### A 1C #### [facility] [address] [place] [address] Dr. Ana Pandey Eosinophils/100 WBC (Bld) 0.9 % Normal 0.9-7.0 [facility] Comment on above: Performed By: #### A 1C #### [facility] [address] [place] [address] Dr. Ana Pandey Erythrocyte distribution width (RBC) [Ratio] 15.1 % Critically high 11.0-15.0 [facility] Comment on above: Performed By: #### A 1C #### [facility] [address] [place] [address] Dr. Ana Pandey Hematocrit (Bld) [Volume fraction] 33.6 % Critically low 42.0-54.0 [facility] Comment on above: Performed By: #### A 1C #### [facility] [address] [place] [address] Dr. Ana Pandey Hemoglobin (Bld) [Mass/Vol] 10.9 g/dL Critically low 14.0-18.0 [facility] Comment on above: Performed By: #### A 1C #### [facility] [address] [place] [address] Dr. Ana Pandey IG # 0.05 10e3/ul Critically high 0.00-0.03 [facility] Comment on above: Performed By: #### A 1C #### [facility] [address] [place] [address] Dr. Ana Pandey IG % 0.5 % Normal 0.0-0.5 [facility] Comment on above: Performed By: #### A 1C #### [facility] [address] [place] [address] Dr. Ana Pandey LYMPH # 0.9 103/ul Critically low 1.2-3.8 [facility] Comment on above: Performed By: #### A 1C #### [facility] [address] [place] [address] Dr. Ana Pandey Lymphocytes/100 WBC (Bld) 8.5 % Critically low 20.5-60.0 [facility] Comment on above: Performed By: #### A 1C #### [facility] [address] [place] [address] Dr. Ana Pandey MANUAL DIFF REQ NO Normal [facility] Comment on above: Performed By: #### A 1C #### [facility] [address] [place] [address] Dr. Ana Pandey MCH (RBC) [Entitic mass] 29.0 pg Normal 25.9-34.0 [facility] Comment on above: Performed By: #### A 1C #### [facility] [address] [place] [address] Dr. Ana Pandey MCHC (RBC) [Mass/Vol] 32.4 g/dL Normal 29.9-35.2 [facility] Comment on above: Performed By: #### A 1C #### [facility] [address] [place] [address] Dr. Ana Pandey MCV (RBC) [Entitic vol] 89.4 fL Normal 80.0-94.0 [facility] Comment on above: Performed By: #### A 1C #### [facility] [address] [place] [address] Dr. Ana Pandey MONO # 0.6 103/ul Normal 0.3-0.8 [facility] Comment on above: Performed By: #### A 1C #### [facility] [address] [place] [address] Dr. Ana Pandey Monocytes/100 WBC (Bld) 6.1 % Normal 1.7-12.0 [facility] Comment on above: Performed By: #### A 1C #### [facility] [address] [place] [address] Dr. Ana Pandey NEUT # 8.4 103/ul Critically high 1.4-6.5 [facility] Comment on above: Performed By: #### A 1C #### [facility] [address] [place] [address] [address] Ana Pandey Neutrophils/100 WBC (Bld) 83.8 % Critically high 43.0-75.0 [facility] Comment on above: Performed By: #### A 1C #### [facility] [address] [place] [address] [address] Ana Pandey Platelet mean volume (Bld) [Entitic vol] 9.7 fL Normal 9.5-13.5 [facility] Comment on above: Performed By: #### A 1C #### [facility] [address] [place] [address] [address] Ana Pandey PLT 220 103/ul Normal 150-450 [facility] Comment on above: Performed By: #### A 1C #### [facility] [address] [place] [address] Dr. Ana Pandey RBC 3.76 106/ul Critically low 4.70-6.10 [facility] Comment on above: Performed By: #### A 1C #### [facility] [address] [place] [address] [address] Ana Pandey WBC 10.0 103/ul Normal 4.0-11.0 [facility] Comment on above: Performed By: #### A 1C #### [facility] [address] [place] [address] ABD/PELVIS WO CONon [...] by: Bowen WISDOM Date: 2022-07-16 23:30 Normal [facility] CULTURE BLOODon 07-17-2022 Microscopic examination of blood, culture Culture Observations: NO GROWTH AT 36-48 HOURS. FINAL TO FOLLOW. Normal [facility] Comment on above: Performed By: #### B WHEAT GROWER, CMP #### [facility] [address] [place] [address] Dr. Ana Pandey Microscopic examination of blood, culture Culture Observations: NO GROWTH AT 36-48 HOURS. FINAL TO FOLLOW. Normal [facility] Comment on above: Performed By: #### B WHEAT GROWER, CMP #### [facility] [address] [place] [address] Dr. Ana Pandey CULTURE URINEon 07-17-2022 CULTURE URINE Culture Observations : AMINA TO FOLLOW. Isolate 1 Escherichia coli >100,000 cfu/mL of Normal [facility] Comment on above: Performed By: #### B WHEAT GROWER, CMP #### [facility] [address] [address] [address] Ana Pandey ER URINE PROFILEon 3 Bilirubin Ql (U) Negative Normal NEGATIVE [facility] Comment on above: Performed By: #### E NEERAJ MEDELLIN #### [facility] [address] [place] [address] Dr. Ana Pandey Clarity (U) CLEAR Normal CLEAR [facility] Comment on above: Performed By: #### Sumaya MEDELLIN UMICRO #### [facility] [address] [place] [address] Dr. Ana Pandey Color (U) LT. YELLOW Normal YELLOW [facility] Comment on above: Performed By: #### Sumaya MEDELLIN UMICRO #### [facility] [address] [place] [address] Dr. Ana Pandey ERUAHD A micrscopic examina tion will be performed if indicated. Normal [facility] Comment on above: Performed By: #### Sumaya MEDELLIN UMICRO #### [facility] [address] [place] [address] Dr. Ana Pandey Glucose Ql (U) Negative Normal NEGATIVE [facility] Comment on above: Performed By: #### Sumaya MEDELLIN UMICRO #### [facility] [address] [place] [address] Dr. Ana Pandey Hemoglobin Ql (U) MODERATE Abnormal NEGATIVE [facility] Comment on above: Performed By: #### Sumaya MEDELLIN UMICRO #### [facility] [address] [place] [address] Dr. Ana Pandey Ketones Ql (U) Negative Normal NEGATIVE [facility] Comment on above: Performed By: #### Sumaya MEDELLIN UMICRO #### [facility] [address] [place] [address] Dr. Ana Pandey LEUKOCYTES MODERATE Abnormal NEGATIVE [facility] Comment on above: Performed By: #### Sumaya MEDELLIN UMICRO #### [facility] [address] [place] [address] Dr. Ana Pandey Nitrite Ql (U) Positive Abnormal NEGATIVE [facility] Comment on above: Performed By: #### Sumaya MEDELLIN UMICRO #### [facility] [address] [place] [address] Dr. Ana Pandey pH (U) 5.0 [pH] Normal 5-9 [facility] Comment on above: Performed By: #### Sumaya MEDELLIN UMICRO #### [facility] [address] [place] [address] Dr. Ana Pandey SPEC GRAVITY 1.025 Normal 1.005-<=1. 025 [facility] Comment on above: Performed By: #### NEERAJ FARAH #### [facility] [address] [place] [address] Dr. Ana Pandey UA PROTEIN Negative Normal NEGATIVE/ TRACE [facility] Comment on above: Performed By: #### NEERAJ FARAH #### [facility] [address] [place] [address] Dr. Ana Pandey UR MICRO IND INDICATED Normal [facility] Comment on above: Performed By: #### NEERAJ FARAH #### [facility] [address] [place] [address] Dr. Ana Pandey Urobilinogen Qn (U) 0.2 {Casie'U}/dL Normal 0.2 - 1. 0 [facility] Comment on above: Performed By: #### NEERAJ FARAH #### [facility] [address] [place] [address] Dr. Ana Pandey LACTATE/LACTIC ACIDon 2022 Lactate [Moles/Vol] 2.0 mmol/L Normal 0.4-2.0 [facility] Comment on above: Performed By: #### L ACT #### [facility] [address] [place] [address] Dr. Ana Pandey PROF 14(COMP METB)on 023 Albumin [Mass/Vol] 3.2 g/dL Critically low 3.4-5.0 [facility] Comment on above: Performed By: #### C MP #### [facility] [address] [place] [address] Dr. Ana Pandey Albumin/Globulin [Mass ratio] 1.0 {ratio} Normal [facility] Comment on above: Performed By: #### C MP #### [facility] [address] [place] [address] Dr. Ana Pandey ALP [Catalytic activity/Vol] 75 U/L Normal 46-116 [facility] Comment on above: Performed By: #### C MP #### [facility] [address] [address] [address] Ana Pandey ALT [Catalytic activity/Vol] 24 U/L Normal 16-63 [facility] Comment on above: Performed By: #### C MP #### [facility] [address] [place] [address] Dr. Ana Pandey Anion gap [Moles/Vol] 13.0 mmol/L Normal [facility] Comment on above: Performed By: #### C MP #### [facility] [address] [place] [address] Dr. Ana Pandey AST [Catalytic activity/Vol] 19 U/L Normal 15-37 [facility] Comment on above: Performed By: #### C MP #### [facility] [address] [place] [address] Dr. Ana Pandey Bilirubin [Mass/Vol] 0.6 mg/dL Normal 0.2-1.0 [facility] Comment on above: Performed By: #### C MP #### [facility] [address] [place] [address] Dr. Ana Pandey Calcium [Mass/Vol] 8.6 mg/dL Normal 8.5-10.1 [facility] Comment on above: Performed By: #### C MP #### [facility] [address] [place] [address] Dr. Ana Pandey Chloride [Moles/Vol] 106 mmol/L Normal 98-107 [facility] Comment on above: Performed By: #### C MP #### [facility] [address] [place] [address] Dr. Ana Pandey CO2 [Moles/Vol] 25.0 mmol/L Normal 21.0-32.0 [facility] Comment on above: Performed By: #### C MP #### [facility] [address] [place] [address] Dr. Ana Pandey Creatinine [Mass/Vol] 1.34 mg/dL Critically high 0.70-1.30 [facility] Comment on above: Performed By: #### C MP #### [facility] [address] [place] [address] Dr. Ana Pandey EGFR-AF LITHUANIAN >60 Normal >=60 [facility] Comment on above: Performed By: #### C MP #### [facility] [address] [address] [address] Ana Pandey EGFR-NON AF LITHUANIAN 52 mL/min/1.73m2 Critically low >=60 [facility] Comment on above: Performed By: #### C MP #### [facility] [address] [address] [address] Ana Pandey Globulin (S) [Mass/Vol] 3.2 g/dL Normal [facility] Comment on above: Performed By: #### C MP #### [facility] [address] [address] [address] Ana Pandey Glucose [Mass/Vol] 136 mg/dL Critically high 74-106 [facility] Comment on above: Performed By: #### C MP #### [facility] [address] [address] [address] Ana Pandey Potassium [Moles/Vol] 4.0 mmol/L Normal 3.5-5.1 [facility] Comment on above: Performed By: #### C MP #### [facility] [address] [address] [address] nAa Pandey Protein [Mass/Vol] 6.4 g/dL Normal 6.4-8.2 [facility] Comment on above: Performed By: #### C MP #### [facility] [address] [address] [address] Ana Pandey Sodium [Moles/Vol] 140 mmol/L Normal 136-145 [facility] Comment on above: Performed By: #### C MP #### [facility] [address] [address] [address] Ana Pandey Urea nitrogen [Mass/Vol] 23.0 mg/dL Critically high 7.0-18.0 [facility] Comment on above: Performed By: #### C MP #### [facility] [address] [address] [address] Ana Pandey Urea nitrogen/Creatinine [Mass ratio] 17.2 mg/mg Normal [facility] Comment on above: Performed By: #### C MP #### [facility] [address] [place] [address] Dr. Ana Pandey URINE MICROSCOPIC ONLYon BACTERIA LARGE Abnormal NONE SEEN [facility] Comment on above: Performed By: #### E RUR, UMICRO #### [facility] [address] [place] [address] Dr. Ana Pandey Bacteria identified Cx Nom (U) INDICATED Normal [facility] Comment on above: Performed By: #### E RUR, UMICRO #### [facility] [address] [place] [address] Dr. Ana Pandey CAST NONE SEEN Normal NONE SEEN [facility] Comment on above: Performed By: #### E RUR, UMICRO #### [facility] [address] [place] [address] Dr. Ana Pandey Crystals LM Nom (Urine sed) NONE SEEN Normal NONE SEEN [facility] Comment on above: Performed By: #### E RUR, UMICRO #### [facility] [address] [place] [address] Dr. Ana Pandey Epithelial cells LM Ql (Urine sed) RARE Normal NONE SEEN /RARE [facility] Comment on above: Performed By: #### E RUR, UMICRO #### [facility] [address] [place] [address] Dr. Ana Pandey MUCOUS NONE SEEN Normal NONE SEEN [facility] Comment on above: Performed By: #### E RUR, UMICRO #### [facility] [address] [place] [address] Dr. Ana Pandey RBC 0-2 Normal 0-2 [facility] Comment on above: Performed By: #### E RUR, UMICRO #### [facility] [address] [place] [address] Dr. Ana Pandey WBC 20-50 Abnormal NONE SEEN [facility] Comment on above: Performed By: #### E RUR, UMICRO #### [facility] [address] [place] [address] Dr. Ana Pandey XR CHEST 1 Von [...] YELENA DIAZ Date: 2022-07-16 23:14 Normal [facility] Covid-19 PCR (CVDTBH)on 07-06 SARS-CoV-2 (COVID-19) RNA EDD+probe Ql (Unsp spec) Not detected Normal NOT DETECTED [facility] Comment on above: Performed By: #### A 1C #### [facility] [address] [place] [address] Dr. Ana Pandey INFLUENZA A AND B AGon 07-16 INFLUENZA A AG Negative Normal NEGATIVE SEE COMMENT [facility] Comment on above: Performed By: #### A 1C #### [facility] [address] [place] [address] Dr. Ana Pandey INFLUENZA B AG Negative Normal NEGATIVE SEE COMMENT [facility] Comment on above: Performed By: #### A 1C #### [facility] [address] [place] [address] Dr. Ana Pandey SYMPTOMATIC COVID-19 ANTIGEN on 07-16-2022 EUA Statement SEE BELOW Normal [facility] Comment on above: Result Comment: This [...] sooner. Performed By: #### C MAREKS #### [facility] [address] [place] [address] Dr. Ana Pandey SARS-CoV-2 (COVID-19) RNA EDD+probe Ql (Unsp spec) Negative Normal NEGATIVE [facility] Comment on above: Performed By: #### C KATAGS #### [facility] [address] [place] [address] Dr. Ana Pandey Follow-Upon 05-20-2022 Follow-Up [id number] Rom Winston 1945 M Date Provider Department Center 05/20/2022 MATIAS LOZA CARD [facility] Family History Problem Relation Age of Onset Heart disease Father Family Status - Relation Status Age at Father Level of Service:93030 MA OFFICE/OUTPATIENT ESTABLISHED MOD MDM 30-39 MIN Reason for Visit and Comments: Follow-up [042589] Normal [facility] GLYCOHEMOGLOBIN A1Con 2022 ADA RECOMMENDATION SEE BELOW Normal [facility] Comment on above: Result Comment: ADA RECOMMENDED LIMIT 4.0 - 6.0 ADA THERAPEUTIC TARGET < 7.0 ACTION SUGGESTED > 7.0 Performed By: #### A 1C #### [facility] [address] [place] [address] Dr. Ana Pandey Glucose [Mass/Vol] 154 mg/dL Normal [facility] Comment on above: Performed By: #### A 1C #### [facility] [address] [place] [address] Dr. Ana Pandey HbA1c (Bld) [Mass fraction] 7.0 % Critically high 4.5-6.2 [facility] Comment on above: Performed By: #### A 1C #### [facility] [address] [place] [address] Dr. Ana Pandey SED RATE WESTERGRENon 2022 SED RATE 30 mm/hr Critically high <=20 [facility] Comment on above: Performed By: #### A 1C #### [facility] [address] [address] [address] Ana Pandey Office Visiton 12-01-2021 Follow-up visit [id number] Lilia Winstondemetrio s R 1945 Provider Department Center 12/01/2021 [id number]-BETTESHANNACHRISTIANO SERVIN CARD [facility] Family History Problem Relation Age of Onset Heart disease Father Family Status - Relation Status Age at Father Level of Service:45099 MA OFFICE/OUTPATIENT ESTABLISHED MOD MDM 30-39 MIN Reason for Visit and Comments: Coronary Artery Disease [187] Shortness of Breath [977539] Hypertension [564755] Normal [facility] Abstracton 11-07-2021 Abstract [id number] Rom Winston tayler R 1945 Provider Department Center 11/07/2021 [facility] Relation Age of Onset Heart disease Father Family Status - Relation Status Age at Father Normal [facility] NM STRESS/REST MULTIon 09-29 NM STRESS/REST MULTI Patient: LEONARDO WINSTON Exam Date: 09/29/2021 : 1945 Gender:M Ordering : MATIAS MAYORGA Admission #: [id number] Family : Order #: [id number] CLICK HERE TO VIEW EXAM RADIOLOGY REPORT [...] Graham M.D. on 09/29/2021 at 15:22 Normal [facility] PROF CHEM 8 (BAS METB)on Anion gap [Moles/Vol] 13.1 mmol/L Normal [facility] Comment on above: Performed By: #### B WHEAT GROWER, CMP #### [facility] [address] [place] [address] Dr. Ana Pandey Calcium [Mass/Vol] 8.6 mg/dL Normal 8.5-10.1 [facility] Comment on above: Performed By: #### B WHEAT GROWER, CMP #### [facility] [address] [place] [address] Dr. Ana Pandey Chloride [Moles/Vol] 104 mmol/L Normal 98-107 [facility] Comment on above: Performed By: #### B WHEAT GROWER, CMP #### [facility] [address] [place] [address] Dr. Ana Pandey CO2 [Moles/Vol] 25.9 mmol/L Normal 21.0-32.0 [facility] Comment on above: Performed By: #### B WHEAT GROWER, CMP #### [facility] [address] [place] [address] Dr. Ana Pandey Creatinine [Mass/Vol] 0.92 mg/dL Normal 0.70-1.30 [facility] Comment on above: Performed By: #### B WHEAT GROWER, CMP #### [facility] [address] [place] [address] Dr. Ana Pandey EGFR-AF LITHUANIAN >60 Normal >=60 [facility] Comment on above: Performed By: #### B WHEAT GROWER, CMP #### [facility] [address] [place] [address] Dr. Ana Pandey EGFR-NON AF LITHUANIAN >60 Normal >=60 [facility] Comment on above: Performed By: #### B WHEAT GROWER, CMP #### [facility] [address] [place] [address] Dr. Ana Pandey Glucose [Mass/Vol] 102 mg/dL Normal 74-106 [facility] Comment on above: Performed By: #### B WHEAT GROWER, CMP #### [facility] [address] [place] [address] Dr. Ana Pandey Potassium [Moles/Vol] 4.0 mmol/L Normal 3.5-5.1 [facility] Comment on above: Performed By: #### B WHEAT GROWER, CMP #### [facility] [address] [place] [address] Dr. Ana Pandey Sodium [Moles/Vol] 139 mmol/L Normal 136-145 [facility] Comment on above: Performed By: #### B WHEAT GROWER, CMP #### [facility] [address] [place] [address] Dr. Ana Pandey Urea nitrogen [Mass/Vol] 24.0 mg/dL Critically high 7.0-18.0 [facility] Comment on above: Performed By: #### B WHEAT GROWER, CMP #### [facility] [address] [place] [address] Dr. Ana Pandey Urea nitrogen/Creatinine [Mass ratio] 26.1 mg/mg Normal [facility] Comment on above: Performed By: #### B WHEAT GROWER, CMP #### [facility] [address] [place] [address] Dr. Ana Pandey BNPon 09-10-2021 Natriuretic peptide B (Bld) [Mass/Vol] 305.0 pg/mL Normal <=1,800.0 [facility] Comment on above: Performed By: #### B WHEAT GROWER, CMP #### [facility] [address] [place] [address] Dr. Ana Pandey CBC AUTO DIFFon 09-10-2021 BASO # 0.0 103/ul Normal 0.0-0.1 [facility] Comment on above: Performed By: #### A 1C #### [facility] [address] [place] [address] Dr. Ana Pandey Basophils/100 WBC (Bld) 0.5 % Normal 0.2-2.0 [facility] Comment on above: Performed By: #### A 1C #### [facility] [address] [place] [address] Dr. Ana Pandey EO # 0.1 103/ul Normal 0.0-0.7 [facility] Comment on above: Performed By: #### A 1C #### [facility] [address] [place] [address] Dr. Ana Pandey Eosinophils/100 WBC (Bld) 1.9 % Normal 0.9-7.0 [facility] Comment on above: Performed By: #### A 1C #### [facility] [address] [place] [address] Dr. Ana Pandey Erythrocyte distribution width (RBC) [Ratio] 15.4 % Critically high 11.0-15.0 [facility] Comment on above: Performed By: #### A 1C #### [facility] [address] [place] [address] Dr. Ana Pandey Hematocrit (Bld) [Volume fraction] 38.6 % Critically low 42.0-54.0 [facility] Comment on above: Performed By: #### A 1C #### [facility] [address] [place] [address] Dr. Ana Pandey Hemoglobin (Bld) [Mass/Vol] 12.2 g/dL Critically low 14.0-18.0 [facility] Comment on above: Performed By: #### A 1C #### [facility] [address] [place] [address] Dr. Ana Pandey IG # 0.01 10e3/ul Normal 0.00-0.03 [facility] Comment on above: Performed By: #### A 1C #### [facility] [address] [place] [address] Dr. Ana Pandey IG % 0.1 % Normal 0.0-0.5 [facility] Comment on above: Performed By: #### A 1C #### [facility] [address] [place] [address] Dr. Ana Pandey LYMPH # 1.6 103/ul Normal 1.2-3.8 [facility] Comment on above: Performed By: #### A 1C #### [facility] [address] [place] [address] Dr. Ana Pandey Lymphocytes/100 WBC (Bld) 21.1 % Normal 20.5-60.0 [facility] Comment on above: Performed By: #### A 1C #### [facility] [address] [place] [address] Dr. Ana Pandey MANUAL DIFF REQ NO Normal [place] Comment on above: Performed By: #### A 1C #### [facility] [address] [place] [address] Dr. Ana Pandey MCH (RBC) [Entitic mass] 28.7 pg Normal 25.9-34.0 [facility] Comment on above: Performed By: #### A 1C #### [facility] [address] [place] [address] Dr. Ana Pandey MCHC (RBC) [Mass/Vol] 31.6 g/dL Normal 29.9-35.2 [facility] Comment on above: Performed By: #### A 1C #### [facility] [address] [place] [address] Dr. Ana Pandey MCV (RBC) [Entitic vol] 90.8 fL Normal 80.0-94.0 [facility] Comment on above: Performed By: #### A 1C #### [facility] [address] [place] [address] Dr. Ana Pandey MONO # 0.6 103/ul Normal 0.3-0.8 [facility] Comment on above: Performed By: #### A 1C #### [facility] [address] [place] [address] Dr. Ana Pandey Monocytes/100 WBC (Bld) 7.4 % Normal 1.7-12.0 [facility] Comment on above: Performed By: #### A 1C #### [facility] [address] [place] [address] Dr. Ana Pandey NEUT # 5.1 103/ul Normal 1.4-6.5 [facility] Comment on above: Performed By: #### A 1C #### [facility] [address] [place] [address] Dr. Ana Pandey Neutrophils/100 WBC (Bld) 69.0 % Normal 43.0-75.0 [facility] Comment on above: Performed By: #### A 1C #### [facility] [address] [place] [address] Dr. Ana Pandey Platelet mean volume (Bld) [Entitic vol] 9.9 fL Normal 9.5-13.5 [facility] Comment on above: Performed By: #### A 1C #### [facility] [address] [place] [address] Dr. Ana Pandey PLT 194 103/ul Normal 150-450 [facility] Comment on above: Performed By: #### A 1C #### [facility] [address] [place] [address] Dr. Ana Pandey RBC 4.25 106/ul Critically low 4.70-6.10 [facility] Comment on above: Performed By: #### A 1C #### [facility] [address] [place] [address] Dr. Ana Pandey WBC 7.4 103/ul Normal 4.0-11.0 [facility] Comment on above: Performed By: #### A 1C #### [facility] [address] [place] [address] Dr. Ana Pandey PROF 14(COMP METB)on 022 Albumin [Mass/Vol] 3.5 g/dL Normal 3.4-5.0 [facility] Comment on above: Performed By: #### B WHEAT GROWER, CMP #### [facility] [address] [place] [address] Dr. Ana Pandey Albumin/Globulin [Mass ratio] 1.2 {ratio} Normal [facility] Comment on above: Performed By: #### B WHEAT GROWER, CMP #### [facility] [address] [address] [address] Ana Pandey ALP [Catalytic activity/Vol] 67 U/L Normal 46-116 [facility] Comment on above: Performed By: #### B WHEAT GROWER, CMP #### [facility] [address] [address] [address] Ana Pandey ALT [Catalytic activity/Vol] 37 U/L Normal 16-63 [facility] Comment on above: Performed By: #### B WHEAT GROWER, CMP #### [facility] [address] [place] [address] Dr. Ana Pandey Anion gap [Moles/Vol] 11.6 mmol/L Normal [facility] Comment on above: Performed By: #### B WHEAT GROWER, CMP #### [facility] [address] [place] [address] Dr. Ana Pandey AST [Catalytic activity/Vol] 30 U/L Normal 15-37 [facility] Comment on above: Performed By: #### B WHEAT GROWER, CMP #### [facility] [address] [place] [address] Dr. Ana Pandey Bilirubin [Mass/Vol] 0.5 mg/dL Normal 0.2-1.0 [facility] Comment on above: Performed By: #### B WHEAT GROWER, CMP #### [facility] [address] [place] [address] Dr. Ana Pandey Calcium [Mass/Vol] 8.9 mg/dL Normal 8.5-10.1 [facility] Comment on above: Performed By: #### B WHEAT GROWER, CMP #### [facility] [address] [place] [address] Dr. Ana Pandey Chloride [Moles/Vol] 107 mmol/L Normal 98-107 [facility] Comment on above: Performed By: #### B WHEAT GROWER, CMP #### [facility] [address] [address] [address] Ana Pandey CO2 [Moles/Vol] 26.9 mmol/L Normal 21.0-32.0 [facility] Comment on above: Performed By: #### B WHEAT GROWER, CMP #### [facility] [address] [address] [address] Ana Pandey Creatinine [Mass/Vol] 0.93 mg/dL Normal 0.70-1.30 [facility] Comment on above: Performed By: #### B WHEAT GROWER, CMP #### [facility] [address] [address] [address] Ana Pandey EGFR-AF LITHUANIAN >60 Normal >=60 [facility] Comment on above: Performed By: #### B WHEAT GROWER, CMP #### [facility] [address] [address] [address] Ana Pandey EGFR-NON AF LITHUANIAN >60 Normal >=60 [facility] Comment on above: Performed By: #### B WHEAT GROWER, CMP #### [facility] [address] [place] [address] Dr. Ana Pandey Globulin (S) [Mass/Vol] 2.8 g/dL Normal [facility] Comment on above: Performed By: #### B WHEAT GROWER, CMP #### [facility] [address] [place] [address] Dr. Ana Pandey Glucose [Mass/Vol] 169 mg/dL Critically high 74-106 [facility] Comment on above: Performed By: #### B WHEAT GROWER, CMP #### [facility] [address] [place] [address] Dr. Ana Pandey Potassium [Moles/Vol] 4.5 mmol/L Normal 3.5-5.1 [facility] Comment on above: Performed By: #### B WHEAT GROWER, CMP #### [facility] [address] [place] [address] Dr. Ana Pandey Protein [Mass/Vol] 6.3 g/dL Critically low 6.4-8.2 [facility] Comment on above: Performed By: #### B WHEAT GROWER, CMP #### [facility] [address] [place] [address] Dr. Ana Pandey Sodium [Moles/Vol] 141 mmol/L Normal 136-145 [facility] Comment on above: Performed By: #### B WHEAT GROWER, CMP #### [facility] [address] [place] [address] Dr. Ana Pandey Urea nitrogen [Mass/Vol] 20.0 mg/dL Critically high 7.0-18.0 [facility] Comment on above: Performed By: #### B WHEAT GROWER, CMP #### [facility] [address] [address] [address] Ana Pandey Urea nitrogen/Creatinine [Mass ratio] 21.5 mg/mg Normal [facility] Comment on above: Performed By: #### B WHEAT GROWER, CMP #### [facility] [address] [place] [address] Dr. Ana Pandey XR CHEST 2 Von [...] KAYCE SARAVIA Date: 2021-09-10 14:23 Normal [facility] CBC AUTO DIFFon 07-23-2021 BASO # 0.1 103/ul Normal 0.0-0.1 [facility] Comment on above: Performed By: #### C BC #### [facility] [address] [place] [address] Dr. Ana Pandey Basophils/100 WBC (Bld) 0.6 % Normal 0.2-2.0 [facility] Comment on above: Performed By: #### C BC #### [facility] [address] [place] [address] Dr. Ana Pandey EO # 0.2 103/ul Normal 0.0-0.7 [facility] Comment on above: Performed By: #### C BC #### [facility] [address] [place] [address] Dr. Ana Pandey Eosinophils/100 WBC (Bld) 2.5 % Normal 0.9-7.0 [facility] Comment on above: Performed By: #### C BC #### [facility] [address] [place] [address] Dr. Ana Pandey Erythrocyte distribution width (RBC) [Ratio] 15.0 % Normal 11.0-15.0 [facility] Comment on above: Performed By: #### C BC #### [facility] [address] [place] [address] Dr. Ana Pandey Hematocrit (Bld) [Volume fraction] 46.4 % Normal 42.0-54.0 [facility] Comment on above: Performed By: #### C BC #### [facility] [address] [place] [address] Dr. Ana Pandey Hemoglobin (Bld) [Mass/Vol] 14.2 g/dL Normal 14.0-18.0 [facility] Comment on above: Performed By: #### C BC #### [facility] [address] [place] [address] Dr. Ana Pandey IG # 0.02 10e3/ul Normal 0.00-0.03 [facility] Comment on above: Performed By: #### C BC #### [facility] [address] [place] [address] Dr. Ana Pandey IG % 0.2 % Normal 0.0-0.5 [facility] Comment on above: Performed By: #### C BC #### [facility] [address] [place] [address] Dr. Ana Pandey LYMPH # 2.5 103/ul Normal 1.2-3.8 [facility] Comment on above: Performed By: #### C BC #### [facility] [address] [place] [address] Dr. Ana Pandey Lymphocytes/100 WBC (Bld) 27.9 % Normal 20.5-60.0 [facility] Comment on above: Performed By: #### C BC #### [facility] [address] [place] [address] Dr. Ana Pandey MANUAL DIFF REQ NO Normal [place] Comment on above: Performed By: #### C BC #### [facility] [address] [place] [address] Dr. Ana Pandey MCH (RBC) [Entitic mass] 27.8 pg Normal 25.9-34.0 [facility] Comment on above: Performed By: #### C BC #### [facility] [address] [place] [address] Dr. Ana Pandey MCHC (RBC) [Mass/Vol] 30.6 g/dL Normal 29.9-35.2 [facility] Comment on above: Performed By: #### C BC #### [facility] [address] [place] [address] Dr. Ana Pandey MCV (RBC) [Entitic vol] 90.8 fL Normal 80.0-94.0 [facility] Comment on above: Performed By: #### C BC #### [facility] [address] [place] [address] Dr. Ana Pandey MONO # 0.7 103/ul Normal 0.3-0.8 [facility] Comment on above: Performed By: #### C BC #### [facility] [address] [place] [address] Dr. Ana Pandey Monocytes/100 WBC (Bld) 8.0 % Normal 1.7-12.0 [facility] Comment on above: Performed By: #### C BC #### [facility] [address] [place] [address] Dr. Ana Pandey NEUT # 5.4 103/ul Normal 1.4-6.5 [facility] Comment on above: Performed By: #### C BC #### [facility] [address] [place] [address] Dr. Ana Pandey Neutrophils/100 WBC (Bld) 60.8 % Normal 43.0-75.0 [facility] Comment on above: Performed By: #### C BC #### [facility] [address] [place] [address] Dr. Ana Pandey Platelet mean volume (Bld) [Entitic vol] 10.6 fL Normal 9.5-13.5 [facility] Comment on above: Performed By: #### C BC #### [facility] [address] [address] [address] Ana Pandey PLT 248 103/ul Normal 150-450 [facility] Comment on above: Performed By: #### C BC #### [facility] [address] [address] [address] Ana Pandey RBC 5.11 106/ul Normal 4.70-6.10 [facility] Comment on above: Performed By: #### C BC #### [facility] [address] [address] [address] Ana Pandey WBC 8.8 103/ul Normal 4.0-11.0 [facility] Comment on above: Performed By: #### C BC #### [facility] [address] [place] [address] Dr. Ana Pandey GLYCOHEMOGLOBIN A1Con 2021 ADA RECOMMENDATION SEE BELOW Normal [facility] Comment on above: Result Comment: ADA RECOMMENDED LIMIT 4.0 - 6.0 ADA THERAPEUTIC TARGET < 7.0 ACTION SUGGESTED > 7.0 Performed By: #### A 1C #### [facility] [address] [place] [address] Dr. Ana Pandey Glucose [Mass/Vol] 146 mg/dL Normal [facility] Comment on above: Performed By: #### A 1C #### [facility] [address] [place] [address] Dr. Ana Pandey HbA1c (Bld) [Mass fraction] 6.7 % Critically high 4.5-6.2 [facility] Comment on above: Performed By: #### A 1C #### [facility] [address] [place] [address] Dr. Ana Pandey LIPID PROFILEon 07-23-2021 CHOL-HDL RATIO NORM SEE BELOW Normal [facility] Comment on above: Result Comment: 3.3 - 4.4 LOW RISK 4.4 - 7.1 AVERAGE RISK 7.1 - 11.0 MODERATE RISK >11.0 HIGH RISK Performed By: #### A 1C #### [facility] [address] [place] [address] Dr. Ana Pandey Cholesterol [Mass/Vol] 98 mg/dL Normal <=200 [facility] Comment on above: Performed By: #### A 1C #### [facility] [address] [address] [address] Ana Pandey Cholesterol in HDL [Mass/Vol] 42 mg/dL Normal 40-60 [facility] Comment on above: Performed By: #### A 1C #### [facility] [address] [address] [address] Ana Pandey Cholesterol in LDL [Mass/Vol] 43.2 mg/dL Normal [facility] Comment on above: Performed By: #### A 1C #### [facility] [address] [address] [address] Ana Pandey Cholesterol.total/Cho lesterol in HDL [Mass ratio] 2.3 {ratio} Normal [facility] Comment on above: Performed By: #### A 1C #### [facility] [address] [place] [address] Dr. Ana Pandey HDL NORMAL > or = 60 mg/dl - LO W CARDIOVASCULAR RISK <40 mg/dl - HIGH CARDIOVASCULAR RISK Normal [facility] Comment on above: Performed By: #### A 1C #### [facility] [address] [place] [address] Dr. Ana Pandey LDL CALC NORMAL SEE BELOW Normal [facility] Comment on above: Result Comment: <100 mg/dl OPTIMAL 100 - 129 mg/dl NEAR OR ABOVE OPTIMAL 130 - 159 mg/dl BORDERLINE HIGH 160 - 189 mg/dl HIGH >190 mg/dl VERY HIGH Performed By: #### A 1C #### [facility] [address] [address] [address] Ana Pandey Triglyceride [Mass/Vol] 64 mg/dL Normal <=150 [facility] Comment on above: Performed By: #### A 1C #### [facility] [address] [place] [address] Dr. Ana Pandey VLDL CALC 12.8 mg/dL Normal [facility] Comment on above: Performed By: #### A 1C #### [facility] [address] [address] [address] Ana Pandey LIVER PROFILEon 07-23-2021 Albumin [Mass/Vol] 3.9 g/dL Normal 3.4-5.0 [facility] Comment on above: Performed By: #### A 1C #### [facility] [address] [place] [address] Dr. Ana Pandey Albumin/Globulin [Mass ratio] 1.2 {ratio} Normal [facility] Comment on above: Performed By: #### A 1C #### [facility] [address] [place] [address] Dr. Ana Pandey ALP [Catalytic activity/Vol] 74 U/L Normal 46-116 [facility] Comment on above: Performed By: #### A 1C #### [facility] [address] [place] [address] Dr. Ana Pandey ALT [Catalytic activity/Vol] 52 U/L Normal 16-63 [facility] Comment on above: Performed By: #### A 1C #### [facility] [address] [place] [address] Dr. Ana Pandey AST [Catalytic activity/Vol] 43 U/L Critically high 15-37 [facility] Comment on above: Performed By: #### A 1C #### [facility] [address] [place] [address] Dr. Ana Pandey BILI, CONJUGATED 0.2 mg/dL Normal 0.0-0.2 [facility] Comment on above: Performed By: #### A 1C #### [facility] [address] [place] [address] Dr. Ana Pandey Bilirubin [Mass/Vol] 0.6 mg/dL Normal 0.2-1.0 [facility] Comment on above: Performed By: #### A 1C #### [facility] [address] [place] [address] Dr. Ana Pandey Globulin (S) [Mass/Vol] 3.2 g/dL Normal [facility] Comment on above: Performed By: #### A 1C #### [facility] [address] [place] [address] Dr. Ana Pandey Protein [Mass/Vol] 7.1 g/dL Normal 6.4-8.2 [facility] Comment on above: Performed By: #### A 1C #### [facility] [address] [place] [address] Dr. Ana Pandey MICROALBUMIN, RAND URon 07-06 mALB 1.8 mg/L Normal <=30.0 [facility] Comment on above: Performed By: #### A 1C #### [facility] [address] [place] [address] Dr. Ana Pandey PROF CHEM 8 (BAS METB)on Anion gap [Moles/Vol] 12.1 mmol/L Normal [facility] Comment on above: Performed By: #### A 1C #### [facility] [address] [place] [address] Dr. Ana Pandey Calcium [Mass/Vol] 8.7 mg/dL Normal 8.5-10.1 [facility] Comment on above: Performed By: #### A 1C #### [facility] [address] [place] [address] Dr. Ana Pandey Chloride [Moles/Vol] 102 mmol/L Normal 98-107 [facility] Comment on above: Performed By: #### A 1C #### [facility] [address] [place] [address] Dr. Ana Pandey CO2 [Moles/Vol] 28.1 mmol/L Normal 21.0-32.0 [facility] Comment on above: Performed By: #### A 1C #### [facility] [address] [place] [address] Dr. Ana Pandey Creatinine [Mass/Vol] 0.94 mg/dL Normal 0.70-1.30 [facility] Comment on above: Performed By: #### A 1C #### [facility] [address] [place] [address] Dr. Ana Pandey EGFR-AF LITHUANIAN >60 Normal >=60 [facility] Comment on above: Performed By: #### A 1C #### [facility] [address] [place] [address] Dr. Ana Pandey EGFR-NON AF LITHUANIAN >60 Normal >=60 [facility] Comment on above: Performed By: #### A 1C #### [facility] [address] [place] [address] Dr. Ana Pandey Glucose [Mass/Vol] 102 mg/dL Normal 74-106 [facility] Comment on above: Performed By: #### A 1C #### [facility] [address] [place] [address] Dr. Ana Pandey Potassium [Moles/Vol] 4.2 mmol/L Normal 3.5-5.1 [facility] Comment on above: Performed By: #### A 1C #### [facility] [address] [place] [address] Dr. Ana Pandey Sodium [Moles/Vol] 138 mmol/L Normal 136-145 [facility] Comment on above: Performed By: #### A 1C #### [facility] [address] [place] [address] Dr. Ana Pandey Urea nitrogen [Mass/Vol] 28.0 mg/dL Critically high 7.0-18.0 [facility] Comment on above: Performed By: #### A 1C #### [facility] [address] [place] [address] Dr. Ana Pandey Urea nitrogen/Creatinine [Mass ratio] 29.8 mg/mg Normal [facility] Comment on above: Performed By: #### A 1C #### [facility] [address] [place] [address] Dr. Ana Pandey TSHon 07-23-2021 TSH 4.104 uIU/mL Critically high 0.358-3.74 0 [facility] Comment on above: Performed By: #### A 1C #### [facility] [address] [place] [address] Dr. Ana Pandey TSH RANGE SEE BELOW Normal [facility] Comment on above: Result Comment: <0.3 4 UIU/ml HYPERTHYROID 0.34-5.60 UIU/ml EUTHYROID >5.60 UIU/ml HYPOTHYROID Performed By: #### A 1C #### [facility] [address] [place], [place] [address] Dr. Ana BURKETT Quick Testingon 2020 Result Positive [employer] Other Cardiovascular Lab Reporton 05-05-[address] [facility] Patient Name: Thea Winston [facility] MR #: [id number] Physician: Shantell Gomez,Department of M.D.Medicine Service Date: 05/04/2017Division of Birthdate: 4Cardiology Room #: 3AB [id number] CardiovascularServicesUniv [facility] [id number] [place], [place] [address]Itika Fax Cardiovascular Laboratory ReportREFERRING PHYSICIANS: Christian Rosa [...] CAD.6. Outpatient followup with Dr. Jacobo Rosa, [place] Cardiology.7. Okay to refer to cardiac rehabilitation [...] usingultrasound guidance and micropuncture access technique, a 6-Swedish sheathwas placed in the right internal jugular vein. Using a Dougherty catheter,the right heart catheterization was then performed. Pressures wereobtained in the right atrium, right ventricle, pulmonary artery, andpulmonary capillary wedge position. Oxygen saturation was drawn from thepulmonary artery and the Sly cardiac output and cardiac index were thencalculated. The Dougherty catheter was then removed.Next, a 6-Swedish Terumo Glidesheath slender was placed in the [...] check the severity with an FFR testing.A [employer] left 6-Swedish guide was engaged to left main coronaryartery.The Nuji Verrata FFR wire was then zeroed outside [...] 05/04/2017/12:44 P/Shantell Gomez M.D.Date Trans: 05/05/2017 09:35 [id number] c: Christian Rosa M.D. [address] [facility] [address] Michael Smith M.D. [address] [place] [address] [facility] Vital Signs Date Time Vital Sign Value Performing Clinician Facility 04-22-2023 14:27-0500 Body height 190.5 cm MD Michael Smith Work Phone: [facility] 04-22-2023 14:27-0500 Body mass index (BMI) [Ratio] 29.7 kg/m2 MD Michael Smtih Work Phone: [facility] 04-22-2023 14:27-0500 Body temperature 97.6 [degF] MD Michael Smith Work Phone: [facility] 04-22-2023 14:27-0500 Body weight 107.67 kg MD Michael Smith Work Phone: [facility] 04-22-2023 14:27-0500 Heart rate 67 /min MD Michael Smith Work Phone: [facility] 04-22-2023 14:27-0500 Respiratory rate 18 /min MD Michael Smith Work Phone: [facility] 04-22-2023 14:27-0500 SaO2% (BldA) [Mass fraction] 95 % MD Michael Smith Work Phone: [facility] 02-14-2023 12:10-0500 Body height 190.5 cm Mitzy Neves Other [facility] 02-14-2023 12:10-0500 Body mass index (BMI) [Ratio] 30.57 kg/m2 Mitzy Neves Other [employer] Other 02-14-2023 12:10-0500 Body temperature 98 [degF] Mitzy Neves Other [employer] Other 02-14-2023 12:10-0500 Body weight 110.95 kg Mitzy Pura Other [employer] Other 02-14-2023 12:10-0500 Body weight 110.94 kg MD Michael Smith Work Phone: [facility] 02-14-2023 12:10-0500 Diastolic blood pressure 60 mm[Hg] Mitzy Pura Other [facility] 02-14-2023 12:10-0500 Respiratory rate 18 /min Mitzy Pura Other [employer] Other 02-14-2023 12:10-0500 SaO2% (BldA) [Mass fraction] 98 % Mitzy Pura Other [employer] Other 02-14-2023 12:10-0500 Systolic blood pressure 135 mm[Hg] Mitzy Pura Other [facility] 10-05-2022 11:30-0400 Diastolic blood pressure 58 mm[Hg] Genoveva Shamar DO Work Phone: [employer] 10-05-2022 11:30-0400 Heart rate 58 /min Genoveva Shamar DO Work Phone: [employer] 10-05-2022 11:30-0400 Respiratory rate 16 /min Genoveva Shamar DO Work Phone: [employer] 10-05-2022 11:30-0400 SaO2% (BldA) [Mass fraction] 98 % Genoveva Shamar DO Work Phone: [employer] 10-05-2022 11:30-0400 Systolic blood pressure 126 mm[Hg] Genoveva Pond DO Work Phone: [facility] [employer] 10-05-2022 11:11-0400 Body temperature 96.91 [degF] Genoveva Pond DO Work Phone: [facility] [employer] 10-05-2022 10:00-0400 Body height 190.5 cm Genoveva Pond DO Work Phone: [facility] [employer] 10-05-2022 10:00-0400 Body mass index (BMI) [Ratio] 32.12 kg/m2 Genoveva Pond DO Work Phone: [facility] [employer] 10-05-2022 10:00-0400 Body weight 116.57 kg Genoveva Pond DO Work Phone: [facility] [employer] 05-26-2022 12:50-0400 Body height 190.5 cm iMnerva Irwin Other [employer] Other 05-26-2022 12:50-0400 Body mass index (BMI) [Ratio] 31.87 kg/m2 Minerva Irwin Other [employer] Other 05-26-2022 12:50-0400 Body temperature 97.1 [degF] Minerva Irwin Other [employer] Other 05-26-2022 12:50-0400 Body weight 115.67 kg Minerva Irwin Other [employer] Other 05-26-2022 12:50-0400 Respiratory rate 18 /min Minerva Irwin Other [employer] Other 05-26-2022 12:50-0400 SaO2% (BldA) [Mass fraction] 97 % Minerva Irwin Other [employer] Other 03-20-2022 14:00-0500 Body height 190.5 cm Minerva Irwin Other [employer] Other 03-20-2022 14:00-0500 Body mass index (BMI) [Ratio] 28.74 kg/m2 Minerva Irwin Other [employer] Other 03-20-2022 14:00-0500 Body temperature 97.7 [degF] Minerva Dc Other [employer] Other 03-20-2022 14:00-0500 Body weight 104.33 kg Minerva Irwin Other [employer] Other 03-20-2022 14:00-0500 Respiratory rate 18 /min Minerva Irwin Other [employer] Other 03-20-2022 14:00-0500 SaO2% (BldA) [Mass fraction] 97 % Minerva Irwin Other [employer] Other 12-05-2020 17:15-0400 Body height 190.5 cm Radha Sawant Other [employer] Other 12-05-2020 17:15-0400 Body temperature 98.8 [degF] Radha Sawant Other [employer] Other 12-05-2020 17:15-0400 SaO2% (BldA) [Mass fraction] 97 % Radha Sawant Other [employer] Other Encounters Encounter Date Encounter Type Care Provider Facility Start: 04-26-2023 End: 04-26-2023 ambulatory SHAIKH LOLLY Not Available Start: 04-22-2023 End: 04-22-2023 ambulatory MD Michael Smith Work Phone: [facility] Work Phone: Start: 04-22-2023 End: 04-22-2023 Patient encounter procedure MD Michael Smith Work Phone: [facility] Work Phone: Start: 04-21-2023 Orders Only Shaikh Lolly PERALES Work Phone: [facility] Comment on above: Coronary arterioscle rosis in [place] artery (CMS/HCC) (Primary Dx) Start: 04-15-2023 Orders Only Shaikh Lolly PERALES Work Phone: [facility] Comment on above: Chronic heart failur e with preserved ejection fraction (HFpEF) (CMS/HCC) (Primary Dx) Start: 03-15-2023 End: 03-15-2023 ambulatory SHAIKH LOLLY Not Available Start: 02-25-2023 Patient encounter procedure Shaikh Lolly PERALES [facility] Start: 02-25-2023 End: 02-25-2023 ambulatory SHAIKH LOLLY Not Available Start: 02-14-2023 End: 02-14-2023 ambulatory Mitzy Neves Other [employer] Other Start: 02-14-2023 Office outpatient vi sit 15 minutes Mitzy Neves [facility] Start: 02-14-2023 End: 02-14-2023 Patient encounter procedure MD Michael Smith Work Phone: [facility] Work Phone: Start: 02-09-2023 End: 02-09-2023 ambulatory AMANDA ROSA Not Available Start: 02-01-2023 End: 02-01-2023 [facility] Start: 02-01-2023 End: 02-01-2023 ambulatory MD Michael Smith Work Phone: [facility] Work Phone: Start: 02-01-2023 End: 02-01-2023 Patient encounter procedure MD Michael Smith Work Phone: [facility] Work Phone: Start: 10-05-2022 End: 10-05-2022 [facility] Start: 10-05-2022 End: 10-05-2022 Subsequent hospital visit by physician Genoveva Pond DO Work Phone: [facility] Start: 07-22-2022 ambulatory MENDEZ Lópezi lity:[facility] Start: 07-16-2022 End: 07-17-[address] MATIAS MAXWELL . Facility:[facility] Start: 06-26-2022 End: 06-26-2022 ambulatory Minerva Irwin Other [employer] Other Start: 06-26-2022 Telephone encounter Minerva Irwin [facility] Start: 05-26-2022 End: 05-26-2022 ambulatory Minerva rIwin Other [employer] Other Start: 05-26-2022 Office outpatient vi sit 25 minutes Minerva Irwin [facility] Start: 05-20-2022 End: 05-20-2022 ambulatory MATIAS MAYORGA [facility] Start: 05-08-2022 End: 05-09-[address] MICHAEL SMITH Facility:[facility] Start: 04-03-2022 End: 04-04-2022 ambulatory SHAIKH Vijaya AMBROCIO Facility:[facility] Start: 03-25-2022 End: 03-26-[address] MICHAEL SMITH Facility:[facility] Start: 03-20-2022 End: 03-20-2022 ambulatory Minerva Irwin Other [employer] Other Start: 03-20-2022 Office outpatient vi sit 25 minutes Minerva Irwin [facility] Start: 12-24-2021 End: 12-25-[address] MICHAEL SMITH Facility:[facility] Start: 12-01-2021 End: 12-01-2021 ambulatory KEOKeila [facility] Start: 09-29-2021 End: 09-30-[address] [...] Start: 05-04-2017 End: 05-05-2017 Ambulatory MICHAEL SMITH Facility:[facility] Start: 04-28-2017 End: 04-29-2017 Ambulatory DEFAULT PHYSICIAN Facility:[facility] Procedures Date Procedure Procedure Detail Performing Clinician Start: 10-05-2022 GLUCOSE, WHOLE BLOOD Bl air Mike Pond DO Work Phone: Start: 10-05-2022 Ecg routine ecg w/le ast 12 lds w/i&r Genoveva Y Shamar ASKEW Work Phone: Start: 07-23-[address] MICHAEL BLUE Comment on above: Performed By: #### B WHEAT GROWER, CMP #### [facility] [address] [place] [address] Dr. Ana Pandey History of placement of [...] 05/31/2023 10:45 AM EDT Office Visit [facility] [address] [place] [address] Shaikh Ambrocio MD [address] [place] [address] [facility] Start: 05-06-2023 Hemoglobin A1c measurement Diabetes: Hemoglobin A1C [facility] Start: 10-06-2022 Influenza vaccination Flu vaccine (# 1) [facility] Start: 10-05-2022 Annual Wellness Visi t (AWV) Annual Wellness Visit (AWV) [facility] Start: 10-05-2022 End: 10-05-2022 Xcapsl ctrc rmvl insj io lens prosth w/o ecp EYE CATARACT EMULSIFICATION IOL IMPLANT Combined forms of age-related cataract of left eye 10/05/2022 10:44 AM EDT [facility] Start: 07-13-2022 Urine screening for protein Diabetes: Urine Protein Screening [facility] Start: 09-01-2008 Pneumococcal 65+ yea rs Vaccine (1 - PCV) Pneumococcal 65+ years Vaccine (1 - PCV) [facility] Start: 09-01-1993 Shingles vaccine (1 of 2) Shingles vaccine (1 of 2) [facility] Start: 09-01-1962 DTaP/Tdap/Td vaccine (1 - Tdap) DTaP/Tdap/Td vaccine (1 - Tdap) [facility] Start: 09-01-1961 Hepatitis C screening Hepatitis C sc reen [facility] Start: 1955 Depression Screen Depression Screen [facility] Start: 09-01-1953 Lipid panel Lipids [facility] Start: 09-01-1949 Pneumococcal Vaccine : 65+ Years (1 - PCV) Pneumococcal Vaccine: 65+ Years (1 - PCV) [facility] Start: 03-03-1944 COVID-19 Vaccine (#1) COVID-19 Vacci ne (#1) [facility] EKG 12 Lead EKG 12 Lead ECG Routine 10/05/2022 10:15 AM EDT [facility] Oxygen therapy [[facility] mum Data Set] Initiate Oxygen Therapy Protocol Respiratory Care Routine Daily until discontinued starting 10/05/2022 [facility] Comment on above: Daily until disconti nued starting 10/05/2022 Oxygen therapy [Mini mum Data Set] Initiate Oxygen Therapy Protocol Respiratory Care Routine Daily until discontinued starting 10/05/2022 [facility] Comment on above: Daily until disconti nued starting 10/05/2022 Immunizations Immunization Date Immunization Notes Care Provider [facility] 12-25-2022 ABRYSVO - Respirator y syncytial virus (RSV), vaccine, bivalent, protein subunit RSV prefusion F, diluent reconstituted, 0.5 mL, PF Shaikh Lolly PERALES Work Phone: [facility] 11-26-2022 Influenza, High-dose Seasonal, Quadrivalent, Preservative Free Shaikh Lolly PERALES Work Phone: [facility] 12-25-2021 Influenza, Seasonal, Quadrivalent, Adjuvanted Shaikh Lolly PERALES Work Phone: [facility] 12-15-2020 Influenza, High-dose Seasonal, Quadrivalent, Preservative Free Shaikh Lolly PERALES Work Phone: [facility] 12-14-2019 influenza, injectabl e, quadrivalent, preservative free Shaikh Lolly PERALES Work Phone: [facility] 11-28-2019 Influenza, High-dose Seasonal, Quadrivalent, Preservative Free Shaikh Lolly PERALES Work Phone: [facility] 11-28-2019 zoster vaccine recombinant Shaikh Lolly PERALES Work Phone: [facility] 01-02-2018 influenza, high dose seasonal, preservative-free Shaikh Lolly PERALES Work Phone: [facility] 11-29-2016 influenza, high dose seasonal, preservative-free Shaikh Lolly PERALES Work Phone: [facility] 12-13-2015 influenza, high dose seasonal, preservative-free Shaikh Lolly PERALES Work Phone: [facility] 12-24-2014 influenza, high dose seasonal, preservative-free Shaikh Lolly PERALES Work Phone: [facility] 09-10-2013 tetanus toxoid, adsorbed Radha Savana Other [facility] 02-11-2012 influenza virus vaccine, whole virus Shaikh Lolly PERALES Work Phone: [facility] 01-19-2011 influenza virus vaccine, whole virus Shaikh Lolly PERALES Work Phone: [facility] Payers Date Payer Category Payer Self-pay [id number] 2023 Unknown [id number] 2022 Unknown 2020 Unknown [id number] .[id number] 1959 Medicare [id number] .[id number]. 1959 Unknown [id number] .[id number] 1943 Unknown [id number] 2.840.1.673691.3.579.2.593 1943 Unknown [id number] 2.16.840.1.208425.3.579.2.59 1943 Unknown [id number] 2.840.1.244911.3.579.2.593 1943 Unknown [id number] 2.840.1.739612.3.579.2.593 1943 Unknown [id number] 2.16.840.1.963663.3.579.2.593 1943 Unknown [id number] 2.16.840.1.681176.3.579.2.593 1943 Unknown [id number] 2.16.840.1.645692.3.579.2.593 1943 Unknown [id number] 2.16.840.1.184927.3.579.2.593 1943 Unknown [id number] 2.16.840.1.528298.3.579.2.593 1943 Unknown [id number] 2.16.840.1.806198.3.579.2.593 1943 Unknown [id number] 2.16.840.1.090379.3.579.2.593 1943 Unknown [id number] 2.16.840.1.021363.3.579.2.173 1943 Unknown [id number] 2.16.840.1.584742.3.579.2.1259 1943 Unknown [id number] 2.16.840.1.004041.3.579.2.1259 1943 Unknown [id number] 2.16.840.1.581563.3.579.2.1259 1943 Unknown [id number] 2.16.840.1.165119.3.579.2.1259 Medicare [id number] Medicare [facility] [id number] Medicare [facility] [id number] Unknown [id number] 2.16.840.1.422598.3.579.2.531 Social History Date Type Detail Facility Unknown if ever smoked [employer] Other Start: 02-25-2023 Sex Assigned At [facility] [employer] Other Start: 09-10-2013 End: 09-22-2022 Tobacco smoking status NHIS Never smoked tobacco [facility] [place] Start: 09-22-2022 End: 02-09-2023 Tobacco use and exposure Smokeless tobacco non-user [facility] [place] Start: 10-05-2022 End: 02-25-2023 Alcohol intake Lifetime non-drinker (finding) [facility] [place] Start: 1945 Sex Assigned At Not on file [facility] [place] Start: 1945 Sex Assigned At Male F [facility] Start: 02-25-2023 History of Social function [facility] Healthcare Clinical Notes 12-05-2020 to 02-14-2023 Note [...] or shortness of breath. Continue to take [id number]-ryi-[id number] er cough medicine as needed for cough. Follow-up with your family physician if no improvement in 2 to 3 days [facility] [employer] Other 07-31-2023 History of Present illness Narrative* [...] AM EDT Lab work from July from [facility] received in this office. * Noelle [...] PAT phone call. [facility] Discharge instructions* Discharge Instructions* [...] the healing period. The office number is [phone]. Take surgery bag and all eye drops to Dr. Pond's office tomorrow at 9:20am. You may resume your normal diet. Start your eye drops tomorrow after your post-op appointment: Ofloxacin/Polytrim one drop to the operated eye 4 times daily Prednisolone one drop to the operated eye 4 times daily [facility] Evaluation note* Encounter Date Diagnosis [...] understanding and is agreeable to treatment plan [employer] Other [id number] NoteContinue [facility]UnSouthern [facility] NoteHypertension is Overall well controlled- At PCPs office it was 130/72- Even in office he started at 160/78 and when I repeated it he was down to 144/77 Continue all current medications Function been [facility]Un[facility]03-15-2023 NotePt is here for a 6 month F/U ROSUn[facility]03-15-2023 NoteUTP CARDIOLOGY PROGRESS NOTE HPI: [...] Overall wel (more content not included)...[facility]03-15-2023 NoteGoal-directed medical therapy- Aspirin, Plavix, Lipitor, Toprol Denies any bleeding tendencies or concerns continue risk factor modifications- heart healthy diet, regular exercise as tolerated and continue all medications.[facility] 03-20-2022 Evaluation note* Encounter Date Diagnosis Assessment [...] understanding and is agreeable to treatment plan [employer] Other 09-26-2022 NoteCardiology Follow Up Progress Note [...] symptoms. Strict (more content not included)...[facility]09-26-2022 NoteSubjective Thea Winston is a 76 y.o. [...] Assessment/Plan There were no encounter diagnoses.[facility]07-25-2022 NoteCARDIAC STRESS TEST Requesting Physician: Procedure Date:09/29/2021 [...] interpreted and reported in a separate dictation.[id number] Evaluation note* Encounter Date Diagnosis Assessment Notes Treatment Notes Treatment Clinical Notes Nov, Contact with and (suspected) exposure to other viral communicable diseases (ICD-10 - Z20.828) Nov, COVID-19 (ICD-10 - U07.1) Today you tested positive for the COVID virus. This mean you need to follow all CDC quarantine guidelines found at [email or web address] v. It is important to rest, increase [...] Patient care instructions given in writting by [facility] Care At Home document. [employer] Other Evaluation noteNo InformationNort Remitly Other Evaluation note* Diagnosis Combined forms of age-related cataract of left eye- Primary Other and combined forms of senile cataract documented in this encounter [facility]No assessment information available [facility] Work Phone: Evaluation note* Diagnosis Chronic heart failure with preserved ejection fraction (HFpEF) ([facility])- Primary documented in this encounter [facility] HealthcareEvaluation note* Diagnosis Coronary arteriosclerosis in [place] artery ([facility])- Primary documented in this encounter [facility] HealthcareEvaluation note* Diagnosis Onset Date Resolution Status Viral URI with cough acute [facility] Work Phone: [facility] general Narrative - Reported* Type Description Date Medical History DM Medical History HTN Medical History Arthritis Medical History hypercholesterolemia Surgical History Cyst off back Surgical History Polyps removed Surgical History heart stent Surgical History shoulder Hospitalization History see above [employer] Other Hismcdz general Narrative - Reported* Type Description Date Medical History DM Medical History HTN Medical History Arthritis Medical History hypercholesterolemia Surgical History Cyst off back Surgical History Polyps removed Surgical History heart stent Surgical History shoulder Surgical History cataract surgery 07/2022 Hospitalization History see above [employer] Other Summary Purpose Family History No Family [...] content) DATE CREATED AUTHOR 08/27/2017 [facility] DATE CREATED AUTHOR AUTHOR'S ORGANIZ ATION 05/21/2022 [facility] DATE CREATED AUTHOR AUTHOR'S ORGANIZ ATION 07/20/2022 [facility] DATE CREATED AUTHOR AUTHOR'S ORGANIZ ATION 10/05/2022 [facility] DATE CREATED AUTHOR AUTHOR'S ORGANIZ ATION 04/16/2023 [facility] DATE CREATED AUTHOR AUTHOR'S ORGANIZ ATION 04/27/2023 [facility] EPIC REASON FOR VISIT (unrecogniz ed section and content) Specialty Diagnoses / Procedures Referred By Korey gan Referred To Contact Diagnoses Combined forms of age-related cataract of left eye Combined forms of age-related cataract of left eye [H25.812] Procedures MA XCAPSL CTRC RMVL INSJ IO LENS PROSTH W/O ECP EYE CATARACT EMULSIFICATION IOL IMPLANT Genoveva Pond, [address] [place] [address] [facility] [address] [place] [address] Referral ID Status Reason Start Date Expiration Date Visits Re quested Visits Authorized [id number] 1 1 Scheduled Active and Recently Administ [...] Natasha Smith MD Primary Care Provider Active [employer] Relationship Specialty Start Date End Date Michael Smith MD [address] [place] [id number] PCP - [facility] 12/06/22 Shaikh Ambrocio MD [address] [place] [phone] PCP - General Internal Medicine 02/25/23 [employer] Relationship Specialty Start Date End Date Michael Smith MD [address] [place] [phone] PCP - [facility] 12/06/22 Shaikh Ambrocio MD [address] [place] [phone] PCP - General Internal Medicine 02/25/23 Team [...] BE BASED ON THE PRIMARY CLINICAL RECORDS. [facility] [employer] provides no warranty or guarantee of the accuracy or completeness of information in this document.
== END 2023-05-14 10:53 | disposition home or self-care (01) ==
LOC: WC 10:52
PROVIDERS: PCP Internal Medicine; Visit Provider Podiatrist Foot & Ankle Surgery
DX: E11.621 Type 2 diabetes mellitus with foot ulcer (principal); L97.412 Non-pressure chronic ulcer of right heel and midfoot with fat layer exposed
CPT/HCPCS: 11042

== ENCOUNTER 2023-05-28 11:44 | Outpatient (OUT) | payer OTHER, SELFPAY ==
--- OUTSIDE RECORDS SUMMARY | 2023-05-28 11:46 | XMS_ITS | CCD ---
Author Organization [facility] Care Team Providers Care Library Sales Consultant Name Role Phone PHYSICIAN, DEFAULT Unavailable Unavailable PHYSICIAN, DEFAULT Unavailable Unavailable NADERER, MICHAEL Unavailable Unavailable CHRISTIAN ROSA Unavailable Unavailable GOMEZ, SHANTELL Unavailable Unavailable GOMEZ, SHANTELL Unavailable Unavailable Radha Sawant Unavailable Minerva Irwin Unavailable NADERER, DR MICHAEL Coto Primary Care Unavailable HIGHLANDER, MENDEZ Pedraza Attending Unavailable HIGHLANDER, PETER D Admitting Unavailable NADERER, DR MICHAEL Coto Primary Care Unavailable HIGHLANDER, MENDEZ Pedraza Attending Unavailable HIGHLANDER, PETER D Admitting Unavailable NADERER, DR MICHAEL Coto Primary Care Unavailable HIGHLANDER, MENDEZ Pedraza Attending Unavailable HIGHLANDER, PETER D Admitting Unavailable HIGHLANDER, MENDEZ Pedraza Attending Unavailable [...] MATIAS Consulting Unavailable NADERER, DR MICHAEL Coto Attending Unavailable NADERER, DR MICHAEL Coto Admitting Unavailable NADERER, DR MICHAEL Coto Primary Care Unavailable SARAH, DR MICHAEL Coto Consulting Unavailable MARKER ., DR SALCEDO Attending Unavailable MARKER ., DR SALCEDO Consulting Unavailable SARAH, DR MICHAEL Coto Primary Care Unavailable MARKER ., DR SALCEDO Admitting Unavailable PAULINE WISDOM Consulting Unavailable YELENA DIAZ Consulting Unavailable Unavailable Primary Care Provider UnavailGENOVEVA Couch Attending Unavailable GENOVEVA POND [facility] Tre[facility] Ramirez Attending Provider MD Michael Smith Primary Care Provider Mitzy Neves Unavailable Nati, Trell Ramirez Attending Chula Damian, Trell Ramirez Admitting Chula Smith, Michael Primary Care Unavailable Michael Smith MD Unavailable Shaikh Ambrocio MD Primary Care Provider SHAIKH AMBROCIO Attending Unavailable SHAIKH AMBROCIO Attending Unavailable AMANDA ROSA Attending Unavailable SHAIKH AMBROCIO Attending Unavailable CHRISTIANO DOUGLAS Attending Unavailable Allergies Allergy Classification Reported Allergen(s) Allergy Type Date of Onset Reaction(s) Facility (1 source) Penicillins Drug allergy (disorder) 05-04-19 18 [facility] Repository (1 source) No Known Allergies; Translations: [No Known Allergies] Propensity to adverse reactions (disorder) [facility] Repository (5 sources) penicillAMINE Drug Allergy he heard [employer] Other (1 source) Penicillin Drug Allergy [facility] Repository (1 source) Penicillins Propensity to adverse reactions to drug 09-24-19 23 [facility] (1 source) penicillAMINE Drug Allergy 02-15-20 [facility] Repository (2 sources) Penicillins Propensity to adverse reactions 02-06-20 23 Other [facility] Healthcare (1 source) Penicillin; Translations: [PENICILLIN G] Drug Allergy 10-21-19 [facility] Repository Medications Current Medications Medication Drug Class(es) Dates Sig (Normalized) Sig (Original) [id number] actuat albuterol 0.09 mg/actuat metered dose [...] Active 100 MG PO Three times daily 25 09April 22, 2023 12:00am calcium chloride 0.0014 meq/ml [...] day Active Plavix Active Continuous Blood Gluc Biomedical Equipment Technician (FreeStyle Vi 2 [place]) device (2 sources) Continuous Blood Gluc Biomedical Equipment Technician (FreeStyle Vi 2 [place]) device Continuous Blood Gluc Sensor (FreeStyle Vi [...] take 1 tablet by mouth [place] ferrous sulfate 325 (65 Fe) MG tablet [...] tablet ([address]) [address] ar t: 0 Medrol 4 MG as directed Oral ly As Directed for 6 days Feb, Active 24 hr metoprolol succinate 100 mg extended release oral tablet (10 sources) beta-Adrenergic Katie St ar t: 5- 24 take 1 tablet by mouth once daily Metoprolol Succinate (Toprol Xl) 100 mg tablet extended release 24 hr Active 100 MG PO Daily April 22, 2023 12:00am Start: 04-21-2023 End: 10-18-2023 take 1 tablet by mouth every twenty-four hours in the morning metoprolol succinate XL (Toprol-XL) 100 MG 24 hr tablet Indications: Coronary arteriosclerosis in solomon artery (CMS/HCC) Take 1 tablet (100 mg) [...] Active 20 MG PO Twice daily 10 5 April 22, 2023 12:00am Start: 05-26-2022 take [...] Chronic Coronary atherosclerosis and other heart disease (5 sources) 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; Translations: [Atherosclerotic heart disease of solomon coronary artery without angina pectoris] Onset: 8 02-25-2023 Chronic Diabetes mellitus with complications (9 sources) Type 2 diabetes mellitus with hyperglycemia; Translations: [Type 2 diabetes mellitus with diabetic neuropathy, unspecified] Onset: 2 Chronic Diabetes mellitus without complication (4 sources) Type 2 diabetes mellitus without complications; Translations: [Type 2 diabetes mellitus] Onset: 8 02-25-2023 Chronic Disorders of lipid metabolism (6 sources) Hyperlipidemia, unspecified; Translations: [Pure hypercholesterolemia, unspecified] Onset: 8 02-25-2023 Chronic Essential hypertension (11 sources) Essential (primary) hypertension; Translations: [Benign essential hypertension] Onset: 8 Chronic Fever of unknown origin (4 sources) Fever, unspecified; Translations: [FEVER UNSPECIFIED] Onset: 3 Episodic Headache; including migraine (4 sources) Headache; including migraine; Translations: [HEADACHE UNSPECIFIED] Onset: 3 Osteoarthritis (3 sources) Osteoarthritis of acromioclavicular joint; Translations: [Primary osteoarthritis, unspecified shoulder] Onset: 3 02-08-2023 Chronic Other aftercare (2 sources) group home (current) use of aspirin; Translations: [SHELTER (CURRENT) USE OF ASPIRIN] Onset: 8 Episodic Other aftercare (1 source) assistant terminal manager (current) use of oral hypoglycemic drugs; Translations: [DIRECTOR OF RESEARCH AND DEVELOPMENT USE ORAL HYPOGLYCEMIC DX] Onset: 3 Episodic Other aftercare (5 sources) Other manager long term care (current) drug therapy; Translations: [OTH DIRECTOR OF RESEARCH AND DEVELOPMENT CURRENT DRUG THERAPY] Onset: 2 Episodic Other [...] / UNK(Unknown) Onset: 8 Unclassified (1 source) group home (current) use of oral hypoglycemic drugs; Translations: [SHELTER (CURRENT) USE OF ORAL HYPOGLYCEMIC DRUGS] Onset: [...] Onset: 05-04-2017 Episodic Other lower respiratory disease (4 sources) [...] ALT [Catalytic activity/Vol] 30 U/L 7-52 [facility] Albumin [Mass/volume] in Ser um or Plasma by Bromocresol green (BCG) dye binding methoOrdered By: Trell Damian on 02-01-2023 Albumin BCG dye [Mass/Vol] 4.1 g/dL 3.5-5.7 [facility] Alkaline phosphatase [Enzyma tic activity/volume] in Serum or PlasmaOrdered By: Trell Damian on 02-01-2023 ALP [Catalytic activity/Vol] 74 U/L 34-104 [facility] Aspartate aminotransferase [ Enzymatic activity/volume] in Serum or PlasmaOrdered By: Trell Damian on 02-01-2023 AST [Catalytic activity/Vol] 29 U/L 13-39 [facility] Bilirubin Test strip Ql (U)O rdered By: Trell Damian on 02-01-2023 Bilirubin Ql (U) Negative Negative [facility] Bilirubin.total [Mass/volume ] in Serum or PlasmaOrdered By: Trell Damian on 02-01-2023 Bilirubin [Mass/Vol] 0.6 mg/dL 0.3-1.[address] [facility] Calcium [Mass/volume] in Ser um or PlasmaOrdered By: Trell Damian on 02-01-2023 Calcium [Mass/Vol] 9.2 mg/dL 8.6-10.3 [facility] Carbon dioxide, total [Moles /volume] in Serum or PlasmaOrdered By: Trell Damian on 02-01-2023 CO2 [Moles/Vol] 27.3 mmol/L 21.0-31.0 [facility] Chloride [Moles/volume] in S jose juan or PlasmaOrdered By: Trell Damian on 02-01-2023 Chloride [Moles/Vol] 104 mmol/L 98-[address] [facility] Color Auto (U)Ordered By: Ravinder Damian on 02-01-2023 Color (U) Yellow Yellow [facility] Comprehensive Metabolic Pane alicia 02-01-2023 Albumin [Mass/Vol] 4.1 g/dL Normal 3.5-5.7 [facility] Comment on above: Performed By: #### U A, CMP #### [facility] [address] Albumin/Globulin [Mass ratio] 1.9 {ratio} Normal [facility] Comment on above: Performed By: #### U A, CMP #### [facility] [address] ALP [Catalytic activity/Vol] 74 U/L Normal 34-104 [facility] Comment on above: Result Comment: PERF ORMED BY: [place] [address] PATHOLOGIST CERTIFIED PEDIATRIC NURSE PRACTITIONER OPHELIA ZIMMERMAN M.D. Performed By: #### U A, CMP #### [facility] [address] ALT [Catalytic activity/Vol] 30 U/L Normal 7-52 [facility] Comment on above: Performed By: #### U A, CMP #### [facility] [address] [place] [address] [place] Anion gap [Moles/Vol] 14.3 mmol/L Normal 6.0-15.0 [facility] Comment on above: Performed By: #### U A, CMP #### [facility] [address] AST [Catalytic activity/Vol] 29 U/L Normal 13-39 [facility] Comment on above: Performed By: #### U A, CMP #### [facility] [address] Bilirubin [Mass/Vol] 0.6 mg/dL Normal 0.3-1.[address] [facility] Comment on above: Performed By: #### U A, CMP #### [facility] [address] Calcium [Mass/Vol] 9.2 mg/dL Normal 8.6-10.3 [facility] Comment on above: Performed By: #### U A, CMP #### [facility] [address] Chloride [Moles/Vol] 104 mmol/L Normal 98-[address] [facility] Comment on above: Performed By: #### U A, CMP #### [facility] [address] CO2 [Moles/Vol] 27.3 mmol/L Normal 21.0-31.0 [facility] Comment on above: Performed By: #### U A, CMP #### [facility] [address] Creatinine [Mass/Vol] 1.01 mg/dL Normal 0.70-1.30 [facility] Comment on above: Performed By: #### U A, CMP #### [facility] [address] [place] [address] [place] GFR/1.73 sq M.predicted MDRD (S/P/Bld) [Vol rate/Area] mL/min/{1.73_m2} Normal [facility] Comment on above: Performed By: #### U A, CMP #### [facility] [address] [place] [address] [place] Globulin (S) [Mass/Vol] 2.2 g/dL Normal [facility] Comment on above: Performed By: #### U A, CMP #### [facility] [address] [place] [id number] [place] Glucose [Mass/Vol] 183 mg/dL High 70-100 [facility] Comment on above: Result Comment: [place] Glucose Reference Range is dependent on time and content of last meal. Glucose of more than 200 mg/dL in a nonstressed, ambulatory subject supports the diagnosis of Diabetes Mellitus. ADA recommended reference range Performed By: #### U A, CMP #### [facility] [address] [place] [id number] [place] Potassium [Moles/Vol] 4.6 mmol/L Normal 3.5-5.1 [facility] Comment on above: Performed By: #### U A, CMP #### [facility] [address] [place] [address] [place] Protein [Mass/Vol] 6.3 g/dL Low 6.4-8.9 [facility] Comment on above: Performed By: #### U A, CMP #### [facility] [address] [place] [id number] [place] Sodium [Moles/Vol] 141 mmol/L Normal 136-145 [facility] Comment on above: Performed By: #### U A, CMP #### [facility] [address] [place] [address] [place] Urea nitrogen [Mass/Vol] 22 mg/dL Normal 7-25 [facility] Comment on above: Performed By: #### U A, CMP #### [facility] [address] [place] [id number] [place] Creatinine [Mass/volume] in Serum or PlasmaOrdered By: Trell Damian on 02-01-2023 Creatinine [Mass/Vol] 1.01 mg/dL 0.70-1.30 [facility] ECH echo transthoracicon [facility] echo transthoracic [facility] [place] [address] [place] [id number] Echocardiogram Signed Patient: Thea Winston MR#: [id number] 33 : 1945 Acct:[id number] Age/Sex: 77 / M ADM Date: 02/01/23 Loc: Room: Type: [facility] Attending Dr: Trell Damian DO Ordering Provider: Trell Damian DO Date of Service: 02/01/23/ ECH/ECH echo transthoracic: Heart Disease. Copies to: Trell [...] ES Default ()_phl: 30.0 % Transcribed By: JOHNATHAN Performed At: 02/01/23 3046 Sig (more content not included)... Normal [facility] Globulin Calc (S) [Mass/Vol] Ordered By: Trell Damian on 02-01-2023 Globulin (S) [Mass/Vol] 2.2 g/dL [facility] Glucose [Mass/volume] in Ser um or PlasmaOrdered By: Trell Damian on 02-01-2023 Glucose [Mass/Vol] 183 mg/dL 70-100 [facility] Comment on above: ADA recommended refe rence rangeRandom Glucose Reference Range is dependent on time and content of last meal. Glucose of more than 200 mg/dL in a nonstressed, ambulatory subject supports the diagnosis of Diabetes Mellitus. Ketones Auto test strip (U) [Mass/Vol]Ordered By: Trell Damian on 02-01-2023 Ketones (U) [Mass/Vol] Negative Negative [facility] Nitrite Test strip Ql (U)Ord ered By: Trell Damian on 02-01-2023 Nitrite Ql (U) Negative Negative [facility] No Panel InformationOrdered By: Trell Damian on 02-01-2023 Estimated GFR (CKD-EPI) > 60.0 mL/Min [facility] Creatinine Clearance (Chem N/A [facility] Potassium [Moles/volume] in Serum or PlasmaOrdered By: Trell Damian on 02-01-2023 Potassium [Moles/Vol] 4.6 mmol/L 3.5-5.1 [facility] Protein Auto test strip (U) [Mass/Vol]Ordered By: Trell Damian on 02-01-2023 Protein (U) [Mass/Vol] Negative Negative [facility] Protein [Mass/volume] in Ser um or PlasmaOrdered By: Trell Damian on 02-01-2023 Protein [Mass/Vol] 6.3 g/dL 6.4-8.9 [facility] Serum or plasma albumin/glob ulin mass ratioOrdered By: Trell Damian on 02-01-2023 Albumin/Globulin [Mass ratio] 1.9 {ratio} [facility] Serum or plasma anion gap de terminationOrdered By: Trell Glass on 02-01-2023 Anion gap [Moles/Vol] 14.3 mmol/L 6.0-15.0 [facility] Sodium [Moles/volume] in Ser um or PlasmaOrdered By: Trell [facility] on 02-01-2023 Sodium [Moles/Vol] 141 mmol/L 136-145 [facility] Specific gravity Auto test s trip (U) [Rel density]Ordered By: Trell [facility] on 02-01-2023 Specific gravity (U) [Rel density] 1.033 1.001-1.03 0 [facility] Urea nitrogen [Mass/volume] in Serum or PlasmaOrdered By: Trell [facility] on 02-01-2023 Urea nitrogen [Mass/Vol] 22 mg/dL 09-29 [facility] Urinalysison 02-01-2023 Appearance (U) Clear Normal Clear [facility] Comment on above: Order Comment: Name Collection Type:: Clean-Voided Midstream Performed By: #### U A, CMP #### [facility] [address] [place] [address] [place] Bilirubin,Urine Negative Normal Negative [facility] Comment on above: Order Comment: Name Collection Type:: Clean-Voided Midstream Performed By: #### U A, CMP #### [facility] [address] [place] [address] [place] Color (U) Yellow Normal Yellow [facility] Comment on above: Order Comment: Name Collection Type:: Clean-Voided Midstream Performed By: #### U A, CMP #### [facility] [address] [place] [address] [place] Glucose Ql (U) >=1000 High Normal [facility] Comment on above: Order Comment: Name Collection Type:: Clean-Voided Midstream Performed By: #### U A, CMP #### [facility] [address] [place] [address] [place] Ketones Ql (U) Negative Normal Negative [facility] Comment on above: Order Comment: Name Collection Type:: Clean-Voided Midstream Performed By: #### U A, CMP #### [facility] [address] [place] [address] Leukocyte esterase Test strip Ql (U) Negative Normal Negative [facility] Comment on above: Order Comment: Name Collection Type:: Clean-Voided Midstream Performed By: #### U A, CMP #### [place] [address] [place] Nitrite,Urine Negative Normal Negative [facility] Comment on above: Order Comment: Name Collection Type:: Clean-Voided Midstream Performed By: #### U A, CMP #### [address] Occult Blood,Urine Negative Normal Negative [facility] Comment on above: Order Comment: Name Collection Type:: Clean-Voided Midstream Result Comment: PERF ORMED BY: [place] [address] PATHOLOGIST CERTIFIED PEDIATRIC NURSE PRACTITIONER OPHELIA ZIMMERMAN M.D. Performed By: #### U A, CMP #### [address] pH (U) 5.5 [pH] Normal 5.0-9.0 [facility] Comment on above: Order Comment: Name Collection Type:: Clean-Voided Midstream Performed By: #### U A, CMP #### [place] [address] [place] Protein,Urine Negative Normal Negative [facility] Comment on above: Order Comment: Name Collection Type:: Clean-Voided Midstream Performed By: #### U A, CMP #### [place] [address] [place] Specificy [place],Urine 1.033 High 1.001-1.03 0 [facility] Comment on above: Order Comment: Name Collection Type:: Clean-Voided Midstream Performed By: #### U A, CMP #### [place] [address] [place] Urobilinogen,Urine Normal Normal Normal [facility] Comment on above: Order Comment: Name Collection Type:: Clean-Voided Midstream Performed By: #### U A, CMP #### [facility] [address] Urine clarity by refractomet ry automatedOrdered By: Trell Damian on 02-01-2023 Clarity Refractometry automated (U) Clear Clear [facility] Urine glucose measurement by automated test strip (mass/volume)Ordered By: Trell Damian on 02-01-2023 Glucose Auto test strip (U) [Mass/Vol] >=1000 mg/dL Normal [facility] Urine hemoglobin detection b y automated test stripOrdered By: Trell Damian on 02-01-2023 Hemoglobin Auto test strip Ql (U) Negative Negative [facility] Urine leukocyte esterase det ection by automated test stripOrdered By: Trell [facility] 02-[facility]-2023 Leukocyte esterase Auto test strip Ql (U) Negative Negative [facility] Urobilinogen Auto test strip (U) [Mass/Vol]Ordered By: Trell Damian on 02-01-2023 Urobilinogen (U) [Mass/Vol] Normal mg/dL Normal [facility] pH Auto test strip (U)Ordere d By: Trell Damian on 02-01-2023 pH (U) 5.5 [pH] 5.0-9.0 [facility] Glucose, Whole Bloodon 10-05 Glucose [Mass/Vol] 135 mg/dL High 74 - 100 mg/dL [facility] Interpretation and review of laboratory results Abnormal [facility] CBC AUTO DIFFon 07-17-2022 BASO # 0.0 103/ul Normal 0.0-0.1 [facility] Comment on above: Performed By: #### A 1C #### [facility] [address] [place] [address] [address] Ana Pandey Basophils/100 WBC (Bld) 0.2 % Normal 0.2-2.0 [facility] Comment on above: Performed By: #### A 1C #### [facility] [address] [place] [address] [address] Ana Pandey EO # 0.1 103/ul Normal 0.0-0.7 [facility] Comment on above: Performed By: #### A 1C #### [facility] [address] [place] [address] Dr. Ana Pandey Eosinophils/100 WBC (Bld) 0.9 % Normal 0.9-7.0 [facility] Comment on above: Performed By: #### A 1C #### [facility] [address] [place] [address] Dr. Ana Pandey Erythrocyte distribution width (RBC) [Ratio] 15.1 % Critically high 11.0-15.0 [facility] Comment on above: Performed By: #### A 1C #### [facility] [address] [place] [address] Dr. Ana Pandey Hematocrit (Bld) [Volume fraction] 33.6 % Critically low 42.0-54.0 [facility] Comment on above: Performed By: #### A 1C #### [facility] [address] [place] [address] Dr. Ana Pandey Hemoglobin (Bld) [Mass/Vol] 10.9 g/dL Critically low 14.0-18.0 [facility] Comment on above: Performed By: #### A 1C #### [facility] [address] [place] [address] Dr. Ana Pandey IG # 0.05 10e3/ul Critically high 0.00-0.03 [facility] Comment on above: Performed By: #### A 1C #### [facility] [address] [place] [address] Dr. Ana Pandey IG % 0.5 % Normal 0.0-0.5 [facility] Comment on above: Performed By: #### A 1C #### [facility] [address] [place] [address] Dr. Ana Pandey LYMPH # 0.9 103/ul Critically low 1.2-3.8 [facility] [place] Comment on above: Performed By: #### A 1C #### [facility] [address] [place] [address] Dr. Ana Pandey Lymphocytes/100 WBC (Bld) 8.5 % Critically low 20.5-60.0 [facility] Comment on above: Performed By: #### A 1C #### [facility] [address] [place] [address] Dr. Ana Pandey MANUAL DIFF REQ NO Normal [facility] Comment on above: Performed By: #### A 1C #### [facility] [address] [place] [address] Dr. Ana Pandey MCH (RBC) [Entitic mass] 29.0 pg Normal 25.9-34.0 [facility] Comment on above: Performed By: #### A 1C #### [facility] [address] [place] [address] Dr. Ana Pandey MCHC (RBC) [Mass/Vol] 32.4 g/dL Normal 29.9-35.2 [facility] Comment on above: Performed By: #### A 1C #### [facility] [address] [place] [address] Dr. Ana Pandey MCV (RBC) [Entitic vol] 89.4 fL Normal 80.0-94.0 [facility] Comment on above: Performed By: #### A 1C #### [facility] [address] [place] [address] Dr. Ana Pandey MONO # 0.6 103/ul Normal 0.3-0.8 [facility] Comment on above: Performed By: #### A 1C #### [facility] [address] [place] [address] Dr. Ana Pandey Monocytes/100 WBC (Bld) 6.1 % Normal 1.7-12.0 [facility] Comment on above: Performed By: #### A 1C #### [facility] [address] [place] [address] Dr. Ana Pandey NEUT # 8.4 103/ul Critically high 1.4-6.5 [facility] Comment on above: Performed By: #### A 1C #### [facility] [address] [place] [address] Dr. Ana Pandey Neutrophils/100 WBC (Bld) 83.8 % Critically high 43.0-75.0 [facility] Comment on above: Performed By: #### A 1C #### [facility] [address] [place], [place] [address] Dr. Ana Pandey Platelet mean volume (Bld) [Entitic vol] 9.7 fL Normal 9.5-13.5 [facility] Comment on above: Performed By: #### A 1C #### [facility] [address] [place] [address] [address] Ana Pandey PLT 220 103/ul Normal 150-450 [facility] Comment on above: Performed By: #### A 1C #### [facility] [address] [place], [place] [address] Dr. Ana Pandey RBC 3.76 106/ul Critically low 4.70-6.10 [facility] Comment on above: Performed By: #### A 1C #### [facility] [address] [place] [address] [address] Ana Pandey WBC 10.0 103/ul Normal 4.0-11.0 [facility] Comment on above: Performed By: #### A 1C #### [facility] [address] ABD/PELVIS WO CONon [...] by: Bowen WISDOM Date: 2022-07-16 23:30 Normal [facility] CULTURE BLOODon 07-17-2022 Microscopic examination of blood, culture Culture Observations: NO GROWTH AT 36-48 HOURS. FINAL TO FOLLOW. Normal [facility] Comment on above: Performed By: #### B METAL DEALER, CMP #### [facility] [address] [place] [address] Dr. Ana Pandey Microscopic examination of blood, culture Culture Observations: NO GROWTH AT 36-48 HOURS. FINAL TO FOLLOW. Normal [facility] Comment on above: Performed By: #### B METAL DEALER, CMP #### [facility] [address] [place] [address] Dr. Ana Pandey CULTURE URINEon 07-17-2022 CULTURE URINE Culture Observations : AMINA TO FOLLOW. Isolate 1 Escherichia coli >100,000 cfu/mL of Normal [facility] Comment on above: Performed By: #### B METAL DEALER, CMP #### [facility] [facility] [address] [place] [address] Dr. Ana Pandey ER URINE PROFILEon 3 Bilirubin Ql (U) Negative Normal NEGATIVE [facility] Comment on above: Performed By: #### E JUSTYNA MEDELLINRO #### [facility] [address] [place] [address] Dr. Ana Pandey Clarity (U) CLEAR Normal CLEAR [facility] Comment on above: Performed By: #### E LACIE UMICRO #### [facility] [address] [place] [address] Dr. Ana Pandey Color (U) LT. YELLOW Normal YELLOW [facility] Comment on above: Performed By: #### Sumaya MEDELLIN UMICRO #### [facility] [address] [address] [address] Ana BENITEZ A micrscopic examina tion will be performed if indicated. Normal [facility] Comment on above: Performed By: #### Sumaya MEDELLIN UMICRO #### [facility] [address] [place] [address] Dr. Ana Pandey Glucose Ql (U) Negative Normal NEGATIVE [facility] [place] Comment on above: Performed By: #### Sumaya MEDELLIN UMICRO #### [facility] [address] [place] [address] Dr. Ana Pandey Hemoglobin Ql (U) MODERATE Abnormal NEGATIVE [facility] Comment on above: Performed By: #### Sumaya MEDELLIN UMICRO #### [facility] [address] [place] [address] Dr. Ana Pandey Ketones Ql (U) Negative Normal NEGATIVE [facility] [place] Comment on above: Performed By: #### Sumaya MEDELLIN UMICRO #### [facility] [address] [place] [address] Dr. Ana Pandey LEUKOCYTES MODERATE Abnormal NEGATIVE [facility] Comment on above: Performed By: #### Sumaya MEDELLIN UMICRO #### [facility] [address] [place] [address] Dr. Ana Pandey Nitrite Ql (U) Positive Abnormal NEGATIVE [facility] [place] Comment on above: Performed By: #### JUSTYNA FARAHRO #### [facility] [address] [place] [address] Dr. Ana Pandey pH (U) 5.0 [pH] Normal 5-9 [facility] Comment on above: Performed By: #### LISBET FARAHICRO #### [facility] [address] [place] [address] Dr. Ana Pandey SPEC GRAVITY 1.025 Normal 1.005-<=1. 025 [facility] Comment on above: Performed By: #### JUSTYNA FARAHRO #### [facility] [address] [place] [address] Dr. Ana Pandey UA PROTEIN Negative Normal NEGATIVE/ TRACE [facility] Comment on above: Performed By: #### NEERAJ FARAH #### [facility] [address] [place] [address] Dr. Ana Pandey UR MICRO IND INDICATED Normal [facility] Comment on above: Performed By: #### NEERAJ FARAH #### [facility] [address] [place] [address] Dr. Ana Pandey Urobilinogen Qn (U) 0.2 {Casie'U}/dL Normal 0.2 - 1. 0 [facility] Comment on above: Performed By: #### NEERAJ FARAH #### [facility] [address] [place] [address] Dr. Ana Pandey LACTATE/LACTIC ACIDon 2022 Lactate [Moles/Vol] 2.0 mmol/L Normal 0.4-2.0 [facility] Comment on above: Performed By: #### L ACT #### [facility] [address] [place] [address] Dr. Ana Pandey PROF 14(COMP METB)on 023 Albumin [Mass/Vol] 3.2 g/dL Critically low 3.4-5.0 [facility] Comment on above: Performed By: #### C MP #### [facility] [address] [place] [address] Dr. Ana Pandey Albumin/Globulin [Mass ratio] 1.0 {ratio} Normal [facility] Comment on above: Performed By: #### C MP #### [facility] [address] [place] [address] Dr. Ana Pandey ALP [Catalytic activity/Vol] 75 U/L Normal 46-116 [facility] Comment on above: Performed By: #### C MP #### [facility] [address] [place] [address] Dr. Ana Pandey ALT [Catalytic activity/Vol] 24 U/L Normal 16-63 [facility] Comment on above: Performed By: #### C MP #### [facility] [address] [address] [address] Ana Pandey Anion gap [Moles/Vol] 13.0 mmol/L Normal [facility] Comment on above: Performed By: #### C MP #### [facility] [address] [address] [address] Ana Pandey AST [Catalytic activity/Vol] 19 U/L Normal 15-37 [facility] Comment on above: Performed By: #### C MP #### [facility] [address] [address] [address] Ana Pandey Bilirubin [Mass/Vol] 0.6 mg/dL Normal 0.2-1.0 [facility] Comment on above: Performed By: #### C MP #### [facility] [address] [place] [address] Dr. Ana Pandey Calcium [Mass/Vol] 8.6 mg/dL Normal 8.5-10.1 [facility] Comment on above: Performed By: #### C MP #### [facility] [address] [address] [address] Ana Pandey Chloride [Moles/Vol] 106 mmol/L Normal 98-107 [facility] Comment on above: Performed By: #### C MP #### [facility] [address] [place] [address] Dr. Ana Pandey CO2 [Moles/Vol] 25.0 mmol/L Normal 21.0-32.0 [facility] Comment on above: Performed By: #### C MP #### [facility] [address] [place] [address] Dr. Ana Pandey Creatinine [Mass/Vol] 1.34 mg/dL Critically high 0.70-1.30 [facility] Comment on above: Performed By: #### C MP #### [facility] [address] [place] [address] Dr. Ana Pandey EGFR-AF PUERTO RICAN >60 Normal >=60 [facility] Comment on above: Performed By: #### C MP #### [facility] [address] [address] [address] Ana Pandey EGFR-NON AF PUERTO RICAN 52 mL/min/1.73m2 Critically low >=60 [facility] Comment on above: Performed By: #### C MP #### [facility] [address] [address] [address] Ana Pandey Globulin (S) [Mass/Vol] 3.2 g/dL Normal [facility] Comment on above: Performed By: #### C MP #### [facility] [address] [address] [address] Ana Pandey Glucose [Mass/Vol] 136 mg/dL Critically high 74-[address] [facility] Comment on above: Performed By: #### C MP #### [facility] [address] [address] [address] Ana Pandey Potassium [Moles/Vol] 4.0 mmol/L Normal 3.5-5.1 [facility] Comment on above: Performed By: #### C MP #### [facility] [address] [place] [address] Dr. Ana Pandey Protein [Mass/Vol] 6.4 g/dL Normal 6.4-8.2 [facility] Comment on above: Performed By: #### C MP #### [facility] [address] [place] [address] Dr. Ana Pandey Sodium [Moles/Vol] 140 mmol/L Normal 136-145 [facility] Comment on above: Performed By: #### C MP #### [facility] [address] [address] [address] Ana Pandey Urea nitrogen [Mass/Vol] 23.0 mg/dL Critically high 7.0-18.0 [facility] Comment on above: Performed By: #### C MP #### [facility] [address] [place] [address] Dr. Ana Pandey Urea nitrogen/Creatinine [Mass ratio] 17.2 mg/mg Normal [facility] Comment on above: Performed By: #### C MP #### [facility] [address] [place] [address] Dr. Ana Pandey URINE MICROSCOPIC ONLYon BACTERIA LARGE Abnormal NONE SEEN [facility] Comment on above: Performed By: #### E MADALYNR, UMICRO #### [facility] [address] [place] [address] Dr. Ana Pandey Bacteria identified Cx Nom (U) INDICATED Normal [facility] Comment on above: Performed By: #### E RUR, UMICRO #### [facility] [address] [place] [address] Dr. Ana Pandey CAST NONE SEEN Normal NONE SEEN [facility] Comment on above: Performed By: #### E RUR, UMICRO #### [facility] [address] [place] [address] Dr. Ana Pandey Crystals LM Nom (Urine sed) NONE SEEN Normal NONE SEEN [facility] Comment on above: Performed By: #### E RUR, UMICRO #### [facility] [address] [place] [address] Dr. Ana Pandey Epithelial cells LM Ql (Urine sed) RARE Normal NONE SEEN /RARE [facility] Comment on above: Performed By: #### Sumaya MEDELLIN UMICRO #### [facility] [address] [place] [address] Dr. Ana Pandey MUCOUS NONE SEEN Normal NONE SEEN [facility] Comment on above: Performed By: #### Sumaya MEDELLIN, UMICRO #### [facility] [address] [place] [address] Dr. Ana Pandey RBC 0-2 Normal 0-2 [facility] Comment on above: Performed By: #### Sumaya MEDELLIN, UMICRO #### [facility] [address] [place] [address] Dr. Ana Pandey WBC 20-50 Abnormal NONE SEEN [facility] Comment on above: Performed By: #### Sumaya MEDELLIN, UMICRO #### [facility] [address] [place] [address] Dr. Ana Pandey XR CHEST 1 Von [...] YELENA DIAZ Date: 2022-07-16 23:14 Normal [facility] Covid-19 PCR (CVDTB)on 07-06 SARS-CoV-2 (COVID-19) RNA EDD+probe Ql (Unsp spec) Not detected Normal NOT DETECTED [facility] Comment on above: Performed By: #### A 1C #### [facility] [address] [place] [address] Dr. Ana Pandey INFLUENZA A AND B AGon 07-16 INFLUENZA A AG Negative Normal NEGATIVE SEE COMMENT [facility] Comment on above: Performed By: #### A 1C #### [facility] [address] [address] [address] Ana Pandey INFLUENZA B AG Negative Normal NEGATIVE SEE COMMENT [facility] Comment on above: Performed By: #### A 1C #### [facility] [address] [address] [address] Ana Pandey SYMPTOMATIC COVID-19 ANTIGEN on 07-16-2022 EUA Statement SEE BELOW Normal [facility] Comment on above: Result Comment: This test [...] sooner. Performed By: #### C VDAGS #### [facility] [address] [address] [address] Ana Pandey SARS-CoV-2 (COVID-19) RNA EDD+probe Ql (Unsp spec) Negative Normal NEGATIVE [facility] Comment on above: Performed By: #### C VDAGS #### [facility] [address] [address] [address] Ana Pandey GLYCOHEMOGLOBIN A1Con 2022 ADA RECOMMENDATION SEE BELOW Normal [facility] Comment on above: Result Comment: ADA RECOMMENDED LIMIT 4.0 - 6.0 ADA THERAPEUTIC TARGET < 7.0 ACTION SUGGESTED > 7.0 Performed By: #### A 1C #### [facility] [address] [place] [address] Dr. Ana Pandey Glucose [Mass/Vol] 154 mg/dL Normal [facility] Comment on above: Performed By: #### A 1C #### [facility] [address] [place] [address] Dr. Ana Pandey HbA1c (Bld) [Mass fraction] 7.0 % Critically high 4.5-6.2 [facility] Comment on above: Performed By: #### A 1C #### [facility] [address] [place] [address] Dr. Ana Pandey SED RATE CADWELLERGRENon 2022 SED RATE 30 mm/hr Critically high <=20 [facility] Comment on above: Performed By: #### A 1C #### [facility] [address] [place] [address] Dr. Ana Pandey NM STRESS/REST MULTIon 09-29 NM STRESS/REST MULTI Patient: LEONARDO WINSTON Exam Date: 09/29/2021 : 1945 Gender:M Ordering : MATIAS MAYORGA Admission #: [id number] Family : Order #: [id number] CLICK HERE TO VIEW EXAM RADIOLOGY REPORT [...] Graham M.D. on 09/29/2021 at 15:22 Normal [facility] PROF CHEM 8 (BAS METB)on Anion gap [Moles/Vol] 13.1 mmol/L Normal [facility] Comment on above: Performed By: #### B METAL DEALER, CMP #### [facility] [address] [place] [address] Dr. Ana Pandey Calcium [Mass/Vol] 8.6 mg/dL Normal 8.5-10.1 [facility] Comment on above: Performed By: #### B METAL DEALER, CMP #### [facility] [address] [address] [address] Ana Pandey Chloride [Moles/Vol] 104 mmol/L Normal 98-107 [facility] Comment on above: Performed By: #### B METAL DEALER, CMP #### [facility] [address] [place] [address] Dr. Ana Pandey CO2 [Moles/Vol] 25.9 mmol/L Normal 21.0-32.0 [facility] Comment on above: Performed By: #### B METAL DEALER, CMP #### [facility] [address] [address] [address] Ana Pandey Creatinine [Mass/Vol] 0.92 mg/dL Normal 0.70-1.30 [facility] Comment on above: Performed By: #### B METAL DEALER, CMP #### [facility] [address] [address] [address] Ana Pandey EGFR-AF PUERTO RICAN >60 Normal >=60 [facility] Comment on above: Performed By: #### B METAL DEALER, CMP #### [facility] [address] [address] [address] Ana Pandey EGFR-NON AF PUERTO RICAN >60 Normal >=60 [facility] Comment on above: Performed By: #### B METAL DEALER, CMP #### [facility] [address] [place] [address] Dr. Ana Pandey Glucose [Mass/Vol] 102 mg/dL Normal 74-106 [facility] Comment on above: Performed By: #### B METAL DEALER, CMP #### [facility] [address] [place] [address] Dr. Ana Pandey Potassium [Moles/Vol] 4.0 mmol/L Normal 3.5-5.1 [facility] Comment on above: Performed By: #### B METAL DEALER, CMP #### [facility] [address] [place] [address] Dr. Ana Pandey Sodium [Moles/Vol] 139 mmol/L Normal 136-145 [facility] Comment on above: Performed By: #### B METAL DEALER, CMP #### [facility] [address] [place] [address] Dr. Ana Pandey Urea nitrogen [Mass/Vol] 24.0 mg/dL Critically high 7.0-18.0 [facility] Comment on above: Performed By: #### B METAL DEALER, CMP #### [facility] [address] [place] [address] Dr. Ana Pandey Urea nitrogen/Creatinine [Mass ratio] 26.1 mg/mg Normal [facility] Comment on above: Performed By: #### B METAL DEALER, CMP #### [facility] [address] [place] [address] Dr. Ana Pandey BNPon 09-10-2021 Natriuretic peptide B (Bld) [Mass/Vol] 305.0 pg/mL Normal <=1,800.0 [facility] Comment on above: Performed By: #### B METAL DEALER, CMP #### [facility] [address] [place] [address] Dr. Ana Pandey CBC AUTO DIFFon 09-10-2021 BASO # 0.0 103/ul Normal 0.0-0.1 [facility] Comment on above: Performed By: #### A 1C #### [facility] [address] [place] [address] Dr. Ana Pandey Basophils/100 WBC (Bld) 0.5 % Normal 0.2-2.0 [facility] Comment on above: Performed By: #### A 1C #### [facility] [address] [place] [address] Dr. Ana Pandey EO # 0.1 103/ul Normal 0.0-0.7 [facility] Comment on above: Performed By: #### A 1C #### [facility] [address] [place] [address] Dr. Ana Pandey Eosinophils/100 WBC (Bld) 1.9 % Normal 0.9-7.0 [facility] Comment on above: Performed By: #### A 1C #### [facility] [address] [place] [address] Dr. Ana Pandey Erythrocyte distribution width (RBC) [Ratio] 15.4 % Critically high 11.0-15.0 [facility] Comment on above: Performed By: #### A 1C #### [facility] [address] [place] [address] Dr. Ana Pandey Hematocrit (Bld) [Volume fraction] 38.6 % Critically low 42.0-54.0 [facility] Comment on above: Performed By: #### A 1C #### [facility] [address] [place] [address] Dr. Ana Pandey Hemoglobin (Bld) [Mass/Vol] 12.2 g/dL Critically low 14.0-18.0 [facility] Comment on above: Performed By: #### A 1C #### [facility] [address] [place] [address] Dr. Ana Pandey IG # 0.01 10e3/ul Normal 0.00-0.03 [facility] Comment on above: Performed By: #### A 1C #### [facility] [address] [place] [address] Dr. Ana Pandey IG % 0.1 % Normal 0.0-0.5 [facility] Comment on above: Performed By: #### A 1C #### [facility] [address] [place] [address] Dr. Ana Pandey LYMPH # 1.6 103/ul Normal 1.2-3.8 [facility] Comment on above: Performed By: #### A 1C #### [facility] [address] [place] [address] Dr. Ana Pandey Lymphocytes/100 WBC (Bld) 21.1 % Normal 20.5-60.0 [facility] Comment on above: Performed By: #### A 1C #### [facility] [address] [place] [address] Dr. Ana Pandey MANUAL DIFF REQ NO Normal [facility] Comment on above: Performed By: #### A 1C #### [facility] [address] [place] [address] Dr. Ana Pandey MCH (RBC) [Entitic mass] 28.7 pg Normal 25.9-34.0 [facility] Comment on above: Performed By: #### A 1C #### [facility] [address] [place] [address] Dr. Ana Pandey MCHC (RBC) [Mass/Vol] 31.6 g/dL Normal 29.9-35.2 [facility] Comment on above: Performed By: #### A 1C #### [facility] [address] [place] [address] Dr. Ana Pandey MCV (RBC) [Entitic vol] 90.8 fL Normal 80.0-94.0 [facility] Comment on above: Performed By: #### A 1C #### [facility] [address] [place] [address] Dr. Ana Pandey MONO # 0.6 103/ul Normal 0.3-0.8 [facility] Comment on above: Performed By: #### A 1C #### [facility] [address] [address] [address] Ana Pandey Monocytes/100 WBC (Bld) 7.4 % Normal 1.7-12.0 [facility] Comment on above: Performed By: #### A 1C #### [facility] [address] [place] [address] Dr. Ana Panedy NEUT # 5.1 103/ul Normal 1.4-6.5 [facility] Comment on above: Performed By: #### A 1C #### [facility] [address] [place] [address] Dr. Ana Pandey Neutrophils/100 WBC (Bld) 69.0 % Normal 43.0-75.0 [facility] Comment on above: Performed By: #### A 1C #### [facility] [address] [place] [address] Dr. Ana Pandey Platelet mean volume (Bld) [Entitic vol] 9.9 fL Normal 9.5-13.5 [facility] Comment on above: Performed By: #### A 1C #### [facility] [address] [place] [address] Dr. Ana Pandey PLT 194 103/ul Normal 150-450 [facility] Comment on above: Performed By: #### A 1C #### [facility] [address] [place] [address] Dr. Ana Pandey RBC 4.25 106/ul Critically low 4.70-6.10 [facility] Comment on above: Performed By: #### A 1C #### [facility] [address] [place] [address] Dr. Ana Pandey WBC 7.4 103/ul Normal 4.0-11.0 [facility] Comment on above: Performed By: #### A 1C #### [facility] [address] [place] [address] Dr. Ana Pandey PROF 14(COMP METB)on 022 Albumin [Mass/Vol] 3.5 g/dL Normal 3.4-5.0 [facility] Comment on above: Performed By: #### B METAL DEALER, CMP #### [facility] [address] [place] [address] Dr. Ana Pandey Albumin/Globulin [Mass ratio] 1.2 {ratio} Normal [facility] Comment on above: Performed By: #### B METAL DEALER, CMP #### [facility] [address] [place] [address] Dr. Ana Pandey ALP [Catalytic activity/Vol] 67 U/L Normal 46-116 [facility] Comment on above: Performed By: #### B METAL DEALER, CMP #### [facility] [address] [place] [address] Dr. Ana Pandey ALT [Catalytic activity/Vol] 37 U/L Normal 16-63 [facility] Comment on above: Performed By: #### B METAL DEALER, CMP #### [facility] [address] [place] [address] Dr. Ana Pandey Anion gap [Moles/Vol] 11.6 mmol/L Normal [facility] Comment on above: Performed By: #### B METAL DEALER, CMP #### [facility] [address] [place] [address] Dr. Ana Pandey AST [Catalytic activity/Vol] 30 U/L Normal 15-37 [facility] Comment on above: Performed By: #### B METAL DEALER, CMP #### [facility] [address] [place] [address] Dr. Ana Pandey Bilirubin [Mass/Vol] 0.5 mg/dL Normal 0.2-1.0 [facility] Comment on above: Performed By: #### B METAL DEALER, CMP #### [facility] [address] [place] [address] Dr. Ana Pandey Calcium [Mass/Vol] 8.9 mg/dL Normal 8.5-10.1 [facility] Comment on above: Performed By: #### B METAL DEALER, CMP #### [facility] [address] [address] [address] Ana Pandey Chloride [Moles/Vol] 107 mmol/L Normal 98-107 [facility] Comment on above: Performed By: #### B METAL DEALER, CMP #### [facility] [address] [address] [address] Ana Pandey CO2 [Moles/Vol] 26.9 mmol/L Normal 21.0-32.0 [facility] Comment on above: Performed By: #### B METAL DEALER, CMP #### [facility] [address] [address] [address] Ana Pandey Creatinine [Mass/Vol] 0.93 mg/dL Normal 0.70-1.30 [facility] Comment on above: Performed By: #### B METAL DEALER, CMP #### [facility] [address] [place] [address] Dr. Ana Pandey EGFR-AF PUERTO RICAN >60 Normal >=60 [facility] Comment on above: Performed By: #### B METAL DEALER, CMP #### [facility] [address] [place] [address] Dr. Ana Pandey EGFR-NON AF PUERTO RICAN >60 Normal >=60 [facility] Comment on above: Performed By: #### B METAL DEALER, CMP #### [facility] [address] [place] [address] Dr. Ana Pandey Globulin (S) [Mass/Vol] 2.8 g/dL Normal [facility] Comment on above: Performed By: #### B METAL DEALER, CMP #### [facility] [facility] [address] [place] [address] Dr. Ana Pandey Glucose [Mass/Vol] 169 mg/dL Critically high 74-106 [facility] Comment on above: Performed By: #### B METAL DEALER, CMP #### [facility] [address] [place] [address] Dr. Ana Pandey Potassium [Moles/Vol] 4.5 mmol/L Normal 3.5-5.1 [facility] Comment on above: Performed By: #### B METAL DEALER, CMP #### [facility] [address] [address] [address] Ana Pandey Protein [Mass/Vol] 6.3 g/dL Critically low 6.4-8.2 Th e [facility] Comment on above: Performed By: #### B METAL DEALER, CMP #### [facility] [address] [address] [address] Ana Pandey Sodium [Moles/Vol] 141 mmol/L Normal 136-145 [facility] Comment on above: Performed By: #### B METAL DEALER, CMP #### [facility] [address] [address] [address] Ana Pandey Urea nitrogen [Mass/Vol] 20.0 mg/dL Critically high 7.0-18.0 [facility] Comment on above: Performed By: #### B METAL DEALER, CMP #### [facility] [address] [address] [address] Ana Pandey Urea nitrogen/Creatinine [Mass ratio] 21.5 mg/mg Normal [facility] Comment on above: Performed By: #### B METAL DEALER, CMP #### [facility] [address] [address] [address] Ana Pandey XR CHEST 2 Von [...] by: KAYCE SARAVIA Date: 2021-09-10 14:23 Normal [facility] CBC AUTO DIFFon 07-23-2021 BASO # 0.1 103/ul Normal 0.0-0.1 [facility] Comment on above: Performed By: #### C BC #### [facility] [address] [address] [address] Ana Pandey Basophils/100 WBC (Bld) 0.6 % Normal 0.2-2.0 [facility] Comment on above: Performed By: #### C BC #### [facility] [address] [place] [address] Dr. Ana Pandey EO # 0.2 103/ul Normal 0.0-0.7 [facility] Comment on above: Performed By: #### C BC #### [facility] [address] [place] [address] Dr. Ana Pandey Eosinophils/100 WBC (Bld) 2.5 % Normal 0.9-7.0 [facility] Comment on above: Performed By: #### C BC #### [facility] [address] [place] [address] Dr. Ana Pandey Erythrocyte distribution width (RBC) [Ratio] 15.0 % Normal 11.0-15.0 [facility] Comment on above: Performed By: #### C BC #### [facility] [address] [place] [address] Dr. Ana Pandey Hematocrit (Bld) [Volume fraction] 46.4 % Normal 42.0-54.0 [facility] Comment on above: Performed By: #### C BC #### [facility] [address] [place] [address] Dr. Ana Pandey Hemoglobin (Bld) [Mass/Vol] 14.2 g/dL Normal 14.0-18.0 [facility] Comment on above: Performed By: #### C BC #### [facility] [address] [place] [address] Dr. Ana Pandey IG # 0.02 10e3/ul Normal 0.00-0.03 [facility] Comment on above: Performed By: #### C BC #### [facility] [address] [place] [address] Dr. Ana Pandey IG % 0.2 % Normal 0.0-0.5 [facility] Comment on above: Performed By: #### C BC #### [facility] [address] [place] [address] Dr. Ana Pandey LYMPH # 2.5 103/ul Normal 1.2-3.8 [facility] Comment on above: Performed By: #### C BC #### [facility] [address] [place] [address] Dr. Ana Pandey Lymphocytes/100 WBC (Bld) 27.9 % Normal 20.5-60.0 [facility] Comment on above: Performed By: #### C BC #### [facility] [address] [place] [address] Dr. Ana Pandey MANUAL DIFF REQ NO Normal [facility] Comment on above: Performed By: #### C BC #### [facility] [address] [place] [address] Dr. Ana Pandey MCH (RBC) [Entitic mass] 27.8 pg Normal 25.9-34.0 [facility] Comment on above: Performed By: #### C BC #### [facility] [address] [place] [address] Dr. Ana Pandey MCHC (RBC) [Mass/Vol] 30.6 g/dL Normal 29.9-35.2 [facility] Comment on above: Performed By: #### C BC #### [facility] [address] [place] [address] Dr. Ana Pandey MCV (RBC) [Entitic vol] 90.8 fL Normal 80.0-94.0 [facility] Comment on above: Performed By: #### C BC #### [facility] [address] [place] [address] Dr. Ana Pandey MONO # 0.7 103/ul Normal 0.3-0.8 [facility] Comment on above: Performed By: #### C BC #### [facility] [address] [place] [address] Dr. Ana Pandey Monocytes/100 WBC (Bld) 8.0 % Normal 1.7-12.0 [facility] Comment on above: Performed By: #### C BC #### [facility] [address] [place] [address] Dr. Ana Pandey NEUT # 5.4 103/ul Normal 1.4-6.5 [facility] Comment on above: Performed By: #### C BC #### [facility] [address] [address] [address] Ana Pandey Neutrophils/100 WBC (Bld) 60.8 % Normal 43.0-75.0 [facility] Comment on above: Performed By: #### C BC #### [facility] [address] [address] [address] Ana Pandey Platelet mean volume (Bld) [Entitic vol] 10.6 fL Normal 9.5-13.5 [facility] Comment on above: Performed By: #### C BC #### [facility] [address] [address] [address] Ana Pandey PLT 248 103/ul Normal 150-450 [facility] Comment on above: Performed By: #### C BC #### [facility] [address] [place] [address] Dr. Ana Pandey RBC 5.11 106/ul Normal 4.70-6.10 [facility] Comment on above: Performed By: #### C BC #### [facility] [address] [place] [address] Dr. Ana Pandey WBC 8.8 103/ul Normal 4.0-11.0 [facility] Comment on above: Performed By: #### C BC #### [facility] [address] [place] [address] Dr. Ana Pandey GLYCOHEMOGLOBIN A1Con 2021 ADA RECOMMENDATION SEE BELOW Normal [facility] Comment on above: Result Comment: ADA RECOMMENDED LIMIT 4.0 - 6.0 ADA THERAPEUTIC TARGET < 7.0 ACTION SUGGESTED > 7.0 Performed By: #### A 1C #### [facility] [address] [place] [address] Dr. Ana Pandey Glucose [Mass/Vol] 146 mg/dL Normal [facility] Comment on above: Performed By: #### A 1C #### [facility] [address] [place] [address] Dr. Ana Pandey HbA1c (Bld) [Mass fraction] 6.7 % Critically high 4.5-6.2 [facility] Comment on above: Performed By: #### A 1C #### [facility] [address] [address] [address] Ana Pandey LIPID PROFILEon 07-23-2021 CHOL-HDL RATIO NORM SEE BELOW Normal [facility] Comment on above: Result Comment: 3.3 - 4.4 LOW RISK 4.4 - 7.1 AVERAGE RISK 7.1 - 11.0 MODERATE RISK >11.0 HIGH RISK Performed By: #### A 1C #### [facility] [address] [address] [address] Ana Pandey Cholesterol [Mass/Vol] 98 mg/dL Normal <=200 [facility] Comment on above: Performed By: #### A 1C #### [facility] [address] [address] [address] Ana Pandey Cholesterol in HDL [Mass/Vol] 42 mg/dL Normal 40-60 [facility] Comment on above: Performed By: #### A 1C #### [facility] [address] [address] [address] Ana Pandey Cholesterol in LDL [Mass/Vol] 43.2 mg/dL Normal [facility] Comment on above: Performed By: #### A 1C #### [facility] [address] [address] [address] Ana Pandey Cholesterol.total/Cho lesterol in HDL [Mass ratio] 2.3 {ratio} Normal [facility] Comment on above: Performed By: #### A 1C #### [facility] [address] [address] [address] Ana Pandey HDL NORMAL > or = 60 mg/dl - LO W CARDIOVASCULAR RISK <40 mg/dl - HIGH CARDIOVASCULAR RISK Normal [facility] Comment on above: Performed By: #### A 1C #### [facility] [address] [address] [address] Ana Pandey LDL CALC NORMAL SEE BELOW Normal [facility] Comment on above: Result Comment: <100 mg/dl OPTIMAL 100 - 129 mg/dl NEAR OR ABOVE OPTIMAL 130 - 159 mg/dl BORDERLINE HIGH 160 - 189 mg/dl HIGH >190 mg/dl VERY HIGH Performed By: #### A 1C #### [facility] [address] [place] [address] Dr. Ana Pandey Triglyceride [Mass/Vol] 64 mg/dL Normal <=150 [facility] Comment on above: Performed By: #### A 1C #### [facility] [address] [place] [address] Dr. Ana Pandey VLDL CALC 12.8 mg/dL Normal [facility] Comment on above: Performed By: #### A 1C #### [facility] [address] [place] [address] Dr. Ana Pandey LIVER PROFILEon 07-23-2021 Albumin [Mass/Vol] 3.9 g/dL Normal 3.4-5.0 [facility] Comment on above: Performed By: #### A 1C #### [facility] [address] [place] [address] Dr. Ana Pandey Albumin/Globulin [Mass ratio] 1.2 {ratio} Normal [facility] Comment on above: Performed By: #### A 1C #### [facility] [address] [place] [address] Dr. Ana Pandey ALP [Catalytic activity/Vol] 74 U/L Normal 46-116 [facility] Comment on above: Performed By: #### A 1C #### [facility] [address] [place] [address] Dr. Ana Pandey ALT [Catalytic activity/Vol] 52 U/L Normal 16-63 [facility] Comment on above: Performed By: #### A 1C #### [facility] [address] [place] [address] Dr. Ana Pandey AST [Catalytic activity/Vol] 43 U/L Critically high 15-37 [facility] Comment on above: Performed By: #### A 1C #### [facility] [address] [place] [address] Dr. Ana Pandey BILI, CONJUGATED 0.2 mg/dL Normal 0.0-0.2 [facility] Comment on above: Performed By: #### A 1C #### [facility] [address] [place] [address] Dr. Ana Pandey Bilirubin [Mass/Vol] 0.6 mg/dL Normal 0.2-1.0 [facility] Comment on above: Performed By: #### A 1C #### [facility] [address] [place] [address] Dr. Ana Pandey Globulin (S) [Mass/Vol] 3.2 g/dL Normal [facility] Comment on above: Performed By: #### A 1C #### [facility] [address] [place] [address] Dr. Ana Pandey Protein [Mass/Vol] 7.1 g/dL Normal 6.4-8.2 [facility] Comment on above: Performed By: #### A 1C #### [facility] [address] [place] [address] Dr. Ana Pandey MICROALBUMIN, RAND URon 07-06 mALB 1.8 mg/L Normal <=30.0 [facility] Comment on above: Performed By: #### A 1C #### [facility] [address] [place] [address] Dr. Ana Pandey PROF CHEM 8 (BAS METB)on Anion gap [Moles/Vol] 12.1 mmol/L Normal [facility] Comment on above: Performed By: #### A 1C #### [facility] [address] [place] [address] Dr. Ana Pandey Calcium [Mass/Vol] 8.7 mg/dL Normal 8.5-10.1 [facility] Comment on above: Performed By: #### A 1C #### [facility] [address] [place] [address] Dr. Ana Padney Chloride [Moles/Vol] 102 mmol/L Normal 98-107 [facility] Comment on above: Performed By: #### A 1C #### [facility] [address] [place] [address] Dr. Ana Pandey CO2 [Moles/Vol] 28.1 mmol/L Normal 21.0-32.0 [facility] Comment on above: Performed By: #### A 1C #### [facility] [address] [address] [address] Ana Pandey Creatinine [Mass/Vol] 0.94 mg/dL Normal 0.70-1.30 [facility] Comment on above: Performed By: #### A 1C #### [facility] [address] [address] [address] Ana Pandey EGFR-AF PUERT[place] RICAN >60 Normal >=60 [facility] Comment on above: Performed By: #### A 1C #### [facility] [address] [address] [address] Ana Pandey EGFR-NON AF PU[place] RICAN >60 Normal >=60 [facility] Comment on above: Performed By: #### A 1C #### [facility] [address] [address] [address] Ana Pandey Glucose [Mass/Vol] 102 mg/dL Normal 74-106 [facility] Comment on above: Performed By: #### A 1C #### [facility] [address] [address] [address] Ana Pandey Potassium [Moles/Vol] 4.2 mmol/L Normal 3.5-5.1 [facility] Comment on above: Performed By: #### A 1C #### [facility] [address] [address] [address] Ana Pandey Sodium [Moles/Vol] 138 mmol/L Normal 136-145 [facility] Comment on above: Performed By: #### A 1C #### [facility] [address] [address] [address] Ana Pandey Urea nitrogen [Mass/Vol] 28.0 mg/dL Critically high 7.0-18.0 [facility] Comment on above: Performed By: #### A 1C #### [facility] [address] [place] [address] Dr. Ana Pandey Urea nitrogen/Creatinine [Mass ratio] 29.8 mg/mg Normal [facility] Comment on above: Performed By: #### A 1C #### [facility] [address] [place] [address] Dr. Ana Pandey TSHon 07-23-2021 TSH 4.104 uIU/mL Critically high 0.358-3.74 0 [facility] Comment on above: Performed By: #### A 1C #### [facility] [address] [place], [place] [address] Dr. Ana Pandey TSH RANGE SEE BELOW Normal [facility] Comment on above: Result Comment: <0.3 4 UIU/ml HYPERTHYROID 0.34-5.60 UIU/ml EUTHYROID >5.60 UIU/ml HYPOTHYROID Performed By: #### A 1C #### [facility] [address] [place], [place] [address] Dr. Ana Pandey COVID Quick Testingon 2020 Result Positive [facility] Other Cardiovascular Lab Reporton 05-05-2017 Cardiovascular Lab Report [facility] Patient Name: Thea Winston [facility] MR #: [id number] Physician: Shantell Gomez,Department of M.D.Medicine Service Date: 05/04/2017Division of Birthdate: 4Cardiology Room #: 3AB [id number] [facility]Services[facility] [place], [place] [address] Fax Cardiovascular Laboratory ReportREFERRING PHYSICIANS: Christian Rosa [...] CAD.6. Outpatient followup with Dr. Jacobo Rosa, [place] Cardiology.7. Okay to refer to cardiac rehabilitation [...] usingultrasound guidance and micropuncture access technique, a 6-[place] sheathwas placed in the right internal jugular vein. Using a Dougherty catheter,the right heart catheterization was then performed. Pressures wereobtained in the right atrium, right ventricle, pulmonary artery, andpulmonary capillary wedge position. Oxygen saturation was drawn from thepulmonary artery and the Sly cardiac output and cardiac index were thencalculated. The Dougherty catheter was then removed.Next, a 6-[place] Terumo Glidesheath slender was placed in the [...] check the severity with an FFR testing.A [employer] left 6-[place] guide was engaged to left main coronaryartery.The [employer]eor[employer] FFR wire was then zeroed outside of [...] 05/04/2017/12:44 P/Shantell Gomez M.D.Date Trans: 05/05/2017 09:35 A/[id number] c: Christian Rosa M.D. [facility]5 [facility] [address] Michael Smith M.D. [facility]6 [facility] [address] [facility] Vital Signs Date Time Vital Sign Value Performing Clinician Facility 04-22-2023 14:27-0500 Body height 190.5 cm MD Michael Smith Work Phone: [facility] 04-22-2023 14:27-0500 Body mass index (BMI) [Ratio] 29.7 kg/m2 MD Michael Smith Work Phone: [facility] 04-22-2023 14:27-0500 Body temperature 97.6 [degF] MD Michael Smith Work Phone: [facility] 04-22-2023 14:27-0500 Body weight 107.67 kg MD Michael Smith Work Phone: [facility] 04-22-2023 14:27-0500 Heart rate 67 /min MD Michael Smith Work Phone: [facility] 04-22-2023 14:27-0500 Respiratory rate 18 /min MD Michael Smith Work Phone: [facility] 04-22-2023 14:27-0500 SaO2% (BldA) [Mass fraction] 95 % MD Michael Smith Work Phone: [facility] 02-14-2023 12:10-0500 Body height 190.5 cm Mitzy Pura Other [facility] 02-14-2023 12:10-0500 Body mass index (BMI) [Ratio] 30.57 kg/m2 Mitzy Pura Other [facility] Other 02-14-2023 12:10-0500 Body temperature 98 [degF] Mitzy Pura Other [facility] Other 02-14-2023 12:10-0500 Body weight 110.95 kg Mitzy Pura Other [facility] Other 02-14-2023 12:10-0500 Body weight 110.94 kg MD Michael Smith Work Phone: [facility] 02-14-2023 12:10-0500 Diastolic blood pressure 60 mm[Hg] Mitzy Pura Other [facility] 02-14-2023 12:10-0500 Respiratory rate 18 /min Mitzy Pura Other [facility] Other 02-14-2023 12:10-0500 SaO2% (BldA) [Mass fraction] 98 % Mitzy Pura Other [facility] Other 02-14-2023 12:10-0500 Systolic blood pressure 135 mm[Hg] Mitzy Pura Other [facility] 10-05-2022 11:30-0400 Diastolic blood pressure 58 mm[Hg] Genoveva Pond DO Work Phone: [employer] 10-05-2022 11:30-0400 Heart rate 58 /min Genoveva Pond DO Work Phone: [employer] 10-05-2022 11:30-0400 Respiratory rate 16 /min Genoveva Pond DO Work Phone: [employer] 10-05-2022 11:30-0400 SaO2% (BldA) [Mass fraction] 98 % Genoveva Pond DO Work Phone: [employer] 10-05-2022 11:30-0400 Systolic blood pressure 126 mm[Hg] Genoveva Pond DO Work Phone: [employer] 10-05-2022 11:11-0400 Body temperature 96.91 [degF] Genoveva Pond DO Work Phone: [employer] 10-05-2022 10:00-0400 Body height 190.5 cm Genoveva Pond DO Work Phone: [employer] 10-05-2022 10:00-0400 Body mass index (BMI) [Ratio] 32.12 kg/m2 Genoveva Pond DO Work Phone: [employer] 10-05-2022 10:00-0400 Body weight 116.57 kg Genoveva Pond DO Work Phone: [employer] 05-26-2022 12:50-0400 Body height 190.5 cm Minerva Irwin Other [facility] Other 05-26-2022 12:50-0400 Body mass index (BMI) [Ratio] 31.87 kg/m2 Minerva Irwin Other [facility] Other 05-26-2022 12:50-0400 Body temperature 97.1 [degF] Minerva Irwin Other [facility] Other 05-26-2022 12:50-0400 Body weight 115.67 kg Minerva Irwin Other [facility] Other 05-26-2022 12:50-0400 Respiratory rate 18 /min Minerva Irwin Other [facility] Other 05-26-2022 12:50-0400 SaO2% (BldA) [Mass fraction] 97 % Minerva Irwin Other [facility] Other 03-20-2022 14:00-0500 Body height 190.5 cm Minerva Irwin Other [facility] Other 03-20-2022 14:00-0500 Body mass index (BMI) [Ratio] 28.74 kg/m2 Minerva Irwin Other [facility] Other 03-20-2022 14:00-0500 Body temperature 97.7 [degF] Minerva Irwin Other [facility] Other 03-20-2022 14:00-0500 Body weight 104.33 kg Minerva Irwin Other [facility] Other 03-20-2022 14:00-0500 Respiratory rate 18 /min Minerva Irwin Other [facility] Other 03-20-2022 14:00-0500 SaO2% (BldA) [Mass fraction] 97 % Minerva Irwin Other [facility] Other 12-05-2020 17:15-0400 Body height 190.5 cm Radha Sawant Other [facility] Other 12-05-2020 17:15-0400 Body temperature 98.8 [degF] Radha Sawant Other [facility] Other 12-05-2020 17:15-0400 SaO2% (BldA) [Mass fraction] 97 % Radha Sawant Other [facility] Other Encounters Encounter Date Encounter Type Care Provider Facility Start: 05-21-2023 End: 05-21-2023 ambulatory CHRISTIANO [facility] Start: 04-26-2023 End: 04-26-2023 ambulatory SHAIKH LOLLY Not Available Start: 04-22-2023 End: 04-22-2023 ambulatory MD Michael Smith Work Phone: [facility] Work Phone: Start: 04-22-2023 End: 04-22-2023 Patient encounter procedure MD Michael Smith Work Phone: [facility] [facility] [employer] Work Phone: Start: 04-21-2023 Orders Only Shaikh Lolly PERALES Work Phone: [facility] Comment on above: Coronary arterioscle rosis in solomon artery (CMS/HCC) (Primary Dx) Start: 04-15-2023 Orders Only Shaikh Lolly PERALES Work Phone: [facility] Comment on above: Chronic heart failur e with preserved ejection fraction (HFpEF) (CMS/HCC) (Primary Dx) Start: 03-15-2023 End: 03-15-2023 ambulatory SHAIKH LOLLY Not Available Start: 02-25-2023 Patient encounter procedure Shaikh Lolly PERALES Work Phone: [facility] Start: 02-25-2023 End: 02-25-2023 ambulatory SHAIKH LOLLY Not Available Start: 02-14-2023 End: 02-14-2023 ambulatory Mitzy Neves Other [facility] Other Start: 02-14-2023 Office outpatient vi sit 15 minutes Mitzy Neves [facility] Start: 02-14-2023 End: 02-14-2023 Patient encounter procedure MD Michael Smith Work Phone: [facility] Work Phone: Start: 02-09-2023 End: 02-09-2023 ambulatory AMANDA CARLOSVALERY Not Available Start: 02-01-2023 End: 02-01-2023 ambulatory Trell Damian Facility:[facility] Start: 02-01-2023 End: 02-01-2023 ambulatory MD Michael Smith Work Phone: [facility] Work Phone: Start: 02-01-2023 End: 02-01-2023 Patient encounter procedure MD Michael Smith Work Phone: [facility] Work Phone: Start: 10-05-2022 End: 10-05-2022 ambulatory [facility] Start: 10-05-2022 End: 10-05-2022 Subsequent hospital visit by physician Genoveva Pond DO Work Phone: [facility] Start: 07-22-2022 ambulatory MENDEZ Smart [facility] Start: 07-16-2022 End: 07-17-[address] MATIAS MAXWELL . Facility: Start: 06-26-2022 End: 06-26-2022 ambulatory Minerva Irwin Other [facility] Other Start: 06-26-2022 Telephone encounter Minerva Irwin [facility] Start: 05-26-2022 End: 05-26-2022 ambulatory Minerva Irwin Other [facility] Other Start: 05-26-2022 Office outpatient vi sit 25 minutes Minerva Irwin [facility] Start: 05-08-2022 End: 05-09-[address] MICHAEL SMITH Facility:[facility] Start: 04-03-2022 End: 04-04-2022 ambulatory SHAIKH Vijaya AMBROCIO Facility:[facility] Start: 03-25-2022 End: 03-26-[address] MICHAEL SMITH Facility:[facility] Start: 03-20-2022 End: 03-20-2022 ambulatory Minerva Irwin Other [facility] [employer] Other Start: 03-20-2022 Office outpatient vi sit 25 minutes Minerva Irwin [facility] Start: 12-24-2021 End: 12-25-[address] MICHAEL SMITH Facility:[facility] Start: 09-29-2021 End: 09-30-[address] ADRIA [...] Start: 05-04-2017 End: 05-05-2017 Ambulatory MICHAEL SMITH Facility:[facility] Start: 04-28-2017 End: 04-29-2017 Ambulatory DEFAULT PHYSICIAN Facility:[facility] Procedures Date Procedure Procedure Detail Performing Clinician Start: 05-21-2023 Follow-up visit Follow-up CHRISTIANO DOUGLAS Start: 10-05-2022 GLUCOSE, WHOLE BLOOD Bl air Y Shamar DO Work Phone: Start: 10-05-2022 Ecg routine ecg w/le ast 12 lds w/i&r Genoveva Y Shamar DO Work Phone: Start: 07-23-[address] MICHAEL BLUE Comment on above: Performed By: #### B METAL DEALER, CMP #### [facility] [address] [place] [address] Dr. Ana Pandey History of placement of stent for coronary artery disease H/O heart artery stent MD Michael Smith Work Phone: Plan of Treatment Date Care Activity Detail Author Start: 11-06-2024 Glaucoma screening Diabetes: R etinopathy Screening [facility] Start: 02-26-2024 Medicare Annual Wellness (AWV) Medicare Annual Wellness (AWV) [facility] Start: 05-31-2023 End: 05-31-2023 Patient encounter procedure 05/31/2023 10:45 AM EDT Office Visit [facility] [address] [place] [id number] Shaikh Ambrocio MD [address] [place] [id number] [facility] Start: 05-06-2023 Hemoglobin A1c measurement Diabetes: Hemoglobin A1C [facility] Start: 10-06-2022 Influenza vaccination Flu vaccine (# 1) [facility] Start: 10-05-2022 Annual Wellness Visi t (AWV) Annual Wellness Visit (AWV) [facility] Start: 10-05-2022 End: 10-05-2022 Xcapsl ctrc rmvl insj io lens prosth w/o ecp EYE CATARACT EMULSIFICATION IOL IMPLANT Combined forms of age-related cataract of left eye 10/05/2022 10:44 AM EDT [facility] Start: 07-13-2022 Urine screening for protein Diabetes: Urine Protein Screening [facility] Start: 09-01-2008 Pneumococcal 65+ yea rs Vaccine (1 - PCV) Pneumococcal 65+ years Vaccine (1 - PCV) [facility] Start: 09-01-1993 Shingles vaccine (1 of 2) Shingles vaccine (1 of 2) [facility] Start: 09-01-1962 DTaP/Tdap/Td vaccine (1 - Tdap) DTaP/Tdap/Td vaccine (1 - Tdap) [facility] Start: 09-01-1961 Hepatitis C screening Hepatitis C sc reen [facility] Start: 1955 Depression Screen Depression Screen [facility] Start: 09-01-1953 Lipid panel Lipids [facility] Start: 09-01-1949 Pneumococcal Vaccine : 65+ Years (1 - PCV) Pneumococcal Vaccine: 65+ Years (1 - PCV) [facility] Start: 03-03-1944 COVID-19 Vaccine (#1) COVID-19 Vacci ne (#1) [facility] EKG 12 Lead EKG 12 Lead ECG Routine 10/05/2022 10:15 AM EDT [facility] Oxygen therapy [Mini mum Data Set] Initiate Oxygen Therapy Protocol Respiratory Care Routine Daily until discontinued starting 10/05/2022 [facility] Comment on above: Daily until disconti nued starting 10/05/2022 Oxygen therapy [Mini mum Data Set] Initiate Oxygen Therapy Protocol Respiratory Care Routine Daily until discontinued starting 10/05/2022 [facility] Comment on above: Daily until disconti nued starting 10/05/2022 Immunizations Immunization Date Immunization Notes Care Provider [facility] 12-25-2022 ABRYSVO - Respirator y syncytial virus (RSV), vaccine, bivalent, protein subunit RSV prefusion F, diluent reconstituted, 0.5 mL, PF Shaikh Lolly PERALES Work Phone: [facility] 11-26-2022 Influenza, High-dose Seasonal, Quadrivalent, Preservative Free Shaikh Lolly PERALES Work Phone: [facility] 12-25-2021 Influenza, Seasonal, Quadrivalent, Adjuvanted Shaikh Lolly PERALES Work Phone: [facility] 12-15-2020 Influenza, High-dose Seasonal, Quadrivalent, Preservative Free Shaikh Lolly PERALES Work Phone: [facility] 12-14-2019 influenza, injectabl e, quadrivalent, preservative free Shaikh Lolly PERALES Work Phone: [facility] 11-28-2019 Influenza, High-dose Seasonal, Quadrivalent, Preservative Free Shaikh Lolly PERALES Work Phone: [facility] 11-28-2019 zoster vaccine recombinant Shaikh Lolly PERALES Work Phone: [facility] 01-02-2018 influenza, high dose seasonal, preservative-free Shaikh Lolly PERALES Work Phone: [facility] 11-29-2016 influenza, high dose seasonal, preservative-free Shaikh Lolly PERALES Work Phone: [facility] 12-13-2015 influenza, high dose seasonal, preservative-free Shaikh Lolly PERALES Work Phone: [facility] 12-24-2014 influenza, high dose seasonal, preservative-free Shaikh Lolly PERALES Work Phone: [facility] 09-10-2013 tetanus toxoid, adsorbed Radha Sawant Other [facility] 02-11-2012 influenza virus vaccine, whole virus Shaikh Lolly PERALES Work Phone: [facility] 01-19-2011 influenza virus vaccine, whole virus Shaikh Lolly PERALES Work Phone: [facility] Payers Date Payer Category Payer Self-pay [id number] 2023 Unknown [id number] 2022 Unknown 2020 Unknown [id number] 1959 Medicare [id number] [id number] 1959 Unknown [id number] 2.16.840.1.512424. 1943 Unknown [id number] 2.16.840.1.644620.3.579.2.593 1943 Unknown [id number] 2.16.840.1.449855.3.579.2.593 1943 Unknown [id number] 2.16.840.1.924239.3.579.2.593 1943 Unknown [id number] 2.16.840.1.276089.3.579.2.593 1943 Unknown [id number] 2.16.840.1.617447.3.579.2.593 1943 Unknown [id number] 2.16.840.1.492433.3.579.2.593 1943 Unknown [id number] 2.16.840.1.299332.3.579.2.593 1943 Unknown [id number] 2.16.840.1.405785.3.579.2.593 1943 Unknown [id number] 2.16.840.1.238537.3.579.2.593 1943 Unknown [id number] 2.16.840.1.996392.3.579.2.593 1943 Unknown [id number] 2.16.840.1.353964.3.579.2.593 1943 Unknown [id number] 2.16.840.1.231477.3.579.2.173 1943 Unknown [id number] 2.16.840.1.287517.3.579.2.1259 1943 Unknown [id number] 2.16.840.1.060357.3.579.2.1259 1943 Unknown [id number] 2.16.840.1.039991.3.579.2.1259 1943 Unknown [id number] 2.16.840.1.536013.3.579.2.1259 Medicare [id number] Medicare [facility] [id number] Medicare [facility] [id number] Unknown [id number] 2.16.840.1.401399.3.579.2.531 Social History Date Type Detail Facility Unknown if ever smoked [employer] Other Start: 02-25-2023 Sex Assigned At N [facility] Other Start: 09-10-2013 End: 09-22-2022 Tobacco smoking status NHIS Never smoked tobacco [facility] Start: 09-22-2022 End: 02-09-2023 Tobacco use and exposure Smokeless tobacco non-user [employer] Start: 10-05-2022 End: 02-25-2023 Alcohol intake Lifetime non-drinker (finding) [facility] Start: 1945 Sex Assigned At Not on file [facility] Start: 1945 Sex Assigned At Male [facility] Start: 02-25-2023 History of Social function [facility] Clinical Notes 12-05-2020 to 02-14-2023 [...] or shortness of breath. Continue to take kycd-vvu-tonpi er cough medicine as needed for cough. Follow-up with your family physician if no improvement in 2 to 3 days [facility] Other 07-31-2023 History of Present illness Narrative* [...] AM EDT Lab work from July from [facility] received in this office. * Noelle [...] PAT [facility] call. [facility]* Discharge Instructions* Mervat Burgos [...] the healing period. The office number is [phone]. Take surgery bag and all eye drops to Dr. Pond's office tomorrow at 9:20am. You may resume your normal diet. Start your eye drops tomorrow after your post-op appointment: Ofloxacin/Polytrim one drop to the operated eye 4 times daily Prednisolone one drop to the operated eye 4 times daily [facility]* Encounter Date Diagnosis Assessment Notes [...] understanding and is agreeable to treatment plan [facility] Other 01-13-2023 Evaluation note* Encounter Date Diagnosis Assessment Notes [...] understanding and is agreeable to treatment plan [facility] Other 07-25-2022 NoteCARDIAC STRESS TEST Requesting Physician: Procedure Date:09/29/2021 [...] interpreted and reported in a separate dictation.[id number] Evaluation note* Encounter Date Diagnosis Assessment Notes Treatment Notes Treatment Clinical Notes Nov, Contact with and (suspected) exposure to other viral communicable diseases (ICD-10 - Z20.828) Nov, COVID-19 (ICD-10 - U07.1) Today you tested positive for the COVID virus. This mean you need to follow all CDC quarantine guidelines found at [email or web address] v. It is important to rest, increase [...] in writting by [facility] At Home document. [facility] Other Evaluation noteNo InformationNort [facility] Other evaluation note* Diagnosis Combined forms of age-related cataract of left eye- Primary Other and combined forms of senile cataract documented [facility] [place] noteNo assessment information available [facility] Work Phone: Evaluation note* Diagnosis Chronic heart failure with preserved ejection fraction (HFpEF) ([facility])- Primary documented in this encounter [facility] HealthcareEvaluation note* Diagnosis Coronary arteriosclerosis in solomon artery ([facility])- Primary documented in this encounter [facility] HealthcareEvaluation note* Diagnosis Onset Date Resolution Status Viral URI with cough acute [facility] Work Phone: [employer] general Narrative - Reported* Type Description Date Medical History DM Medical History HTN Medical History Arthritis Medical History hypercholesterolemia Surgical History Cyst off back Surgical History Polyps removed Surgical History heart stent Surgical History shoulder Hospitalization History see above [facility] general Narrative - Reported* Type Description Date Medical History DM Medical History HTN Medical History Arthritis Medical History hypercholesterolemia Surgical History Cyst off back Surgical History Polyps removed Surgical History heart stent Surgical History shoulder Surgical History cataract surgery 07/2022 Hospitalization History see above [facility] Other Summary Purpose Family History No Family [...] section and content) DATE CREATED AUTHOR 08/27/2017 [facility] DATE CREATED AUTHOR AUTHOR'S ORGANIZ ATION 07/20/2022 [facility] DATE CREATED AUTHOR AUTHOR'S ORGANIZ ATION 10/05/2022 [facility] DATE CREATED AUTHOR AUTHOR'S ORGANIZ ATION 04/16/2023 [facility] DATE CREATED AUTHOR AUTHOR'S ORGANIZ ATION 04/27/2023 [facility] EPIC DATE CREATED AUTHOR AUTHOR'S ORGANIZ ATION 05/22/2023 [facility] REASON FOR VISIT (unrecogniz ed section and content) Specialty Diagnoses / Procedures Referred By Korey t Referred To Contact Diagnoses Combined forms of age-related cataract of left eye Combined forms of age-related cataract of left eye [H25.812] Procedures SD XCAPSL CTRC RMVL INSJ IO LENS PROSTH W/O ECP EYE CATARACT EMULSIFICATION IOL IMPLANT Genoveva Pond Y, DO [address] [place] [address] [facility] [id number] [place] [address] Referral ID Status Reason Start Date Expiration Date Visits Re quested Visits Authorized [id number] 1 1 Scheduled Active and Recently Administ ered Medications (unrecognized section and content) Medication Order 10/03/2022 10/04/2022 10/05/2022 phenylephrine (MYDFRIN) 2.5 % ophthalmic solution 1 drop 1 drop, Left Eye, SEE ADMIN INSTRUCTIONS, Starting on 10/05/22 at 0957, Until Discontinued, To operative eye(s) [...] Michael Smith MD Primary Care Provider Active Library Sales Consultant Relationship Specialty Start Date End Date Michael Smith MD [address] [place] [address] PCP - [facility] 12/06/22 Shaikh Ambrocio MD [address] [place] [address] PCP - General Internal Medicine 02/25/23 [employer] Consultant Relationship Specialty Start Date End Date Michael Smith MD [address] [place] [address] PCP - [facility] 12/06/22 Shaikh Ambrocio MD [address] [place] [address] PCP - General Internal Medicine 02/25/23 Team [...] BE BASED ON THE PRIMARY CLINICAL RECORDS. [facility]. provides no warranty or guarantee of the accuracy or completeness of information in this document.
== END 2023-05-28 11:45 | disposition home or self-care (01) ==
LOC: WC 11:44
PROVIDERS: PCP Internal Medicine; Visit Provider Podiatrist Foot & Ankle Surgery
DX: E11.621 Type 2 diabetes mellitus with foot ulcer (principal); L97.412 Non-pressure chronic ulcer of right heel and midfoot with fat layer exposed
CPT/HCPCS: G0463

== ENCOUNTER 2023-06-02 13:46 | Outpatient (OUT) | payer OTHER, SELFPAY ==
--- NOTE | 2023-06-02 14:00 | CA_ITS ---
Patient Name: THEA BONILLA MR#: [id number] : 1945 Exam Date: 06/02/2023 Ordering Doctor: CHRISTIANO DOUGLAS M.D. ECHOCARDIOGRAM REPORT PROCEDURE: CA ECHO DOPPLER COMPLETE INDICATIONS: Dyspnea, cardiac stent, hypertension, diabetes COMPARISON: None. DESCRIPTION: COMPLETE ECHOCARDIOGRAM Real-time transthoracic echocardiography with 2D, M-mode, spectral and color flow Doppler performed. QUALITY: Technical quality was good. 72 , 230#, BSA 2.26 m2, BP 140/82 LEFT VENTRICLE: Normal chamber size. Proximal septal hypertrophy (sigmoid septum). Normal systolic function. Calculated left ventricular ejection fraction is 58%. LV EF: Normal left ventricular ejection fraction, (>55%). DIASTOLIC: Normal diastolic function. ATRIAL SEPTUM: LEFT ATRIUM: Normal chamber size. RIGHT ATRIUM: Normal chamber size. RIGHT VENTRICLE: Normal chamber size. Normal systolic function. TRICUSPID VALVE: Normal mobility and thickness. No stenosis with trivial regurgitation. No evidence of pulmonary hypertension. RVSP 30 mmHg MITRAL VALVE: Normal mobility and thickness. No evidence of mitral valve stenosis. Mild mitral annular calcification. Trivial mitral regurgitation. AORTIC VALVE: Normal trileaflet appearance. Normal leaflet mobility. No evidence of aortic valve stenosis. Multifocal calcification. No aortic regurgitation. AORTIC ROOT: Normal diameter and appearance. PULMONIC VALVE: Not well visualized. No stenosis. No regurgitation. PERICARDIUM: No evidence of pericardial effusion. IVC: Collapses with inspirations. PLEURA: CONCLUSION: 1. The left ventricle is normal in size and systolic function. LVEF is 55 to 60%. 2. Normal right ventricular size and systolic function. 3. No significant valvular dysfunction. 4. Normal right-sided pressures. Adult Echocardiography Procedure Report Left Ventricle LVEDD (3.7 - 5.6 cm): 3.94 cm LVESD (2.2 - 4.0 cm): 2.53 cm LVIVS thickness (0.6 - 1.2 cm): 1.59 cm LVPW thickness (0.5 - 1.0 cm): 0.92 cm e': 0.07 m/s E - e': 13.84 LVOT Max Gradient: 5.51 mm[Hg] LVOT Area (cm2): 1.17 m/s Peak Velocity (LVOT): 1.17 m/s Mean Velocity (LVOT): 0.86 m/s LVOT Diameter 2.40 cm Left Atrium LA Volume Index (2D A2C): 32.51 ml/m2 Left Atrium Systolic Dimension: 3.85 cm Mitral Valve MV E to A Ratio: 1.10 Mitral Valve A-Wave Peak Velocity: 0.84 m/s Mitral Valve E-Wave Peak Velocity: 0.93 m/s Right Ventricle Aorta AO Root Diam: 3.04 cm Ascending Ao Diam: 2.59 cm Aortic Valve AoV Area (Peak Cb): 3.72 cm2, 3.72 cm2 AoV Area (VTI): 3.55 cm2, 3.55 cm2 Peak Velocity(Antegrade Flow): 1.43 m/s Peak Gradient(Antegrade Flow): 8.19 mm[Hg] Mean Velocity(Antegrade Flow): 1.04 m/s Mean Gradient(Antegrade Flow): 4.99 mm[Hg] Velocity Time Integral: 36.15 cm Tricuspid Valve Peak Velocity (Regurgitant Flow): 2.46 m/s, 2.42 m/s, 2.61 m/s Pulmonic Valve Peak Gradient: 4.16 mm[Hg], 4.16 mm[Hg] Right Atrium Right Atrium Systolic Pressure: 52.67 ml, 52.67 ml Dictated by: Abundio Michelle M.D. on 06/02/2023 at 16:36 Approved by: Abundio Michelle M.D. on 06/02/2023 at 16:39
== END 2023-06-02 13:47 | disposition home or self-care (01) ==
LOC: CARD 13:46
PROVIDERS: PCP Internal Medicine; Visit Provider Internal Medicine Cardiovascular Disease
DX: R06.02 Shortness of breath (principal)
CPT/HCPCS: 93306; 93356

== ENCOUNTER 2023-06-09 11:02 | Outpatient (OUT) | payer OTHER, SELFPAY | END 2023-06-09 11:03 | disposition home or self-care (01) | LOC: WC 11:03 | PROVIDERS: PCP Internal Medicine; Visit Provider Podiatrist Foot & Ankle Surgery | DX: E11.40 Type 2 diabetes mellitus with diabetic neuropathy, unspecified (principal); E11.65 Type 2 diabetes mellitus with hyperglycemia; L60.3 Nail dystrophy; L84 Corns and callosities | CPT/HCPCS: 11056; 11721 ==

== ENCOUNTER 2023-09-01 13:49 | Outpatient (OUT) | payer OTHER, SELFPAY ==
--- OUTSIDE RECORDS SUMMARY | 2023-09-01 14:14 | XMS_ITS | CCD ---
Author Organization [facility] CliniSyny Care Team Providers Care Client Onboarding Analyst Name Role Phone PHYSICIAN, DEFAULT Unavailable Unavailable PHYSICIAN, DEFAULT Unavailable Unavailable NADERERonald, MICHAEL Unavailable Unavailable CHRISTIAN ROSA Unavailable Unavailable GOMEZ, SHANTELL Unavailable Unavailable GOMEZ, SHANTELL Unavailable Unavailable Radha Sawant Unavailable Minerva Irwin Unavailable SARAH, DR MICHAEL Coto Primary Care Unavailable HIGHLANDER, MENDEZ Pedraza Attending Unavailable HIGHLANDER, PETER D Admitting Unavailable NADERER, DR MICHAEL Coto Primary Care Unavailable HIGHLANDER, MENDEZ Pderaza Attending Unavailable HIGHLANDER, PETER D Admitting Unavailable [...] NADERER, DR MICHAEL Coto Attending Unavailable FAWWAD, H Attending Unavailable NADERER, DR MICHAEL Coto [...] Couch Attending Unavailable GENOVEVA POND Admitting Unavailable [facility] Trell Ramirez Attending Provider MD Michael Smith Primary Care Provider Mitzy Neves Unavailable Nati, Trell Ramirez Attending Chula godinez [facility], Trell Ramirez Admitting Taliai herbert Smith, Michael Primary Care Unavailable Michael Smith MD Unavailable Shaikh Ambrocio MD Primary Care Provider CHRISTIANO DOUGLAS Attending Unavailable FAWSHAIKH SUAREZ Attending Unavailable FAWSHAIKH SUAREZ Attending Unavailable FAWSHAIKH SUAREZ Attending Unavailable TIMMISYULIETCAMPBELL H Attending Unavailable FAWSHAIK SUAREZH Referring Unavailable TIMMIS CAMPBELL H Attending Unavailable FAWDANIELA, TEMPLETON Attending Unavailable AMANDA ROSA Attending Unavailable FAWWAKeila, Attending Unavailable Allergies Allergy Classification Reported Allergen(s) Allergy Type Date of Onset Reaction(s) Facility (1 source) Penicillins Drug allergy (disorder) 05-04-19 18 AOF [facility] Repository (1 source) No Known Allergies; Translations: [No Known Allergies] Propensity to adverse reactions (disorder) [facility]ository (5 sources) penicillAMINE Drug Allergy he heard [employer] Other (1 source) Penicillin Drug Allergy [facility]ository (1 source) Penicillins Propensity to adverse reactions to drug 09-24-19 [facility] (1 source) penicillAMINE Drug Allergy 02-15-20 [facility] Repository (2 sources) Penicillins Propensity to adverse reactions 02-06-20 Other [facility] (1 source) Penicillin; Translations: [PENICILLIN G] Drug Allergy 10-21-19 [facility] Medications Current Medications Medication Drug Class(es) Dates Sig (Normalized) Sig (Original) [id number] actuat albuterol 0.09 mg/actuat metered dose [...] 100 MG PO Three times daily 21 7 April 22, 2023 12:00am calcium chloride 0.0014 [...] day Active Plavix Active Continuous Blood Gluc Web Page Developer (FreeStyle Vi 2 [place]) device (2 sources) Continuous Blood Gluc Web Page Developer (FreeStyle Vi 2 [place]) device Continuous Blood Gluc Sensor (FreeStyle Vi [...] take 1 tablet by mouth at [facility] [facility] ferrous sulfate 325 (65 Fe) MG tablet [...] ([address]) [address] ar t: 0 23 Medrol 4 MG as directed Oral ly As Directed for 6 days Feb, Active 24 hr metoprolol succinate 100 mg extended release oral tablet (10 sources) beta-Adrenergic Katie St ar t: - 24 take 1 tablet by mouth once daily Metoprolol Succinate (Toprol Xl) 100 mg tablet extended release 24 hr Active 100 MG PO Daily April 22, 2023 12:00am Start: 04-21-2023 End: 10-18-2023 take 1 tablet by mouth every twenty-four hours in the morning metoprolol succinate XL (Toprol-XL) 100 MG 24 hr tablet Indications: Coronary arteriosclerosis in [place] artery (CMS/HCC) Take 1 tablet (100 mg) [...] disease (5 sources) Atherosclerotic heart disease of [place] coronary artery with unstable angina pectoris; Translations: [Atherosclerotic heart disease of [place] coronary artery without angina pectoris] Onset: 8 [...] group home (current) use of aspirin; Translations: [STUNTMAN (CURRENT) USE OF ASPIRIN] Onset: 8 Episodic Other aftercare (1 source) 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; Translations: [STUNTMAN USE ORAL HYPOGLYCEMIC DX] Onset: 3 Episodic Other aftercare (5 sources) Other correction (current) drug therapy; Translations: [OTH STUNTMAN CURRENT DRUG THERAPY] Onset: 2 Episodic Other [...] Test Name Value Interpretation Reference Range Facility Office Visiton 05-21-2023 Follow-up visit [id number] Rom Winston 1945 M Date Provider Department Center 05/21/2023 3848-CHRISTIANO DOUGLAS SIENNA [place] Family History Problem Relation Age of Onset Heart disease Father Family Status - Relation Status Age at Father Level of Service:93812 [place] OFFICE/OUTPATIENT ESTABLISHED MOD MDM 30 MIN Reason for Visit and Comments: Follow-up [839266] - Annual follow up No cardio concerns Normal [facility] Alanine aminotransferase [En zymatic activity/volume] in Serum or PlasmaOrdered By: Trell Damian on 02-01-2023 ALT [Catalytic activity/Vol] 30 U/L [facility] Albumin [Mass/volume] in Ser um or Plasma by Bromocresol green (BCG) dye binding methoOrdered By: Trell Damian on 02-01-2023 Albumin BCG dye [Mass/Vol] 4.1 g/dL 3.5-5.7 [facility] Alkaline phosphatase [Enzyma tic activity/volume] in Serum or PlasmaOrdered By: Trell Damian on 02-01-2023 ALP [Catalytic activity/Vol] 74 U/L 34-104 [facility] Aspartate aminotransferase [ Enzymatic activity/volume] in Serum or PlasmaOrdered By: Trell Damian on 02-01-2023 AST [Catalytic activity/Vol] 29 U/L 13-39 [facility] Bilirubin Test strip Ql (U)O rdered By: Trell Damian on 02-01-2023 Bilirubin Ql (U) Negative Negative [facility] Bilirubin.total [Mass/volume ] in Serum or PlasmaOrdered By: Trell Damian on 02-01-2023 Bilirubin [Mass/Vol] 0.6 mg/dL 0.3-1.0 [facility] Calcium [Mass/volume] in Ser um or PlasmaOrdered By: Trell Damian on 02-01-2023 Calcium [Mass/Vol] 9.2 mg/dL 8.6-10.3 [facility] Carbon dioxide, total [Moles /volume] in Serum or PlasmaOrdered By: Trell Damian on 02-01-2023 CO2 [Moles/Vol] 27.3 mmol/L 21.0-31.0 [facility] Chloride [Moles/volume] in S jose juan or PlasmaOrdered By: Trell Damian on 02-01-2023 Chloride [Moles/Vol] 104 mmol/L 98-107 [facility] Color Auto (U)Ordered By: Ravinder Damian on 02-01-2023 Color (U) Yellow Yellow [facility] Comprehensive Metabolic Pane alicia 02-01-2023 Albumin [Mass/Vol] 4.1 g/dL Normal 3.5-5.7 [facility] Comment on above: Performed By: #### U A, CMP #### [facility] [address] Albumin/Globulin [Mass ratio] 1.9 {ratio} Normal [facility] Comment on above: Performed By: #### U A, CMP #### [facility] [address] ALP [Catalytic activity/Vol] 74 U/L Normal 34-104 [facility] Comment on above: Result Comment: PERF ORMED BY: [place] [address] PATHOLOGIST DIRECTOR OF DIETARY OPHELIA ZIMMERMAN M.D. Performed By: #### U A, CMP #### [facility] [address] ALT [Catalytic activity/Vol] 30 U/L Normal 7-52 [facility] Comment on above: Performed By: #### U A, CMP #### [facility] [address] Anion gap [Moles/Vol] 14.3 mmol/L Normal 6.0-15.0 [facility] Comment on above: Performed By: #### U A, CMP #### [address] AST [Catalytic activity/Vol] 29 U/L Normal 13-39 [facility] Comment on above: Performed By: #### U A, CMP #### [facility] [address] [place] [address] Bilirubin [Mass/Vol] 0.6 mg/dL Normal 0.3-1.0 [facility] Comment on above: Performed By: #### U A, CMP #### [facility] [address] [place] [address] Calcium [Mass/Vol] 9.2 mg/dL Normal 8.6-10.3 [facility] Comment on above: Performed By: #### U A, CMP #### [facility] [address] [place] [address] [place] Chloride [Moles/Vol] 104 mmol/L Normal 98-107 [facility] Comment on above: Performed By: #### U A, CMP #### [facility] [address] CO2 [Moles/Vol] 27.3 mmol/L Normal 21.0-31.0 [facility] Comment on above: Performed By: #### U A, CMP #### [address] Creatinine [Mass/Vol] 1.01 mg/dL Normal 0.70-1.30 [facility] Comment on above: Performed By: #### U A, CMP #### [place] [address] [place] GFR/1.73 sq M.predicted MDRD (S/P/Bld) [Vol rate/Area] mL/min/{1.73_m2} Normal [facility] Comment on above: Performed By: #### U A, CMP #### [address] Globulin (S) [Mass/Vol] 2.2 g/dL Normal [facility] Comment on above: Performed By: #### U A, CMP #### [address] Glucose [Mass/Vol] 183 mg/dL High 70-100 [facility] Comment on above: Result Comment: [facility] Glucose Reference Range is dependent on time and content of last meal. Glucose of more than 200 mg/dL in a nonstressed, ambulatory subject supports the diagnosis of Diabetes Mellitus. ADA recommended reference range Performed By: #### U A, CMP #### [address] Potassium [Moles/Vol] 4.6 mmol/L Normal 3.5-5.1 [facility] Comment on above: Performed By: #### U A, CMP #### [place] [address] [place] Protein [Mass/Vol] 6.3 g/dL Low 6.4-8.9 [facility] Comment on above: Performed By: #### U A, CMP #### [address] Sodium [Moles/Vol] 141 mmol/L Normal 136-145 [facility] Comment on above: Performed By: #### U A, CMP #### [place] [address] [facility] Urea nitrogen [Mass/Vol] 22 mg/dL Normal 7-25 [facility] Comment on above: Performed By: #### U A, CMP #### [facility] [address] [place] [id number] [facility] Creatinine [Mass/volume] in Serum or PlasmaOrdered By: Trell Damian on 02-01-2023 Creatinine [Mass/Vol] 1.01 mg/dL 0.70-1.30 [facility] echo transthoracicon [facility] echo transthoracic [facility] Main [place] [address] [id number] Echocardiogram Signed Patient: Thea Winston MR#: [id number] 33 : 1945 Acct:[id number] Age/Sex: 77 / M ADM Date: 02/01/23 Loc: Room: Type: [facility] Attending Dr: Trell Damina DO Ordering Provider: Trell Damian DO Date of Service: 02/01/23/ [facility] echo transthoracic: Heart Disease. Copies to: [...] (): 2.4 m2 CI (): ED Mass (HM): LAEF (): 29.0 % 2.4 l/min/m2 181.0 [...] % LV Length ED ()_phl: 97.0 mmSV (HM)_phl: 85.0 ml ED Default (HM)_phl: 60.0 % LV Length ES (HM)_phl: 78.0 mm ES Default (HM)_phl: 30.0 % Transcribed By: BLASV Performed At: 02/01/23 0852 Sig (more content not included)... Normal [facility] Globulin Calc (S) [Mass/Vol] Ordered By: Trell Damian on 02-01-2023 Globulin (S) [Mass/Vol] 2.2 g/dL [facility] Glucose [Mass/volume] in Ser um or PlasmaOrdered By: Trell Damian on 02-01-2023 Glucose [Mass/Vol] 183 mg/dL 70-100 [facility] Comment on above: ADA recommended refe rence rangeRandom Glucose Reference Range is dependent on time and content of last meal. Glucose of more than 200 mg/dL in a nonstressed, ambulatory subject supports the diagnosis of Diabetes Mellitus. Ketones Auto test strip (U) [Mass/Vol]Ordered By: Trell Damian on 02-01-2023 Ketones (U) [Mass/Vol] Negative Negative [facility] Nitrite Test strip Ql (U)Ord ered By: Trell Damian on 02-01-2023 Nitrite Ql (U) Negative Negative [facility] No Panel InformationOrdered By: Trell Damian on 02-01-2023 Estimated GFR (CKD-EPI) > 60.0 mL/Min [facility] Creatinine Clearance (Chem N/A [facility] Potassium [Moles/volume] in Serum or PlasmaOrdered By: Trell Damian on 02-01-2023 Potassium [Moles/Vol] 4.6 mmol/L 3.5-5.1 [facility] Protein Auto test strip (U) [Mass/Vol]Ordered By: Trell Damian on 02-01-2023 Protein (U) [Mass/Vol] Negative Negative [facility] Protein [Mass/volume] in Ser um or PlasmaOrdered By: Trell Damian on 02-01-2023 Protein [Mass/Vol] 6.3 g/dL 6.4-8.9 [facility] Serum or plasma albumin/glob ulin mass ratioOrdered By: Trell Glass on 02-01-2023 Albumin/Globulin [Mass ratio] 1.9 {ratio} [facility] Serum or plasma anion gap de terminationOrdered By: Trell Damian on 02-01-2023 Anion gap [Moles/Vol] 14.3 mmol/L 6.0-15.0 [facility] Sodium [Moles/volume] in Ser um or PlasmaOrdered By: Trell Damian on 02-01-2023 Sodium [Moles/Vol] 141 mmol/L 136-145 [facility] Specific gravity Auto test s trip (U) [Rel density]Ordered By: Trell Glass on 02-01-2023 Specific gravity (U) [Rel density] 1.033 1.001-1.03 0 [facility] Urea nitrogen [Mass/volume] in Serum or PlasmaOrdered By: Trell Damian on 02-01-2023 Urea nitrogen [Mass/Vol] 22 mg/dL 7-25 [facility] Urinalysison 02-01-2023 Appearance (U) Clear Normal Clear [facility] Comment on above: Order Comment: Name Collection Type:: Clean-Voided Midstream Performed By: #### U A, CMP #### [facility] [address] [place] [address] [place] Bilirubin,Urine Negative Normal Negative [facility] Comment on above: Order Comment: Name Collection Type:: Clean-Voided Midstream Performed By: #### U A, CMP #### [facility] [address] [place] [address] [place] Color (U) Yellow Normal Yellow [facility] Comment on above: Order Comment: Name Collection Type:: Clean-Voided Midstream Performed By: #### U A, CMP #### [facility] [address] [place] [address] Glucose Ql (U) >=1000 High Normal [facility] Comment on above: Order Comment: Name Collection Type:: Clean-Voided Midstream Performed By: #### U A, CMP #### [facility] [address] [place] [address] Ketones Ql (U) Negative Normal Negative [facility] Comment on above: Order Comment: Name Collection Type:: Clean-Voided Midstream Performed By: #### U A, CMP #### [address] Leukocyte esterase Test strip Ql (U) Negative Normal Negative [facility] Comment on above: Order Comment: Name Collection Type:: Clean-Voided Midstream Performed By: #### U A, CMP #### [facility] [address] [place] [address] Nitrite,Urine Negative Normal Negative [facility] Comment on above: Order Comment: Name Collection Type:: Clean-Voided Midstream Performed By: #### U A, CMP #### [place] [address] [place] Occult Blood,Urine Negative Normal Negative [facility] Comment on above: Order Comment: Name Collection Type:: Clean-Voided Midstream Result Comment: PERF ORMED BY: [address] [address] PATHOLOGIST DIRECTOR OF DIETARY OPHELIA ZIMMERMAN M.D. Performed By: #### U A, CMP #### [facility] [address] [place] [address] [place] pH (U) 5.5 [pH] Normal 5.0-9.0 [facility] Comment on above: Order Comment: Name Collection Type:: Clean-Voided Midstream Performed By: #### U A, CMP #### [facility] [address] [place] [address] [place] Protein,Urine Negative Normal Negative [facility] Comment on above: Order Comment: Name Collection Type:: Clean-Voided Midstream Performed By: #### U A, CMP #### [facility] [address] Specificy [place],Urine 1.033 High 1.001-1.03 0 [facility] Comment on above: Order Comment: Name Collection Type:: Clean-Voided Midstream Performed By: #### U A, CMP #### [facility] [address] [place] [address] [place] Urobilinogen,Urine Normal Normal Normal [facility] Comment on above: Order Comment: Name Collection Type:: Clean-Voided Midstream Performed By: #### U A, CMP #### [facility] [address] Urine clarity by refractomet ry automatedOrdered By: Trell Damian on 02-01-2023 Clarity Refractometry automated (U) Clear Clear [facility] Urine glucose measurement by automated test strip (mass/volume)Ordered By: Trell Damian on 02-01-2023 Glucose Auto test strip (U) [Mass/Vol] >=1000 mg/dL Normal [facility] Urine hemoglobin detection b y automated test stripOrdered By: Trell Damian on 02-01-2023 Hemoglobin Auto test strip Ql (U) Negative Negative [facility] Urine leukocyte esterase det ection by automated test stripOrdered By: Trell Damian on 02-01-2023 Leukocyte esterase Auto test strip Ql (U) Negative Negative [facility] Urobilinogen Auto test strip (U) [Mass/Vol]Ordered By: Trell Damian on 02-01-2023 Urobilinogen (U) [Mass/Vol] Normal mg/dL Normal [facility] pH Auto test strip (U)Ordere d By: Trell Damian on 02-01-2023 pH (U) 5.5 [pH] 5.0-9.0 [facility] Glucose, Whole Bloodon 10-05 Glucose [Mass/Vol] 135 mg/dL High 74 - 100 mg/dL [facility] Interpretation and review of laboratory results Abnormal [facility] CBC AUTO DIFFon 07-17-2022 BASO # 0.0 103/ul Normal 0.0-0.1 [facility] Comment on above: Performed By: #### A 1C #### [facility] [address] [address] [address] Ana Pandey Basophils/100 WBC (Bld) 0.2 % Normal 0.2-2.0 [facility] Comment on above: Performed By: #### A 1C #### [facility] [address] [address] [address] Ana Pandey EO # 0.1 103/ul Normal 0.0-0.7 [facility] Comment on above: Performed By: #### A 1C #### [facility] [address] [address] [address] Ana Pandey Eosinophils/100 WBC (Bld) 0.9 % Normal 0.9-7.0 [facility] Comment on above: Performed By: #### A 1C #### [facility] [address] [address] [address] Ana Pandey Erythrocyte distribution width (RBC) [Ratio] 15.1 % Critically high 11.0-15.0 [facility] Comment on above: Performed By: #### A 1C #### [facility] [address] [place] [address] Dr. Ana Pandey Hematocrit (Bld) [Volume fraction] 33.6 % Critically low 42.0-54.0 [facility] Comment on above: Performed By: #### A 1C #### [facility] [address] [address] [address] Ana Pandey Hemoglobin (Bld) [Mass/Vol] 10.9 g/dL Critically low 14.0-18.0 [facility] Comment on above: Performed By: #### A 1C #### [facility] [address] [address] [address] Ana Pandey IG # 0.05 10e3/ul Critically high 0.00-0.03 [facility] Comment on above: Performed By: #### A 1C #### [facility] [address] [place] [address] Dr. Ana Pandey IG % 0.5 % Normal 0.0-0.5 [facility] Comment on above: Performed By: #### A 1C #### [facility] [address] [place] [address] Dr. Ana Pandey LYMPH # 0.9 103/ul Critically low 1.2-3.8 [facility] Comment on above: Performed By: #### A 1C #### [facility] [address] [place] [address] Dr. Ana Pandey Lymphocytes/100 WBC (Bld) 8.5 % Critically low 20.5-60.0 [facility] Comment on above: Performed By: #### A 1C #### [facility] [address] [place] [address] Dr. Ana Pandey MANUAL DIFF REQ NO Normal [facility] Comment on above: Performed By: #### A 1C #### [facility] [address] [place] [address] Dr. Ana Pandey MCH (RBC) [Entitic mass] 29.0 pg Normal 25.9-34.0 [facility] Comment on above: Performed By: #### A 1C #### [facility] [address] [place] [address] Dr. Ana Pandey MCHC (RBC) [Mass/Vol] 32.4 g/dL Normal 29.9-35.2 [facility] Comment on above: Performed By: #### A 1C #### [facility] [address] [place] [address] Dr. Ana Pandey MCV (RBC) [Entitic vol] 89.4 fL Normal 80.0-94.0 [facility] Comment on above: Performed By: #### A 1C #### [facility] [address] [place] [address] Dr. Ana Pandey MONO # 0.6 103/ul Normal 0.3-0.8 [facility] Comment on above: Performed By: #### A 1C #### [facility] [address] [address] [address] Ana Pandey Monocytes/100 WBC (Bld) 6.1 % Normal 1.7-12.0 [facility] Comment on above: Performed By: #### A 1C #### [facility] [address] [place] [address] Dr. Ana Pandey NEUT # 8.4 103/ul Critically high 1.4-6.5 [facility] Comment on above: Performed By: #### A 1C #### [facility] [address] [place] [address] Dr. Ana Pandey Neutrophils/100 WBC (Bld) 83.8 % Critically high 43.0-75.0 [facility] Comment on above: Performed By: #### A 1C #### [facility] [address] [place] [address] Dr. Ana Pandey Platelet mean volume (Bld) [Entitic vol] 9.7 fL Normal 9.5-13.5 [facility] Comment on above: Performed By: #### A 1C #### [facility] [address] [place] [address] Dr. Ana Pandey PLT 220 103/ul Normal 150-450 [facility] Comment on above: Performed By: #### A 1C #### [facility] [address] [place] [address] Dr. Ana Pandey RBC 3.76 106/ul Critically low 4.70-6.10 [facility] Comment on above: Performed By: #### A 1C #### [facility] [address] [place] [address] Dr. Ana Pandey WBC 10.0 103/ul Normal 4.0-11.0 [facility] Comment on above: Performed By: #### A 1C #### [facility] [address] [place] [address] ABD/PELVIS WO CONon [...] by: Bowen WISDOM Date: 2022-07-16 23:30 Normal [facility] CULTURE BLOODon 07-17-2022 Microscopic examination of blood, culture Culture Observations: NO GROWTH AT 36-48 HOURS. FINAL TO FOLLOW. Normal [facility] Comment on above: Performed By: #### B HABILITATIVE INTERVENTIONIST, CMP #### [facility] [address] [place] [address] Dr. Ana Pandey Microscopic examination of blood, culture Culture Observations: NO GROWTH AT 36-48 HOURS. FINAL TO FOLLOW. Normal [facility] Comment on above: Performed By: #### B HABILITATIVE INTERVENTIONIST, CMP #### [facility] [address] [place] [address] Dr. Ana Pandey CULTURE URINEon 07-17-2022 CULTURE URINE Culture Observations : AMINA TO FOLLOW. Isolate 1 Escherichia coli >100,000 cfu/mL of [facility] Comment on above: Performed By: #### B HABILITATIVE INTERVENTIONIST, CMP #### [facility] [address] [address] [address] Ana Pandey ER URINE PROFILEon 3 Bilirubin Ql (U) Negative Normal NEGATIVE [facility] Comment on above: Performed By: #### Sumaya MEDELLIN UMICRO #### [facility] [address] [place] [address] Dr. Ana Pandey Clarity (U) CLEAR Normal CLEAR [facility] [facility] Comment on above: Performed By: #### Sumaya MEDELLIN UMICRO #### [facility] [address] [address] [address] Ana Pandey Color (U) LT. YELLOW Normal YELLOW [facility] Comment on above: Performed By: #### Sumaya MEDELLIN UMICRO #### [facility] [address] [place] [address] Dr. Ana KEANEAHKeila A micrscopic examina tion will be performed if indicated. Normal [facility] Comment on above: Performed By: #### Sumaya MEDELLIN UMICRO #### [facility] [address] [place] [address] Dr. Ana Pandey Glucose Ql (U) Negative Normal NEGATIVE The [facility] Comment on above: Performed By: #### Sumaya MEDELLIN UMICRO #### [facility] [address] [place] [address] Dr. Ana Pandey Hemoglobin Ql (U) MODERATE Abnormal NEGATIVE The [facility] Comment on above: Performed By: #### Sumaya MEDELLIN UMICRO #### [facility] [address] [address] [address] Ana Pandey Ketones Ql (U) Negative Normal NEGATIVE The [facility] Comment on above: Performed By: #### Sumaya MEDELLIN UMICRO #### [facility] [address] [place] [address] Dr. Ana Pandey LEUKOCYTES MODERATE Abnormal NEGATIVE [facility] Comment on above: Performed By: #### Sumaya MEDELLIN UMICRO #### [facility] [address] [place] [address] Dr. Ana Pandey Nitrite Ql (U) Positive Abnormal NEGATIVE [facility] Comment on above: Performed By: #### Sumaya MEDELLIN, UMICRO #### [facility] [address] [place] [address] Dr. Ana Pandey pH (U) 5.0 [pH] Normal 5-9 [facility] Comment on above: Performed By: #### Sumaya MEDELLIN, UMICRO #### [facility] [address] [place] [address] Dr. Ana Pandey SPEC GRAVITY 1.025 Normal 1.005-<=1. 025 [facility] Comment on above: Performed By: #### Sumaya MEDELLIN, UMICRO #### [facility] [address] [place] [address] Dr. Ana Pandey UA PROTEIN Negative Normal NEGATIVE/ TRACE [facility] Comment on above: Performed By: #### Sumaya MEDELLIN, UMICRO #### [facility] [address] [place] [address] Dr. Ana Pandey UR MICRO IND INDICATED Normal [facility] Comment on above: Performed By: #### Sumaya MEDELLIN UMICRO #### [facility] [address] [place] [address] Dr. Ana Pandey Urobilinogen Qn (U) 0.2 {Casie'U}/dL Normal 0.2 - 1. 0 [facility] Comment on above: Performed By: #### Sumaya MEDELLIN, UMICRO #### [facility] [address] [place] [address] Dr. Ana Pandey LACTATE/LACTIC ACIDon 2022 Lactate [Moles/Vol] 2.0 mmol/L Normal 0.4-2.0 [facility] Comment on above: Performed By: #### L ACT #### [facility] [address] [place] [address] Dr. Ana Pandey PROF 14(COMP METB)on 023 Albumin [Mass/Vol] 3.2 g/dL Critically low 3.4-5.0 [facility] Comment on above: Performed By: #### C MP #### [facility] [address] [place] [address] Dr. Ana Pandey Albumin/Globulin [Mass ratio] 1.0 {ratio} Normal [facility] Comment on above: Performed By: #### C MP #### [facility] [address] [place] [address] Dr. Ana Pandey ALP [Catalytic activity/Vol] 75 U/L Normal 46-116 [facility] Comment on above: Performed By: #### C MP #### [facility] [address] [place] [address] Dr. Ana Pandey ALT [Catalytic activity/Vol] 24 U/L Normal 16-63 [facility] Comment on above: Performed By: #### C MP #### [facility] [address] [place] [address] Dr. Ana Pandey Anion gap [Moles/Vol] 13.0 mmol/L Normal [facility] Comment on above: Performed By: #### C MP #### [facility] [address] [place] [address] Dr. Ana Pandey AST [Catalytic activity/Vol] 19 U/L Normal 15-37 [facility] Comment on above: Performed By: #### C MP #### [facility] [address] [place] [address] Dr. Ana Pandey Bilirubin [Mass/Vol] 0.6 mg/dL Normal 0.2-1.0 [facility] Comment on above: Performed By: #### C MP #### [facility] [address] [place] [address] Dr. Ana Pandey Calcium [Mass/Vol] 8.6 mg/dL Normal 8.5-10.1 [facility] Comment on above: Performed By: #### C MP #### [facility] [address] [place] [address] Dr. Ana Pandey Chloride [Moles/Vol] 106 mmol/L Normal 98-107 [facility] Comment on above: Performed By: #### C MP #### [facility] [address] [place] [address] Dr. Ana Pandey CO2 [Moles/Vol] 25.0 mmol/L Normal 21.0-32.0 [facility] Comment on above: Performed By: #### C MP #### [facility] [address] [address] [address] Ana Pandey Creatinine [Mass/Vol] 1.34 mg/dL Critically high 0.70-1.30 [facility] Comment on above: Performed By: #### C MP #### [facility] [address] [address] [address] Ana Pandey EGFR-AF CITIZEN [place] >60 Normal >=60 [facility] Comment on above: Performed By: #### C MP #### [facility] [address] [address] [address] Ana Pandey EGFR-NON AF CITIZEN [place] 52 mL/min/1.73m2 Critically low >=60 [facility] Comment on above: Performed By: #### C MP #### [facility] [address] [address] [address] Ana Pandey Globulin (S) [Mass/Vol] 3.2 g/dL Normal [facility] Comment on above: Performed By: #### C MP #### [facility] [address] [address] [address] Ana Pandey Glucose [Mass/Vol] 136 mg/dL Critically high 74-106 [facility] Comment on above: Performed By: #### C MP #### [facility] [address] [address] [address] Ana Pandey Potassium [Moles/Vol] 4.0 mmol/L Normal 3.5-5.1 [facility] Comment on above: Performed By: #### C MP #### [facility] [address] [address] [address] Ana Pandey Protein [Mass/Vol] 6.4 g/dL Normal 6.4-8.2 [facility] Comment on above: Performed By: #### C MP #### [facility] [address] [address] [address] Ana Pandey Sodium [Moles/Vol] 140 mmol/L Normal 136-145 [facility] Comment on above: Performed By: #### C MP #### [facility] [address] [address] [address] Ana Pandey Urea nitrogen [Mass/Vol] 23.0 mg/dL Critically high 7.0-18.0 [facility] Comment on above: Performed By: #### C MP #### [facility] [address] [address] [address] Ana Pandey Urea nitrogen/Creatinine [Mass ratio] 17.2 mg/mg Normal [facility] Comment on above: Performed By: #### C MP #### [facility] [address] [address] [address] Ana Pandey URINE MICROSCOPIC ONLYon BACTERIA LARGE Abnormal NONE SEEN [facility] Comment on above: Performed By: #### Sumaya MEDELLIN UMICRO #### [facility] [address] [place] [address] Dr. Ana Pandey Bacteria identified Cx Nom (U) INDICATED Normal [facility] Comment on above: Performed By: #### Sumaya MEDELLIN UMICRO #### [facility] [address] [place] [address] Dr. Ana Pandey CAST NONE SEEN Normal NONE SEEN [facility] Comment on above: Performed By: #### Sumaya MEDELLIN, UMICRO #### [facility] [address] [place] [address] Dr. Ana Pandey Crystals LM Nom (Urine sed) NONE SEEN Normal NONE SEEN [facility] Comment on above: Performed By: #### Sumaya MEDELLIN, UMICRO #### [facility] [address] [place] [address] Dr. Ana Pandey Epithelial cells LM Ql (Urine sed) RARE Normal NONE SEEN /RARE [facility] Comment on above: Performed By: #### Sumaya MEDELLIN UMICRO #### [facility] [address] [place] [address] Dr. Ana Pandey MUCOUS NONE SEEN Normal NONE SEEN [facility] Comment on above: Performed By: #### Sumaya MEDELLIN UMICRO #### [facility] [address] [place] [address] Dr. Ana Pandey RBC 0-2 Normal 0-2 [facility] Comment on above: Performed By: #### NEERAJ FARAH #### [facility] [address] [place] [address] Dr. Ana Pandey WBC 20-50 Abnormal NONE SEEN [facility] Comment on above: Performed By: #### NEERAJ FARAH #### [facility] [address] [place] [address] Dr. Ana Pandey XR CHEST 1 Von [...] YELENA DIAZ Date: 2022-07-16 23:14 Normal [facility] Covid-19 PCR (CVDTBH)on 07-06 SARS-CoV-2 (COVID-19) RNA EDD+probe Ql (Unsp spec) Not detected Normal NOT DETECTED [facility] Comment on above: Performed By: #### A 1C #### [facility] [address] [place] [address] Dr. Ana Pandey INFLUENZA A AND B AGon 07-16 INFLUENZA A AG Negative Normal NEGATIVE SEE COMMENT [facility] Comment on above: Performed By: #### A 1C #### [facility] [address] [place] [address] Dr. Ana Pandey INFLUENZA B AG Negative Normal NEGATIVE SEE COMMENT [facility] Comment on above: Performed By: #### A 1C #### [facility] [address] [place] [address] Dr. Ana Pandey SYMPTOMATIC COVID-19 ANTIGEN on 07-16-2022 EUA Statement SEE BELOW Normal [facility] Comment on above: Result Comment: This [...] sooner. Performed By: #### C MAREKS #### [facility] [address] [place] [address] Dr. Ana Pandey SARS-CoV-2 (COVID-19) RNA EDD+probe Ql (Unsp spec) Negative Normal NEGATIVE [facility] Comment on above: Performed By: #### C VDAGS #### [facility] [address] [place] [address] Dr. Ana Pandey GLYCOHEMOGLOBIN A1Con 2022 ADA RECOMMENDATION SEE BELOW Normal [facility] Comment on above: Result Comment: ADA RECOMMENDED LIMIT 4.0 - 6.0 ADA THERAPEUTIC TARGET < 7.0 ACTION SUGGESTED > 7.0 Performed By: #### A 1C #### [facility] [address] [place] [address] Dr. Ana Pandey Glucose [Mass/Vol] 154 mg/dL Normal [facility] Comment on above: Performed By: #### A 1C #### [facility] [address] [place] [address] Dr. Ana Pandey HbA1c (Bld) [Mass fraction] 7.0 % Critically high 4.5-6.2 [facility] Comment on above: Performed By: #### A 1C #### [facility] [address] [place] [address] Dr. Ana Pandey SED RATE WESTERGRENon 2022 SED RATE 30 mm/hr Critically high <=20 [facility] Comment on above: Performed By: #### A 1C #### [facility] [address] [address] [address] Ana Pandey NM STRESS/REST MULTIon 09-29 NM STRESS/REST MULTI Patient: LEONARDO WINSTON Exam Date: 09/29/2021 : 1945 Gender:M Ordering : MATIAS MAYORGA Admission #: [id number] Family : Order #: [id number] CLICK HERE TO VIEW EXAM RADIOLOGY REPORT [...] M.D. on 09/29/2021 at 15:22 Normal [facility] PROF CHEM 8 (BAS METB)on Anion gap [Moles/Vol] 13.1 mmol/L Normal [facility] Comment on above: Performed By: #### B HABILITATIVE INTERVENTIONIST, CMP #### [facility] [address] [address] [address] Ana Pandey Calcium [Mass/Vol] 8.6 mg/dL Normal 8.5-10.1 [facility] Comment on above: Performed By: #### B HABILITATIVE INTERVENTIONIST, CMP #### [facility] [address] [place] [address] Dr. Ana Pandey Chloride [Moles/Vol] 104 mmol/L Normal 98-107 [facility] Comment on above: Performed By: #### B HABILITATIVE INTERVENTIONIST, CMP #### [facility] [address] [place] [address] Dr. Ana Pandey CO2 [Moles/Vol] 25.9 mmol/L Normal 21.0-32.0 [facility] Comment on above: Performed By: #### B HABILITATIVE INTERVENTIONIST, CMP #### [facility] [address] [place] [address] Dr. Ana Pandey Creatinine [Mass/Vol] 0.92 mg/dL Normal 0.70-1.30 [facility] Comment on above: Performed By: #### B HABILITATIVE INTERVENTIONIST, CMP #### [facility] [address] [place] [address] Dr. Ana Pandey EGFR-AF CITIZEN [place] >60 Normal >=60 [facility] Comment on above: Performed By: #### B HABILITATIVE INTERVENTIONIST, CMP #### [facility] [address] [place] [address] Dr. Ana Pandey EGFR-NON AF CITIZEN [place] >60 Normal >=60 [facility] Comment on above: Performed By: #### B HABILITATIVE INTERVENTIONIST, CMP #### [facility] [address] [place] [address] Dr. Ana Pandey Glucose [Mass/Vol] 102 mg/dL Normal 74-106 [facility] Comment on above: Performed By: #### B HABILITATIVE INTERVENTIONIST, CMP #### [facility] [address] [place] [address] Dr. Ana Pandey Potassium [Moles/Vol] 4.0 mmol/L Normal 3.5-5.1 [facility] Comment on above: Performed By: #### B HABILITATIVE INTERVENTIONIST, CMP #### [facility] [address] [place] [address] Dr. Ana Pandey Sodium [Moles/Vol] 139 mmol/L Normal 136-145 [facility] Comment on above: Performed By: #### B HABILITATIVE INTERVENTIONIST, CMP #### [facility] [address] [place] [address] Dr. Ana Pandey Urea nitrogen [Mass/Vol] 24.0 mg/dL Critically high 7.0-18.0 [facility] Comment on above: Performed By: #### B HABILITATIVE INTERVENTIONIST, CMP #### [facility] [address] [place] [address] Dr. Ana Pandey Urea nitrogen/Creatinine [Mass ratio] 26.1 mg/mg Normal [facility] Comment on above: Performed By: #### B HABILITATIVE INTERVENTIONIST, CMP #### [facility] [address] [place] [address] Dr. Ana Pandey BNPon 09-10-2021 Natriuretic peptide B (Bld) [Mass/Vol] 305.0 pg/mL Normal <=1,800.0 [facility] Comment on above: Performed By: #### B HABILITATIVE INTERVENTIONIST, CMP #### [facility] [address] [place] [address] Dr. Ana Pandey CBC AUTO DIFFon 09-10-2021 BASO # 0.0 103/ul Normal 0.0-0.1 [facility] Comment on above: Performed By: #### A 1C #### [facility] [address] [place] [address] Dr. Ana Pandey Basophils/100 WBC (Bld) 0.5 % Normal 0.2-2.0 [facility] Comment on above: Performed By: #### A 1C #### [facility] [address] [place] [address] Dr. Ana Pandey EO # 0.1 103/ul Normal 0.0-0.7 [facility] Comment on above: Performed By: #### A 1C #### [facility] [address] [place] [address] Dr. Ana Pandey Eosinophils/100 WBC (Bld) 1.9 % Normal 0.9-7.0 [facility] Comment on above: Performed By: #### A 1C #### [facility] [address] [place] [address] Dr. Ana Pandey Erythrocyte distribution width (RBC) [Ratio] 15.4 % Critically high 11.0-15.0 [facility] Comment on above: Performed By: #### A 1C #### [facility] [address] [place] [address] Dr. Ana Pandey Hematocrit (Bld) [Volume fraction] 38.6 % Critically low 42.0-54.0 [facility] Comment on above: Performed By: #### A 1C #### [facility] [address] [place] [address] Dr. Ana Pandey Hemoglobin (Bld) [Mass/Vol] 12.2 g/dL Critically low 14.0-18.0 [facility] Comment on above: Performed By: #### A 1C #### [facility] [address] [place] [address] Dr. Ana Pandey IG # 0.01 10e3/ul Normal 0.00-0.03 [facility] Comment on above: Performed By: #### A 1C #### [facility] [address] [place] [address] Dr. Ana Pandey IG % 0.1 % Normal 0.0-0.5 [facility] Comment on above: Performed By: #### A 1C #### [facility] [address] [place] [address] Dr. Ana Pandey LYMPH # 1.6 103/ul Normal 1.2-3.8 [facility] Comment on above: Performed By: #### A 1C #### [facility] [address] [place] [address] Dr. Ana Pandey Lymphocytes/100 WBC (Bld) 21.1 % Normal 20.5-60.0 [facility] Comment on above: Performed By: #### A 1C #### [facility] [address] [place] [address] Dr. Ana Pandey MANUAL DIFF REQ NO Normal [facility] Comment on above: Performed By: #### A 1C #### [facility] [address] [place] [address] Dr. Ana Pandey MCH (RBC) [Entitic mass] 28.7 pg Normal 25.9-34.0 [facility] Comment on above: Performed By: #### A 1C #### [facility] [address] [place] [address] Dr. Ana Pandey MCHC (RBC) [Mass/Vol] 31.6 g/dL Normal 29.9-35.2 [facility] Comment on above: Performed By: #### A 1C #### [facility] [address] [place] [address] Dr. Ana Pandey MCV (RBC) [Entitic vol] 90.8 fL Normal 80.0-94.0 [facility] Comment on above: Performed By: #### A 1C #### [facility] [address] [place] [address] Dr. Ana Pandey MONO # 0.6 103/ul Normal 0.3-0.8 [facility] Comment on above: Performed By: #### A 1C #### [facility] [address] [place] [address] Dr. Ana Pandey Monocytes/100 WBC (Bld) 7.4 % Normal 1.7-12.0 [facility] Comment on above: Performed By: #### A 1C #### [facility] [address] [place] [address] Dr. Ana Pandey NEUT # 5.1 103/ul Normal 1.4-6.5 [facility] Comment on above: Performed By: #### A 1C #### [facility] [address] [place] [address] Dr. Ana Pandey Neutrophils/100 WBC (Bld) 69.0 % Normal 43.0-75.0 [facility] Comment on above: Performed By: #### A 1C #### [facility] [address] [place] [address] Dr. Ana Pandey Platelet mean volume (Bld) [Entitic vol] 9.9 fL Normal 9.5-13.5 [facility] Comment on above: Performed By: #### A 1C #### [facility] [address] [place] [address] Dr. Ana Pandey PLT 194 103/ul Normal 150-450 [facility] Comment on above: Performed By: #### A 1C #### [facility] [address] [place] [address] Dr. Ana Pandey RBC 4.25 106/ul Critically low 4.70-6.10 [facility] Comment on above: Performed By: #### A 1C #### [facility] [address] [place] [address] Dr. Ana Pandey WBC 7.4 103/ul Normal 4.0-11.0 [facility] Comment on above: Performed By: #### A 1C #### [facility] [address] [place] [address] Dr. Ana Pandey PROF 14(COMP METB)on 022 Albumin [Mass/Vol] 3.5 g/dL Normal 3.4-5.0 [facility] Comment on above: Performed By: #### B HABILITATIVE INTERVENTIONIST, CMP #### [facility] [address] [place] [address] Dr. Ana Pandey Albumin/Globulin [Mass ratio] 1.2 {ratio} Normal [facility] Comment on above: Performed By: #### B HABILITATIVE INTERVENTIONIST, CMP #### [facility] [address] [place] [address] Dr. Ana Pandey ALP [Catalytic activity/Vol] 67 U/L Normal 46-116 [facility] Comment on above: Performed By: #### B HABILITATIVE INTERVENTIONIST, CMP #### [facility] [address] [place] [address] Dr. Ana Pandey ALT [Catalytic activity/Vol] 37 U/L Normal 16-63 [facility] Comment on above: Performed By: #### B HABILITATIVE INTERVENTIONIST, CMP #### [facility] [address] [place] [address] Dr. Ana Pandey Anion gap [Moles/Vol] 11.6 mmol/L Normal [facility] Comment on above: Performed By: #### B HABILITATIVE INTERVENTIONIST, CMP #### [facility] [address] [place] [address] Dr. Ana Pandey AST [Catalytic activity/Vol] 30 U/L Normal 15-37 [facility] Comment on above: Performed By: #### B HABILITATIVE INTERVENTIONIST, CMP #### [facility] [address] [place] [address] Dr. Ana Pandey Bilirubin [Mass/Vol] 0.5 mg/dL Normal 0.2-1.0 [facility] Comment on above: Performed By: #### B HABILITATIVE INTERVENTIONIST, CMP #### [facility] [address] [place] [address] Dr. Ana Pandey Calcium [Mass/Vol] 8.9 mg/dL Normal 8.5-10.1 [facility] Comment on above: Performed By: #### B HABILITATIVE INTERVENTIONIST, CMP #### [facility] [address] [place] [address] Dr. Ana Pandey Chloride [Moles/Vol] 107 mmol/L Normal 98-107 [facility] Comment on above: Performed By: #### B HABILITATIVE INTERVENTIONIST, CMP #### [facility] [address] [place] [address] Dr. Ana Pandey CO2 [Moles/Vol] 26.9 mmol/L Normal 21.0-32.0 [facility] Comment on above: Performed By: #### B HABILITATIVE INTERVENTIONIST, CMP #### [facility] [address] [place] [address] Dr. Ana Pandey Creatinine [Mass/Vol] 0.93 mg/dL Normal 0.70-1.30 [facility] Comment on above: Performed By: #### B HABILITATIVE INTERVENTIONIST, CMP #### [facility] [address] [place] [address] Dr. Ana Pandey EGFR-AF CITIZEN [place] >60 Normal >=60 [facility] Comment on above: Performed By: #### B HABILITATIVE INTERVENTIONIST, CMP #### [facility] [address] [place] [address] Dr. Ana Pandey EGFR-NON AF CITIZEN OF [place] >60 Normal >=60 [facility] Comment on above: Performed By: #### B HABILITATIVE INTERVENTIONIST, CMP #### [facility] [address] [place] [address] Dr. Ana Pandey Globulin (S) [Mass/Vol] 2.8 g/dL Normal [facility] Comment on above: Performed By: #### B HABILITATIVE INTERVENTIONIST, CMP #### [facility] [address] [place] [address] Dr. Ana Pandey Glucose [Mass/Vol] 169 mg/dL Critically high 74-106 [facility] Comment on above: Performed By: #### B HABILITATIVE INTERVENTIONIST, CMP #### [facility] [address] [place] [address] Dr. Ana Pandey Potassium [Moles/Vol] 4.5 mmol/L Normal 3.5-5.1 [facility] Comment on above: Performed By: #### B HABILITATIVE INTERVENTIONIST, CMP #### [facility] [address] [place] [address] Dr. Ana Pandey Protein [Mass/Vol] 6.3 g/dL Critically low 6.4-8.2 Th [facility] Comment on above: Performed By: #### B HABILITATIVE INTERVENTIONIST, CMP #### [facility] [address] [place] [address] Dr. Ana Pandey Sodium [Moles/Vol] 141 mmol/L Normal 136-145 [facility] Comment on above: Performed By: #### B HABILITATIVE INTERVENTIONIST, CMP #### [facility] [address] [place] [address] Dr. Ana Pandey Urea nitrogen [Mass/Vol] 20.0 mg/dL Critically high 7.0-18.0 [facility] Comment on above: Performed By: #### B HABILITATIVE INTERVENTIONIST, CMP #### [facility] [address] [place] [address] Dr. Ana Pandey Urea nitrogen/Creatinine [Mass ratio] 21.5 mg/mg Normal [facility] Comment on above: Performed By: #### B HABILITATIVE INTERVENTIONIST, CMP #### [facility] [address] [place] [address] Dr. Ana Pandey XR CHEST 2 Von [...] KAYCE SARAVIA Date: 2021-09-10 14:23 Normal [facility] CBC AUTO DIFFon 07-23-2021 BASO # 0.1 103/ul Normal 0.0-0.1 [facility] Comment on above: Performed By: #### C BC #### [facility] [address] [address] [address] Ana Pandey Basophils/100 WBC (Bld) 0.6 % Normal 0.2-2.0 [facility] Comment on above: Performed By: #### C BC #### [facility] [address] [place] [address] Dr. Ana Pandey EO # 0.2 103/ul Normal 0.0-0.7 [facility] Comment on above: Performed By: #### C BC #### [facility] [address] [address] [address] Ana Pandey Eosinophils/100 WBC (Bld) 2.5 % Normal 0.9-7.0 [facility] Comment on above: Performed By: #### C BC #### [facility] [address] [address] [address] Ana Pandey Erythrocyte distribution width (RBC) [Ratio] 15.0 % Normal 11.0-15.0 [facility] Comment on above: Performed By: #### C BC #### [facility] [address] [place] [address] Dr. Ana Pandey Hematocrit (Bld) [Volume fraction] 46.4 % Normal 42.0-54.0 [facility] Comment on above: Performed By: #### C BC #### [facility] [address] [place] [address] Dr. Ana Pandey Hemoglobin (Bld) [Mass/Vol] 14.2 g/dL Normal 14.0-18.0 [facility] Comment on above: Performed By: #### C BC #### [facility] [address] [place] [address] Dr. Ana Pandey IG # 0.02 10e3/ul Normal 0.00-0.03 [facility] Comment on above: Performed By: #### C BC #### [facility] [address] [place] [address] Dr. Ana Pandey IG % 0.2 % Normal 0.0-0.5 [facility] Comment on above: Performed By: #### C BC #### [facility] [address] [place] [address] Dr. Ana Pandey LYMPH # 2.5 103/ul Normal 1.2-3.8 [facility] Comment on above: Performed By: #### C BC #### [facility] [address] [place] [address] Dr. Ana Pandey Lymphocytes/100 WBC (Bld) 27.9 % Normal 20.5-60.0 [facility] Comment on above: Performed By: #### C BC #### [facility] [address] [place] [address] Dr. Ana Pandey MANUAL DIFF REQ NO Normal [facility] Comment on above: Performed By: #### C BC #### [facility] [address] [place] [address] Dr. Ana Pandey MCH (RBC) [Entitic mass] 27.8 pg Normal 25.9-34.0 [facility] Comment on above: Performed By: #### C BC #### [facility] [address] [place] [address] Dr. Ana Pandey MCHC (RBC) [Mass/Vol] 30.6 g/dL Normal 29.9-35.2 [facility] Comment on above: Performed By: #### C BC #### [facility] [address] [place] [address] Dr. Ana Pandey MCV (RBC) [Entitic vol] 90.8 fL Normal 80.0-94.0 [facility] Comment on above: Performed By: #### C BC #### [facility] [address] [place] [address] Dr. Ana Pandey MONO # 0.7 103/ul Normal 0.3-0.8 [facility] Comment on above: Performed By: #### C BC #### [facility] [address] [place] [address] Dr. Ana Pandey Monocytes/100 WBC (Bld) 8.0 % Normal 1.7-12.0 [facility] Comment on above: Performed By: #### C BC #### [facility] [address] [place] [address] Dr. Ana Pandey NEUT # 5.4 103/ul Normal 1.4-6.5 [facility] Comment on above: Performed By: #### C BC #### [facility] [address] [place] [address] Dr. Ana Pandey Neutrophils/100 WBC (Bld) 60.8 % Normal 43.0-75.0 [facility] Comment on above: Performed By: #### C BC #### [facility] [address] [place] [address] Dr. Ana Pandey Platelet mean volume (Bld) [Entitic vol] 10.6 fL Normal 9.5-13.5 [facility] Comment on above: Performed By: #### C BC #### [facility] [address] [place] [address] Dr. Ana Pandey PLT 248 103/ul Normal 150-450 [facility] Comment on above: Performed By: #### C BC #### [facility] [address] [place] [address] Dr. Ana Pandey RBC 5.11 106/ul Normal 4.70-6.10 [facility] Comment on above: Performed By: #### C BC #### [facility] [address] [place] [address] Dr. Ana Pandey WBC 8.8 103/ul Normal 4.0-11.0 [facility] Comment on above: Performed By: #### C BC #### [facility] [address] [place] [address] Dr. Ana Pandey GLYCOHEMOGLOBIN A1Con 2021 ADA RECOMMENDATION SEE BELOW Normal [facility] Comment on above: Result Comment: ADA RECOMMENDED LIMIT 4.0 - 6.0 ADA THERAPEUTIC TARGET < 7.0 ACTION SUGGESTED > 7.0 Performed By: #### A 1C #### [facility] [address] [address] [address] Ana Pandey Glucose [Mass/Vol] 146 mg/dL Normal [facility] Comment on above: Performed By: #### A 1C #### [facility] [address] [address] [address] Ana Pandey HbA1c (Bld) [Mass fraction] 6.7 % Critically high 4.5-6.2 [facility] Comment on above: Performed By: #### A 1C #### [facility] [address] [place] [address] Dr. Ana Pandey LIPID PROFILEon 07-23-2021 CHOL-HDL RATIO NORM SEE BELOW Normal [facility] Comment on above: Result Comment: 3.3 - 4.4 LOW RISK 4.4 - 7.1 AVERAGE RISK 7.1 - 11.0 MODERATE RISK >11.0 HIGH RISK Performed By: #### A 1C #### [facility] [address] [place] [address] Dr. Ana Pandey Cholesterol [Mass/Vol] 98 mg/dL Normal <=200 [facility] Comment on above: Performed By: #### A 1C #### [facility] [address] [address] [address] Ana Pandey Cholesterol in HDL [Mass/Vol] 42 mg/dL Normal 40-60 [facility] Comment on above: Performed By: #### A 1C #### [facility] [address] [address] [address] Ana Pandey Cholesterol in LDL [Mass/Vol] 43.2 mg/dL Normal [facility] Comment on above: Performed By: #### A 1C #### [facility] [address] [place] [address] Dr. Ana Pandey Cholesterol.total/Cho lesterol in HDL [Mass ratio] 2.3 {ratio} Normal [facility] Comment on above: Performed By: #### A 1C #### [facility] [address] [address] [address] Ana Pandey HDL NORMAL > or = 60 mg/dl - LO W CARDIOVASCULAR RISK <40 mg/dl - HIGH CARDIOVASCULAR RISK Normal [facility] Comment on above: Performed By: #### A 1C #### [facility] [address] [address] [address] Ana Pandey LDL CALC NORMAL SEE BELOW Normal [facility] Comment on above: Result Comment: <100 mg/dl OPTIMAL 100 - 129 mg/dl NEAR OR ABOVE OPTIMAL 130 - 159 mg/dl BORDERLINE HIGH 160 - 189 mg/dl HIGH >190 mg/dl VERY HIGH Performed By: #### A 1C #### [facility] [address] [place] [address] Dr. Ana Pandey Triglyceride [Mass/Vol] 64 mg/dL Normal <=150 [facility] Comment on above: Performed By: #### A 1C #### [facility] [address] [address] [address] Ana Pandey VLDL CALC 12.8 mg/dL Normal [facility] Comment on above: Performed By: #### A 1C #### [facility] [address] [place] [address] Dr. Ana Pandey LIVER PROFILEon 07-23-2021 Albumin [Mass/Vol] 3.9 g/dL Normal 3.4-5.0 [facility] Comment on above: Performed By: #### A 1C #### [facility] [address] [place] [address] Dr. Ana Pandey Albumin/Globulin [Mass ratio] 1.2 {ratio} Normal [facility] Comment on above: Performed By: #### A 1C #### [facility] [address] [place] [address] Dr. Ana Pandey ALP [Catalytic activity/Vol] 74 U/L Normal 46-116 [facility] Comment on above: Performed By: #### A 1C #### [facility] [address] [place] [address] Dr. Ana Pandey ALT [Catalytic activity/Vol] 52 U/L Normal 16-63 [facility] Comment on above: Performed By: #### A 1C #### [facility] [address] [address] [address] Ana Pandey AST [Catalytic activity/Vol] 43 U/L Critically high 15-37 [facility] Comment on above: Performed By: #### A 1C #### [facility] [address] [address] [address] Ana Pandey BILI, CONJUGATED 0.2 mg/dL Normal 0.0-0.2 [facility] Comment on above: Performed By: #### A 1C #### [facility] [address] [address] [address] Ana Pandey Bilirubin [Mass/Vol] 0.6 mg/dL Normal 0.2-1.0 [facility] Comment on above: Performed By: #### A 1C #### [facility] [address] [address] [address] Ana Pandey Globulin (S) [Mass/Vol] 3.2 g/dL Normal [facility] Comment on above: Performed By: #### A 1C #### [facility] [address] [address] [address] Ana Pandey Protein [Mass/Vol] 7.1 g/dL Normal 6.4-8.2 [facility] Comment on above: Performed By: #### A 1C #### [facility] [address] [address] [address] Ana Pandey MICROALBUMIN, RAND URon - mALB 1.8 mg/L Normal <=30.0 [facility] Comment on above: Performed By: #### A 1C #### [facility] [address] [address] [address] Ana Pandey PROF CHEM 8 (BAS METB)on Anion gap [Moles/Vol] 12.1 mmol/L Normal [facility] Comment on above: Performed By: #### A 1C #### [facility] [address] [place] [address] Dr. Ana Pandey Calcium [Mass/Vol] 8.7 mg/dL Normal 8.5-10.1 [facility] Comment on above: Performed By: #### A 1C #### [facility] [address] [place] [address] Dr. Ana Pandey Chloride [Moles/Vol] 102 mmol/L Normal 98-107 [facility] Comment on above: Performed By: #### A 1C #### [facility] [address] [place] [address] Dr. Ana Pandey CO2 [Moles/Vol] 28.1 mmol/L Normal 21.0-32.0 [facility] Comment on above: Performed By: #### A 1C #### [facility] [address] [place] [address] Dr. Ana Pandey Creatinine [Mass/Vol] 0.94 mg/dL Normal 0.70-1.30 [facility] Comment on above: Performed By: #### A 1C #### [facility] [address] [place] [address] Dr. Ana Pandey EGFR-AF CITIZEN [place] >60 Normal >=60 [facility] Comment on above: Performed By: #### A 1C #### [facility] [address] [place] [address] Dr. Ana Pandey EGFR-NON AF CITIZEN OF [place] >60 Normal >=60 [facility] Comment on above: Performed By: #### A 1C #### [facility] [address] [place] [address] Dr. Ana Pandey Glucose [Mass/Vol] 102 mg/dL Normal 74-106 [facility] Comment on above: Performed By: #### A 1C #### [facility] [address] [place] [address] Dr. Ana Pandey Potassium [Moles/Vol] 4.2 mmol/L Normal 3.5-5.1 [facility] Comment on above: Performed By: #### A 1C #### [facility] [address] [place] [address] Dr. Ana Pandey Sodium [Moles/Vol] 138 mmol/L Normal 136-145 [facility] Comment on above: Performed By: #### A 1C #### [facility] [address] [address] [address] Ana Pandey Urea nitrogen [Mass/Vol] 28.0 mg/dL Critically high 7.0-18.0 [facility] Comment on above: Performed By: #### A 1C #### [facility] [address] [address] [address] Ana Pandey Urea nitrogen/Creatinine [Mass ratio] 29.8 mg/mg Normal [facility] Comment on above: Performed By: #### A 1C #### [facility] [address] [address] [address] Ana Pandey TSHon 07-23-2021 TSH 4.104 uIU/mL Critically high 0.358-3.74 0 [facility] Comment on above: Performed By: #### A 1C #### [facility] [address] [address] [address] Ana Pandey TSH RANGE SEE BELOW Normal [facility] Comment on above: Result Comment: <0.3 4 UIU/ml HYPERTHYROID 0.34-5.60 UIU/ml EUTHYROID >5.60 UIU/ml HYPOTHYROID Performed By: #### A 1C #### [facility] [address] [address] [address] Ana Pandey COVID Quick Testingon 2020 Result Positive [facility] Other Cardiovascular Lab Reporton 05-05-2017 Cardiovascular Lab Report [facility] Patient Name: [facility] MR #: [id number] Physician: Shantell Gomez,Department of M.D.Medicine Service Date: 05/04/2017Division of Birthdate: 4Cardiology Room #: 3AB [id number] CardiovascularServicesUniv [facility] [place] [id number] Fax Cardiovascular Laboratory ReportREFERRING PHYSICIANS: Christian Rosa [...] usingultrasound guidance and micropuncture access technique, a 6-Sami sheathwas placed in the right internal jugular vein. Using a Dougherty catheter,the right heart catheterization was then performed. Pressures wereobtained in the right atrium, right ventricle, pulmonary artery, andpulmonary capillary wedge position. Oxygen saturation was drawn from thepulmonary artery and the Sly cardiac output and cardiac index were thencalculated. The Dougherty catheter was then removed.Next, a 6-Sami Terumo Glidesheath slender was placed in the [...] check the severity with an FFR testing.A [employer] left 6-Sami guide was engaged to left main coronaryartery.The [employer] FFR wire was then zeroed outside of [...] 05/04/2017/12:44 P/Shantell Gomez M.D.Date Trans: 05/05/2017 09:35 A/Mata_JN:[id number] c: Christian Rosa M.D. [address] [place] [id number] Michael Smith M.D. [address] [place] [id number] Normal [facility] Vital Signs Date Time Vital Sign Value Performing Clinician Facility 04-22-2023 14:27-0500 Body height 190.5 cm MD Michael Smith Work Phone: [facility] 04-22-2023 14:27-0500 Body mass index (BMI) [Ratio] 29.7 kg/m2 MD Michael Smith Work Phone: [facility] 04-22-2023 14:27-0500 Body temperature 97.6 [degF] MD Michael Smith Work Phone: [facility] 04-22-2023 14:27-0500 Body weight 107.67 kg MD Michael Smith Work Phone: [facility] 04-22-2023 14:27-0500 Heart rate 67 /min MD Michael Smith Work Phone: [facility] 04-22-2023 14:27-0500 Respiratory rate 18 /min MD Michael Smith Work Phone: [facility] 04-22-2023 14:27-0500 SaO2% (BldA) [Mass fraction] 95 % MD Michael Smith Work Phone: [facility] 02-14-2023 12:10-0500 Body height 190.5 cm Mitzynichole Neves Other [facility] 02-14-2023 12:10-0500 Body mass index (BMI) [Ratio] 30.57 kg/m2 Mitzynichole Neves Other [facility] Other 02-14-2023 12:10-0500 Body temperature 98 [degF] Mitzy Neves Other [facility] [facility] Other 02-14-2023 12:10-0500 Body weight 110.95 kg Mitzy Neves Other [facility] Other 02-14-2023 12:10-0500 Body weight 110.94 kg MD Michael Smith Work Phone: [facility] 02-14-2023 12:10-0500 Diastolic blood pressure 60 mm[Hg] Mitzy Neves Other [facility] 02-14-2023 12:10-0500 Respiratory rate 18 /min Mitzy Neves Other [facility] Other 02-14-2023 12:10-0500 SaO2% (BldA) [Mass fraction] 98 % Mitzy Neves Other [facility] Other 02-14-2023 12:10-0500 Systolic blood pressure 135 mm[Hg] Mitzy Neves Other [facility] 10-05-2022 11:30-0400 Diastolic blood pressure 58 mm[Hg] Genoveva Pond DO Work Phone: [employer] 10-05-2022 11:30-0400 Heart rate 58 /min Genoveva Pond DO Work Phone: [employer] 10-05-2022 11:30-0400 Respiratory rate 16 /min Genoveva Pond DO Work Phone: [employer] 10-05-2022 11:30-0400 SaO2% (BldA) [Mass fraction] 98 % Genoveva Pond DO Work Phone: [employer] 10-05-2022 11:30-0400 Systolic blood pressure 126 mm[Hg] Genoveva Pond DO Work Phone: [employer] 10-05-2022 11:11-0400 Body temperature 96.91 [degF] Genoveva Pond DO Work Phone: [employer] 10-05-2022 10:00-0400 Body height 190.5 cm Genoveva Pond DO Work Phone: [employer] 10-05-2022 10:00-0400 Body mass index (BMI) [Ratio] 32.12 kg/m2 Genoveva Pond DO Work Phone: [employer] 10-05-2022 10:00-0400 Body weight 116.57 kg Genoveva Pond DO Work Phone: [facility] 05-26-2022 12:50-0400 Body height 190.5 cm Minerva Irwin Other [facility] Other 05-26-2022 12:50-0400 Body mass index (BMI) [Ratio] 31.87 kg/m2 Minerva Irwin Other [facility] Other 05-26-2022 12:50-0400 Body temperature 97.1 [degF] Minerva Irwin Other [facility] Other 05-26-2022 12:50-0400 Body weight 115.67 kg Minerva Irwin Other [facility] Other 05-26-2022 12:50-0400 Respiratory rate 18 /min Minerva Irwin Other [facility] Other 05-26-2022 12:50-0400 SaO2% (BldA) [Mass fraction] 97 % Minerva Irwin Other [facility] Other 03-20-2022 14:00-0500 Body height 190.5 cm Minerva Irwin Other [facility] Other 03-20-2022 14:00-0500 Body mass index (BMI) [Ratio] 28.74 kg/m2 Minerva Irwin Other [facility] Other 03-20-2022 14:00-0500 Body temperature 97.7 [degF] Minerva Irwin Other [facility] Other 03-20-2022 14:00-0500 Body weight 104.33 kg Minerva Irwin Other [facility] Other 03-20-2022 14:00-0500 Respiratory rate 18 /min Minerva Irwin Other [facility] Other 03-20-2022 14:00-0500 SaO2% (BldA) [Mass fraction] 97 % Minerva Irwin Other [facility] Other 12-05-2020 17:15-0400 Body height 190.5 cm Radha Sawant Other [facility] Other 12-05-2020 17:15-0400 Body temperature 98.8 [degF] Radha Trujilloault Other [facility] Other 12-05-2020 17:15-0400 SaO2% (BldA) [Mass fraction] 97 % Radha Sawant Other [facility] Other Encounters Encounter Date Encounter Type Care Provider Facility Start: 08-31-2023 End: 08-31-2023 ambulatory TEMPLETON EMELYD Not Available Start: 07-06-2023 End: 07-06-2023 ambulatory CAMPBELL H TIMMIS Not Available Start: 06-21-2023 End: 06-21-2023 ambulatory CAMPBELL H TIMMIS Not Available Start: 05-31-2023 End: 05-31-2023 ambulatory TEMPLETON FAWWAD Not Available Start: 05-21-2023 End: 05-21-2023 ambulatory [facility] Start: 04-26-2023 End: 04-26-2023 ambulatory TEMPLETON FAWWAD Not Available Start: 04-22-2023 End: 04-22-2023 ambulatory MD Michael Smith Work Phone: [facility] Work Phone: Start: 04-22-2023 End: 04-22-2023 Patient encounter procedure MD Michael Smith Work Phone: [facility] Work Phone: Start: 04-21-2023 Orders Only Shaikh Lolly PERALES Work Phone: [facility] Comment on above: Coronary arterioscle rosis in [place] artery (CMS/HCC) (Primary Dx) Start: 04-15-2023 Orders Only Shaikh Lolly PERALES Work Phone: [facility] Comment on above: Chronic heart failur e with preserved ejection fraction (HFpEF) (CMS/HCC) (Primary Dx) Start: 03-15-2023 End: 03-15-2023 ambulatory SHAIKH LOLLY Not Available Start: 02-25-2023 Patient encounter procedure Shaikh Lolly PERALES Work Phone: [facility] Start: 02-25-2023 End: 02-25-2023 ambulatory SHAIKH LOLLY Not Available Start: 02-14-2023 End: 02-14-2023 ambulatory Mitzy Neves Other [facility] Other Start: 02-14-2023 Office outpatient vi sit 15 minutes Mitzy Neves [facility] Start: 02-14-2023 End: 02-14-2023 Patient encounter procedure MD Michael Smith Work Phone: [facility] Work Phone: Start: 02-09-2023 End: 02-09-2023 ambulatory AMANDA ROSA Not Available Start: 02-01-2023 End: 02-01-2023 ambulatory Trell Damian Facility:[facility] Start: 02-01-2023 End: 02-01-2023 ambulatory MD Michael Smith Work Phone: [facility] Work Phone: Start: 02-01-2023 End: 02-01-2023 Patient encounter procedure MD Michael Smith Work Phone: [facility] Work Phone: Start: 10-05-2022 End: 10-05-2022 ambulatory GENOVEVA POND [facility] Start: 10-05-2022 End: 10-05-2022 Subsequent hospital visit by physician Genoveva Pond DO Work Phone: [facility] Start: 07-22-2022 ambulatory MENDEZ GAN Faci lity:[facility] Start: 07-16-2022 End: 07-17-[address] MATIAS MAXWELL . Facility:[facility] Start: 06-26-2022 End: 06-26-2022 ambulatory Minerva Irwin Other [facility] Other Start: 06-26-2022 Telephone encounter Minerva Irwin [facility] Start: 05-26-2022 End: 05-26-2022 ambulatory Minerva Irwin Other [facility] Other Start: 05-26-2022 Office outpatient vi sit 25 minutes Minerva Irwin [facility] Start: 05-08-2022 End: 05-09-[address] MICHAEL SMITH Facility:[facility] Start: 04-03-2022 End: 04-04-2022 ambulatory SHAIKH Vijaya AMBROCIO Facility:[facility] Start: 03-25-2022 End: 03-26-[address] MICHAEL SMITH Facility:[facility]1 Start: 03-20-2022 End: 03-20-2022 ambulatory Minerva Iwrin Other [facility] Other Start: 03-20-2022 Office outpatient vi sit 25 minutes Minerva Irwin [facility] Start: 12-24-2021 End: 12-25-[address] MICHAEL SMITH Facility:[facility] Start: 09-29-2021 End: 09-30-[address] ADRIA GRAHAM Facility:[facility] Start: 09-18-2021 End: 09-19-[address] MICHAEL SMITH Facility: Start: 09-15-2021 End: 09-16-[address] MICHAEL SMITH Facility: Start: 09-10-2021 End: 09-11-2021 ambulatory KAYCE SARAVIA Facility:[facility] Start: 07-23-2021 End: 07-24-[address] MICHAEL SMITH Facility: Start: 12-05-2020 Office outpatient vi sit 15 [...] Comment on above: Performed By: #### B HABILITATIVE INTERVENTIONIST, CMP #### [facility] [address] [place] [address] Dr. Ana Pandey History of placement of [...] 05/31/2023 10:45 AM EDT Office Visit [facility] [address] [place] [address] Shaikh Ambrocio MD [address] [place] [id number] [facility] [place] Start: 05-06-2023 Hemoglobin A1c measurement Diabetes: Hemoglobin A1C [facility] Start: 10-06-2022 Influenza vaccination Flu vaccine (# 1) [facility] Start: 10-05-2022 Annual Wellness Visi t (AWV) Annual Wellness Visit (AWV) [facility] Start: 10-05-2022 End: 10-05-2022 Xcapsl ctrc rmvl insj io lens prosth w/o ecp EYE CATARACT EMULSIFICATION IOL IMPLANT Combined forms of age-related cataract of left eye 10/05/2022 10:44 AM EDT [facility] Start: 07-13-2022 Urine screening for protein Diabetes: Urine Protein Screening [facility] Start: 09-01-2008 Pneumococcal 65+ yea rs Vaccine (1 - PCV) Pneumococcal 65+ years Vaccine (1 - PCV) [facility] Start: 09-01-1993 Shingles vaccine (1 of 2) Shingles vaccine (1 of 2) [facility] Start: 09-01-1962 DTaP/Tdap/Td vaccine (1 - Tdap) DTaP/Tdap/Td vaccine (1 - Tdap) [facility] Start: 09-01-1961 Hepatitis C screening Hepatitis C sc reen [facility] Start: 1955 Depression Screen Depression Screen [facility] Start: 09-01-1953 Lipid panel Lipids [facility] Start: 09-01-1949 Pneumococcal Vaccine : 65+ Years (1 - PCV) Pneumococcal Vaccine: 65+ Years (1 - PCV) [facility] Start: 03-03-1944 COVID-19 Vaccine (#1) COVID-19 Vacci ne (#1) [facility] EKG 12 Lead EKG 12 Lead ECG Routine 10/05/2022 10:15 AM EDT [facility] Oxygen therapy [Mini mum Data Set] Initiate Oxygen Therapy Protocol Respiratory Care Routine Daily until discontinued starting 10/05/2022 [facility] Comment on above: Daily until disconti nued starting 10/05/2022 Oxygen therapy [Mini mum Data Set] Initiate Oxygen Therapy Protocol Respiratory Care Routine Daily until discontinued starting 10/05/2022 [facility] Comment on above: Daily until disconti nued starting 10/05/2022 Immunizations Immunization Date Immunization Notes Care Provider Fa [facility] 12-25-2022 ABRYSVO - Respirator y syncytial virus (RSV), vaccine, bivalent, protein subunit RSV prefusion F, diluent reconstituted, 0.5 mL, PF Shaikh Lolly PERALES Work Phone: [facility] 11-26-2022 Influenza, High-dose Seasonal, Quadrivalent, Preservative Free Shaikh Lolly PERALES Work Phone: [facility] 12-25-2021 Influenza, Seasonal, Quadrivalent, Adjuvanted Shaikh Lolly PERALES Work Phone: [facility] 12-15-2020 Influenza, High-dose Seasonal, Quadrivalent, Preservative Free Shaikh Lolly PERALES Work Phone: [facility] 12-14-2019 influenza, injectabl e, quadrivalent, preservative free Shaikh Lolly PERALES Work Phone: [facility] 11-28-2019 Influenza, High-dose Seasonal, Quadrivalent, Preservative Free Shaikh Lolly PERALES Work Phone: [facility] 11-28-2019 zoster vaccine recombinant Shaikh Lolly PERALES Work Phone: [facility] 01-02-2018 influenza, high dose seasonal, preservative-free Shaikh Lolly PERALES Work Phone: [facility] 11-29-2016 influenza, high dose seasonal, preservative-free Shaikh Lolly PERALES Work Phone: [facility] 12-13-2015 influenza, high dose seasonal, preservative-free Shaikh Lolly PERALES Work Phone: [facility] 12-24-2014 influenza, high dose seasonal, preservative-free Shaikh Lolly PERALES Work Phone: [facility] 09-10-2013 tetanus toxoid, adsorbed Radah Savana Other [facility] 02-11-2012 influenza virus vaccine, whole virus Shaikh Lolly PERALES Work Phone: [facility] 01-19-2011 influenza virus vaccine, whole virus Shaikh Lolly PERALES Work Phone: [facility] Healthcare Payers Date Payer Category Payer Self-pay [id number] 2023 Unknown [id number] 2022 Unknown 2020 Unknown [id number] 2.16.840 .[id number] 1959 Medicare [id number] 2.16.840.1.051776. 1959 Unknown [id number] 2.16.840.1.372901.19 1943 Unknown [id number] 2.16.840.1.802481.3.579.2.59 1943 Unknown [id number] 2.16.840.1.649797.3.579.2.59 1943 Unknown [id number] 2.16.840.1.898993.3.579.2.59 1943 Unknown [id number] 2.16.840.1.426662.3.579.2.59 1943 Unknown [id number] 2.16.840.1.982573.3.579.2.59 1943 Unknown [id number] 2.16.840.1.901737.3.579.2.59 1943 Unknown [id number] 2.16.840.1.279795.3.579.2.593 1943 Unknown [id number] 2.16.840.1.518527.3.579.2.593 1943 Unknown [id number] 2.16.840.1.714047.3.579.2.593 1943 Unknown [id number] 2.16.840.1.094252.3.579.2.593 1943 Unknown [id number] 2.16.840.1.808387.3.579.2.593 1943 Unknown [id number] 2.16.840.1.477674.3.579.2.173 1943 Unknown [id number] 2.16.840.1.520485.3.579.2.1259 1943 Unknown [id number] 2.16.840.1.766680.3.579.2.1259 1943 Unknown [id number] 2.16.840.1.847258.3.579.2.1259 1943 Unknown [id number] 2.16.840.1.405424.3.579.2.1259 1943 Unknown [id number] 2.16.840.1.188030.3.579.2.1259 1943 Unknown [id number] 2.16.840.1.026692.3.579.2.1259 1943 Unknown [id number] 2.16.840.1.931849.3.579.2.1259 1943 Unknown [id number] 2.16.840.1.689597.3.579.2.1259 Medicare [id number] Medicare [facility] [id number] Medicare [facility] [id number] Unknown [id number] 2.16.840.1.924464.3.579.2.531 Social History Date Type Detail Facility Unknown if ever smoked [facility] Other Start: 02-25-2023 Sex Assigned At N [facility] Other Start: 09-10-2013 End: 09-22-2022 Tobacco smoking status NHIS Never smoked tobacco [employer] Start: 09-22-2022 End: 02-09-2023 Tobacco use and exposure Smokeless tobacco non-user [employer] Start: 10-05-2022 End: 02-25-2023 Alcohol intake Lifetime non-drinker (finding) [employer] Start: 1945 Sex Assigned At Not on file B ON [employer] Start: 1945 Sex Assigned At Male F [facility] Start: 02-25-2023 History of Social function [facility] Clinical Notes 12-05-2020 to 05-21-2023 Note Date & Type Note Facility 05-21-2023 Note Cardiology Follow Up Progress Note Chief Complaint: follow up HPI: Thea Winston is a 77 y.o. male patient with a past medical history including CAD s/p bifurcating stenting to mid LAD and 2nd diag in 2018, HTN, HLD, DM type II, osteoarthritis. Patient presents to cardiology clinic for follow-up. Patient adamantly denies any cardiac complaints or concerns. Patient denies any chest pain or shortness of breath. Patient denies any lower extremity edema, orthopnea, or proximal nocturnal dyspnea. No near-syncope or syncope. No dizziness or lightheadedness. Cardiology ROS: GENERAL: Denies fever, chills, night [...] tablet Take by mouth in the morning. cyanocobalamin (Vitamin B-12) 1,000 mcg tablet Take 1,000 mcg by mouth in the morning. Dexcom G4 point hope [facility] foot orthopedist misc by Does not apply route. ferrous sulfate 325 (65 Fe) MG tablet Take 65 mg by mouth with breakfast. furosemide (Lasix) 20 mg tablet Take 1 tablet by mouth in the morning. glyburide-metformin (Glucovance) 2.5-500 mg tablet Take 1 tablet by mouth with breakfast. metoprolol succinate XL (Toprol-XL) 50 mg 24 hr tablet Take 50 mg by mouth in the morning. Do not crush or chew. naproxen (Naprosyn) 500 mg tablet Take 500 mg by mouth with breakfast and with evening meal. omeprazole (PriLOSEC) [address] capsule Take 40 mg by mouth before breakfast. Do not crush or chew. potassium chloride ER (Micro-K) 10 mEq ER capsule Take 10 mEq by mouth in the morning and at bedtime. Do not crush or chew. spironolactone (Aldactone) 25 mg tablet Take 25 mg by mouth in the morning. [DISCONTINUED] lisinopril 40 mg tablet Take 40 mg by mouth in the morning. [DISCONTINUED] pioglitazone (Actos) 45 mg tablet Take 45 mg by mouth in the morning. No current facility-administered medications on file prior to visit. Allergies Penicillin g Physical Exam VITAL SIGNS: BP 109/56 (BP Location: Left arm, Patient Position: Sitting, BP Cuff Size: Adult) Pulse 60 Resp 16 Ht 1.905 m (6' 3 ) Wt 105 kg (231 lb 3.2 oz) SpO2 96% BMI 28.90 kg/m??? Constitutional: Well developed, Well nourished, No [...] -CAD: no angina or anginal equivalents -Heart failure with preserved ejection fraction: continue current medication regimen. Patient appears euvolemic on exam. -Mildly dilated ascending aorta 3.9 cm Plan: -Continue aspirin 81 mg daily, atorvastatin 40 mg daily, clopidogrel 75 mg daily, and Toprol XL 50 mg daily for CAD -Continue Lasix for heart failure with preserved ejection fraction -Will order repeat echocardiogram today for monitoring of ascending aorta -Aggressive risk factor modification -Plan of care discussed with patient. All questions were answered. Patient voices understanding and is agreeable with current plan. -Patient was educated on red flag sympt (more content not included)... [facility] 05-21-2023 Note Review of Systems All other systems reviewed and are negative. Right shoulder pain but has had surgery on shoulder [facility] 02-14-2023 Evaluation note Encounter Date Diagnosis Assessment Notes Feb, Bronchitis (ICD-10 - J40) Drink plenty fluids, get plenty of rest. Continue home medications as prescribed. Take the doxycycline as prescribed until gone. Take the Medrol Dosepak as prescribed until gone. Use the albuterol inhaler as prescribed as needed for cough or shortness of breath. Continue to take [id number] er cough medicine as needed for cough. Follow-up with your family physician if no improvement in 2 to 3 days [facility] Other 07-31-2023 History of Present illness Narrative* [...] AM EDT Lab work from July from [facility] received in this office. * Noelle [...] PAT phone call. [facility]* Discharge Instructions* Mervat Burgos [...] the healing period. The office number is [phone]. Take surgery bag and all eye drops to Dr. Pond's office tomorrow at 9:20am. You may resume your normal diet. Start your eye drops tomorrow after your post-op appointment: Ofloxacin/Polytrim one drop to the operated eye 4 times daily Prednisolone one drop to the operated eye 4 times daily [facility]* Encounter Date Diagnosis Assessment Notes [...] understanding and is agreeable to treatment plan [facility] Other 01-13-2023 Evaluation note* Encounter Date Diagnosis [...] understanding and is agreeable to treatment plan [facility] Other 07-25-2022 NoteCARDIAC STRESS TEST Requesting Physician: [...] interpreted and reported in a separate dictation.[id number] Evaluation note* Encounter Date Diagnosis Assessment Notes Treatment Notes Treatment Clinical Notes Nov, Contact with and (suspected) exposure to other viral communicable diseases (ICD-10 - Z20.828) Nov, COVID-19 (ICD-10 - U07.1) Today you tested positive for the COVID virus. This mean you need to follow all [facility] quarantine guidelines found at [email or web address] v. It is important to rest, increase [...] Patient care instructions given in writting by [facility] Care At Home document. [facility] Other Evaluation noteNo InformationNort IID Other Evaluation note* Diagnosis Combined forms of age-related cataract of left eye- Primary Other and combined forms of senile cataract documented [facility] [place] noteNo assessment information available [facility] Work Phone: Evaluation note* Diagnosis Chronic heart failure with preserved ejection fraction (HFpEF) ([facility])- Primary documented in this encounter [facility] HealthcareEvaluation note* Diagnosis Coronary arteriosclerosis in [place] artery ([facility])- Primary documented in this encounter [facility] HealthcareEvaluation note* Diagnosis Onset Date Resolution Status Viral URI with cough acute [facility] Work Phone: History general Narrative - Reported* Type Description Date Medical History DM Medical History HTN Medical History Arthritis Medical History hypercholesterolemia Surgical History Cyst off back Surgical History Polyps removed Surgical History heart stent Surgical History shoulder Hospitalization History see above [facility] Other Hislamq general Narrative - Reported* Type Description Date Medical History DM Medical History HTN Medical History Arthritis Medical History hypercholesterolemia Surgical History Cyst off back Surgical History Polyps removed Surgical History heart stent Surgical History shoulder Surgical History cataract surgery 07/2022 Hospitalization History see above [facility] Other Summary Purpose Family History No Family [...] and content) DATE CREATED AUTHOR 08/27/2017 [facility] DATE CREATED AUTHOR AUTHOR'S ORGANIZ ATION 07/20/2022 [facility] DATE CREATED AUTHOR AUTHOR'S ORGANIZ ATION 10/05/2022 [facility] DATE CREATED AUTHOR AUTHOR'S ORGANIZ ATION 04/16/2023 [facility] DATE CREATED AUTHOR AUTHOR'S ORGANIZ ATION 07/05/2023 [facility] DATE CREATED AUTHOR AUTHOR'S ORGANIZ ATION 09/01/2023 [facility] EPIC REASON FOR VISIT (unrecogniz ed section and content) Specialty Diagnoses / Procedures Referred By Korey gan Referred To Contact Diagnoses Combined forms of age-related cataract of left eye Combined forms of age-related cataract of left eye [H25.812] Procedures AK XCAPSL CTRC RMVL INSJ IO LENS PROSTH W/O ECP EYE CATARACT EMULSIFICATION IOL IMPLANT Genoveva Pond Y, DO [address] [place] [address] [facility] [address] [place] [address] Referral ID Status Reason Start Date Expiration Date Visits Re quested Visits Authorized [id number] 1 1 Scheduled Active and Recently Administ [...] Intra-op 1123 (Given - Provid er: Genoveva Pond, DO) lidocaine PF 1 % injection (CANCELED) PRN, Starting on Wed10/05/22 at 1054, Until Wed10/05/22 at 1109, Intra-op 1054 (Given - Provid er: Genoveva Pond, DO) sodium chloride flush 0.9 % injection [...] Michael Smith MD Primary Care Provider Active Client Onboarding Analyst Relationship Specialty Start Date End Date Michael Smith MD [address] [place] [address] PCP - [facility] 12/06/22 Shaikh Ambrocio MD [address] [place] [address] PCP - General Internal Medicine 02/25/23 Client Onboarding Analyst Relationship Specialty Start Date End Date Michael Smith MD [address] [place] [id number] PCP - [facility] 12/06/22 Shaikh Ambrocio MD [address] [place] [address] PCP - General Internal Medicine 02/25/23 Team Status: Inactive Member Role Status Dates Trell Damian DO Attending Provider Activ e Start: February 01, 2023 End: February 01, 2023 Michael Smith MD Primary Care Provider Active S tart: February 01, 2023 End: February 01, 2023 Team Status: Inactive Member Role Status Dates Mitzy Neves NP-C Attending Provider Active S tart: February 14, [...] BE BASED ON THE PRIMARY CLINICAL RECORDS. [employer] provides no warranty or guarantee of the accuracy or completeness of information in this document.
== END 2023-09-01 13:50 | disposition home or self-care (01) ==
LOC: WC 13:49
PROVIDERS: PCP Internal Medicine; Visit Provider Podiatrist Foot & Ankle Surgery
DX: E11.40 Type 2 diabetes mellitus with diabetic neuropathy, unspecified (principal); E11.65 Type 2 diabetes mellitus with hyperglycemia; L60.3 Nail dystrophy
CPT/HCPCS: 11721

== ENCOUNTER 2023-12-08 13:08 | Outpatient (OUT) | payer OTHER, SELFPAY ==
--- OUTSIDE RECORDS SUMMARY | 2023-12-08 13:26 | XMS_ITS | CCD ---
Author Organization [facility] Care Team Providers Care Ground Wirer Name Role Phone PHYSICIAN, DEFAULT Unavailable Unavailable [...] MATIAS Attending Unavailable MUKESH, MATIAS Admitting Unavailable MKUESH, MATIAS Consulting Unavailable SARAVIA, WINCHA Consulting Unavailable [...] Couch Attending Unavailable GENOVEVA POND Admitting Unavailable [facility], Trell Ramirez Attending Provider MD Michael Smith Primary Care Provider Mitzy Neves Unavailable Nati, Trell Ramirez Attending Chula godinez [facility], Trell Ramirez Admitting Chula Smith, Michael Primary Care Unavailable Micheal Smith MD Unavailable Shaikh Ambrocio MD Primary Care Provider SHAIKH AMBROCIO Attending Unavailable SHAIKH AMBROCIO Attending Unavailable SHAIKH AMBROCIO Attending Unavailable CAMPBELL FISHMAN Attending Unavailable SHAIKH AMBROCIO Referring Unavailable CAMPBELL FISHMAN Attending Unavailable SHAIKH AMBROCIO Attending Unavailable AMANDA ROSA Attending Unavailable SHAIKH AMBROCIO Attending Unavailable MICHAEL SMITH Referring Unavailable SARAH, MICHAEL Primary Care Unavailable MAYNOR PINEDA Attending Unavailable MAYNOR PINEDA Referring Unavailable MICHAEL SMITH Primary Care Unavailable SHAIKH AMBROCIO Referring Unavailable MICHAEL SMITH Primary Care Unavailable GENOVEVA POND Admitting Unavailable GENOVEVA POND Attending Unavailable SARAH, MICHAEL Primary Care Unavailable SHANICE BRANDT Attending Unavailable MICHAEL SMITH Primary Care Unavailable CHRISTIANO DOUGLAS Attending Unavailable MATIAS MAYORGA Attending Unavailable Merry Gaytan Attending Unavailable Merry Gaytan X Attending Unavailable SHAIKH AMBROCIO Referring Unavailable Allergies Allergy Classification Reported Allergen(s) Allergy Type Date of Onset Reaction(s) Facility (2 sources) Penicillins; Translations: [PENICILLINS] Drug allergy (disorder) 05-04-19 18 AOF [facility] Repository (1 source) No Known Allergies; Translations: [No Known Allergies] Propensity to adverse reactions (disorder) [facility] Repository (5 sources) penicillAMINE Drug Allergy he heard [employer] Other (2 sources) Penicillin; Translations: [penicillin] Drug Allergy [facility] Repository (1 source) Penicillins Propensity to adverse reactions to drug 09-24-19 [facility] (1 source) penicillAMINE Drug Allergy 02-15-20 [facility] Repository (2 sources) Penicillins Propensity to adverse reactions 02-06-20 Other [facility] (1 source) Penicillin; Translations: [PENICILLIN G] Drug Allergy 10-21-19 [facility] Repository Medications Current Medications Medication Drug Class(es) Dates Sig (Normalized) Sig (Original) [id number] actuat albuterol 0.09 mg/actuat metered dose [...] day Active Plavix Active Continuous Blood Gluc Litigation Attorney (FreeStyle Vi 2 [place]) device (2 sources) Continuous Blood Gluc Litigation Attorney (FreeStyle Vi 2 [place]) device Continuous Blood Gluc Sensor (FreeStyle Vi [...] tablet (1 source) Corticosteroid St ar t: 12 0- 20 23 Medrol 4 MG as directed Oral [...] 24 hr tablet Indications: Coronary arteriosclerosis in [place] artery (CMS/HCC) Take 1 tablet (100 mg) [...] left eye] Onset: 3 Resolved: 3 Chronic Cataract (1 source) Cataract Onset: 4 Chronic obstructive pulmonary disease and bronchiectasis (1 source) Bronchitis, not specified as acute or chronic Episodic Congestive heart failure; nonhypertensive (5 sources) Chronic heart failure co-occurrent with normal ejection fraction; Translations: [Chronic diastolic (congestive) heart failure] Onset: 3 04-15-2023 Chronic Coronary atherosclerosis and other heart disease (6 sources) Atherosclerotic heart disease of [place] coronary artery with unstable angina pectoris; Translations: [Atherosclerotic heart disease of [place] coronary artery without angina pectoris] Onset: 8 02-25-2023 Chronic Diabetes mellitus with complications (10 sources) Type 2 diabetes mellitus with hyperglycemia; Translations: [Type 2 diabetes mellitus with diabetic neuropathy, unspecified] Onset: 2 Chronic Diabetes mellitus without complication (6 sources) Type 2 diabetes mellitus without complications; Translations: [Type 2 diabetes mellitus] Onset: 8 02-25-2023 Chronic Disorders of lipid metabolism (9 sources) Hyperlipidemia, unspecified; Translations: [Pure hypercholesterolemia, unspecified] Onset: 8 02-25-2023 Chronic Essential hypertension (12 sources) Essential (primary) hypertension; Translations: [Benign essential hypertension] Onset: 8 Chronic Fever of unknown origin (4 sources) Fever, unspecified; Translations: [FEVER UNSPECIFIED] Onset: 3 Episodic Genitourinary symptoms and ill-defined conditions (1 source) Overflow incontinence; Translations: [Overflow incontinence] Onset: 4 Chronic Headache; including migraine (4 sources) Headache; including migraine; Translations: [HEADACHE UNSPECIFIED] Onset: 3 Hypertension with complications and secondary hypertension (2 sources) Hypertensive heart disease with heart failure; Translations: [Hypertensive heart disease with heart failure] Onset: 4 Chronic Osteoarthritis (3 sources) Osteoarthritis of acromioclavicular joint; Translations: [Primary osteoarthritis, unspecified shoulder] Onset: 3 02-08-2023 Chronic Other aftercare (2 sources) half-way (current) use of aspirin; Translations: [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 OF ASPIRIN] Onset: 8 Episodic Other aftercare (1 source) 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; Translations: [COILED TUBING SUPERVISOR USE ORAL HYPOGLYCEMIC DX] Onset: 3 Episodic Other aftercare (5 sources) Other residential (current) drug therapy; Translations: [OTH COILED TUBING SUPERVISOR CURRENT DRUG THERAPY] Onset: 2 Episodic Other [...] [Other acute nonsuppurative otitis media, bilateral] Episodic Laura-; endo-; and myocarditis; cardiomyopathy (except that caused by tuberculosis or sexually transmitted disease) (2 sources) Cardiomyopathy in diseases classified elsewhere; Translations: [Cardiomyopathy in diseases classified elsewhere] Onset: 4 Chronic Unclassified (2 sources) Unknown / UNK(Unknown) Onset: 8 Unclassified (1 source) 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; [...] Value Interpretation Reference Range Facility Office Visiton 11-19-2023 Follow-up visit [id number] Rom Winston tayler Cardenas 1945 M Date Provider Department Center 11/19/2023 MATIAS LOZA CARD [facility] Family History Problem Relation Age of Onset Heart disease Father Family Status - Relation Status Age at Father Level of Service:29308 NM OFFICE/OUTPATIENT ESTABLISHED LOW MDM 20 MIN Normal [facility] CBC AND AUTO DIFFon 09-02-19 24 ABSOLUTE BASOPHIL 0.0 X10E9/L Normal 0.0-0.2 [facility] Comment on above: Performed By: #### C BCA CMP, 48759-4, HA1C #### [facility] ([id number]) [address], [address] [place] [address] ABSOLUTE NEUTROPHIL 4.8 X10E9/L Normal 1.5-6.6 [facility] Comment on above: Performed By: #### C BCA, CMP, 75661-2, HA1C #### [facility] ([id number]) [address] [place] [address] Basophils/100 WBC (Bld) 0.6 % Normal [facility] Comment on above: Performed By: #### Steve BCA, CMP, 83705-8, HA1C #### [facility] ([id number]) [address], [address] [place] [address] Eosinophils (Bld) [#/Vol] 0.2 10*3/uL Normal 0.0-0.4 [facility] Comment on above: Performed By: #### C BCA, CMP, 53675-0, HA1C #### [facility] ([id number]) [address], [address] [place] [address] Eosinophils/100 WBC (Bld) 2.5 % Normal [facility] Comment on above: Performed By: #### C BCA, CMP, 74273-7, HA1C #### [facility] ([id number]) [address], [address] [place] [address] Erythrocyte distribution width (RBC) [Ratio] 16.2 % High 11.5-15.0 [facility] Comment on above: Performed By: #### C YUE COREAS, 10936-2, HA1C #### [facility] ([id number]) [address], [address] [place] [address] Hematocrit (Bld) [Volume fraction] 40.2 % Normal 39-49 [facility] Comment on above: Performed By: #### Steve COREAS CMP, 33763-8, HA1C #### [facility] ([id number]) [address], [address] [place] [address] Hemoglobin (Bld) [Mass/Vol] 13.2 g/dL Normal 13.0-17.0 [facility] Comment on above: Performed By: #### C YUE COREAS, 57264-5, HA1C #### [facility] ([id number]) [address], [address] [place] [address] Lymphocytes (Bld) [#/Vol] 1.6 10*3/uL Normal 1.0-3.5 [facility] Comment on above: Performed By: #### Steve COREAS CMP, 82728-8, HA1C #### [facility] ([id number]) [address], [address] [place] [address] Lymphocytes/100 WBC (Bld) 23.3 % Normal [facility] Comment on above: Performed By: #### Steve COREAS, CMP, 82113-8, HA1C #### [facility] ([id number]) [address], [address] [place] [address] MCH (RBC) [Entitic mass] 27.1 pg Normal 27-34 [facility] Comment on above: Performed By: #### C BCA, CMP, 40461-4, HA1C #### [facility] ([id number]) [address], [address] [place] [address] MCHC (RBC) [Mass/Vol] 32.9 g/dL Normal 32-36 [facility] Comment on above: Performed By: #### C BCA, CMP, 63978-2, HA1C #### [facility] ([id number]) [address], [address] [place] [address] MCV (RBC) [Entitic vol] 82 fL Normal 80-100 [facility] Comment on above: Performed By: #### Steve COREAS, CMP, 67734-2, HA1C #### [facility] ([id number]) [address], [address] [place] [address] Monocytes (Bld) [#/Vol] 0.4 10*3/uL Normal 0-0.9 [facility] Comment on above: Performed By: #### C BCA, CMP, 38266-3, HA1C #### [facility] ([id number]) [address], [address] [place] [address] Monocytes/100 WBC (Bld) 6.0 % Normal [facility] Comment on above: Performed By: #### Steve BCA, CMP, 17973-2, HA1C #### [facility] ([id number]) [address], [address] [place] [address] Neutrophils/100 WBC (Bld) 67.6 % Normal [facility] Comment on above: Performed By: #### Steve COREAS, CMP, 05184-9, HA1C #### [facility] ([id number]) [address], [address] [place] [address] Platelet mean volume (Bld) [Entitic vol] 9.4 fL Normal 7-12 [facility] Comment on above: Performed By: #### Steve BCA, CMP, 09686-7, HA1C #### [facility] ([id number]) [address], [address] [place] [address] Platelets (Bld) [#/Vol] 186 10*3/uL Normal 150-450 [facility] Comment on above: Performed By: #### C BCA, CMP, 47408-1, HA1C #### [facility] ([id number]) [address], [address] [place] [address] RBC COUNT 4.89 X10E12/L Normal 4.10-5.70 [facility] Comment on above: Performed By: #### C BCA, CMP, 64946-5, HA1C #### [facility] ([id number]) [address], [address] [place] [address] WBC (Bld) [#/Vol] 7.0 10*3/uL Normal 4.0-11.0 [facility] Comment on above: Performed By: #### C BCA, CMP, 53282-7, HA1C #### [facility] ([id number]) [address], [address] [place] [address] COMPREHENSIVE METABOLIC PANE Parker 2023 Albumin [Mass/Vol] 4.1 g/dL Normal 3.2-5.3 [facility] Comment on above: Performed By: #### C BCA, CMP, 95954-6, HA1C #### [facility] ([id number]) [address], [address] [place] [address] ALP [Catalytic activity/Vol] 82 U/L Normal 39-130 [facility] Comment on above: Performed By: #### C BCA, CMP, 34346-0, HA1C #### [facility] ([id number]) [address], [address] [place] [address] ALT [Catalytic activity/Vol] 30 U/L Normal 0-40 [facility] Comment on above: Performed By: #### C BCA, CMP, 26072-6, HA1C #### [facility] ([id number]) [address], [address] [place] [address] Anion gap [Moles/Vol] 7 mmol/L Normal 5-15 [facility] Comment on above: Performed By: #### C BCA, CMP, 29531-2, HA1C #### [facility] ([id number]) [address], [address] [place] [address] AST [Catalytic activity/Vol] 28 U/L Normal 0-41 [facility] Comment on above: Performed By: #### C BCA, CMP, 68978-7, HA1C #### [facility] ([id number]) [address], [address] [place] [address] Bilirubin [Mass/Vol] 0.6 mg/dL Normal 0.3-1.2 [facility] Comment on above: Performed By: #### C BCA, CMP, 20294-0, HA1C #### [facility] ([id number]) [address], [address] [place] [address] Calcium [Mass/Vol] 9.1 mg/dL Normal 8.5-10.5 [facility] Comment on above: Performed By: #### C BCA, CMP, 80101-2, HA1C #### [facility] ([id number]) [address], [address] [place] [address] Chloride [Moles/Vol] 104 mmol/L Normal 98-109 [facility] Comment on above: Performed By: #### C BCA, CMP, 20848-2, HA1C #### [facility] ([id number]) [address], [address] [place] [address] CO2 [Moles/Vol] 28 mmol/L Normal 22-32 [facility] Comment on above: Performed By: #### C BCA, CMP, 50776-4, HA1C #### [facility] ([id number]) [address], [address] [place] [address] Creatinine [Mass/Vol] 0.92 mg/dL Normal 0.60-1.30 [facility] Comment on above: Result Comment: METH OD TRACEABLE TO IDMS STANDARD Performed By: #### C BCA, CMP, 92737-0, HA1C #### [facility] ([id number]) [address], [address] [place] [address] GFR/1.73 sq M.predicted among non-blacks MDRD (S/P/Bld) [Vol rate/Area] 84 mL/min/{1.73_m2} Normal >59 [facility] Comment on above: Result Comment: Reported eGFR is based on the CKD-EPI 2020 equation that does not use a race coefficient. Performed By: #### C BCA, CMP, 64233-8, HA1C #### [facility] ([id number]) [address], [address] [place] [address] Glucose [Mass/Vol] 162 mg/dL High 65-99 [facility] Comment on above: Performed By: #### C BCA, CMP, 00145-1, HA1C #### [facility] ([id number]) [address] [place] [address] Potassium [Moles/Vol] 4.2 mmol/L Normal 3.5-5.0 [facility] Comment on above: Performed By: #### C BCA, CMP, 93660-1, HA1C #### [facility] ([id number]) [address], [address] [place] [address] Protein [Mass/Vol] 6.7 g/dL Normal 6.0-8.0 [facility] Comment on above: Performed By: #### C BCA, CMP, 56137-5, HA1C #### [facility] ([id number]) [address], [address] [place] [address] Sodium [Moles/Vol] 139 mmol/L Normal 134-146 [facility] Comment on above: Performed By: #### C YUE COREAS, 47477-2, HA1C #### [facility] ([id number]) [address], [address] [address] [place] [address] Urea nitrogen [Mass/Vol] 22 mg/dL Normal 08-01 [facility] Comment on above: Performed By: #### C YUE COREAS, 46498-2, HA1C #### [facility] ([id number]) [address] [place] [address] HGB A1C (GLYCO-HGB)on 2023 Glucose [Mass/Vol] 186 mg/dL Normal [facility] Comment on above: Performed By: #### Steve COREAS CMP, 43833-3, HA1C #### [facility] ([id number]) [address], [address] [address] HbA1c (Bld) [Mass fraction] 8.1 % High 4.4-5.6 [facility] Comment on above: Result Comment: NOTE ADA Guidelines Result HgbA1c Normal : less than 5.7 % Prediabetes : 5.7 % to 6.4 % Diabetes : > 6.4 % Use with caution in patients with abnormal hemoglobin variants as the half-life of red blood cells and in vivo glycation rates are affected. Performed By: #### C LYUDMILA CMP, 02282-1, HA1C #### [facility] ([id number]) [address] [place] [address] Lipid 1996 panelon Cholesterol [Mass/Vol] 79 mg/dL Low 150-200 [facility] Comment on above: Performed By: #### C LYUDMILA CMP, 16025-8, HA1C #### [facility] ([id number]) [address], [address] [place] [address] Cholesterol in HDL [Mass/Vol] 33 mg/dL Low >39 [facility] Comment on above: Result Comment: HDL <40 mg/dL - High Risk HDL > or = 40mg/dL- Desirable HDL >60 mg/dL - Negative Risk Performed By: #### C LYUDMILA, CMP, 07596-7, HA1C #### [facility] ([id number]) [address], [address] [place] [address] Cholesterol in LDL [Mass/Vol] 24 mg/dL Normal <130 [facility] Comment on above: Result Comment: LDL <100 mg/dL - Desirable LDL >160 mg/dL - High Risk Performed By: #### Steve COREAS, CMP, 32370-4, HA1C #### [facility] ([id number]) [address], [address] [place] [address] Cholesterol in VLDL [Mass/Vol] 22 mg/dL Normal 0-30 [facility] Comment on above: Performed By: #### Steve COREAS, CMP, 14821-6, HA1C #### [facility] ([id number]) [address], [address] [place] [address] CHOLESTEROL:HDL 2.4 Normal 1.0-5.0 [facility] Comment on above: Performed By: #### Steve COREAS, CMP, 29232-5, HA1C #### [facility] ([id number]) [address], [address] [place] [address] Triglyceride [Mass/Vol] 109 mg/dL Normal 27-150 [facility] Comment on above: Performed By: #### C BCA, CMP, 57357-2, HA1C #### [facility] ([id number]) [address] [address], [address] [place] [address] MICROALBUMIN - ALBUMIN:CREAT ININE URINE RATIOon 2023 ALB/CREAT RATIO 10.3 mg/g creat Normal 0.0-30.0 [facility] Comment on above: Performed By: #### M ALBU, UA #### [facility] ([id number]) [address] [address] [address] [address], [address] [place] [address] Albumin DL <= 20 mg/L (U) [Mass/Vol] 0.8 mg/dL Normal 0.0-1.9 [facility] Comment on above: Performed By: #### M ALBU, UA #### [facility] ([id number]) [address] [facility], [address] [address] URINE CREAT 77.90 mg/dL Normal [facility] Comment on above: Performed By: #### M ALBU, UA #### [facility] ([id number]) [address] [place] [address], [address] [place] [address] URINALYSISon 2023 Bilirubin Ql (U) Negative Normal NEG [facility] Comment on above: Performed By: #### M ALBU, UA #### [facility] ([id number]) [address] [facility], [address] [place] [address] BLOOD/HGB Negative Normal NEG [facility] Comment on above: Performed By: #### M ALBU, UA #### [facility] ([id number]) [address] [place] [address], [address] [place] [address] Color (U) YELLOW Normal YELLOW [facility] Comment on above: Performed By: #### M ALBU, UA #### [facility] ([id number]) [address] [place] [address], [address] [place] [address] Glucose Ql (U) >1000 Abnormal NEG [facility] Comment on above: Performed By: #### M SOCORRO UA #### [facility] ([id number]) [address], [address] [place] [address] Ketones Ql (U) Negative Normal NEG [facility] Comment on above: Performed By: #### M SOCORRO UA #### [facility] ([id number]) [address], [address] [place] [address] Leukocyte esterase Test strip Ql (U) Negative Normal NEG [facility] Comment on above: Result Comment: HIGH CONCENTRATIONS OF GLUCOSE MAY DECREASE THE REACTIVITY OF THE DIPSTICK LEUKOCYTE TEST PAD. Performed By: #### Kirti QUINTANILLA UA #### [facility] ([id number]) [address], [address] [place] [address] Nitrite Ql (U) Negative Normal NEG [facility] Comment on above: Performed By: #### M SOCORRO UA #### [facility] ([id number]) [address], [address] [place] [address] pH (U) 6.0 [pH] Normal 5.0-8.5 [facility] Comment on above: Performed By: #### M SOCORRO, UA #### [facility] ([id number]) [address], [address] [place] [address] Protein Ql (U) Trace Abnormal NEG [facility] Comment on above: Performed By: #### M JOVONU, UA #### [facility] ([id number]) [address], [address] [place] [address] R.B.CELLS 0 /hpf Normal 0-5 [facility] Comment on above: Performed By: #### M JVOONU, UA #### [facility] ([id number]) [address], [address] [place] [address] Specific gravity (U) [Rel density] 1.025 Normal 1.003-1.03 5 [facility] Comment on above: Performed By: #### Kirti SOCORRO UA #### [facility] ([id number]) [address], [address] [place] [address] SQUAMOUS EPITHELIUM 2 /hpf Normal 0-5 [facility] Comment on above: Performed By: #### M SOCORRO, UA #### [facility] ([id number]) [address], [address] [place] [address] TURBIDITY CLEAR Normal CLEAR [facility] Comment on above: Performed By: #### Kirti SOCORRO, UA #### [facility] ([id number]) [address], [address] [place] [address] Urobilinogen (U) [Mass/Vol] mg/dL Normal <1.1 [facility] Comment on above: Performed By: #### M SOCORRO UA #### [facility] ([id number]) [address], [address] [place] [address] W.B.CELLS 1 /hpf Normal 0-5 [facility] Comment on above: Performed By: #### Kirti SOCORRO, UA #### [facility] ([id number]) [address], [address] [place] [address] Office Visiton 05-21-2023 Follow-up visit [id number] Rom Winston 1945 M Date Provider Department Center 05/21/2023 James8-CHRISTIANO DOUGLAS Family History Problem Relation Age of Onset Heart disease Father Family Status - Relation Status Age at Father Level of Service:84869 NM OFFICE/OUTPATIENT ESTABLISHED MOD MDM 30 MIN Reason for Visit and Comments: Follow-up [910121] - Annual follow up No cardio concerns Normal [facility] Alanine aminotransferase [En zymatic activity/volume] in Serum or PlasmaOrdered By: Trell Damian on 02-01-2023 ALT [Catalytic activity/Vol] 30 U/L 7-52 [facility] Albumin [Mass/volume] in Ser um or Plasma by Bromocresol green (BCG) dye binding methoOrdered By: Trell Damian on 02-01-2023 Albumin BCG dye [Mass/Vol] 4.1 g/dL 3.5-5.7 [facility] Alkaline phosphatase [Enzyma tic activity/volume] in Serum or PlasmaOrdered By: Trell Damian on 02-01-2023 ALP [Catalytic activity/Vol] 74 U/L 34-104 [facility] Aspartate aminotransferase [ Enzymatic activity/volume] in Serum or PlasmaOrdered By: Trell Damian 02-01-2023 AST [Catalytic activity/Vol] 29 U/L 13-39 [facility] Bilirubin Test strip Ql (U)O rdered By: Trell Damian on 02-01-2023 Bilirubin Ql (U) Negative Negative [facility] Bilirubin.total [Mass/volume ] in Serum or PlasmaOrdered By: Trell Damian 02-01-2023 Bilirubin [Mass/Vol] 0.6 mg/dL 0.3-1.0 [facility] Calcium [Mass/volume] in Ser um or PlasmaOrdered By: Trell Damian 02-01-2023 Calcium [Mass/Vol] 9.2 mg/dL 8.6-10.3 [facility] Carbon dioxide, total [Moles /volume] in Serum or PlasmaOrdered By: Trell Damian 02-01-2023 CO2 [Moles/Vol] 27.3 mmol/L 21.0-31.0 [facility] Chloride [Moles/volume] in S jose juan or PlasmaOrdered By: Trell Damian 02-01-2023 Chloride [Moles/Vol] 104 mmol/L 98-107 [facility] Color Auto (U)Ordered By: Ravinder Damian on 02-01-2023 Color (U) Yellow Yellow [facility] Comprehensive Metabolic Pane parker 02-01-2023 Albumin [Mass/Vol] 4.1 g/dL Normal 3.5-5.7 [facility] Comment on above: Performed By: #### U A, CMP #### [facility] [address] [place] [address] Albumin/Globulin [Mass ratio] 1.9 {ratio} Normal [facility] Comment on above: Performed By: #### U A, CMP #### [address] ALP [Catalytic activity/Vol] 74 U/L Normal 34-104 [facility] Comment on above: Result Comment: PERF ORMED BY: [place] [address] PATHOLOGIST [employer]SEM[employer]ING [employer]IL[employer] OPHELIA ZIMMERMAN M.D. Performed By: #### U A, CMP #### [address] ALT [Catalytic activity/Vol] 30 U/L Normal 7-52 [facility] Comment on above: Performed By: #### U A, CMP #### [address] Anion gap [Moles/Vol] 14.3 mmol/L Normal 6.0-15.0 [facility] Comment on above: Performed By: #### U A, CMP #### [address] AST [Catalytic activity/Vol] 29 U/L Normal 13-39 [facility] Comment on above: Performed By: #### U A, CMP #### [address] Bilirubin [Mass/Vol] 0.6 mg/dL Normal 0.3-1.0 [facility] Comment on above: Performed By: #### U A, CMP #### [address] Calcium [Mass/Vol] 9.2 mg/dL Normal 8.6-10.3 [facility] Comment on above: Performed By: #### U A, CMP #### [address] Chloride [Moles/Vol] 104 mmol/L Normal 98-107 [facility] Comment on above: Performed By: #### U A, CMP #### [facility] [address] CO2 [Moles/Vol] 27.3 mmol/L Normal 21.0-31.0 [facility] Comment on above: Performed By: #### U A, CMP #### [facility] [address] Creatinine [Mass/Vol] 1.01 mg/dL Normal 0.70-1.30 [facility] Comment on above: Performed By: #### U A, CMP #### [place] [address] [place] GFR/1.73 sq M.predicted MDRD (S/P/Bld) [Vol rate/Area] mL/min/{1.73_m2} [facility] Comment on above: Performed By: #### U A, CMP #### [address] Globulin (S) [Mass/Vol] 2.2 g/dL [facility] Comment on above: Performed By: #### U A, CMP #### [address] Glucose [Mass/Vol] 183 mg/dL High 70-100 [facility] Comment on above: Result Comment: [facility] Glucose Reference Range is dependent on time and content of last meal. Glucose of more than 200 mg/dL in a nonstressed, ambulatory subject supports the diagnosis of Diabetes Mellitus. ADA recommended reference range Performed By: #### U A, CMP #### [place] [address] [place] Potassium [Moles/Vol] 4.6 mmol/L Normal 3.5-5.1 [facility] Comment on above: Performed By: #### U A, CMP #### [address] Protein [Mass/Vol] 6.3 g/dL Low 6.4-8.9 [facility] Comment on above: Performed By: #### U A, CMP #### [facility] [address] Sodium [Moles/Vol] 141 mmol/L Normal 136-145 [facility] Comment on above: Performed By: #### U A, CMP #### [facility] [address] Urea nitrogen [Mass/Vol] 22 mg/dL Normal 7-25 [facility] Comment on above: Performed By: #### U A, CMP #### [facility] [address] Creatinine [Mass/volume] in Serum or PlasmaOrdered By: Trell Damian on 02-01-2023 Creatinine [Mass/Vol] 1.01 mg/dL 0.70-1.30 [facility] echo transthoracicon [facility] echo transthoracic [facility] [place] [address] [place] [address] Echocardiogram Signed Patient: Thea Winston MR#: [id number] 33 : 1945 Acct:[id number] Age/Sex: 77 / M ADM Date: 02/01/23 Loc: Room: Type: [facility] Attending Dr: Trell Damian DO Ordering Provider: Trell Damian DO Date of Service: 02/01/23/ [facility] echo transthoracic: Heart Disease. Copies to: [...] 0852 Sig (more content not included)... Normal [facility] Globulin Calc (S) [Mass/Vol] Ordered By: Trell Damian on 02-01-2023 Globulin (S) [Mass/Vol] 2.2 g/dL [facility] Glucose [Mass/volume] in Ser um or PlasmaOrdered By: Trell Damian on 02-01-2023 Glucose [Mass/Vol] 183 mg/dL 70-100 [facility] Comment on above: ADA recommended refe rence rangeRandom Glucose Reference Range is dependent on time and content of last meal. Glucose of more than 200 mg/dL in a nonstressed, ambulatory subject supports the diagnosis of Diabetes Mellitus. Ketones Auto test strip (U) [Mass/Vol]Ordered By: Trell Damian on 02-01-2023 Ketones (U) [Mass/Vol] Negative Negative [facility] Nitrite Test strip Ql (U)Ord ered By: Trell Damian on 02-01-2023 Nitrite Ql (U) Negative Negative [facility] No Panel InformationOrdered By: Trell Damian on 02-01-2023 Estimated GFR (CKD-EPI) > 60.0 mL/Min [facility] Creatinine Clearance (Chem N/A [facility] Potassium [Moles/volume] in Serum or PlasmaOrdered By: Trell Damian on 02-01-2023 Potassium [Moles/Vol] 4.6 mmol/L 3.5-5.1 [facility] Protein Auto test strip (U) [Mass/Vol]Ordered By: Trell Glass on 02-01-2023 Protein (U) [Mass/Vol] Negative Negative [facility] Protein [Mass/volume] in Ser um or PlasmaOrdered By: Trell Damian on 02-01-2023 Protein [Mass/Vol] 6.3 g/dL 6.4-8.9 [facility] Serum or plasma albumin/glob ulin mass ratioOrdered By: Trell Glass on 02-01-2023 Albumin/Globulin [Mass ratio] 1.9 {ratio} [facility] Serum or plasma anion gap de terminationOrdered By: Trell Damian on 02-01-2023 Anion gap [Moles/Vol] 14.3 mmol/L 6.0-15.0 [facility] Sodium [Moles/volume] in Ser um or PlasmaOrdered By: Trell Glass on 02-01-2023 Sodium [Moles/Vol] 141 mmol/L 136-145 [facility] Specific gravity Auto test s trip (U) [Rel density]Ordered By: Trell Glass on 02-01-2023 Specific gravity (U) [Rel density] 1.033 1.001-1.03 0 [facility] Urea nitrogen [Mass/volume] in Serum or PlasmaOrdered By: Trell Damian on 02-01-2023 Urea nitrogen [Mass/Vol] 22 mg/dL 7-25 [facility] Urinalysison 02-01-2023 Appearance (U) Clear Normal Clear [facility] Comment on above: Order Comment: Name Collection Type:: Clean-Voided Midstream Performed By: #### U A, CMP #### [facility] [address] [place] [address] [place] Bilirubin,Urine Negative Normal Negative [facility] Comment on above: Order Comment: Name Collection Type:: Clean-Voided Midstream Performed By: #### U A, CMP #### [facility] [address] [place] [address] [place] Color (U) Yellow Normal Yellow [facility] Comment on above: Order Comment: Name Collection Type:: Clean-Voided Midstream Performed By: #### U A, CMP #### [facility] [address] [place] [address] [place] Glucose Ql (U) >=1000 High Normal [facility] Comment on above: Order Comment: Name Collection Type:: Clean-Voided Midstream Performed By: #### U A, CMP #### [facility] [address] [place] [address] [place] Ketones Ql (U) Negative Normal Negative [facility] Comment on above: Order Comment: Name Collection Type:: Clean-Voided Midstream Performed By: #### U A, CMP #### [facility] [address] [place] [address] [place] Leukocyte esterase Test strip Ql (U) Negative Normal Negative [facility] Comment on above: Order Comment: Name Collection Type:: Clean-Voided Midstream Performed By: #### U A, CMP #### [facility] [address] [place] [address] [place] Nitrite,Urine Negative Normal Negative [facility] Comment on above: Order Comment: Name Collection Type:: Clean-Voided Midstream Performed By: #### U A, CMP #### [facility] [address] [place] [address] [place] Occult Blood,Urine Negative Normal Negative [facility] Comment on above: Order Comment: Name Collection Type:: Clean-Voided Midstream Result Comment: PERF ORMED BY: [place] [address] PATHOLOGIST [employer]SEM[employer]ING [employer] OPHELIA ZIMMERMAN M.D. Performed By: #### U A, CMP #### [facility] [address] [place] [address] [place] pH (U) 5.5 [pH] Normal 5.0-9.0 [facility] Comment on above: Order Comment: Name Collection Type:: Clean-Voided Midstream Performed By: #### U A, CMP #### [facility] [address] Protein,Urine Negative Normal Negative [facility] Comment on above: Order Comment: Name Collection Type:: Clean-Voided Midstream Performed By: #### U A, CMP #### [facility] [address] [place] [address] Specificy Woodman,Urine 1.033 High 1.001-1.03 0 [facility] Comment on above: Order Comment: Name Collection Type:: Clean-Voided Midstream Performed By: #### U A, CMP #### [facility] [address] [place] [address] Urobilinogen,Urine Normal Normal Normal [facility] Comment on above: Order Comment: Name Collection Type:: Clean-Voided Midstream Performed By: #### U A, CMP #### [facility] [address] [place] [address] Urine clarity by refractomet ry automatedOrdered By: Trell Damian on 02-01-2023 Clarity Refractometry automated (U) Clear Clear [facility] Urine glucose measurement by automated test strip (mass/volume)Ordered By: Trell Damian on 02-01-2023 Glucose Auto test strip (U) [Mass/Vol] >=1000 mg/dL Normal [facility] Urine hemoglobin detection b y automated test stripOrdered By: Trell Damian on 02-01-2023 Hemoglobin Auto test strip Ql (U) Negative Negative [facility] Urine leukocyte esterase det ection by automated test stripOrdered By: Trell Damian on 02-01-2023 Leukocyte esterase Auto test strip Ql (U) Negative Negative [facility] Urobilinogen Auto test strip (U) [Mass/Vol]Ordered By: Trell Damian on 02-01-2023 Urobilinogen (U) [Mass/Vol] Normal mg/dL Normal [facility] pH Auto test strip (U)Ordere d By: Trell Gilliannayla on 02-01-2023 pH (U) 5.5 [pH] 5.0-9.0 [facility] Glucose, Whole Bloodon 10-05 Glucose [Mass/Vol] 135 mg/dL High 74 - 100 mg/dL [facility] Interpretation and review of laboratory results Abnormal [facility] CBC AUTO DIFFon 07-17-2022 BASO # 0.0 103/ul Normal 0.0-0.1 [facility] Comment on above: Performed By: #### A 1C #### [facility] [address] [place] [address] Dr. Ana Pandey Basophils/100 WBC (Bld) 0.2 % Normal 0.2-2.0 [facility] Comment on above: Performed By: #### A 1C #### [facility] [address] [place] [address] Dr. Ana Pandey EO # 0.1 103/ul Normal 0.0-0.7 [facility] Comment on above: Performed By: #### A 1C #### [facility] [address] [place] [address] Dr. Ana Pandey Eosinophils/100 WBC (Bld) 0.9 % Normal 0.9-7.0 [facility] Comment on above: Performed By: #### A 1C #### [facility] [address] [place] [address] Dr. Ana Pandey Erythrocyte distribution width (RBC) [Ratio] 15.1 % Critically high 11.0-15.0 [facility] Comment on above: Performed By: #### A 1C #### [facility] [address] [place] [address] Dr. Ana Pandey Hematocrit (Bld) [Volume fraction] 33.6 % Critically low 42.0-54.0 [facility] Comment on above: Performed By: #### A 1C #### [facility] [address] [place] [address] Dr. Ana Pandey Hemoglobin (Bld) [Mass/Vol] 10.9 g/dL Critically low 14.0-18.0 [facility] Comment on above: Performed By: #### A 1C #### [facility] [address] [place] [address] Dr. Ana Pandey IG # 0.05 10e3/ul Critically high 0.00-0.03 [facility] Comment on above: Performed By: #### A 1C #### [facility] [address] [address] [address] Ana Pandey IG % 0.5 % Normal 0.0-0.5 [facility] Comment on above: Performed By: #### A 1C #### [facility] [address] [place] [address] Dr. Ana Pandey LYMPH # 0.9 103/ul Critically low 1.2-3.8 [facility] Comment on above: Performed By: #### A 1C #### [facility] [address] [place] [address] Dr. Ana Pandey Lymphocytes/100 WBC (Bld) 8.5 % Critically low 20.5-60.0 [facility] Comment on above: Performed By: #### A 1C #### [facility] [address] [place] [address] Dr. Ana Pandey MANUAL DIFF REQ NO Normal [facility] Comment on above: Performed By: #### A 1C #### [facility] [address] [place] [address] Dr. Ana Pandey MCH (RBC) [Entitic mass] 29.0 pg Normal 25.9-34.0 [facility] Comment on above: Performed By: #### A 1C #### [facility] [address] [place] [address] Dr. Ana Pandey MCHC (RBC) [Mass/Vol] 32.4 g/dL Normal 29.9-35.2 [facility] Comment on above: Performed By: #### A 1C #### [facility] [address] [place] [address] Dr. Ana Pandey MCV (RBC) [Entitic vol] 89.4 fL Normal 80.0-94.0 [facility] Comment on above: Performed By: #### A 1C #### [facility] [address] [place] [address] Dr. Ana Pandey MONO # 0.6 103/ul Normal 0.3-0.8 [facility] Comment on above: Performed By: #### A 1C #### [facility] [address] [place] [address] Dr. Ana Pandey Monocytes/100 WBC (Bld) 6.1 % Normal 1.7-12.0 [facility] Comment on above: Performed By: #### A 1C #### [facility] [address] [place] [address] Dr. Ana Pandey NEUT # 8.4 103/ul Critically high 1.4-6.5 [facility] Comment on above: Performed By: #### A 1C #### [facility] [address] [place] [address] Dr. Ana Pandey Neutrophils/100 WBC (Bld) 83.8 % Critically high 43.0-75.0 [facility] Comment on above: Performed By: #### A 1C #### [facility] [address] [place] [address] Dr. Ana Pandey Platelet mean volume (Bld) [Entitic vol] 9.7 fL Normal 9.5-13.5 [facility] Comment on above: Performed By: #### A 1C #### [facility] [address] [place] [address] Dr. Ana Pandey PLT 220 103/ul Normal 150-450 [facility] Comment on above: Performed By: #### A 1C #### [facility] [address] [place] [address] Dr. Ana Pandey RBC 3.76 106/ul Critically low 4.70-6.10 [facility] Comment on above: Performed By: #### A 1C #### [facility] [address] [place] [address] Dr. Ana Pandey WBC 10.0 103/ul Normal 4.0-11.0 [facility] Comment on above: Performed By: #### A 1C #### [facility] [address] [address] [address] ABD/PELVIS WO CONon [...] Bowen WISDOM Date: 2022-07-16 23:30 Normal [facility] CULTURE BLOODon 07-17-2022 Microscopic examination of blood, culture Culture Observations: NO GROWTH AT 36-48 HOURS. FINAL TO FOLLOW. Normal [facility] Comment on above: Performed By: #### B OUTSIDE SALESPERSON, CMP #### [facility] [address] [place], [place] [address] Dr. Ana Pandey Microscopic examination of blood, culture Culture Observations: NO GROWTH AT 36-48 HOURS. FINAL TO FOLLOW. Normal [facility] Comment on above: Performed By: #### B OUTSIDE SALESPERSON, CMP #### [facility] [address] [place] [address] Dr. Ana Pandey CULTURE URINEon 07-17-2022 CULTURE URINE Culture Observations : AMINA TO FOLLOW. Isolate 1 Escherichia coli >100,000 cfu/mL of Normal [facility] Comment on above: Performed By: #### B OUTSIDE SALESPERSON, CMP #### [facility] [address] [place] [address] Dr. Ana Pandey ER URINE PROFILEon 3 Bilirubin Ql (U) Negative Normal NEGATIVE [facility] Comment on above: Performed By: #### Sumaya MEDELLIN UMICRO #### [facility] [address] [place] [address] Dr. Ana Pandey Clarity (U) CLEAR Normal CLEAR [facility] Comment on above: Performed By: #### Sumaya MEDELLIN UMICRO #### [facility] [address] [place] [address] Dr. Ana Pandey Color (U) LT. YELLOW Normal YELLOW [facility] Comment on above: Performed By: #### Sumaya MEDELLIN UMICRO #### [facility] [address] [place] [address] Dr. Ana BENITEZ A micrscopic examina tion will be performed if indicated. Normal [facility] Comment on above: Performed By: #### Sumaya MEDELLIN UMICRO #### [facility] [address] [place] [address] Dr. Ana Pandey Glucose Ql (U) Negative Normal NEGATIVE [facility] Comment on above: Performed By: #### Sumaya MEDELLIN UMICRO #### [facility] [address] [place] [address] Dr. Ana Pandey Hemoglobin Ql (U) MODERATE Abnormal NEGATIVE [facility] Comment on above: Performed By: #### Sumaya MEDELLIN UMICRO #### [facility] [address] [place] [address] Dr. Ana Pandey Ketones Ql (U) Negative Normal NEGATIVE [facility] Comment on above: Performed By: #### Sumaya MEDELLIN UMICRO #### [facility] [address] [place] [address] Dr. Ana Pandey LEUKOCYTES MODERATE Abnormal NEGATIVE [facility] Comment on above: Performed By: #### Sumaya MEDELLIN UMICRO #### [facility] [address] [place] [address] Dr. Ana Pandey Nitrite Ql (U) Positive Abnormal NEGATIVE [facility] Comment on above: Performed By: #### Sumaya MEDELLIN ICRO #### [facility] [address] [place] [address] Dr. nAa Pandey pH (U) 5.0 [pH] Normal 5-9 [facility] Comment on above: Performed By: #### Sumaya MEDELLIN ICRO #### [facility] [address] [place] [address] Dr. Ana Pandey SPEC GRAVITY 1.025 Normal 1.005-<=1. 025 [facility] Comment on above: Performed By: #### Sumaya MEDELLIN ICRO #### [facility] [address] [place] [address] Dr. Ana Pandey UA PROTEIN Negative Normal NEGATIVE/ TRACE [facility] Comment on above: Performed By: #### Sumaya MEDELLIN ICRO #### [facility] [address] [place] [address] Dr. Ana Pandey UR MICRO IND INDICATED Normal [facility] Comment on above: Performed By: #### JUSTYNA FARAHRO #### [facility] [address] [place] [address] Dr. Ana Pandey Urobilinogen Qn (U) 0.2 {Casie'U}/dL Normal 0.2 - 1. 0 [facility] Comment on above: Performed By: #### LISBET FARAHICRO #### [facility] [address] [place] [address] Dr. Ana Pandey LACTATE/LACTIC ACIDon 2022 Lactate [Moles/Vol] 2.0 mmol/L Normal 0.4-2.0 [facility] Comment on above: Performed By: #### L ACT #### [facility] [address] [address] [address] Ana Pandey PROF 14(COMP METB)on 023 Albumin [Mass/Vol] 3.2 g/dL Critically low 3.4-5.[address] [facility] Comment on above: Performed By: #### C MP #### [facility] [address] [place] [address] Dr. Ana Pandey Albumin/Globulin [Mass ratio] 1.0 {ratio} Normal [facility] Comment on above: Performed By: #### C MP #### [facility] [address] [place] [address] Dr. Ana Pandey ALP [Catalytic activity/Vol] 75 U/L Normal 46-116 [facility] Comment on above: Performed By: #### C MP #### [facility] [address] [place] [address] Dr. Ana Pandey ALT [Catalytic activity/Vol] 24 U/L Normal 16-63 [facility] Comment on above: Performed By: #### C MP #### [facility] [address] [place] [address] Dr. Ana Pandey Anion gap [Moles/Vol] 13.0 mmol/L Normal [facility] Comment on above: Performed By: #### C MP #### [facility] [address] [place] [address] Dr. Ana Pandey AST [Catalytic activity/Vol] 19 U/L Normal 15-37 [facility] Comment on above: Performed By: #### C MP #### [facility] [address] [place] [address] Dr. Ana Pandey Bilirubin [Mass/Vol] 0.6 mg/dL Normal 0.2-1.0 [facility] Comment on above: Performed By: #### C MP #### [facility] [address] [place] [address] Dr. Ana Pandey Calcium [Mass/Vol] 8.6 mg/dL Normal 8.5-10.1 [facility] Comment on above: Performed By: #### C MP #### [facility] [address] [address] Dr. Ana Pandey Chloride [Moles/Vol] 106 mmol/L Normal 98-107 [facility] [place] Comment on above: Performed By: #### C MP #### [facility] [address] [address] [address] Ana Pandey CO2 [Moles/Vol] 25.0 mmol/L Normal 21.0-32.0 [facility] Comment on above: Performed By: #### C MP #### [facility] [address] [address] [address] Aan Pandey Creatinine [Mass/Vol] 1.34 mg/dL Critically high 0.70-1.30 [facility] [place] Comment on above: Performed By: #### C MP #### [facility] [address] [address] [address] Ana Pandey EGFR-AF [place]IZ[place] >60 Normal >=60 [facility] Comment on above: Performed By: #### C MP #### [facility] [address] [address] [address] Ana Pandey EGFR-NON AF [place] 52 mL/min/1.73m2 Critically low >=60 [facility] [place] Comment on above: Performed By: #### C MP #### [facility] [address] [address] [address] Ana Pandey Globulin (S) [Mass/Vol] 3.2 g/dL Normal [facility] [place] Comment on above: Performed By: #### C MP #### [facility] [address] [address] [address] Ana Pandey Glucose [Mass/Vol] 136 mg/dL Critically high 74-106 [facility] Comment on above: Performed By: #### C MP #### [facility] [address] [address] [address] Ana Pandey Potassium [Moles/Vol] 4.0 mmol/L Normal 3.5-5.1 [facility] [place] Comment on above: Performed By: #### C MP #### [facility] [address] [address] [address] Ana Pandey Protein [Mass/Vol] 6.4 g/dL Normal 6.4-8.2 [facility] Comment on above: Performed By: #### C MP #### [facility] [address] [address] [address] Ana Pandey Sodium [Moles/Vol] 140 mmol/L Normal 136-145 [facility] Comment on above: Performed By: #### C MP #### [facility] [address] [place] [address] Dr. Ana Pandey Urea nitrogen [Mass/Vol] 23.0 mg/dL Critically high 7.0-18.0 [facility] [place] Comment on above: Performed By: #### C MP #### [facility] [address] [place] [address] Dr. Ana Pandey Urea nitrogen/Creatinine [Mass ratio] 17.2 mg/mg Normal [facility] Comment on above: Performed By: #### C MP #### [facility] [address] [place] [address] Dr. Ana Pandey URINE MICROSCOPIC ONLYon BACTERIA LARGE Abnormal NONE SEEN [facility] Comment on above: Performed By: #### JUSTYNA FARAHRO #### [facility] [address] [place] [address] Dr. Ana Pandey Bacteria identified Cx Nom (U) INDICATED Normal [facility] Comment on above: Performed By: #### JUSTYNA FARAHRO #### [facility] [address] [place] [address] Dr. Ana Pandey CAST NONE SEEN Normal NONE SEEN [facility] Comment on above: Performed By: #### Sumaya MEDELLIN UMICRO #### [facility] [address] [place] [address] Dr. Ana Pandey Crystals LM Nom (Urine sed) NONE SEEN Normal NONE SEEN [facility] [place] Comment on above: Performed By: #### Sumaya MEDELLIN UMICRO #### [facility] [address] [place] [address] Dr. Ana Pandey Epithelial cells LM Ql (Urine sed) RARE Normal NONE SEEN /RARE [facility] Comment on above: Performed By: #### E LACIE UMICRO #### [facility] [address] [place] [address] Dr. Ana Pandey MUCOUS NONE SEEN Normal NONE SEEN [facility] Comment on above: Performed By: #### E MADALYNR, UMICRO #### [facility] [address] [place] [address] Dr. Ana Pandey RBC 0-2 Normal 0-2 [facility] Comment on above: Performed By: #### E MADALYNR UMICRO #### [facility] [address] [place] [address] Dr. Ana Pandey WBC 20-50 Abnormal NONE SEEN [facility] Comment on above: Performed By: #### E LACIE UMICRO #### [facility] [address] [place] [address] Dr. Ana Pandey XR CHEST 1 Von [...] YELENA DIAZ Date: 2022-07-16 23:14 Normal [facility] Covid-19 PCR (CVDTBH)on 07-06 SARS-CoV-2 (COVID-19) RNA EDD+probe Ql (Unsp spec) Not detected Normal NOT DETECTED [facility] Comment on above: Performed By: #### A 1C #### [facility] [address] [place] [address] Dr. Ana Pandey INFLUENZA A AND B AGon 07-16 INFLUENZA A AG Negative Normal NEGATIVE SEE COMMENT [facility] Comment on above: Performed By: #### A 1C #### [facility] [address] [place] [address] Dr. Ana Pandey INFLUENZA B AG Negative Normal NEGATIVE SEE COMMENT [facility] Comment on above: Performed By: #### A 1C #### [facility] [address] [place] [address] Dr. Ana Pandey SYMPTOMATIC COVID-19 ANTIGEN on 07-16-2022 EUA Statement SEE BELOW Normal [facility] Comment on above: Result Comment: This [...] sooner. Performed By: #### C VDAGS #### [facility] [address] [place] [address] Dr. Ana Pandey SARS-CoV-2 (COVID-19) RNA EDD+probe Ql (Unsp spec) Negative Normal NEGATIVE [facility] Comment on above: Performed By: #### C VDAGS #### [facility] [address] [place] [address] Dr. Ana Pandey GLYCOHEMOGLOBIN A1Con 2022 ADA RECOMMENDATION SEE BELOW Normal [facility] Comment on above: Result Comment: ADA RECOMMENDED LIMIT 4.0 - 6.0 ADA THERAPEUTIC TARGET < 7.0 ACTION SUGGESTED > 7.0 Performed By: #### A 1C #### [facility] [address] [place] [address] Dr. Ana Pandey Glucose [Mass/Vol] 154 mg/dL Normal [facility] Comment on above: Performed By: #### A 1C #### [facility] [address] [place] [address] Dr. Ana Pandey HbA1c (Bld) [Mass fraction] 7.0 % Critically high 4.5-6.2 [facility] [place] Comment on above: Performed By: #### A 1C #### [facility] [address], [place] [address] Dr. Ana Pandey [facility] SED RATE 30 mm/hr Critically high <=20 [facility] Comment on above: Performed By: #### A 1C #### [facility] [address], [place] [address] Dr. Ana Pandey NM STRESS/REST MULTIon 09-29 NM STRESS/REST MULTI Patient: LEONARDO WINSTON Exam Date: 09/29/2021 : 1945 Gender:M Ordering : MATIAS MAYORGA Admission #: [id number] Family : Order #: [id number] CLICK HERE TO VIEW EXAM RADIOLOGY REPORT [...] M.D. on 09/29/2021 at 15:22 Normal [facility] PROF CHEM 8 (BAS METB)on Anion gap [Moles/Vol] 13.1 mmol/L Normal [facility] Comment on above: Performed By: #### B OUTSIDE SALESPERSON, CMP #### [facility] [address] [place] [address] Dr. Ana Pandey Calcium [Mass/Vol] 8.6 mg/dL Normal 8.5-10.1 [facility] Comment on above: Performed By: #### B OUTSIDE SALESPERSON, CMP #### [facility] [address] [place] [address] Dr. Ana Pandey Chloride [Moles/Vol] 104 mmol/L Normal 98-107 [facility] Comment on above: Performed By: #### B OUTSIDE SALESPERSON, CMP #### [facility] [address] [place] [address] Dr. Ana Pandey CO2 [Moles/Vol] 25.9 mmol/L Normal 21.0-32.0 [facility] Comment on above: Performed By: #### B OUTSIDE SALESPERSON, CMP #### [facility] [address] [place] [address] Dr. Ana Pandey Creatinine [Mass/Vol] 0.92 mg/dL Normal 0.70-1.30 [facility] Comment on above: Performed By: #### B OUTSIDE SALESPERSON, CMP #### [facility] [address] [place] [address] Dr. Ana Pandey EGFR-AF [place] >60 Normal >=60 [facility] Comment on above: Performed By: #### B OUTSIDE SALESPERSON, CMP #### [facility] [address] [place] [address] Dr. Ana Pandey EGFR-NON AF [place] >60 Normal >=60 [facility] Comment on above: Performed By: #### B OUTSIDE SALESPERSON, CMP #### [facility] [address] [place] [address] Dr. Ana Pandey Glucose [Mass/Vol] 102 mg/dL Normal 74-106 [facility] Comment on above: Performed By: #### B OUTSIDE SALESPERSON, CMP #### [facility] [address] [place] [address] Dr. Ana Pandey Potassium [Moles/Vol] 4.0 mmol/L Normal 3.5-5.1 [facility] Comment on above: Performed By: #### B OUTSIDE SALESPERSON, CMP #### [facility] [address] [place] [address] Dr. Ana Pandey Sodium [Moles/Vol] 139 mmol/L Normal 136-145 [facility] Comment on above: Performed By: #### B OUTSIDE SALESPERSON, CMP #### [facility] [address] [place] [address] Dr. Ana Pandey Urea nitrogen [Mass/Vol] 24.0 mg/dL Critically high 7.0-18.0 [facility] Comment on above: Performed By: #### B OUTSIDE SALESPERSON, CMP #### [facility] [address] [place] [address] Dr. Ana Pandey Urea nitrogen/Creatinine [Mass ratio] 26.1 mg/mg Normal [facility] Comment on above: Performed By: #### B OUTSIDE SALESPERSON, CMP #### [facility] [address] [place] [address] Dr. Ana Pandey BNPon 09-10-2021 Natriuretic peptide B (Bld) [Mass/Vol] 305.0 pg/mL Normal <=1,800.0 [facility] Comment on above: Performed By: #### B OUTSIDE SALESPERSON, CMP #### [facility] [address] [place] [address] Dr. Ana Pandey CBC AUTO DIFFon 09-10-2021 BASO # 0.0 103/ul Normal 0.0-0.1 [facility] Comment on above: Performed By: #### A 1C #### [facility] [address] [place] [address] Dr. Ana Pandey Basophils/100 WBC (Bld) 0.5 % Normal 0.2-2.0 [facility] [place] Comment on above: Performed By: #### A 1C #### [facility] [address] [place] [address] Dr. Ana Pandey EO # 0.1 103/ul Normal 0.0-0.7 [facility] Comment on above: Performed By: #### A 1C #### [facility] [address] [place] [address] Dr. Ana Pandey Eosinophils/100 WBC (Bld) 1.9 % Normal 0.9-7.0 [facility] Comment on above: Performed By: #### A 1C #### [facility] [address] [place] [address] Dr. Ana Pandey Erythrocyte distribution width (RBC) [Ratio] 15.4 % Critically high 11.0-15.0 [facility] Comment on above: Performed By: #### A 1C #### [facility] [address] [place] [address] Dr. Ana Pandey Hematocrit (Bld) [Volume fraction] 38.6 % Critically low 42.0-54.0 [facility] Comment on above: Performed By: #### A 1C #### [facility] [address] [place] [address] Dr. Ana Pandey Hemoglobin (Bld) [Mass/Vol] 12.2 g/dL Critically low 14.0-18.0 [facility] Comment on above: Performed By: #### A 1C #### [facility] [address] [place] [address] Dr. Ana Pandey IG # 0.01 10e3/ul Normal 0.00-0.03 [facility] Comment on above: Performed By: #### A 1C #### [facility] [address] [place] [address] Dr. Ana Pandey IG % 0.1 % Normal 0.0-0.5 [facility] Comment on above: Performed By: #### A 1C #### [facility] [address] [place] [address] Dr. Ana Pandey LYMPH # 1.6 103/ul Normal 1.2-3.8 [facility] Comment on above: Performed By: #### A 1C #### [facility] [address] [place] [address] Dr. Ana Pandey Lymphocytes/100 WBC (Bld) 21.1 % Normal 20.5-60.0 [facility] Comment on above: Performed By: #### A 1C #### [facility] [address] [place] [address] Dr. Ana Pandey MANUAL DIFF REQ NO Normal [facility] Comment on above: Performed By: #### A 1C #### [facility] [address] [place] [address] Dr. Ana Pandey MCH (RBC) [Entitic mass] 28.7 pg Normal 25.9-34.0 [facility] Comment on above: Performed By: #### A 1C #### [facility] [address] [place] [address] Dr. Ana Pandey MCHC (RBC) [Mass/Vol] 31.6 g/dL Normal 29.9-35.2 [facility] Comment on above: Performed By: #### A 1C #### [facility] [address] [place] [address] Dr. Ana Pandey MCV (RBC) [Entitic vol] 90.8 fL Normal 80.0-94.0 [facility] Comment on above: Performed By: #### A 1C #### [facility] [address] [place] [address] Dr. Ana Pandey MONO # 0.6 103/ul Normal 0.3-0.8 [facility] Comment on above: Performed By: #### A 1C #### [facility] [address] [place] [address] Dr. Ana Pandey Monocytes/100 WBC (Bld) 7.4 % Normal 1.7-12.0 [facility] Comment on above: Performed By: #### A 1C #### [facility] [address] [place] [address] Dr. Ana Pandey NEUT # 5.1 103/ul Normal 1.4-6.5 [facility] Comment on above: Performed By: #### A 1C #### [facility] [address] [place] [address] Dr. Ana Pandey Neutrophils/100 WBC (Bld) 69.0 % Normal 43.0-75.0 [facility] Comment on above: Performed By: #### A 1C #### [facility] [address] [address] [address] Ana Pnadey Platelet mean volume (Bld) [Entitic vol] 9.9 fL Normal 9.5-13.5 [facility] Comment on above: Performed By: #### A 1C #### [facility] [address] [address] [address] Ana Pandey PLT 194 103/ul Normal 150-450 [facility] Comment on above: Performed By: #### A 1C #### [facility] [address] [address] [address] Ana Pandey RBC 4.25 106/ul Critically low 4.70-6.10 [facility] Comment on above: Performed By: #### A 1C #### [facility] [address] [place] [address] Dr. Ana Pandey WBC 7.4 103/ul Normal 4.0-11.0 [facility] Comment on above: Performed By: #### A 1C #### [facility] [address] [place] [address] Dr. Ana Pandey PROF 14(COMP METB)on 022 Albumin [Mass/Vol] 3.5 g/dL Normal 3.4-5.0 [facility] Comment on above: Performed By: #### B OUTSIDE SALESPERSON, CMP #### [facility] [address] [place] [address] Dr. Ana Pandey Albumin/Globulin [Mass ratio] 1.2 {ratio} Normal [facility] Comment on above: Performed By: #### B OUTSIDE SALESPERSON, CMP #### [facility] [address] [place] [address] Dr. Ana Pandey ALP [Catalytic activity/Vol] 67 U/L Normal 46-116 [facility] Comment on above: Performed By: #### B OUTSIDE SALESPERSON, CMP #### [facility] [address] [place] [address] Dr. Ana Pandey ALT [Catalytic activity/Vol] 37 U/L Normal 16-63 [facility] Comment on above: Performed By: #### B OUTSIDE SALESPERSON, CMP #### [facility] [address] [address] [address] Ana Pandey Anion gap [Moles/Vol] 11.6 mmol/L Normal [facility] Comment on above: Performed By: #### B OUTSIDE SALESPERSON, CMP #### [facility] [address] [address] [address] Ana Pandey AST [Catalytic activity/Vol] 30 U/L Normal 15-37 [facility] Comment on above: Performed By: #### B OUTSIDE SALESPERSON, CMP #### [facility] [address] [address] [address] Ana Pandey Bilirubin [Mass/Vol] 0.5 mg/dL Normal 0.2-1.0 [facility] Comment on above: Performed By: #### B OUTSIDE SALESPERSON, CMP #### [facility] [address] [place] [address] Dr. Ana Pandey Calcium [Mass/Vol] 8.9 mg/dL Normal 8.5-10.1 [facility] Comment on above: Performed By: #### B OUTSIDE SALESPERSON, CMP #### [facility] [address] [address] [address] Ana Pandey Chloride [Moles/Vol] 107 mmol/L Normal 98-107 [facility] Comment on above: Performed By: #### B OUTSIDE SALESPERSON, CMP #### [facility] [address] [place] [address] Dr. Ana Pandey CO2 [Moles/Vol] 26.9 mmol/L Normal 21.0-32.0 [facility] Comment on above: Performed By: #### B OUTSIDE SALESPERSON, CMP #### [facility] [address] [address] [address] Ana Pandey Creatinine [Mass/Vol] 0.93 mg/dL Normal 0.70-1.30 [facility] Comment on above: Performed By: #### B OUTSIDE SALESPERSON, CMP #### [facility] [address] [address] [address] Ana Pandey EGFR-AF [place] >60 Normal >=60 [facility] Comment on above: Performed By: #### B OUTSIDE SALESPERSON, CMP #### [facility] [address] [address] [address] Ana Pandey EGFR-NON AF [place] >60 Normal >=60 [facility] Comment on above: Performed By: #### B OUTSIDE SALESPERSON, CMP #### [facility] [address] [address] [address] Ana Pandey Globulin (S) [Mass/Vol] 2.8 g/dL Normal [facility] Comment on above: Performed By: #### B OUTSIDE SALESPERSON, CMP #### [facility] [address] [address] [address] Ana Pandey Glucose [Mass/Vol] 169 mg/dL Critically high 74-106 [facility] Comment on above: Performed By: #### B OUTSIDE SALESPERSON, CMP #### [facility] [address] [place] [address] Dr. Ana Pandey Potassium [Moles/Vol] 4.5 mmol/L Normal 3.5-5.1 [facility] Comment on above: Performed By: #### B OUTSIDE SALESPERSON, CMP #### [facility] [address] [place] [address] Dr. Ana Pandey Protein [Mass/Vol] 6.3 g/dL Critically low 6.4-8.[address] [facility] Comment on above: Performed By: #### B OUTSIDE SALESPERSON, CMP #### [facility] [address] [place] [address] Dr. Ana Pandey Sodium [Moles/Vol] 141 mmol/L Normal 136-145 [facility] Comment on above: Performed By: #### B OUTSIDE SALESPERSON, CMP #### [facility] [address] [place] [address] Dr. Ana Pandey Urea nitrogen [Mass/Vol] 20.0 mg/dL Critically high 7.0-18.0 [facility] Comment on above: Performed By: #### B OUTSIDE SALESPERSON, CMP #### [facility] [address] [place] [address] Dr. Ana Pandey Urea nitrogen/Creatinine [Mass ratio] 21.5 mg/mg Normal [facility] Comment on above: Performed By: #### B OUTSIDE SALESPERSON, CMP #### [facility] [address] [place] [address] Dr. Ana Pandey XR CHEST 2 Von [...] KAYCE SARAVIA Date: 2021-09-10 14:23 Normal [facility] CBC AUTO DIFFon 07-23-2021 BASO # 0.1 103/ul Normal 0.0-0.1 [facility] [place] Comment on above: Performed By: #### C BC #### [facility] [address] [place] [address] Dr. Ana Pandey Basophils/100 WBC (Bld) 0.6 % Normal 0.2-2.0 [facility] [place] Comment on above: Performed By: #### C BC #### [facility] [facility] [address] [place] [address] Dr. Ana Pandey EO # 0.2 103/ul Normal 0.0-0.7 [facility] Comment on above: Performed By: #### C BC #### [facility] [address] [place] [address] Dr. Ana Pandey Eosinophils/100 WBC (Bld) 2.5 % Normal 0.9-7.0 [facility] Comment on above: Performed By: #### C BC #### [facility] [address] [place] [address] Dr. Ana Pandey Erythrocyte distribution width (RBC) [Ratio] 15.0 % Normal 11.0-15.0 [facility] Comment on above: Performed By: #### C BC #### [facility] [address] [place] [address] Dr. Ana Pandey Hematocrit (Bld) [Volume fraction] 46.4 % Normal 42.0-54.0 [facility] Comment on above: Performed By: #### C BC #### [facility] [address] [place] [address] Dr. Ana Pandey Hemoglobin (Bld) [Mass/Vol] 14.2 g/dL Normal 14.0-18.0 [facility] Comment on above: Performed By: #### C BC #### [facility] [address] [place] [address] Dr. Ana Pandey IG # 0.02 10e3/ul Normal 0.00-0.03 [facility] Comment on above: Performed By: #### C BC #### [facility] [address] [place] [address] Dr. Ana Pandey IG % 0.2 % Normal 0.0-0.5 [facility] Comment on above: Performed By: #### C BC #### [facility] [address] [place] [address] Dr. Ana Pandey LYMPH # 2.5 103/ul Normal 1.2-3.8 [facility] Comment on above: Performed By: #### C BC #### [facility] [address] [place] [address] Dr. Ana Pandey Lymphocytes/100 WBC (Bld) 27.9 % Normal 20.5-60.0 [facility] Comment on above: Performed By: #### C BC #### [facility] [address] [place] [address] Dr. Ana Pandey MANUAL DIFF REQ NO Normal [facility] Comment on above: Performed By: #### C BC #### [facility] [address] [place] [address] Dr. Ana Pandey MCH (RBC) [Entitic mass] 27.8 pg Normal 25.9-34.0 [facility] Comment on above: Performed By: #### C BC #### [facility] [address] [place] [address] Dr. Ana Pandey MCHC (RBC) [Mass/Vol] 30.6 g/dL Normal 29.9-35.2 [facility] Comment on above: Performed By: #### C BC #### [facility] [address] [place] [address] Dr. Ana Pandey MCV (RBC) [Entitic vol] 90.8 fL Normal 80.0-94.0 [facility] Comment on above: Performed By: #### C BC #### [facility] [address] [place] [address] Dr. Ana Pandey MONO # 0.7 103/ul Normal 0.3-0.8 [facility] Comment on above: Performed By: #### C BC #### [facility] [address] [place] [address] Dr. Ana Pandey Monocytes/100 WBC (Bld) 8.0 % Normal 1.7-12.0 [facility] Comment on above: Performed By: #### C BC #### [facility] [address] [place] [address] Dr. Ana Pandey NEUT # 5.4 103/ul Normal 1.4-6.5 [facility] Comment on above: Performed By: #### C BC #### [facility] [address] [place] [address] Dr. Ana Pandey Neutrophils/100 WBC (Bld) 60.8 % Normal 43.0-75.0 [facility] Comment on above: Performed By: #### C BC #### [facility] [address] [place] [address] Dr. Ana Pandey Platelet mean volume (Bld) [Entitic vol] 10.6 fL Normal 9.5-13.5 [facility] Comment on above: Performed By: #### C BC #### [facility] [address] [place] [address] Dr. Ana Pandey PLT 248 103/ul Normal 150-450 [facility] Comment on above: Performed By: #### C BC #### [facility] [address] [place] [address] Dr. Ana Pandey RBC 5.11 106/ul Normal 4.70-6.10 [facility] Comment on above: Performed By: #### C BC #### [facility] [address] [address] [address] Ana Pandey WBC 8.8 103/ul Normal 4.0-11.0 [facility] Comment on above: Performed By: #### C BC #### [facility] [address] [place] [address] Dr. Ana Pandey GLYCOHEMOGLOBIN A1Con 2021 ADA RECOMMENDATION SEE BELOW Normal [facility] Comment on above: Result Comment: ADA RECOMMENDED LIMIT 4.0 - 6.0 ADA THERAPEUTIC TARGET < 7.0 ACTION SUGGESTED > 7.0 Performed By: #### A 1C #### [facility] [address] [place] [address] Dr. Ana Pandey Glucose [Mass/Vol] 146 mg/dL Normal [facility] Comment on above: Performed By: #### A 1C #### [facility] [address] [place] [address] Dr. Ana Pandey HbA1c (Bld) [Mass fraction] 6.7 % Critically high 4.5-6.2 [facility] Comment on above: Performed By: #### A 1C #### [facility] [address] [place] [address] Dr. Ana Pandey LIPID PROFILEon 07-23-2021 CHOL-HDL RATIO NORM SEE BELOW Normal [facility] Comment on above: Result Comment: 3.3 - 4.4 LOW RISK 4.4 - 7.1 AVERAGE RISK 7.1 - 11.0 MODERATE RISK >11.0 HIGH RISK Performed By: #### A 1C #### [facility] [address] [place] [address] Dr. Ana Pandey Cholesterol [Mass/Vol] 98 mg/dL Normal <=200 [facility] Comment on above: Performed By: #### A 1C #### [facility] [address] [place] [address] Dr. Ana Pandey Cholesterol in HDL [Mass/Vol] 42 mg/dL Normal 40-60 [facility] Comment on above: Performed By: #### A 1C #### [facility] [address] [address] [address] Ana Pandey Cholesterol in LDL [Mass/Vol] 43.2 mg/dL Normal [facility] Comment on above: Performed By: #### A 1C #### [facility] [address] [address] [address] Ana Pandey Cholesterol.total/Cho lesterol in HDL [Mass ratio] 2.3 {ratio} Normal [facility] Comment on above: Performed By: #### A 1C #### [facility] [address] [address] [address] Ana Pandey HDL NORMAL > or = 60 mg/dl - LO W CARDIOVASCULAR RISK <40 mg/dl - HIGH CARDIOVASCULAR RISK Normal [facility] Comment on above: Performed By: #### A 1C #### [facility] [address] [address] [address] Ana Pandey LDL CALC NORMAL SEE BELOW Normal [facility] Comment on above: Result Comment: <100 mg/dl OPTIMAL 100 - 129 mg/dl NEAR OR ABOVE OPTIMAL 130 - 159 mg/dl BORDERLINE HIGH 160 - 189 mg/dl HIGH >190 mg/dl VERY HIGH Performed By: #### A 1C #### [facility] [address] [address] [address] Ana Pandey Triglyceride [Mass/Vol] 64 mg/dL Normal <=150 [facility] Comment on above: Performed By: #### A 1C #### [facility] [address] [address] [address] Ana Pandey VLDL CALC 12.8 mg/dL Normal [facility] Comment on above: Performed By: #### A 1C #### [facility] [address] [address] [address] Ana Pandey LIVER PROFILEon 07-23-2021 Albumin [Mass/Vol] 3.9 g/dL Normal 3.4-5.0 [facility] Comment on above: Performed By: #### A 1C #### [facility] [address] [address] [address] Ana Pandey Albumin/Globulin [Mass ratio] 1.2 {ratio} Normal [facility] Comment on above: Performed By: #### A 1C #### [facility] [address] [address] [address] Ana Pandey ALP [Catalytic activity/Vol] 74 U/L Normal 46-116 [facility] Comment on above: Performed By: #### A 1C #### [facility] [address] [place] [address] Dr. Ana Pandey ALT [Catalytic activity/Vol] 52 U/L Normal 16-63 [facility] Comment on above: Performed By: #### A 1C #### [facility] [address] [place] [address] Dr. Ana Pandey AST [Catalytic activity/Vol] 43 U/L Critically high 15-37 [facility] Comment on above: Performed By: #### A 1C #### [facility] [address] [place] [address] Dr. Ana Pandey BILI, CONJUGATED 0.2 mg/dL Normal 0.0-0.2 [facility] Comment on above: Performed By: #### A 1C #### [facility] [address] [place] [address] Dr. Ana Pandey Bilirubin [Mass/Vol] 0.6 mg/dL Normal 0.2-1.0 [facility] Comment on above: Performed By: #### A 1C #### [facility] [address] [place] [address] Dr. Ana Pandey Globulin (S) [Mass/Vol] 3.2 g/dL Normal [facility] Comment on above: Performed By: #### A 1C #### [facility] [address] [place] [address] Dr. Ana Pandey Protein [Mass/Vol] 7.1 g/dL Normal 6.4-8.2 [facility] Comment on above: Performed By: #### A 1C #### [facility] [address] [place] [address] Dr. Ana Pandey MICROALBUMIN, RAND URon 05-1 mALB 1.8 mg/L Normal <=30.0 [facility] Comment on above: Performed By: #### A 1C #### [facility] [address] [address] [address] Ana Pandey PROF CHEM 8 (BAS METB)on Anion gap [Moles/Vol] 12.1 mmol/L Normal Th [facility] Comment on above: Performed By: #### A 1C #### [facility] [address] [place] [address] Dr. Ana Pandey Calcium [Mass/Vol] 8.7 mg/dL Normal 8.5-10.1 [facility] Comment on above: Performed By: #### A 1C #### [facility] [address] [place] [address] Dr. Ana Pandey Chloride [Moles/Vol] 102 mmol/L Normal 98-107 [facility] Comment on above: Performed By: #### A 1C #### [facility] [address] [place] [address] Dr. Ana Pandey CO2 [Moles/Vol] 28.1 mmol/L Normal 21.0-32.0 [facility] Comment on above: Performed By: #### A 1C #### [facility] [address] [place] [address] Dr. Ana Pandey Creatinine [Mass/Vol] 0.94 mg/dL Normal 0.70-1.30 [facility] Comment on above: Performed By: #### A 1C #### [facility] [address] [place] [address] Dr. Ana Pandey EGFR-AF [place]IZ[place] >60 Normal >=60 [facility] Comment on above: Performed By: #### A 1C #### [facility] [address] [place] [address] Dr. Ana Pandey EGFR-NON AF [place]IZ[place] >60 Normal >=60 [facility] Comment on above: Performed By: #### A 1C #### [facility] [address] [place] [address] Dr. Ana Pandey Glucose [Mass/Vol] 102 mg/dL Normal 74-106 [facility] Comment on above: Performed By: #### A 1C #### [facility] [address] [address] [address] Ana Pandey Potassium [Moles/Vol] 4.2 mmol/L Normal 3.5-5.1 [facility] Comment on above: Performed By: #### A 1C #### [facility] [address] [place] [address] Dr. Ana Pandey Sodium [Moles/Vol] 138 mmol/L Normal 136-145 [facility] Comment on above: Performed By: #### A 1C #### [facility] [address] [place] [address] Dr. Ana Pandey Urea nitrogen [Mass/Vol] 28.0 mg/dL Critically high 7.0-18.0 [facility] Comment on above: Performed By: #### A 1C #### [facility] [address] [place] [address] Dr. Ana Pandey Urea nitrogen/Creatinine [Mass ratio] 29.8 mg/mg Normal [facility] Comment on above: Performed By: #### A 1C #### [facility] [address] [place] [address] Dr. Ana Pandey TSHon 07-23-2021 TSH 4.104 uIU/mL Critically high 0.358-3.74 0 [facility] Comment on above: Performed By: #### A 1C #### [facility] [address] [place] [address] Dr. Ana Pandey TSH RANGE SEE BELOW Normal [facility] Comment on above: Result Comment: <0.3 4 UIU/ml HYPERTHYROID 0.34-5.60 UIU/ml EUTHYROID >5.60 UIU/ml HYPOTHYROID Performed By: #### A 1C #### [facility] [address] [place] [address] Dr. Ana Pandey COVID Quick Testingon 2020 Result Positive [employer] Other Cardiovascular Lab Reporton 05-05-2017 Cardiovascular Lab Report [facility] Patient Name: Thea [facility] MR #: [id number] Physician: Shantell Gomez,Department of M.D.Medicine Service Date: 05/04/2017Division of Birthdate: 4Cardiology Room #: [id number] CardiovascularServicesUniv [facility] [id number], [place] [address]Bursv Fax Cardiovascular Laboratory ReportREFERRING PHYSICIANS: Christian Rosa [...] CAD.6. Outpatient followup with Dr. Jacobo Rosa, [place] Cardiology.7. Okay to refer to cardiac rehabilitation [...] usingultrasound guidance and micropuncture access technique, a 6-Qatari sheathwas placed in the right internal jugular vein. Using a Dougherty catheter,the right heart catheterization was then performed. Pressures wereobtained in the right atrium, right ventricle, pulmonary artery, andpulmonary capillary wedge position. Oxygen saturation was drawn from thepulmonary artery and the Sly cardiac output and cardiac index were thencalculated. The Dougherty catheter was then removed.Next, a 6-Qatari Terumo Glidesheath slender was placed in the [...] check the severity with an FFR testing.A [employer] left 6-Qatari guide was engaged to left main coronaryartery.The Zyrra Verrata FFR wire was then zeroed outside [...] 05/04/2017/12:44 P/Shantell Gomez M.D.Date Trans: 05/05/2017 09:35 Nnamdi/Mata_JN:[id number] c: Christian Rosa M.D. [facility]5 [facility] [address] Michael Smith M.D. [facility]6 Kevin Virgen [facility] [address] [facility] Vital Signs Date Time Vital Sign Value Performing Clinician Facility 04-22-2023 14:27-0500 Body height 190.5 cm MD Michael Smith Work Phone: [facility] 04-22-2023 14:27-0500 Body mass index (BMI) [Ratio] 29.7 kg/m2 MD Michael Smith Work Phone: [facility] 04-22-2023 14:27-0500 Body temperature 97.6 [degF] MD Michael Smith Work Phone: [facility] 04-22-2023 14:27-0500 Body weight 107.67 kg MD Michael Smith Work Phone: [facility] 04-22-2023 14:27-0500 Heart rate 67 /min MD Michael Smith Work Phone: [facility] 04-22-2023 14:27-0500 Respiratory rate 18 /min MD Michael Smith Work Phone: [facility] 04-22-2023 14:27-0500 SaO2% (BldA) [Mass fraction] 95 % MD Michael Smith Work Phone: [facility] 02-14-2023 12:10-0500 Body height 190.5 cm Mitzy Neves Other [facility] 02-14-2023 12:10-0500 Body mass index (BMI) [Ratio] 30.57 kg/m2 Mitzy Neves Other [employer] Other 02-14-2023 12:10-0500 Body temperature 98 [degF] Mitzy Neves Other [employer] Other 02-14-2023 12:10-0500 Body weight 110.95 kg Mitzy Neves Other [employer] Other 02-14-2023 12:10-0500 Body weight 110.94 kg MD Michael Smith Work Phone: [facility] 02-14-2023 12:10-0500 Diastolic blood pressure 60 mm[Hg] Mitzy Neves Other [facility] 02-14-2023 12:10-0500 Respiratory rate 18 /min Mitzy Neves Other [place] [employer] Other 02-14-2023 12:10-0500 SaO2% (BldA) [Mass fraction] 98 % Mitzy Neves Other [facility] [employer] Other 02-14-2023 12:10-0500 Systolic blood pressure 135 mm[Hg] Mitzy Neves Other [facility] 10-05-2022 11:30-0400 Diastolic blood pressure 58 mm[Hg] Genoveva Pond DO Work Phone: [employer] 10-05-2022 11:30-0400 Heart rate 58 /min Genoveva Pond DO Work Phone: [employer] 10-05-2022 11:30-0400 Respiratory rate 16 /min Genoveva Pond DO Work Phone: [employer] 10-05-2022 11:30-0400 SaO2% (BldA) [Mass fraction] 98 % Genoveva Pond DO Work Phone: [employer] 10-05-2022 11:30-0400 Systolic blood pressure 126 mm[Hg] Genoveva Pond DO Work Phone: [employer] 10-05-2022 11:11-0400 Body temperature 96.91 [degF] Genoveva Pond DO Work Phone: [employer] 10-05-2022 10:00-0400 Body height 190.5 cm Genoveva Pond DO Work Phone: [facility] [employer] 10-05-2022 10:00-0400 Body mass index (BMI) [Ratio] 32.12 kg/m2 Genoveva Pond DO Work Phone: [facility] [employer] 10-05-2022 10:00-0400 Body weight 116.57 kg Genoveva Pond DO Work Phone: [facility] [employer] 05-26-2022 12:50-0400 Body height 190.5 cm Minerva Irwin Other [employer] Other 05-26-2022 12:50-0400 Body mass index (BMI) [Ratio] 31.87 kg/m2 Minerva Irwin Other [employer] Other 05-26-2022 12:50-0400 Body temperature 97.1 [degF] Minerva Irwin Other [employer] Other 05-26-2022 12:50-0400 Body weight 115.67 kg Minerva Irwin Other [employer] Other 05-26-2022 12:50-0400 Respiratory rate 18 /min Minerva Irwin Other [employer] Other 05-26-2022 12:50-0400 SaO2% (BldA) [Mass fraction] 97 % Minerva Irwin Other [employer] Other 03-20-2022 14:00-0500 Body height 190.5 cm Minerva Irwin Other [employer] Other 03-20-2022 14:00-0500 Body mass index (BMI) [Ratio] 28.74 kg/m2 Minerva Irwin Other [employer] Other 03-20-2022 14:00-0500 Body temperature 97.7 [degF] Minerva Irwin Other [employer] Other 03-20-2022 14:00-0500 Body weight 104.33 kg Minerva Irwin Other [employer] Other 03-20-2022 14:00-0500 Respiratory rate 18 /min Minerva Irwin Other [employer] Other 03-20-2022 14:00-0500 SaO2% (BldA) [Mass fraction] 97 % Minerva Irwin Other [employer] Other 12-05-2020 17:15-0400 Body height 190.5 cm Radha Sawant Other [employer] Other 12-05-2020 17:15-0400 Body temperature 98.8 [degF] Radha Sawant Other [employer] Other 12-05-2020 17:15-0400 SaO2% (BldA) [Mass fraction] 97 % Radha Sawant Other [employer] Other Encounters Encounter Date Encounter Type Care Provider Facility Start: 01-04-2024 ambulatory Merry Gaytan Facilit y:[facility] Start: 11-23-2023 End: 11-23-2023 ambulatory Merry Gaytan Facility:[facility] Start: 11-19-2023 End: 11-19-2023 ambulatory MATIAS [facility] Start: 09-20-2023 End: 09-20-2023 Evaluation and management of inpatient SHANICE Pedraza [facility] Start: 09-20-2023 End: 09-20-2023 Evaluation and management of inpatient GENOVEVA POND [facility] Start: 2023 End: 2023 ambulatory MAYNOR PINEDA [facility] Start: 2023 Encounter for other preprocedural examination MICHAEL SMITH [facility] Start: 09-01-2023 ambulatory Merry Gaytan Facility: [facility] Start: 08-31-2023 End: 08-31-2023 ambulatory SHAIKH LOLLY Not Available Start: 07-06-2023 End: 07-06-2023 ambulatory CAMPBELL H TIMMIS Not Available Start: 06-21-2023 End: 06-21-2023 ambulatory CAMPBELL H TIMMIS Not Available Start: 05-31-2023 End: 05-31-2023 ambulatory SHAIKH LOLLY Not Available Start: 05-21-2023 End: 05-21-2023 ambulatory CHRISTIANO [facility] Start: 04-26-2023 End: 04-26-2023 ambulatory SHAIKH LOLLY Not Available Start: 04-22-2023 End: 04-22-2023 ambulatory MD Michael Smith Work Phone: [facility] Work Phone: Start: 04-22-2023 End: 04-22-2023 Patient encounter procedure MD Michael Smith Work Phone: Replaced By [facility] Work Phone: Start: 04-21-2023 Orders Only Shaikh Lolly PERALES Work Phone: [facility] Comment on above: Coronary arterioscle rosis in [place] artery (CMS/HCC) (Primary Dx) Start: 04-15-2023 Orders Only Shaikh Lolly PERALES Work Phone: [facility] Comment on above: Chronic heart failur e with preserved ejection fraction (HFpEF) (CMS/HCC) (Primary Dx) Start: 03-15-2023 End: 03-15-2023 ambulatory SHAIKH LOLLY Not Available Start: 02-25-2023 Patient encounter procedure Shaikh Lolly PERALES Work Phone: [facility] Start: 02-25-2023 End: 02-25-2023 ambulatory SHAIKH LOLLY Not Available Start: 02-14-2023 End: 02-14-2023 ambulatory Mitzy Neves Other [employer] Other Start: 02-14-2023 Office outpatient vi sit 15 minutes Mitzy Neves [facility] Start: 02-14-2023 End: 02-14-2023 Patient encounter procedure MD Michael Smith Work Phone: Replaced By [facility] Work Phone: Start: 02-09-2023 End: 02-09-2023 ambulatory AMANDA CARLOSVALERY Not Available Start: 02-01-2023 End: 02-01-2023 ambulatory Trell Damian Facility:[facility] Start: 02-01-2023 End: 02-01-2023 ambulatory MD Michael Smith Work Phone: [facility] Work Phone: Start: 02-01-2023 End: 02-01-2023 Patient encounter procedure MD Michael Smith Work Phone: [facility] Work Phone: Start: 10-05-2022 End: 10-05-2022 ambulatory [facility]EV[facility] Start: 10-05-2022 End: 10-05-2022 Subsequent hospital visit by physician Genoveva Pond DO Work Phone: [facility] Start: 07-22-2022 ambulatory MENDEZ GAN Facwendi lity:H1 Start: 07-16-2022 End: 07-17-2022 ambulatory DR MATIAS MAXWELL . Facility: Start: 06-26-2022 End: 06-26-2022 ambulatory Minerva Irwin Other [facility] Other Start: 06-26-2022 Telephone encounter Minerva Irwin [facility] [employer] Start: 05-26-2022 End: 05-26-2022 ambulatory Minerva Irwin Other [facility] Other Start: 05-26-2022 Office outpatient vi sit 25 minutes Minerva Irwin [facility] Start: 05-08-2022 End: 05-09-[address] MICHAEL SMITH Facility:[facility] Start: 04-03-2022 End: 04-04-2022 ambulatory SHAIKH Vijaya AMBROCIO Facility:[facility] Start: 03-25-2022 End: 03-26-[address] MICHAEL SMITH Facility:[facility] Start: 03-20-2022 End: 03-20-2022 ambulatory Minerva Irwin Other [facility] Other Start: 03-20-2022 Office outpatient vi sit [...] Start: 05-04-2017 End: 05-05-2017 Ambulatory MICHAEL SMITH Facility:[facility] Start: 04-28-2017 End: 04-29-2017 Ambulatory DEFAULT PHYSICIAN Facility:[facility] Procedures Date Procedure Procedure Detail Performing Clinician Start: 05-21-2023 Follow-up visit Follow-up CHRISTIANO DOUGLAS Start: 10-05-2022 GLUCOSE, WHOLE BLOOD Bl air Y Shamar DO Work Phone: Start: 10-05-2022 Ecg routine ecg w/le ast 12 lds w/i&r Genoveva Y Shamar DO Work Phone: Start: 07-23-[address] MICHAEL BLUE Comment on above: Performed By: #### B OUTSIDE SALESPERSON, CMP #### [facility] [address], [place] [address] Dr. Ana Pandey History of placement of stent for coronary artery disease H/O heart artery stent MD Michael Smith Work Phone: Plan of Treatment Date Care Activity Detail Author Start: 11-06-2024 Glaucoma screening Diabetes: R etinopathy Screening [facility] Start: 02-26-2024 Medicare Annual Wellness (AWV) Medicare Annual Wellness (AWV) [facility] Start: 05-31-2023 End: 05-31-2023 Patient encounter procedure 05/31/2023 10:45 AM EDT Office Visit [facility] [address] [place] [phone] Shaikh Ambrocio MD [address] [place] [phone] [facility] Start: 05-06-2023 Hemoglobin A1c measurement Diabetes: Hemoglobin A1C [facility] Start: 10-06-2022 Influenza vaccination Flu vaccine (# 1) [facility] Start: 10-05-2022 Annual Wellness Visi t (AWV) Annual Wellness Visit (AWV) [facility] Start: 10-05-2022 End: 10-05-2022 Xcapsl ctrc rmvl insj io lens prosth w/o ecp EYE CATARACT EMULSIFICATION IOL IMPLANT Combined forms of age-related cataract of left eye 10/05/2022 10:44 AM EDT [facility] Start: 07-13-2022 Urine screening for protein Diabetes: Urine Protein Screening [facility] Start: 09-01-2008 Pneumococcal 65+ yea rs Vaccine (1 - PCV) Pneumococcal 65+ years Vaccine (1 - PCV) [facility] Start: 09-01-1993 Shingles vaccine (1 of 2) Shingles vaccine (1 of 2) [facility] Start: 09-01-1962 DTaP/Tdap/Td vaccine (1 - Tdap) DTaP/Tdap/Td vaccine (1 - Tdap) [facility] Start: 09-01-1961 Hepatitis C screening Hepatitis C sc reen [facility] Start: 1955 Depression Screen Depression Screen [facility] Start: 09-01-1953 Lipid panel Lipids [facility] Start: 09-01-1949 Pneumococcal Vaccine : 65+ Years (1 - PCV) Pneumococcal Vaccine: 65+ Years (1 - PCV) [facility] Start: 03-03-1944 COVID-19 Vaccine (#1) COVID-19 Vacci ne (#1) [facility] EKG 12 Lead EKG 12 Lead ECG Routine 10/05/2022 10:15 AM EDT [facility] Oxygen therapy [Mini mum Data Set] Initiate Oxygen Therapy Protocol Respiratory Care Routine Daily until discontinued starting 10/05/2022 [facility] Comment on above: Daily until disconti nued starting 10/05/2022 Oxygen therapy [Mini mum Data Set] Initiate Oxygen Therapy Protocol Respiratory Care Routine Daily until discontinued starting 10/05/2022 [facility] Comment on above: Daily until disconti nued starting 10/05/2022 Immunizations Immunization Date Immunization Notes Care Provider [facility] 12-25-2022 ABRYSVO - Respirator y syncytial virus (RSV), vaccine, bivalent, protein subunit RSV prefusion F, diluent reconstituted, 0.5 mL, PF Shaikh Lolly PERALES Work Phone: [facility] 11-26-2022 Influenza, High-dose Seasonal, Quadrivalent, Preservative Free Shaikh Lolly PERALES Work Phone: [facility] 12-25-2021 Influenza, Seasonal, Quadrivalent, Adjuvanted Shaikh Lolly PERALES Work Phone: [facility] 12-15-2020 Influenza, High-dose Seasonal, Quadrivalent, Preservative Free Shaikh Lolly PERALES Work Phone: [facility] 12-14-2019 influenza, injectabl e, quadrivalent, preservative free Shaikh Lolly PERALES Work Phone: [facility] 11-28-2019 Influenza, High-dose Seasonal, Quadrivalent, Preservative Free Shaikh Lolly PERALES Work Phone: [facility] 11-28-2019 zoster vaccine recombinant Shaikh Lolly PERALES Work Phone: [facility] 01-02-2018 influenza, high dose seasonal, preservative-free Shaikh Lolly PERALES Work Phone: [facility] 11-29-2016 influenza, high dose seasonal, preservative-free Shaikh Lolly PERALES Work Phone: [facility] 12-13-2015 influenza, high dose seasonal, preservative-free Shaikh Lolly PERALES Work Phone: [facility] 12-24-2014 influenza, high dose seasonal, preservative-free Shaikh Lolly PERALES Work Phone: [facility] 09-10-2013 tetanus toxoid, adsorbed Radha Sawant Other [facility] 02-11-2012 influenza virus vaccine, whole virus Shaikh Lolly PERALES Work Phone: [facility] 01-19-2011 influenza virus vaccine, whole virus Shaikh Lolly PERALES Work Phone: [facility] Payers Date Payer Category Payer Medicare [id number] 2023 Self-pay [id number] 2023 Formerly [facility] [id number] 2022 Unknown 2020 Unknown [id number] [id number] .[id number] 1959 Medicare [id number] 2.16.840.1.404486.19 1959 Unknown [id number] 2.16.840.1.017756.19 1943 Unknown [id number] 2.16.840.1.318728.3.579.2.593 1943 Unknown [id number] 2.16.840.1.323314.3.579.2.593 1943 Unknown [id number] 2.16.840.1.184993.3.579.2.593 1943 Unknown [id number] 2.16.840.1.616708.3.579.2.593 1943 Unknown [id number] 2.16.840.1.971873.3.579.2.593 1943 Unknown [id number] 2.16.840.1.040808.3.579.2.593 1943 Unknown [id number] 2.16.840.1.086708.3.579.2.593 1943 Unknown [id number] 2.16.840.1.008214.3.579.2.593 1943 Unknown [id number] 2.16.840.1.423833.3.579.2.593 1943 Unknown [id number] 2.16.840.1.453935.3.579.2.593 1943 Unknown [id number] 2.16.840.1.879640.3.579.2.593 1943 Unknown [id number] 2.16.840.1.696278.3.579.2.173 1943 Unknown [id number] 2.16.840.1.497118.3.579.2.1259 1943 Unknown [id number] 2.16.840.1.677677.3.579.2.1259 1943 Unknown [id number] 2.16.840.1.466285.3.579.2.1258 1943 Unknown [id number] 2.16.840.1.977343.3.579.2.125 1943 Unknown [id number] 2.16.840.1.163543.3.579.2.1258 1943 Unknown [id number] 2.16.840.1.529337.3.579.2.1258 1943 Unknown [id number] 2.16.840.1.460714.3.579.2.1258 1943 Unknown [id number] 2.16.840.1.090781.3.579.2.125 1943 Unknown [id number] 2.16.840.1.492892.3.579.2.1285 1943 Unknown [id number] 2.16.840.1.272029.3.579.2.1285 1943 Unknown [id number] 2.16.840.1.581044.3.579.2.1285 1943 Unknown [id number] 2.16.840.1.822066.3.579.2.128 1943 Unknown [id number] 2.16.840.1.395070.3.579.2.128 1943 Unknown [id number] 2.16.840.1.680332.3.579.2.128 1943 Unknown [id number] 2.16.840.1.461128.3.579.2.727 1943 Unknown [id number] 2.16.840.1.340728.3.579.2.727 1943 Unknown [id number] 2.16.840.1.845797.3.579.2.727 Medicare [id number] Medicare Formerly [facility] [id number] Unknown [id number] 2.16.840.1.370009.3.579.2.531 Social History Date Type Detail Facility Unknown if ever smoked [facility] Other Start: 02-25-2023 Sex Assigned At N [facility] [employer] Other Start: 09-10-2013 End: 09-22-2022 Tobacco smoking status NHIS Never smoked tobacco [facility] Start: 09-22-2022 End: 02-09-2023 Tobacco use and exposure Smokeless tobacco non-user [facility] Start: 10-05-2022 End: 02-25-2023 Alcohol intake Lifetime non-drinker (finding) [facility] Start: 1945 Sex Assigned At Not on file B [facility] Start: 1945 Sex Assigned At Male F [facility] Start: 02-25-2023 History of Social function [facility] Clinical Notes 12-05-2020 to 11-19-2023 Note Date & Type Note Facility 11-19-2023 Note Lipid abnormalities are well-controlled with Lipitor 40 mg daily Liver function remains normal [facility] 11-19-2023 Note Hypertension current ly well-controlled, 138/71 Continue all medications including Toprol, spironolactone and Lasix Renal function remains stable electrolytes stable [facility] 11-19-2023 Note [facility] II-currently eu volemic without exacerbation overall doing very well Continue GDMT-continue aspirin, Lipitor, Toprol and spironolactone. He is taking Lasix daily for Diuretic therapy Monitor daily weights, I&O, fluid restriction 1.5-2L/day, Renal function remains stable no acute concerns [facility] 11-19-2023 Note [facility] CARDIOLOGY PROGR ESS NOTE HPI: Thea Winston is a 78 y.o. male here for routine follow-up HPI: Pt is here for a six month follow up. Pt denies sob, chest pain, and Palpatations. 78 y.o. male patient with a past medical history including CAD s/p bifurcating stenting to mid LAD and 2nd diag in 2018, HTN, HLD, DM type II, osteoarthritis. Overall patient is doing very well, he states he remains very active and is out working in the yard a lot without any concerning or limiting symptoms. Denies chest pain, shortness of breath, orthopnea, palpitations or any bleeding tendencies. Review of Systems All other systems reviewed and are negative. Visit Vitals BP 138/71 (BP Location: Right arm, Patient Position: Sitting) Pulse 61 Ht 1.905 m (6' 3 ) Wt 104 kg (230 lb) SpO2 92% BMI 28.75 kg/m??? Smoking Status Never BSA 2.35 m??? Allergies Allergen Reactions Penicillin G Medications: [...] at bedtime. Do not crush or chew. Dexcom G4 [place] [employer] misc by Does not apply route. spironolactone (Aldactone) 25 mg tablet Take 25 mg by mouth in the morning. No [...] Thought content normal. Judgment: Judgment normal. Labs: 05/03/23 CBC stable NA 140, K+ 3.9- normal BUN 13, CR 1.07 normal 02/04/23 renal function normal Liver function normal A1C 7.6 elevated Chol 105, Trig 140, HDL 40, LDL 37- well controlled Last lab values have been reviewed CV Testin09/02/23 EKG- sinus rhythm with prolonged NM 06/03/23 TTE Assessment/Plan: Chronic heart failure with preserved ejection fraction (HFpEF) (CMS/HCC) [facility] II-currently euvolemic without exacerbation overall doing very well Continue GDMT-continue aspirin, Lipitor, Toprol and spironolactone. He is taking Lasix daily for Diuretic therapy Monitor daily weights, I&O, fluid restriction 1.5-2L/day, Renal function remains stable no acute concerns Benign hypertensive cardiomyopathy with heart failure (CMS/HCC) Hypertension currently well-controlled, 138/71 Continue all medications including Toprol, spironolactone and Lasix Renal function remains stable electrolytes stable Hypercholesterolemia Lipid abnormalities are well-controlled with Lipitor 40 mg daily Liver function remains normal RTC 6 months to 1 year [facility] 11-19-2023 Note Pt is here for a six month follow up. Pt denies sob, chest pain, and Palpatations. Review of Systems All other systems reviewed and are negative. [facility] 05-21-2023 Note Cardiology Follow Up Progress Note [...] by mouth in the morning. Dexcom G4 [place] [employer] misc by Does not apply route. ferrous [...] red flag sympt (more content not included)... [facility] 05-21-2023 Note Review of Systems All other systems reviewed and are negative. Right shoulder pain but has had surgery on shoulder [facility] 02-14-2023 Evaluation note Encounter Date Diagnosis Assessment Notes Feb, Bronchitis (ICD-10 - J40) Drink plenty fluids, get plenty of rest. Continue home medications as prescribed. Take the doxycycline as prescribed until gone. Take the Medrol Dosepak as prescribed until gone. Use the albuterol inhaler as prescribed as needed for cough or shortness of breath. Continue to take [id number] er cough medicine as needed for cough. Follow-up with your family physician if no improvement in 2 to 3 days [facility] Other 07-31-2023 History of Present illness Narrative* [...] AM EDT Lab work from July from [facility] received in this office. * Noelle Leary [...] PAT phone call. [facility] Discharge instructions* Discharge Instructions* Mervat [...] the healing period. The office number is [phone]. Take surgery bag and all eye drops to Dr. Pond's office tomorrow at 9:20am. You may resume your normal diet. Start your eye drops tomorrow after your post-op appointment: Ofloxacin/Polytrim one drop to the operated eye 4 times daily Prednisolone one drop to the operated eye 4 times daily [facility] note* Encounter Date Diagnosis Assessment [...] understanding and is agreeable to treatment plan [facility] Other 01-13-2023 Evaluation note* Encounter Date Diagnosis [...] understanding and is agreeable to treatment plan [facility] Other 07-25-2022 NoteCARDIAC STRESS TEST Requesting Physician: [...] interpreted and reported in a separate dictation.[id number] Evaluation note* Encounter Date Diagnosis Assessment Notes Treatment Notes Treatment Clinical Notes Nov, Contact with and (suspected) exposure to other viral communicable diseases (ICD-10 - Z20.828) Nov, COVID-19 (ICD-10 - U07.1) Today you tested positive for the COVID virus. This mean you need to follow all CDC quarantine guidelines found at [email or web address] v. It is important to rest, increase [...] Patient care instructions given in writting by [facility] document. [facility] Other Evaluation noteNo InformationNort [employer] Other Evaluation note* Diagnosis Combined forms of age-related cataract of left eye- Primary Other and combined forms of senile cataract [facility] assessment information available [facility] [place] Work Phone: Evaluation note* Diagnosis Chronic heart failure with preserved ejection fraction (HFpEF) ([facility])- Primary documented in this encounter [facility] HealthcareEvaluation note* Diagnosis Coronary arteriosclerosis in [place] artery ([facility])- Primary documented in this encounter [facility] Healthcare[facility] note* Diagnosis Onset Date Resolution Status Viral URI with cough acute [facility] Work Phone: Hisiel[facility] general Narrative - Reported* Type Description Date Medical History DM Medical History HTN Medical History Arthritis Medical History hypercholesterolemia Surgical History Cyst off back Surgical History Polyps removed Surgical History heart stent Surgical History shoulder Hospitalization History see above [facility] Other [facility] general Narrative - Reported* Type Description Date Medical History DM Medical History HTN Medical History Arthritis Medical History hypercholesterolemia Surgical History Cyst off back Surgical History Polyps removed Surgical History heart stent Surgical History shoulder Surgical History cataract surgery 07/2022 Hospitalization History see above [facility] Other Summary Purpose Family History No Family [...] section and content) DATE CREATED AUTHOR 08/27/2017 [facility] DATE CREATED AUTHOR AUTHOR'S ORGANIZ ATION 07/20/2022 [facility] DATE CREATED AUTHOR AUTHOR'S ORGANIZ ATION 10/05/2022 [facility] DATE CREATED AUTHOR AUTHOR'S ORGANIZ ATION 04/16/2023 [facility] DATE CREATED AUTHOR AUTHOR'S ORGANIZ ATION 09/01/2023 [facility] DATE CREATED AUTHOR AUTHOR'S ORGANIZ ATION 09/23/2023 [facility] DATE CREATED AUTHOR AUTHOR'S ORGANIZ ATION 11/21/2023 [facility] DATE CREATED AUTHOR AUTHOR'S ORGANIZ ATION 11/25/[address] [facility] REASON FOR VISIT (unrecogniz ed section and content) Specialty Diagnoses / Procedures Referred By Korey gan Referred To Contact Diagnoses Combined forms of age-related cataract of left eye Combined forms of age-related cataract of left eye [H25.812] Procedures NM XCAPSL CTRC RMVL INSJ IO LENS PROSTH W/O ECP EYE CATARACT EMULSIFICATION IOL IMPLANT Genoveva Pond, DO [address] [place] [address] [facility] [phone] Referral ID Status Reason Start Date Expiration Date Visits Re quested Visits Authorized [id number] 1 1 Scheduled Active and Recently Administ [...] minutes prior to surgery until dilated, [facility] - enter number of doses based on [...] 1054 (Given - Provid er: Genoveva Pond, ) sodium chloride flush 0.9 % injection 5-40 [...] Michael Smith MD Primary Care Provider Active Ground Wirer Relationship Specialty Start Date End Date Michael Smith MD [address] [place] [phone] PCP - Devoted 12/06/22 Shaikh Ambrocio MD [address] [place] [phone] PCP - General Internal Medicine 02/25/23 Ground Wirer Relationship Specialty Start Date End Date Michael Smith MD [address] [place] [phone] PCP - [facility] 12/06/22 Shaikh Ambrocio MD [address] [place] [address] PCP - General Internal Medicine 02/25/23 Team [...] BE BASED ON THE PRIMARY CLINICAL RECORDS. [facility]. provides no warranty or guarantee of the accuracy or completeness of information in this document.
== END 2023-12-08 13:09 | disposition home or self-care (01) ==
LOC: WC 13:08
PROVIDERS: PCP Internal Medicine; Visit Provider Podiatrist Foot & Ankle Surgery
DX: E11.40 Type 2 diabetes mellitus with diabetic neuropathy, unspecified (principal); E11.65 Type 2 diabetes mellitus with hyperglycemia; L60.3 Nail dystrophy
CPT/HCPCS: 11721

== ENCOUNTER 2023-12-17 10:51 | Outpatient (OUT) | payer OTHER, SELFPAY ==
--- OUTSIDE RECORDS SUMMARY | 2023-12-17 10:57 | XMS_ITS | CCD ---
Author Organization [facility] CliniSytn Care Team Providers Care Book Repairer Name Role Phone PHYSICIAN, DEFAULT Unavailable Unavailable [...] Care Provider UnavailGENOVEVA Couch Attending Unavailable GENOVEVA IBANEZ Admitting Unavailable [facility], DO Trell Ramirez Attending Provider MD Michael mSith Primary Care Provider [phone] Mitzy Neves Unavailable Nati, Trell Ramirez Attending Unaantonietta godinez [facility], Trell Ramirez Admitting Unajosiahi herbert Smith, Michael Primary Care Unavailable Michael Smith MD Unavailable Shaikh Ambrocio MD Primary Care Provider MICHAEL SMITH Referring Unavailable SARAH, MICHAEL Primary Care Unavailable MAYNOR PINEDA Attending Unavailable MAYNOR PINEDA Referring Unavailable SARAH, MICHAEL Primary Care Unavailable LOLLY, TEMPLETON Referring Unavailable MICHAEL SMITH Primary Care Unavailable GENOVEVA IBANEZ Admitting Unavailable GENOVEVA IBANEZ Attending Unavailable SARAH, MICHAEL Primary Care Unavailable SHANICE BRANDT Attending Unavailable SARAH, MICHAEL Primary Care Unavailable CHRISTIANO DOUGLAS Attending Unavailable MATIAS MAYORGA Attending Unavailable Merry Gaytan Attending Unavailable Merry Gaytan Attending Unavailable LOLLY, TEMPLETON Referring Unavailable LOLLY, TEMPLETON Attending Unavailable FAWDANIELA, TEMPLETON Attending Unavailable VILLAWDANIELA, TEMPLETON Attending Unavailable TIMMIS, CAMPBELL H Attending Unavailable FAWWAD, TEMPLETON Referring Unavailable TIMMIS, CAMPBELL H Attending Unavailable FAWWAD, TEMPLETON Attending Unavailable AMANDA ROSA Attending Unavailable VILLAWDANIELA, TEMPLETON Attending Unavailable WINSTON SUAREZ Attending UnavailMichael Steinberg MD Unavailable Michael Smith MD Primary Care Provider [phone] Winston Suarez NP Unavailable [phone] Niall SAGE, Kenyetta Unavailable Unavailable Allergies Allergy Classification Reported Allergen(s) Allergy Type Date of Onset Reaction(s) Facility (2 sources) Penicillins; Translations: [PENICILLINS] Drug allergy (disorder) 05-04-19 18 [facility] Repository (1 source) No Known Allergies; Translations: [No Known Allergies] Propensity to adverse reactions (disorder) [facility] Repository (5 sources) penicillAMINE Drug Allergy he heard [facility] Other (2 sources) Penicillin; Translations: [penicillin] Drug Allergy [facility] Repository (1 source) Penicillins Propensity to adverse reactions to drug 09-24-19 23 [facility] (1 source) penicillAMINE Drug Allergy 02-15-20 23 [facility] Repository (6 sources) Penicillins Propensity to adverse reactions 02-06-20 23 Other [facility] (1 source) Penicillin; Translations: [PENICILLIN G] Drug Allergy 10-21-19 [facility] Repository Medications Current Medications Medication Drug Class(es) Dates Sig (Normalized) Sig (Original) [id number] 60 actuat albuterol 0.09 mg/actuat metered dose inhaler (1 source) beta2-Adrenergic Agonist Start: 02-14-2023 take 2 puff(s) by inhalation four times daily as needed Albuterol Sulfate HFA 108 (90 Base) MCG/ACT 2 puffs Inhalation 4 times a day prn Feb, Active aspirin 81 mg delayed release oral tablet (12 sources) Platelet Aggregation Inhibitor, Nonsteroidal Anti-inflammatory Drug take 1 tablet by mouth in the morning aspirin 81 MG EC tablet Take 81 mg by mouth in the morning. 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) Take 1 tablet (75 mg) by mouth Daily 90 tablet 09/23/2023 Active Start: 03-24-2023 take 1 tablet by ganga th once daily Clopidogrel Active 1 TAB PO Daily April 22, 2023 12:00am FreeTextSi tablet Orally Once a day; Note: Source Status: Taking; Provider: Pura Forrester ( ) take 1 tablet by ganga th every twenty-four hours Clopidogrel Bisulfate 75 MG 1 tablet Orally Once a day Active Plavix Active Continuous Blood Gluc Ironer Machine (FreeStyle Vi 2 [place]) device (2 sources) Continuous Blood Gluc Ironer Machine (FreeStyle Vi 2 [place]) device Continuous Blood Gluc Sensor (FreeStyle Vi 2 Sensor) misc (2 sources) Continuous Blood Gluc Sensor (FreeStyle Vi 2 Sensor) [facility] Continuous Glucose Ironer Machine (FreeStyle Vi 2 [place]) device (4 sources) Start: 11-22-19 Continuous Glucose Ironer Machine (FreeStyle Vi 2 [place]) device Indications: Diabetes mellitus type II, non insulin dependent (CMS/HCC) 1 each continuously 1 each 3 11/22/2023 Active Continuous Glucose Sensor (FreeStyle Vi 2 Sensor) [facility] (4 sources) Start: 11-25-19 Continuous Glucose Sensor (FreeStyle Vi 2 Sensor) [facility] Indications: Diabetes mellitus type II, non insulin dependent (CMS/HCC) 1 each continuously 2 each 11 11/25/2023 Active doxycycline hyclate 100 mg oral tablet (1 source) Tetracycline-class Drug Start: 02-15-20 take 1 tablet by mouth every twelve hours Doxycycline Hyclate 100 MG 1 tablet Orally Twice a day for 10 day(s) Feb, Active empagliflozin 25 mg oral tablet (10 sources) Sodium-Glucose Cotransporter 2 Inhibitor Start: 04-22-19 End: 12-07-19 take 1 tablet by mouth once daily empagliflozin (Jardiance) 25 MG Indications: Diabetes mellitus type II, non insulin dependent (CMS/HCC) Take 1 tablet (25 mg) by mouth Daily 30 tablet 2 12/07/2023 Active JARDIANCE Active ferrous sulfate (12 sources) Start: 04-22-2023 take 1 tablet by ganga th once daily Ferrous Sulfate Active 1 TAB PO Daily April 22, 2023 12:00am FreeTextSi tablet Orally Once a day; Note: Source Status: Taking; Provider: Pura Forrester ( ) take 1 tablet by mouth at mealti me ferrous sulfate 325 (65 Fe) MG tablet Take 325 mg by mouth in the morning. Take with meals. Active take 1 tablet by ganga th three times daily at mealtime ferrous sulfate (IRON 325) 325 (65 Fe) M G tablet Take 1 tablet by mouth 3 times daily (with meals) 0 Active Fluzone High-Dose Quadrivale nt syringe (4 sources) Start: 11-26-2022 End: 12-08-2023 Fluzone High-Dose Quadrivale nt syringe Inject 0.7 mL into the shoulder, thigh, or buttocks 1 (one) time 11/26/2022 12/08/2023 Discontinued (Therapy completed) Start: 11-26-2022 Fluzone High-D ose Quadrivalent syringe Inject 0.7 mL into the shoulder, thigh, or buttocks 1 (one) time 11/26/2022 Active furosemide 40 mg oral tablet (13 sources) Loop Diuretic Start: 08-11-2023 take 1 tablet by mouth once daily furosemide (Lasix) 40 MG tablet Indications: Chronic heart failure with preserved ejection fraction (HFpEF) (CMS/HCC) Take 1 tablet (40 mg) by mouth Daily 90 tablet 08/11/2023 Active Start: 04-22-2023 take 1 tablet by ganga th once daily Furosemide Active 1 TAB PO [...] day Active gabapentin 300 mg oral capsule (8 sources) Anti-epileptic Agent Start: 12-08-2023 take 1 capsule by mouth in the morning gabapentin (Neurontin) 300 MG capsule Take 1 capsule (300 mg) by mouth in the morning and 1 capsule (300 mg) before bedtime. 12/08/2023 Active Start: 12-08-2023 take 1 capsule by mo uth in the morning gabapentin (Neurontin) 300 MG capsule Take 1 capsule (300 mg) by mouth in the morning and 1 capsule (300 mg) before bedtime. 12/08/2023 Active End: 12-08-2023 take 1 capsule by mouth in the morning, then take 1 capsule by mouth in the evening, then take 1 capsule by mouth at bedtime gabapentin (Neurontin) 300 MG capsule Take 300 mg by mouth in the morning and 300 mg in the evening and 300 mg before bedtime. 12/08/2023 Discontinued (Dose adjustment) Glucose Blood (ACCU-CHEK SMARTVIEW ) (2 sources) Glucose Blood (ACCU-CHEK SMARTVIEW ) by In Vitro route. 0 Active glyBURIDE 2.5 mg oral tablet (1 source) Sulfonylurea take 1 tablet by mouth twice daily at mealtime glyBURIDE (DIABETA) 2.5 MG tablet Take 1 tablet by mouth 2 times daily (with meals) 0 Active glyBURIDE 2.5 mg / metFORMIN hydrochloride 500 mg oral tablet (12 sources) Biguanide, Sulfonylurea Start: 04-22-19 take 1 tablet by mouth once daily Glyburide-Metformi n Active 1 TAB PO Daily April 22, 2023 12:00am FreeTextSi tablet with a meal Orally Once a day; Note: Source Status: Taking; Provider: Pura Forrester ( ) Start: 04-15-2023 End: 04-10-2024 take 1 tablet by mouth in the morning glyBURIDE-metFORMIN (Glucovance) 2.5-500 MG tablet Indications: Type 2 diabetes mellitus with hyperglycemia (CMS/HCC) Take 1 tablet by mouth in the morning and 1 tablet before bedtime. 180 tablet 1 10/13/2023 04/10/2024 Active take 1 tablet by ganga th [...] tablet (1 source) Corticosteroid St ar t: 23 Medrol 4 MG as directed Oral ly As Directed for 6 days Feb, Active 24 hr metoprolol succinate 100 mg extended release oral tablet (14 sources) beta-Adrenergic Katie St ar t: 24 En d: 0 25 take 1 tablet by mouth once daily metoprolol succinate XL (Toprol-XL) 100 MG 24 hr tablet Indications: Coronary arteriosclerosis in [place] artery (CMS/HCC) Take 1 tablet (100 mg) by mouth Daily Do not crush or chew. 90 tablet 1 10/20/2023 04/17/2024 Active Start: 04-22-2023 take 1 tablet by ganga th once daily Metoprolol Succinate (Toprol Xl) 100 mg tablet extended release 24 hr Active 100 MG PO Daily April 22, 2023 12:00am Start: 04-21-2023 End: 10-18-2023 take 1 tablet by mouth every twenty-four hours in the morning metoprolol succinate XL (Toprol-XL) 100 MG 24 hr tablet Indications: Coronary arteriosclerosis in [place] artery (CMS/HCC) Take 1 tablet (100 mg) by mouth in the morning. Do not crush or chew.. 90 tablet 1 04/21/2023 10/18/2023 Active take 1 tablet by ganga th once daily metoprolol succinate (TOPROL XL) 50 MG extended release tablet Take 1 tablet by mouth daily 0 Active Toprol XL Active naproxen 500 mg oral tablet (16 sources) Nonsteroidal Anti-inflammatory Drug Start: 06-15-2023 End: 12-08-2023 take 1 tablet by mouth twice daily naproxen (Naprosyn) 500 MG tablet Indications: Unspecified osteoarthritis, unspecified site TAKE 1 TABLET BY MOUTH TWICE DAILY 180 tablet 3 06/15/2023 12/08/2023 Discontinued (Duplicate order) take 1 tablet by mouth in the mo rning naproxen (EC Naprosyn) 500 MG EC tablet Take 500 mg by mouth in the morning and 500 mg in the evening. Take with meals. Do not crush, chew, or split. . Active take 1 tablet by mouth every twe lve hours Naproxen 500 MG 1 tablet as needed Orally every 12 hrs Active take 1 tablet by ganga twice daily at mealtime naproxen (NAPROSYN) 500 [...] omeprazole 40 mg delayed release oral capsule (7 sources) Proton Pump Inhibitor take 1 capsule by mouth before mealtime omeprazole (PriLOSEC) [address] capsule Take 40 mg by mouth in the morning. Take before meals. Do not crush or chew. . Active phenylephrine hydrochloride 25 mg/ml ophthalmic solution [...] chloride 10 meq extended release oral capsule (8 sources) Start: 04-22-2023 take 10 mEq by [...] (ALCAINE) 0.5 % ophthalmic solution 1 drop SITagliptin 100 mg oral tablet (4 sources) Dipeptidyl Peptidase 4 Inhibitor Start: 2023 End: 02-29-2024 take 1 tablet by mouth once daily SITagliptin (Januvia) 100 MG tablet Indications: Diabetic peripheral neuropathy associated with type 2 diabetes mellitus (CMS/HCC) , Diabetes mellitus type II, non insulin dependent (CMS/HCC) Take 1 tablet (100 mg) by mouth Daily 90 tablet 1 2023 12/08/2023 Discontinued (Therapy completed) 5 ml sodium chloride 9 mg/ml injection [...] 5-40 mL spironolactone 25 mg oral tablet (13 sources) Aldosterone Antagonist Start: 03-19-2023 End: 01-11-2024 take 1 tablet by mouth once daily spironolactone (Aldactone) 25 MG tablet Indications: Essential (primary) hypertension (CMS/HCC) Take 1 tablet (25 mg) by mouth Daily 90 tablet 10/13/2023 12/08/2023 Discontinued (Duplicate order) SUMAtriptan 100 mg oral tablet (2 sources) [...] % ophthalmic solution 1 drop vitamin B12 (11 sources) Vitamin B12 Start: 04-22-2023 take 1000 [...] Classification Problem Date Documented Date Episodic/Chronic Cataract (6 sources) 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; Translations: [Combined forms of age-related cataract, left eye] Onset: 3 Resolved: 3 Chronic Cataract (1 source) Cataract Onset: 4 Chronic obstructive pulmonary disease and bronchiectasis (1 source) Bronchitis, not specified as acute or chronic Episodic Congestive heart failure; nonhypertensive (11 sources) Chronic heart failure co-occurrent with normal ejection fraction; Translations: [Chronic diastolic (congestive) heart failure] Onset: 3 04-15-2023 Chronic Coronary atherosclerosis and other heart disease (10 sources) Atherosclerotic heart disease of [place] coronary artery with unstable angina pectoris; Translations: [Atherosclerotic heart disease of [place] coronary artery without angina pectoris] Onset: 8 02-25-2023 Chronic Diabetes mellitus with complications (17 sources) Type 2 diabetes mellitus with hyperglycemia; Translations: [Type 2 diabetes mellitus with diabetic neuropathy, unspecified] Onset: 2 Chronic Diabetes mellitus without complication (13 sources) Type 2 diabetes mellitus without complications; Translations: [Type 2 diabetes mellitus] Onset: 8 02-25-2023 Chronic Disorders of lipid metabolism (19 sources) Hyperlipidemia, unspecified; Translations: [Pure hypercholesterolemia, unspecified] Onset: 8 02-25-2023 Chronic Essential hypertension (20 sources) Essential (primary) hypertension; Translations: [Benign essential hypertension] Onset: 8 Chronic Fever of unknown origin (4 sources) Fever, unspecified; Translations: [FEVER UNSPECIFIED] Onset: 3 Episodic Genitourinary symptoms and ill-defined conditions (5 sources) Overflow incontinence; Translations: [Overflow incontinence of urine] Onset: 4 08-31-2023 Chronic Genitourinary symptoms and ill-defined conditions (2 sources) Incomplete emptying of bladder; Translations: [Retention of urine, unspecified] Onset: 4 12-08-2023 Episodic Headache; including migraine (4 sources) Headache; including migraine; Translations: [HEADACHE UNSPECIFIED] Onset: 3 Hyperplasia of prostate (4 sources) Benign prostatic hyperplasia; Translations: [Benign prostatic hyperplasia without lower urinary tract symptoms] Onset: 8 04-26-2023 Chronic Hypertension with complications and secondary hypertension (4 sources) Hypertensive heart disease with heart failure; Translations: [Hypertensive heart failure] Onset: 2 Chronic Osteoarthritis (11 sources) Osteoarthritis of acromioclavicular joint; Translations: [Primary osteoarthritis, unspecified shoulder] Onset: 3 02-08-2023 Chronic Other aftercare (2 sources) 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; Translations: [CORRECTION (CURRENT) USE OF ASPIRIN] Onset: 8 Episodic Other aftercare (1 source) [facility] (current) use of oral hypoglycemic drugs; Translations: [CORRECTION USE ORAL HYPOGLYCEMIC DX] Onset: 3 Episodic Other aftercare (5 sources) Other [facility] (current) drug therapy; Translations: [OTH CHIEF CATALYST OPERATOR CURRENT DRUG THERAPY] Onset: 2 Episodic Other [...] / UNK(Unknown) Onset: 8 Unclassified (1 source) technician inventory specialist (current) use of oral hypoglycemic drugs; Translations: [CHIEF CATALYST OPERATOR (CURRENT) USE OF ORAL HYPOGLYCEMIC DRUGS] Onset: 8 Unclassified (1 source) CONTACT W/AND (SUSP) EXPOS COVID-19; Translations: [CONTACT W/AND (SUSP) EXPOS COVID-19] Onset: 3 Urinary tract infections (1 source) Urinary tract infection, site not specified; Translations: [UTI SITE NOT SPECIFIED] Onset: 3 Episodic Past or Other Problems Problem Classification Problem Date Documented Date Episodic/Chronic Acute bronchitis (6 sources) Acute bronchitis co-occurrent with wheeze; Translations: [Acute bronchitis, unspecified] Onset: 02-25-2023 02-25-2023 Episodic Immunizations and screening for infectious disease (1 source) Contact with and (suspected) exposure to other viral communicable diseases; Translations: [Contact with and (suspected) exposure to other viral communicable diseases Z20.828] Onset: 12-05-2020 Resolved: 12-05-2020 Episodic Malaise and fatigue (1 source) Other fatigue; Translations: [OTHER FATIGUE] Onset: 05-04-2017 Episodic Mood disorders (6 sources) Mood disorders Onset: 02-25-2023 02-25-2023 Mycoses (1 source) Tinea unguium; Translations: [TINEA UNGUIUM] Onset: 09-23-2021 Episodic Other connective tissue disease (4 sources) Full thickness rotator cuff tear; Translations: [Complete rotator cuff tear or rupture of unspecified shoulder, not specified as traumatic] Onset: 04-26-2023 04-26-2023 Episodic Other ear and sense organ disorders (4 sources) Impacted cerumen in left ear; Translations: [Impacted cerumen, left ear] Onset: 07-06-2023 07-06-2023 Episodic Other lower respiratory disease (1 source) Shortness of breath; Translations: [SHORTNESS OF BREATH] Onset: 05-04-2017 Episodic Other lower respiratory disease (4 sources) Other forms of dyspnea; Translations: [OTHER FORMS OF DYSPNEA] Onset: 09-29-2021 Episodic Other lower respiratory disease (4 sources) Chronic cough; Translations: [Chronic cough] Onset: 04-26-2023 04-26-2023 Episodic Other skin disorders (1 source) Corns [...] malignant neoplasm of prostate] Onset: 05-04-2017 Episodic Unclassified (4 sources) Onset: 07-27-2023 07-27-2023 Viral infection (1 source) COVID-19; Translations: [COVID-19 U07.1] Onset: 12-05-2020 Resolved: 12-05-2020 Results Test Name Value Interpretation Reference Range Facility Office Visiton 11-19-2023 Follow-up visit [id number] Rom Winston 1945 M Date Provider Department Center 11/19/2023 MATIAS LOZA SIENNA [place] Family History Problem Relation Age of Onset Heart disease Father Family Status - Relation Status Age at Father Level of Service:82345 NC OFFICE/OUTPATIENT ESTABLISHED LOW MDM 20 MIN Normal [facility] CBC AND AUTO DIFFon 09-02-19 ABSOLUTE BASOPHIL 0.0 X10E9/L Normal 0.0-0.2 [facility] Comment on above: Performed By: #### C BCA, CMP, 61173-3, HA1C #### [facility] ([id number]) [address], [address] [place] [address] ABSOLUTE NEUTROPHIL 4.8 X10E9/L Normal 1.5-6.6 [facility] Comment on above: Performed By: #### C BCA, CMP, 24429-3, HA1C #### [facility] ([id number]) [address] [place] [address], [address] [place] [address] Basophils/100 WBC (Bld) 0.6 % Normal [facility] Comment on above: Performed By: #### Steve COREAS CMP, 69905-7, HA1C #### [facility] ([id number]) [address], [address] [place] [address] Eosinophils (Bld) [#/Vol] 0.2 10*3/uL Normal 0.0-0.4 [facility] Comment on above: Performed By: #### C LYUDMILA, CMP, 39347-8, HA1C #### [facility] ([id number]) [address], [address] [place] [address] Eosinophils/100 WBC (Bld) 2.5 % Normal [facility] Comment on above: Performed By: #### Steve COREAS CMP, 87177-0, HA1C #### [facility] ([id number]) [address], [address] [place] [address] Erythrocyte distribution width (RBC) [Ratio] 16.2 % High 11.5-15.0 [facility] Comment on above: Performed By: #### Steve COREAS, CMP, 18219-7, HA1C #### [facility] ([id number]) [address] [place] [address] Hematocrit (Bld) [Volume fraction] 40.2 % Normal 39-49 [facility] Comment on above: Performed By: #### C BCA, CMP, 85418-5, HA1C #### [facility] ([id number]) [address], [address] [place] [address] Hemoglobin (Bld) [Mass/Vol] 13.2 g/dL Normal 13.0-17.0 [facility] Comment on above: Performed By: #### Steve COREAS, CMP, 45619-2, HA1C #### [facility] ([id number]) [address] [place] [address] Lymphocytes (Bld) [#/Vol] 1.6 10*3/uL Normal 1.0-3.5 [facility] Comment on above: Performed By: #### Steve COREAS CMP, 74895-8, HA1C #### [facility] ([id number]) [address] [address] [place] [address] Lymphocytes/100 WBC (Bld) 23.3 % Normal [facility] Comment on above: Performed By: #### C YUE COREAS, 53176-7, HA1C #### [facility] ([id number]) [address] [address] [place] [address] MCH (RBC) [Entitic mass] 27.1 pg Normal 27-34 [facility] Comment on above: Performed By: #### Steve COREAS CMP, 90937-8, HA1C #### [facility] ([id number]) [address] [address] MCHC (RBC) [Mass/Vol] 32.9 g/dL Normal 32-36 [facility] Comment on above: Performed By: #### Steve COREAS CMP, 38788-0, HA1C #### [facility] ([id number]) [address] [address] [place] [address] MCV (RBC) [Entitic vol] 82 fL Normal 80-100 [facility] Comment on above: Performed By: #### Steve COREAS CMP, 90129-7, HA1C #### [facility] ([id number]) [address] [address] [place] [address] Monocytes (Bld) [#/Vol] 0.4 10*3/uL Normal 0-0.9 [facility] Comment on above: Performed By: #### Steve COREAS CMP, 48350-5, HA1C #### [facility] ([id number]) [address] [address] [place] [address] Monocytes/100 WBC (Bld) 6.0 % Normal [facility] Comment on above: Performed By: #### Steve COREAS CMP, 63950-3, HA1C #### [facility] ([id number]) [address] [facility] [address] [place] [address] Neutrophils/100 WBC (Bld) 67.6 % Normal [facility] Comment on above: Performed By: #### C LYUDMILA CMP, 66075-6, HA1C #### [facility] ([id number]) [address] [facility] [address] [place] [address] Platelet mean volume (Bld) [Entitic vol] 9.4 fL Normal 7-12 [facility] Comment on above: Performed By: #### Steve COREAS CMP, 44594-7, HA1C #### [facility] ([id number]) [address] [address] [place] [address] Platelets (Bld) [#/Vol] 186 10*3/uL Normal 150-450 [facility] Comment on above: Performed By: #### Steve COREAS, CMP, 03178-3, HA1C #### [facility] ([id number]) [address] [address] [place] [address] RBC COUNT 4.89 X10E12/L Normal 4.10-5.70 [facility] Comment on above: Performed By: #### Steve COREAS, CMP, 84926-1, HA1C #### [facility] ([id number]) [address] [address] [place] [address] WBC (Bld) [#/Vol] 7.0 10*3/uL Normal 4.0-11.0 [facility] Comment on above: Performed By: #### Steve COREAS, CMP, 75444-2, HA1C #### [facility] [facility] ([id number]) [address], [facility] [address] [place] [address] COMPREHENSIVE METABOLIC PANE Parker 2023 Albumin [Mass/Vol] 4.1 g/dL Normal 3.2-5.3 [facility] Comment on above: Performed By: #### C BCA, CMP, 82756-8, HA1C #### [facility] ([id number]) [address], [address] [place] [address] ALP [Catalytic activity/Vol] 82 U/L Normal 39-130 [facility] Comment on above: Performed By: #### C BCA, CMP, 49871-0, HA1C #### [facility] ([id number]) [address], [address] [place] [address] ALT [Catalytic activity/Vol] 30 U/L Normal 0-40 [facility] Comment on above: Performed By: #### C BCA, CMP, 30620-8, HA1C #### [facility] ([id number]) [address], [address] [place] [address] Anion gap [Moles/Vol] 7 mmol/L Normal 5-15 [facility] Comment on above: Performed By: #### C BCA, CMP, 42828-9, HA1C #### [facility] ([id number]) [address], [address] [place] [address] AST [Catalytic activity/Vol] 28 U/L Normal 0-41 [facility] Comment on above: Performed By: #### C BCA, CMP, 71513-8, HA1C #### [facility] ([id number]) [address], [address] [place] [address] Bilirubin [Mass/Vol] 0.6 mg/dL Normal 0.3-1.2 [facility] Comment on above: Performed By: #### C BCA, CMP, 28918-6, HA1C #### [facility] ([id number]) [address], [address] [place] [address] Calcium [Mass/Vol] 9.1 mg/dL Normal 8.5-10.5 [facility] Comment on above: Performed By: #### C YUE COREAS, 34875-1, HA1C #### [facility] ([id number]) [address], [address] [place] [address] Chloride [Moles/Vol] 104 mmol/L Normal 98-109 [facility] Comment on above: Performed By: #### C YUE COREAS, 00291-1, HA1C #### [facility] ([id number]) [address], [address] [place] [address] CO2 [Moles/Vol] 28 mmol/L Normal 22-32 [facility] Comment on above: Performed By: #### C YUE COREAS, 34762-3, HA1C #### [facility] ([id number]) [address], [address] [place] [address] Creatinine [Mass/Vol] 0.92 mg/dL Normal 0.60-1.30 [facility] Comment on above: Result Comment: METH OD TRACEABLE TO IDMS STANDARD Performed By: #### C YUE COREAS, 82668-9, HA1C #### [facility] ([id number]) [address], [address] [place] [address] GFR/1.73 sq M.predicted among non-blacks MDRD (S/P/Bld) [Vol rate/Area] 84 mL/min/{1.73_m2} Normal >59 [facility] Comment on above: Result Comment: Reported eGFR is based on the CKD-EPI 2020 equation that does not use a race coefficient. Performed By: #### C YUE COREAS, 35646-1, HA1C #### [facility] ([id number]) [address], [address] [place] [address] Glucose [Mass/Vol] 162 mg/dL High 65-99 [facility] Comment on above: Performed By: #### C YUE COREAS, 30467-4, HA1C #### [facility] ([id number]) [address], [address] [place] [address] Potassium [Moles/Vol] 4.2 mmol/L Normal 3.5-5.0 [facility] Comment on above: Performed By: #### C BCA, CMP, 63053-8, HA1C #### [facility] ([id number]) [address], [address] [place] [address] Protein [Mass/Vol] 6.7 g/dL Normal 6.0-8.0 [facility] Comment on above: Performed By: #### C LYUDMILA, CMP, 27213-5, HA1C #### [facility] ([id number]) [address], [address] [place] [address] Sodium [Moles/Vol] 139 mmol/L Normal 134-146 [facility] Comment on above: Performed By: #### C BCA, CMP, 34810-8, HA1C #### [facility] ([id number]) [address], [address] [place] [address] Urea nitrogen [Mass/Vol] 22 mg/dL Normal 08-01 [facility] Comment on above: Performed By: #### C BCA, CMP, 07325-4, HA1C #### [facility] ([id number]) [address], [address] [place] [address] HGB A1C (GLYCO-HGB)on 2023 Glucose [Mass/Vol] 186 mg/dL Normal [facility] Comment on above: Performed By: #### C BCA, CMP, 15113-1, HA1C #### [facility] ([id number]) [address], [address] [place] [address] HbA1c (Bld) [Mass fraction] 8.1 % High 4.4-5.6 [facility] Comment on above: Result Comment: NOTE ADA Guidelines Result HgbA1c Normal : less than 5.7 % Prediabetes : 5.7 % to 6.4 % Diabetes : > 6.4 % Use with caution in patients with abnormal hemoglobin variants as the half-life of red blood cells and in vivo glycation rates are affected. Performed By: #### C LYUDMILA, YUE, 72859-6, HA1C #### [facility] ([id number]) [address] [place] [address] Lipid 1996 panelon 4 Cholesterol [Mass/Vol] 79 mg/dL Low 150-200 [facility] Comment on above: Performed By: #### Steve COREAS, YUE, 94360-0, HA1C #### [facility] ([id number]) [address] [place] [address] Cholesterol in HDL [Mass/Vol] 33 mg/dL Low >39 [facility] Comment on above: Result Comment: HDL <40 mg/dL - High Risk HDL > or = 40mg/dL- Desirable HDL >60 mg/dL - Negative Risk Performed By: #### C LYUDMILA, YUE, 88686-7, HA1C #### [facility] ([id number]) [address], [address] [place] [address] Cholesterol in LDL [Mass/Vol] 24 mg/dL Normal <130 [facility] Comment on above: Result Comment: LDL <100 mg/dL - Desirable LDL >160 mg/dL - High Risk Performed By: #### Steve COREAS, YUE, 58052-7, HA1C #### [facility] ([id number]) [address], [address] [place] [address] Cholesterol in VLDL [Mass/Vol] 22 mg/dL Normal 0-30 [facility] Comment on above: Performed By: #### C BCA, CMP, 93868-8, HA1C #### [facility] ([id number]) [address] [address] [place] [address] CHOLESTEROL:HDL 2.4 Normal 1.0-5.0 [facility] Comment on above: Performed By: #### C BCA, CMP, 68998-9, HA1C #### [facility] ([id number]) [address] [address] [place] [address] Triglyceride [Mass/Vol] 109 mg/dL Normal 27-150 [facility] Comment on above: Performed By: #### C BCA, CMP, 60813-8, HA1C #### [facility] ([id number]) [address], [address] [place] [address] MICROALBUMIN - ALBUMIN:CREAT ININE URINE RATIOon 2023 ALB/CREAT RATIO 10.3 mg/g creat Normal 0.0-30.0 [facility] Comment on above: Performed By: #### M ALBU, UA #### [facility] ([id number]) [address] [address] [place] [address] Albumin DL <= 20 mg/L (U) [Mass/Vol] 0.8 mg/dL Normal 0.0-1.9 [facility] Comment on above: Performed By: #### M ALBU, UA #### [facility] ([id number]) [address] [address] [place] [address] URINE CREAT 77.90 mg/dL Normal [facility] Comment on above: Performed By: #### M ALBU, UA #### [facility] ([id number]) [address], [address] [place] [address] URINALYSISon 2023 Bilirubin Ql (U) Negative Normal NEG [facility] Comment on above: Performed By: #### M SOCORRO, UA #### [facility] ([id number]) [address], [address] [place] [address] BLOOD/HGB Negative Normal NEG [facility] Comment on above: Performed By: #### M SOCORRO, UA #### [facility] ([id number]) [address], [address] [place] [address] Color (U) YELLOW Normal YELLOW [facility] Comment on above: Performed By: #### M SOCORRO UA #### [facility] ([id number]) [address], [address] [place] [address] Glucose Ql (U) >1000 Abnormal NEG [facility] Comment on above: Performed By: #### Kirti QUINTANILLA UA #### [facility] ([id number]) [address], [address] [place] [address] Ketones Ql (U) Negative Normal NEG [facility] Comment on above: Performed By: #### M SOCORRO UA #### [facility] ([id number]) [address], [address] [place] [address] Leukocyte esterase Test strip Ql (U) Negative Normal NEG [facility] Comment on above: Result Comment: HIGH CONCENTRATIONS OF GLUCOSE MAY DECREASE THE REACTIVITY OF THE DIPSTICK LEUKOCYTE TEST PAD. Performed By: #### M JOVONU, UA #### [facility] ([id number]) [address], [address] [place] [address] Nitrite Ql (U) Negative Normal NEG [facility] Comment on above: Performed By: #### M JOVONU, UA #### [facility] ([id number]) [address], [address] [place] [address] pH (U) 6.0 [pH] Normal 5.0-8.5 [facility] Comment on above: Performed By: #### Kirti QUINTANILLA UA #### [facility] ([id number]) [address], [address] [place] [address] Protein Ql (U) Trace Abnormal NEG [facility] Comment on above: Performed By: #### Kirti QUINTANILLA UA #### [facility] ([id number]) [address], [address] [place] [address] R.B.CELLS 0 /hpf Normal 0-5 [facility] Comment on above: Performed By: #### Kirti QUINTANILLA UA #### [facility] ([id number]) [address], [address] [place] [address] Specific gravity (U) [Rel density] 1.025 Normal 1.003-1.03 5 [facility] Comment on above: Performed By: #### Kirti QUINTANILLA UA #### [facility] ([id number]) [address], [address] [place] [address] SQUAMOUS EPITHELIUM 2 /hpf Normal 0-5 [facility] Comment on above: Performed By: #### Kirti QUINTANILLA UA #### [facility] ([id number]) [address], [address] [place] [address] TURBIDITY CLEAR Normal CLEAR [facility] Comment on above: Performed By: #### Kirti QUINTANILLA UA #### [facility] ([id number]) [address], [address] [place] [address] Urobilinogen (U) [Mass/Vol] mg/dL Normal <1.1 [facility] Comment on above: Performed By: #### Kirti QUINTANILLA UA #### [facility] ([id number]) [address], [address] [place] [address] W.B.CELLS 1 /hpf Normal 0-5 [facility] Comment on above: Performed By: #### M SOCORRO, UA #### [facility] ([id number]) [address] [facility] [place] [address] Office Visiton 05-21-2023 Follow-up visit [id number] Lilia Winstondemetrio Cardenas 1945 M Date Provider Department [facility] Family History Problem Relation Age of Onset Heart disease Father Family Status - Relation Status Age at Father Level of Service:12577 [place] OFFICE/OUTPATIENT ESTABLISHED MOD MDM 30 MIN Reason for Visit and Comments: Follow-up [030516] - Annual follow up No cardio concerns Normal [facility] Alanine aminotransferase [En zymatic activity/volume] in Serum or PlasmaOrdered By: Trell Damian on 02-01-2023 ALT [Catalytic activity/Vol] 30 U/L 7-52 [facility] Albumin [Mass/volume] in Ser um or Plasma by Bromocresol green (BCG) dye binding methoOrdered By: Trell Damian on 02-01-2023 Albumin BCG dye [Mass/Vol] 4.1 g/dL 3.5-5.7 [facility] Alkaline phosphatase [Enzyma tic activity/volume] in Serum or PlasmaOrdered By: Trell Damian on 02-01-2023 ALP [Catalytic activity/Vol] 74 U/L 34-104 [facility] Aspartate aminotransferase [ Enzymatic activity/volume] in Serum or PlasmaOrdered By: Trell Damian on 02-01-2023 AST [Catalytic activity/Vol] 29 U/L 13-39 [facility] Bilirubin Test strip Ql (U)O rdered By: Trell Damian on 02-01-2023 Bilirubin Ql (U) Negative Negative [facility] Bilirubin.total [Mass/volume ] in Serum or PlasmaOrdered By: Trell Damian on 02-01-2023 Bilirubin [Mass/Vol] 0.6 mg/dL 0.3-1.0 [facility] Calcium [Mass/volume] in Ser um or PlasmaOrdered By: Trell Damian on 02-01-2023 Calcium [Mass/Vol] 9.2 mg/dL 8.6-10.3 [facility] Carbon dioxide, total [Moles /volume] in Serum or PlasmaOrdered By: Trell Damian on 02-01-2023 CO2 [Moles/Vol] 27.3 mmol/L 21.0-31.0 [facility] Chloride [Moles/volume] in S jose juan or PlasmaOrdered By: Trell Damian on 02-01-2023 Chloride [Moles/Vol] 104 mmol/L 98-107 [facility] Color Auto (U)Ordered By: Ravinder Damian on 02-01-2023 Color (U) Yellow Yellow [facility] Comprehensive Metabolic Pane parker 02-01-2023 Albumin [Mass/Vol] 4.1 g/dL Normal 3.5-5.7 [facility] Comment on above: Performed By: #### U A, CMP #### [address] Albumin/Globulin [Mass ratio] 1.9 {ratio} Normal [facility] Comment on above: Performed By: #### U A, CMP #### [address] ALP [Catalytic activity/Vol] 74 U/L Normal 34-104 [facility] Comment on above: Result Comment: PERF ORMED BY: [place] [address] PATHOLOGIST CELL PLASTERER OPHELIA ZIMMERMAN M.D. Performed By: #### U A, CMP #### [facility] [address] ALT [Catalytic activity/Vol] 30 U/L Normal 7-52 [facility] Comment on above: Performed By: #### U A, CMP #### [address] Anion gap [Moles/Vol] 14.3 mmol/L Normal 6.0-15.0 [facility] Comment on above: Performed By: #### U A, CMP #### [facility] [address] [place] [id number] [place] AST [Catalytic activity/Vol] 29 U/L Normal 13-39 [facility] Comment on above: Performed By: #### U A, CMP #### [facility] [address] [id number] [facility] Bilirubin [Mass/Vol] 0.6 mg/dL Normal 0.3-1.0 [facility] Comment on above: Performed By: #### U A, CMP #### [facility] [address] Calcium [Mass/Vol] 9.2 mg/dL Normal 8.6-10.3 [facility] Comment on above: Performed By: #### U A, CMP #### [facility] [address] Chloride [Moles/Vol] 104 mmol/L Normal 98-107 [facility] Comment on above: Performed By: #### U A, CMP #### [facility] [address] [place] [address] [place] CO2 [Moles/Vol] 27.3 mmol/L Normal 21.0-31.0 [facility] Comment on above: Performed By: #### U A, CMP #### [facility] [address] [place] [address] [place] Creatinine [Mass/Vol] 1.01 mg/dL Normal 0.70-1.30 [facility] Comment on above: Performed By: #### U A, CMP #### [facility] [address] [place] [address] [place] GFR/1.73 sq M.predicted MDRD (S/P/Bld) [Vol rate/Area] mL/min/{1.73_m2} [facility] Comment on above: Performed By: #### U A, CMP #### [facility] [address] [place] [address] [place] Globulin (S) [Mass/Vol] 2.2 g/dL [facility] Comment on above: Performed By: #### U A, CMP #### [facility] [address] [place] [address] [place] Glucose [Mass/Vol] 183 mg/dL High 70-100 [facility] Comment on above: Result Comment: [facility] Glucose Reference Range is dependent on time and content of last meal. Glucose of more than 200 mg/dL in a nonstressed, ambulatory subject supports the diagnosis of Diabetes Mellitus. ADA recommended reference range Performed By: #### U A, CMP #### [facility] [address] Potassium [Moles/Vol] 4.6 mmol/L Normal 3.5-5.1 [facility] Comment on above: Performed By: #### U A, CMP #### [facility] [address] Protein [Mass/Vol] 6.3 g/dL Low 6.4-8.9 [facility] Comment on above: Performed By: #### U A, CMP #### [facility] [address] Sodium [Moles/Vol] 141 mmol/L Normal 136-145 [facility] Comment on above: Performed By: #### U A, CMP #### [facility] [address] Urea nitrogen [Mass/Vol] 22 mg/dL Normal 7-25 [facility] Comment on above: Performed By: #### U A, CMP #### [facility] [address] [place] [address] [place] Creatinine [Mass/volume] in Serum or PlasmaOrdered By: Trell Damian on 02-01-2023 Creatinine [Mass/Vol] 1.01 mg/dL 0.70-1.30 [facility] ECH echo transthoracicon [facility] echo transthoracic [facility] [address] [place] [address] [place] [address] Echocardiogram Signed Patient: Thea Winston MR#: [id number] 33 : 1945 Acct:[id number] Age/Sex: 77 / M ADM Date: 02/01/23 Loc: Room: Type: [facility] Attending Dr: Trell Damian DO Ordering Provider: [...] ES Default ()_phl: 30.0 % Transcribed By: BLASV Performed At: 02/01/23 0852 Sig (more content not included)... [facility] Globulin Calc (S) [Mass/Vol] Ordered By: Trell Damian on 02-01-2023 Globulin (S) [Mass/Vol] 2.2 g/dL [facility] Glucose [Mass/volume] in Ser um or PlasmaOrdered By: Trell Damian on 02-01-2023 Glucose [Mass/Vol] 183 mg/dL 70-100 [facility] Comment on above: ADA recommended refe rence rangeRandom Glucose Reference Range is dependent on time and content of last meal. Glucose of more than 200 mg/dL in a nonstressed, ambulatory subject supports the diagnosis of Diabetes Mellitus. Ketones Auto test strip (U) [Mass/Vol]Ordered By: Trell Damian on 02-01-2023 Ketones (U) [Mass/Vol] Negative Negative [facility] Nitrite Test strip Ql (U)Ord ered By: Trell Damian on 02-01-2023 Nitrite Ql (U) Negative Negative [facility] No Panel InformationOrdered By: Trell Damian on 02-01-2023 Estimated GFR (CKD-EPI) > 60.0 mL/Min [facility] Creatinine Clearance (Chem N/A [facility] Potassium [Moles/volume] in Serum or PlasmaOrdered By: Trell Damian on 02-01-2023 Potassium [Moles/Vol] 4.6 mmol/L 3.5-5.1 [facility] Protein Auto test strip (U) [Mass/Vol]Ordered By: Trell Damian on 02-01-2023 Protein (U) [Mass/Vol] Negative Negative [facility] Protein [Mass/volume] in Ser um or PlasmaOrdered By: Trell Damian on 02-01-2023 Protein [Mass/Vol] 6.3 g/dL 6.4-8.9 [facility] Serum or plasma albumin/glob ulin mass ratioOrdered By: Trell Damian on 02-01-2023 Albumin/Globulin [Mass ratio] 1.9 {ratio} [facility] Serum or plasma anion gap de terminationOrdered By: Trell Damian on 02-01-2023 Anion gap [Moles/Vol] 14.3 mmol/L 6.0-15.0 [facility] Sodium [Moles/volume] in Ser um or PlasmaOrdered By: Trell Nati on 02-01-2023 Sodium [Moles/Vol] 141 mmol/L 136-145 [facility] Specific gravity Auto test s trip (U) [Rel density]Ordered By: Trell [facility] on 02-01-2023 Specific gravity (U) [Rel density] 1.033 1.001-1.03 0 [facility] Urea nitrogen [Mass/volume] in Serum or PlasmaOrdered By: Trell [facility] on 02-01-2023 Urea nitrogen [Mass/Vol] 22 mg/dL 09-29 [facility] Urinalysison 02-01-2023 Appearance (U) Clear Normal Clear [facility] Comment on above: Order Comment: Name Collection Type:: Clean-Voided Midstream Performed By: #### U A, CMP #### [facility] [address] [place] [address] [place] Bilirubin,Urine Negative Normal Negative [facility] Comment on above: Order Comment: Name Collection Type:: Clean-Voided Midstream Performed By: #### U A, CMP #### [facility] [address] [place] [address] [place] Color (U) Yellow Normal Yellow [facility] Comment on above: Order Comment: Name Collection Type:: Clean-Voided Midstream Performed By: #### U A, CMP #### [facility] [address] [place] [address] [place] Glucose Ql (U) >=1000 High Normal [facility] Comment on above: Order Comment: Name Collection Type:: Clean-Voided Midstream Performed By: #### U A, CMP #### [facility] [address] [place] [id number] [place] Ketones Ql (U) Negative Normal Negative [facility] Comment on above: Order Comment: Name Collection Type:: Clean-Voided Midstream Performed By: #### U A, CMP #### [facility] [address] [place] [id number] [place] Leukocyte esterase Test strip Ql (U) Negative Normal Negative [facility] Comment on above: Order Comment: Name Collection Type:: Clean-Voided Midstream Performed By: #### U A, CMP #### [place] [address] [place] Nitrite,Urine Negative Normal Negative [facility] Comment on above: Order Comment: Name Collection Type:: Clean-Voided Midstream Performed By: #### U A, CMP #### [place] [address] [place] Occult Blood,Urine Negative Normal Negative [facility] Comment on above: Order Comment: Name Collection Type:: Clean-Voided Midstream Result Comment: PERF ORMED BY: [place] [address] PATHOLOGIST CELL PLASTERER OPHELIA ZIMMERMAN M.D. Performed By: #### U A, CMP #### [address] pH (U) 5.5 [pH] Normal 5.0-9.0 [facility] Comment on above: Order Comment: Name Collection Type:: Clean-Voided Midstream Performed By: #### U A, CMP #### [place] [address] [place] Protein,Urine Negative Normal Negative [facility] Comment on above: Order Comment: Name Collection Type:: Clean-Voided Midstream Performed By: #### U A, CMP #### [place] [address] [place] Specificy [place],Urine 1.033 High 1.001-1.03 0 [facility] Comment on above: Order Comment: Name Collection Type:: Clean-Voided Midstream Performed By: #### U A, CMP #### [place] [address] [place] Urobilinogen,Urine Normal Normal Normal [facility] Comment on above: Order Comment: Name Collection Type:: Clean-Voided Midstream Performed By: #### U A, CMP #### [place] [address] [place] Urine clarity by refractomet ry automatedOrdered By: Trell Damian on 02-01-2023 Clarity Refractometry automated (U) Clear Clear [facility] Urine glucose measurement by automated test strip (mass/volume)Ordered By: Trell Damian on 02-01-2023 Glucose Auto test strip (U) [Mass/Vol] >=1000 mg/dL Normal [facility] Urine hemoglobin detection b y automated test stripOrdered By: Trell Damian on 02-01-2023 Hemoglobin Auto test strip Ql (U) Negative Negative [facility] Urine leukocyte esterase det ection by automated test stripOrdered By: Trell Damian on 02-01-2023 Leukocyte esterase Auto test strip Ql (U) Negative Negative [facility] Urobilinogen Auto test strip (U) [Mass/Vol]Ordered By: Trell Damian on 02-01-2023 Urobilinogen (U) [Mass/Vol] Normal mg/dL Normal [facility] pH Auto test strip (U)Ordere d By: Trell Damian on 02-01-2023 pH (U) 5.5 [pH] 5.0-9.0 [facility] Glucose, Whole Bloodon 10-05 Glucose [Mass/Vol] 135 mg/dL High 74 - 100 mg/dL [facility] Interpretation and review of laboratory results Abnormal [facility] CBC AUTO DIFFon 07-17-2022 BASO # 0.0 103/ul Normal 0.0-0.1 [facility] Comment on above: Performed By: #### A 1C #### [facility] [address] [place] [address] Dr. Ana Pandey Basophils/100 WBC (Bld) 0.2 % Normal 0.2-2.0 [facility] Comment on above: Performed By: #### A 1C #### [facility] [address] [place] [address] Dr. Ana Pandey EO # 0.1 103/ul Normal 0.0-0.7 [facility] Comment on above: Performed By: #### A 1C #### [facility] [address] [place] [address] Dr. Ana Pandey Eosinophils/100 WBC (Bld) 0.9 % Normal 0.9-7.0 [facility] Comment on above: Performed By: #### A 1C #### [facility] [address] [place] [address] Dr. Ana Pandey Erythrocyte distribution width (RBC) [Ratio] 15.1 % Critically high 11.0-15.0 [facility] Comment on above: Performed By: #### A 1C #### [facility] [address] [place] [address] Dr. Ana Pandey Hematocrit (Bld) [Volume fraction] 33.6 % Critically low 42.0-54.0 [facility] Comment on above: Performed By: #### A 1C #### [facility] [address] [place] [address] Dr. Ana Pandey Hemoglobin (Bld) [Mass/Vol] 10.9 g/dL Critically low 14.0-18.0 [facility] Comment on above: Performed By: #### A 1C #### [facility] [address] [place] [address] Dr. Ana Pandey IG # 0.05 10e3/ul Critically high 0.00-0.03 [facility] Comment on above: Performed By: #### A 1C #### [facility] [address] [place] [address] Dr. Ana Pandey IG % 0.5 % Normal 0.0-0.5 [facility] Comment on above: Performed By: #### A 1C #### [facility] [address] [place] [address] Dr. Ana Pandey LYMPH # 0.9 103/ul Critically low 1.2-3.8 [facility] Comment on above: Performed By: #### A 1C #### [facility] [address] [place] [address] Dr. Ana Pandey Lymphocytes/100 WBC (Bld) 8.5 % Critically low 20.5-60.0 [facility] Comment on above: Performed By: #### A 1C #### [facility] [address] [place] [address] Dr. Ana Pandey MANUAL DIFF REQ NO Normal [facility] Comment on above: Performed By: #### A 1C #### [facility] [address] [place] [address] Dr. nAa Pandey MCH (RBC) [Entitic mass] 29.0 pg Normal 25.9-34.0 [facility] Comment on above: Performed By: #### A 1C #### [facility] [address] [place] [address] Dr. Ana Pandey MCHC (RBC) [Mass/Vol] 32.4 g/dL Normal 29.9-35.2 [facility] Comment on above: Performed By: #### A 1C #### [facility] [address] [place] [address] Dr. Aan Pandey MCV (RBC) [Entitic vol] 89.4 fL Normal 80.0-94.0 [facility] Comment on above: Performed By: #### A 1C #### [facility] [address] [place] [address] Dr. Ana Pandey MONO # 0.6 103/ul Normal 0.3-0.8 [facility] Comment on above: Performed By: #### A 1C #### [facility] [address] [place] [address] Dr. Ana Pandey Monocytes/100 WBC (Bld) 6.1 % Normal 1.7-12.0 [facility] Comment on above: Performed By: #### A 1C #### [facility] [address] [place] [address] Dr. Ana Pandey NEUT # 8.4 103/ul Critically high 1.4-6.5 [facility] Comment on above: Performed By: #### A 1C #### [facility] [address] [place] [address] Dr. Ana Pandey Neutrophils/100 WBC (Bld) 83.8 % Critically high 43.0-75.0 [facility] Comment on above: Performed By: #### A 1C #### [facility] [address] [place] [address] Dr. Ana Pandey Platelet mean volume (Bld) [Entitic vol] 9.7 fL Normal 9.5-13.5 [facility] Comment on above: Performed By: #### A 1C #### [facility] [address] [address] [address] Ana Pandey PLT 220 103/ul Normal 150-450 [facility] Comment on above: Performed By: #### A 1C #### [facility] [address] [address] [address] Ana Pandey RBC 3.76 106/ul Critically low 4.70-6.10 [facility] Comment on above: Performed By: #### A 1C #### [facility] [address] [address] [address] Ana Pandey WBC 10.0 103/ul Normal 4.0-11.0 [facility] Comment on above: Performed By: #### A 1C #### [facility] [address] [address] [address] ABD/PELVIS WO CONon [...] by: Bowen WISDOM Date: 2022-07-16 23:30 Normal [facility] CULTURE BLOODon 07-17-2022 Microscopic examination of blood, culture Culture Observations: NO GROWTH AT 36-48 HOURS. FINAL TO FOLLOW. Normal [facility] Comment on above: Performed By: #### B NIGHT CLUB MANAGER, CMP #### [facility] [address] [place] [address] Dr. Ana Pandey Microscopic examination of blood, culture Culture Observations: NO GROWTH AT 36-48 HOURS. FINAL TO FOLLOW. Normal [facility] Comment on above: Performed By: #### B NIGHT CLUB MANAGER, CMP #### [facility] [address] [place] [address] Dr. Ana Pandey CULTURE URINEon 07-17-2022 CULTURE URINE Culture Observations : AMINA TO FOLLOW. Isolate 1 Escherichia coli >100,000 cfu/mL of Normal [facility] Comment on above: Performed By: #### B NIGHT CLUB MANAGER, CMP #### [facility] [address] [place] [address] Dr. Ana Pandey ER URINE PROFILEon 3 Bilirubin Ql (U) Negative Normal NEGATIVE [facility] Comment on above: Performed By: #### JUSTYNA FARAHRO #### [facility] [address] [place] [address] Dr. Ana Pandey Clarity (U) CLEAR Normal CLEAR [facility] Comment on above: Performed By: #### JUSTYNA FARAHRO #### [facility] [address] [place] [address] Dr. Ana Pandey Color (U) LT. YELLOW Normal YELLOW [facility] Comment on above: Performed By: #### JUSTYNA FARAHRO #### [facility] [address] [place] [address] Dr. Ana BENITEZ A micrscopic examina tion will be performed if indicated. Normal [facility] Comment on above: Performed By: #### JUSTYNA FARAHRO #### [facility] [address] [place] [address] Dr. Ana Pandey Glucose Ql (U) Negative Normal NEGATIVE [facility] Comment on above: Performed By: #### Sumaya MEDELLIN UMICRO #### [facility] [address] [place] [address] Dr. Ana Pandey Hemoglobin Ql (U) MODERATE Abnormal NEGATIVE [facility] Comment on above: Performed By: #### Sumaya MEDELLIN UMICRO #### [facility] [address] [place] [address] Dr. Ana Pandey Ketones Ql (U) Negative Normal NEGATIVE [facility] Comment on above: Performed By: #### LISBET FARAHICRO #### [facility] [address] [place] [address] Dr. Ana Pandey LEUKOCYTES MODERATE Abnormal NEGATIVE [facility] Comment on above: Performed By: #### JUSTYNA FARAHRO #### [facility] [address] [place] [address] Dr. Ana Pandey Nitrite Ql (U) Positive Abnormal NEGATIVE [facility] Comment on above: Performed By: #### Sumaya MEDELLIN UMICRO #### [facility] [address] [place] [address] Dr. Ana Pandey pH (U) 5.0 [pH] Normal 5-9 [facility] Comment on above: Performed By: #### Sumaya MEDELLIN UMICRO #### [facility] [address] [place] [address] Dr. Ana Pandey SPEC GRAVITY 1.025 Normal 1.005-<=1. 025 [facility] Comment on above: Performed By: #### Sumaya MEDELLIN UMICRO #### [facility] [address] [place] [address] Dr. Ana Pandey UA PROTEIN Negative Normal NEGATIVE/ TRACE [facility] Comment on above: Performed By: #### E JUSTYNA MEDELLINRO #### [facility] [address] [place] [address] Dr. Ana Pandey UR MICRO IND INDICATED Normal [facility] Comment on above: Performed By: #### E LACIE, LISBETICRO #### [facility] [address] [place] [address] Dr. Ana Pandey Urobilinogen Qn (U) 0.2 {Casie'U}/dL Normal 0.2 - 1. 0 [facility] Comment on above: Performed By: #### E JUSTYNA MEDELLINRO #### [facility] [address] [place] [address] Dr. Ana Pandey LACTATE/LACTIC ACIDon 2022 Lactate [Moles/Vol] 2.0 mmol/L Normal 0.4-2.0 [facility] Comment on above: Performed By: #### L ACT #### [facility] [address] [place] [address] Dr. Ana Pandey PROF 14(COMP METB)on 023 Albumin [Mass/Vol] 3.2 g/dL Critically low 3.4-5.0 [facility] Comment on above: Performed By: #### C MP #### [facility] [address] [place] [address] Dr. Ana Pandey Albumin/Globulin [Mass ratio] 1.0 {ratio} Normal [facility] Comment on above: Performed By: #### C MP #### [facility] [address] [place] [address] Dr. Ana Pandey ALP [Catalytic activity/Vol] 75 U/L Normal 46-116 [facility] Comment on above: Performed By: #### C MP #### [facility] [address] [place] [address] Dr. Ana Pandey ALT [Catalytic activity/Vol] 24 U/L Normal 16-63 [facility] Comment on above: Performed By: #### C MP #### [facility] [address] [place] [address] Dr. Ana Pandey Anion gap [Moles/Vol] 13.0 mmol/L Normal [facility] Comment on above: Performed By: #### C MP #### [facility] [address] [place] [address] Dr. Ana Pandey AST [Catalytic activity/Vol] 19 U/L Normal 15-37 [facility] Comment on above: Performed By: #### C MP #### [facility] [address] [address] [address] Ana Pandey Bilirubin [Mass/Vol] 0.6 mg/dL Normal 0.2-1.0 [facility] Comment on above: Performed By: #### C MP #### [facility] [address] [place] [address] Dr. Ana Pandey Calcium [Mass/Vol] 8.6 mg/dL Normal 8.5-10.1 [facility] Comment on above: Performed By: #### C MP #### [facility] [address] [place] [address] Dr. Ana Pandey Chloride [Moles/Vol] 106 mmol/L Normal 98-107 [facility] Comment on above: Performed By: #### C MP #### [facility] [address] [place] [address] Dr. Ana Pandey CO2 [Moles/Vol] 25.0 mmol/L Normal 21.0-32.0 [facility] Comment on above: Performed By: #### C MP #### [facility] [address] [address] [address] Ana Pandey Creatinine [Mass/Vol] 1.34 mg/dL Critically high 0.70-1.30 [facility] Comment on above: Performed By: #### C MP #### [facility] [address] [address] [address] Ana Pandey EGFR-AF TUVALUAN >60 Normal >=60 [facility] Comment on above: Performed By: #### C MP #### [facility] [address] [place] [address] Dr. Ana Pandey EGFR-NON AF TUVALUAN 52 mL/min/1.73m2 Critically low >=60 [facility] Comment on above: Performed By: #### C MP #### [facility] [address] [address] [address] Ana Pandey Globulin (S) [Mass/Vol] 3.2 g/dL Normal [facility] Comment on above: Performed By: #### C MP #### [facility] [address] [address] [address] Ana Pandey Glucose [Mass/Vol] 136 mg/dL Critically high 74-106 [facility] Comment on above: Performed By: #### C MP #### [facility] [address] [address] [address] Ana Pandey Potassium [Moles/Vol] 4.0 mmol/L Normal 3.5-5.1 [facility] Comment on above: Performed By: #### C MP #### [facility] [address] [address] [address] Ana Pandey Protein [Mass/Vol] 6.4 g/dL Normal 6.4-8.2 [facility] Comment on above: Performed By: #### C MP #### [facility] [address] [address] [address] Ana Pandey Sodium [Moles/Vol] 140 mmol/L Normal 136-145 [facility] Comment on above: Performed By: #### C MP #### [facility] [address] [address] [address] Ana Pandey Urea nitrogen [Mass/Vol] 23.0 mg/dL Critically high 7.0-18.0 [facility] Comment on above: Performed By: #### C MP #### [facility] [address] [address] [address] Ana Pandey Urea nitrogen/Creatinine [Mass ratio] 17.2 mg/mg Normal [facility] Comment on above: Performed By: #### C MP #### [facility] [address] [address] [address] Ana Pandey URINE MICROSCOPIC ONLYon BACTERIA LARGE Abnormal NONE SEEN [facility] Comment on above: Performed By: #### E LACIE UMICRO #### [facility] [address] [place] [address] Dr. Ana Pandey Bacteria identified Cx Nom (U) INDICATED Normal [facility] Comment on above: Performed By: #### Sumaya MEDELLIN UMICRO #### [facility] [address] [place] [address] Dr. Ana Pandey CAST NONE SEEN Normal NONE SEEN [facility] Comment on above: Performed By: #### Sumaya MEDELLIN UMICRO #### [facility] [address] [place] [address] Dr. Ana Pandey Crystals LM Nom (Urine sed) NONE SEEN Normal NONE SEEN [facility] Comment on above: Performed By: #### Sumaya MEDELLIN UMICRO #### [facility] [address] [place] [address] Dr. Ana Pandey Epithelial cells LM Ql (Urine sed) RARE Normal NONE SEEN /RARE [facility] Comment on above: Performed By: #### Sumaya MEDELLIN UMICRO #### [facility] [address] [place] [address] Dr. Ana Pandey MUCOUS NONE SEEN Normal NONE SEEN [facility] Comment on above: Performed By: #### Sumaya MEDELLIN UMICRO #### [facility] [address] [place] [address] Dr. Ana Pandey RBC 0-2 Normal 0-2 [facility] Comment on above: Performed By: #### Sumaya MEDELLIN UMICRO #### [facility] [address] [place] [address] Dr. Ana Pandey WBC 20-50 Abnormal NONE SEEN [facility] Comment on above: Performed By: #### Sumaya MEDELLIN UMICRO #### [facility] [address] [place] [address] Dr. Ana Pandey XR CHEST 1 Von [...] Normal [facility] Covid-19 PCR (CVDTB)on 07-06 SARS-CoV-2 (COVID-19) RNA EDD+probe Ql (Unsp spec) Not detected Normal NOT DETECTED [facility] Comment on above: Performed By: #### A 1C #### [facility] [address] [place] [address] Dr. Ana Pandey INFLUENZA A AND B AGon 07-16 INFLUENZA A AG Negative Normal NEGATIVE SEE COMMENT [facility] Comment on above: Performed By: #### A 1C #### [facility] [address] [place] [address] Dr. Ana Pandey INFLUENZA B AG Negative Normal NEGATIVE SEE COMMENT [facility] Comment on above: Performed By: #### A 1C #### [facility] [address] [place] [address] Dr. Ana Pandey SYMPTOMATIC COVID-19 ANTIGEN on 07-16-2022 EUA Statement SEE BELOW Normal [facility] Comment on above: Result Comment: This [...] VDAGS #### [facility] [address] [place] [address] Dr. Ana Pandey SARS-CoV-2 (COVID-19) RNA EDD+probe Ql (Unsp spec) Negative Normal NEGATIVE [facility] Comment on above: Performed By: #### C VDAGS #### [facility] [address] [address] [address] Ana Pandey GLYCOHEMOGLOBIN A1Con 2022 ADA RECOMMENDATION SEE BELOW Normal [facility] Comment on above: Result Comment: ADA RECOMMENDED LIMIT 4.0 - 6.0 ADA THERAPEUTIC TARGET < 7.0 ACTION SUGGESTED > 7.0 Performed By: #### A 1C #### [facility] [address] [address] [address] Ana Pandey Glucose [Mass/Vol] 154 mg/dL Normal [facility] Comment on above: Performed By: #### A 1C #### [facility] [address] [address] [address] Ana Pandey HbA1c (Bld) [Mass fraction] 7.0 % Critically high 4.5-6.2 [facility] Comment on above: Performed By: #### A 1C #### [facility] [address] [address] [address] Ana Pandey SED RATE [facility] 2022 SED RATE 30 mm/hr Critically high <=20 [facility] Comment on above: Performed By: #### A 1C #### [facility] [address] [address] [address] Ana Pandey NM STRESS/REST MULTIon 09-29 NM STRESS/REST MULTI Patient: LEONARDO WINSTON JALENSilvia Lea Exam Date: 09/29/2021 : 1945 Gender:M Ordering : MATIAS ODONNELLS Admission #: [id number] Family : Order #: [id number] CLICK HERE TO VIEW EXAM RADIOLOGY REPORT [...] medicine myocardial perfusion scan. Dictated by: Adria Mcgee M.D. on 09/29/2021 at 15:18 Approved by: Adria Mcgee M.D. on 09/29/2021 at 15:22 Normal [facility] PROF CHEM 8 (BAS METB)on Anion gap [Moles/Vol] 13.1 mmol/L Normal [facility] Comment on above: Performed By: #### B NIGHT CLUB MANAGER, CMP #### [facility] [address] [place] [address] Dr. Ana Pandey Calcium [Mass/Vol] 8.6 mg/dL Normal 8.5-10.1 [facility] Comment on above: Performed By: #### B NIGHT CLUB MANAGER, CMP #### [facility] [address] [place] [address] Dr. Ana Pandey Chloride [Moles/Vol] 104 mmol/L Normal 98-107 [facility] Comment on above: Performed By: #### B NIGHT CLUB MANAGER, CMP #### [facility] [address] [address] [address] Ana Pandey CO2 [Moles/Vol] 25.9 mmol/L Normal 21.0-32.0 [facility] Comment on above: Performed By: #### B NIGHT CLUB MANAGER, CMP #### [facility] [address] [place] [address] Dr. Ana Pandey Creatinine [Mass/Vol] 0.92 mg/dL Normal 0.70-1.30 [facility] Comment on above: Performed By: #### B NIGHT CLUB MANAGER, CMP #### [facility] [address] [place] [address] Dr. Ana Pandey EGFR-AF TUVALUAN >60 Normal >=60 [facility] Comment on above: Performed By: #### B NIGHT CLUB MANAGER, CMP #### [facility] [address] [place] [address] Dr. Ana Pandey EGFR-NON AF TUVALUAN >60 Normal >=60 [facility] Comment on above: Performed By: #### B NIGHT CLUB MANAGER, CMP #### [facility] [address] [place] [address] Dr. Ana Pandey Glucose [Mass/Vol] 102 mg/dL Normal 74-106 [facility] Comment on above: Performed By: #### B NIGHT CLUB MANAGER, CMP #### [facility] [address] [place] [address] Dr. Ana Pandey Potassium [Moles/Vol] 4.0 mmol/L Normal 3.5-5.1 [facility] Comment on above: Performed By: #### B NIGHT CLUB MANAGER, CMP #### [facility] [address] [place] [address] Dr. Ana Pandey Sodium [Moles/Vol] 139 mmol/L Normal 136-145 [facility] Comment on above: Performed By: #### B NIGHT CLUB MANAGER, CMP #### [facility] [address] [place] [address] Dr. Ana Pandey Urea nitrogen [Mass/Vol] 24.0 mg/dL Critically high 7.0-18.0 [facility] Comment on above: Performed By: #### B NIGHT CLUB MANAGER, CMP #### [facility] [address] [place] [address] Dr. Ana Pandey Urea nitrogen/Creatinine [Mass ratio] 26.1 mg/mg Normal [facility] Comment on above: Performed By: #### B NIGHT CLUB MANAGER, CMP #### [facility] [address] [place] [address] Dr. Ana Pandey BNPon 07-06-2022 Natriuretic peptide B (Bld) [Mass/Vol] 305.0 pg/mL Normal <=1,800.0 [facility] Comment on above: Performed By: #### B NIGHT CLUB MANAGER, CMP #### [facility] [address] [place] [address] Dr. Ana Pandey CBC AUTO DIFFon 09-10-2021 BASO # 0.0 103/ul Normal 0.0-0.1 [facility] Comment on above: Performed By: #### A 1C #### [facility] [address] [place] [address] Dr. Ana Pandey Basophils/100 WBC (Bld) 0.5 % Normal 0.2-2.0 The [facility] Comment on above: Performed By: #### A 1C #### [facility] [address] [place] [address] Dr. Ana Pandey EO # 0.1 103/ul Normal 0.0-0.7 [facility] Comment on above: Performed By: #### A 1C #### [facility] [address] [place] [address] Dr. Ana Pandey Eosinophils/100 WBC (Bld) 1.9 % Normal 0.9-7.0 The [facility] Comment on above: Performed By: #### A 1C #### [facility] [address] [place] [address] Dr. Ana Pandye Erythrocyte distribution width (RBC) [Ratio] 15.4 % Critically high 11.0-15.0 The [facility] Comment on above: Performed By: #### A 1C #### [facility] [address] [place] [address] Dr. Ana Pandey Hematocrit (Bld) [Volume fraction] 38.6 % Critically low 42.0-54.0 [facility] Comment on above: Performed By: #### A 1C #### [facility] [address] [place] [address] Dr. Ana Pandey Hemoglobin (Bld) [Mass/Vol] 12.2 g/dL Critically low 14.0-18.0 [facility] Comment on above: Performed By: #### A 1C #### [facility] [address] [place] [address] Dr. Ana Pandey IG # 0.01 10e3/ul Normal 0.00-0.03 [facility] Comment on above: Performed By: #### A 1C #### [facility] [address] [place] [address] Dr. Ana Pandey IG % 0.1 % Normal 0.0-0.5 [facility] Comment on above: Performed By: #### A 1C #### [facility] [address] [place] [address] Dr. Ana Pandey LYMPH # 1.6 103/ul Normal 1.2-3.8 [facility] Comment on above: Performed By: #### A 1C #### [facility] [address] [place] [address] Dr. Ana Pandey Lymphocytes/100 WBC (Bld) 21.1 % Normal 20.5-60.0 [facility] Comment on above: Performed By: #### A 1C #### [facility] [address] [place] [address] Dr. Ana Pandey MANUAL DIFF REQ NO Normal [facility] Comment on above: Performed By: #### A 1C #### [facility] [address] [place] [address] Dr. Ana Pandey MCH (RBC) [Entitic mass] 28.7 pg Normal 25.9-34.0 [facility] Comment on above: Performed By: #### A 1C #### [facility] [address] [place] [address] Dr. Ana Pandey MCHC (RBC) [Mass/Vol] 31.6 g/dL Normal 29.9-35.2 [facility] Comment on above: Performed By: #### A 1C #### [facility] [address] [place] [address] Dr. Ana Pandey MCV (RBC) [Entitic vol] 90.8 fL Normal 80.0-94.0 [facility] Comment on above: Performed By: #### A 1C #### [facility] [address] [place] [address] Dr. Ana Pandey MONO # 0.6 103/ul Normal 0.3-0.8 [facility] Comment on above: Performed By: #### A 1C #### [facility] [address] [place] [address] Dr. Ana Pandey Monocytes/100 WBC (Bld) 7.4 % Normal 1.7-12.0 [facility] Comment on above: Performed By: #### A 1C #### [facility] [address] [place] [address] Dr. Ana Pandey NEUT # 5.1 103/ul Normal 1.4-6.5 [facility] Comment on above: Performed By: #### A 1C #### [facility] [address] [place] [address] Dr. Ana Pandey Neutrophils/100 WBC (Bld) 69.0 % Normal 43.0-75.0 [facility] Comment on above: Performed By: #### A 1C #### [facility] [address] [place] [address] Dr. Ana Pandey Platelet mean volume (Bld) [Entitic vol] 9.9 fL Normal 9.5-13.5 [facility] Comment on above: Performed By: #### A 1C #### [facility] [address] [place] [address] Dr. Ana Pandey PLT 194 103/ul Normal 150-450 [facility] Comment on above: Performed By: #### A 1C #### [facility] [address] [place] [address] Dr. Ana Pandey RBC 4.25 106/ul Critically low 4.70-6.10 [facility] Comment on above: Performed By: #### A 1C #### [facility] [address] [place] [address] Dr. Ana Pandey WBC 7.4 103/ul Normal 4.0-11.0 [facility] Comment on above: Performed By: #### A 1C #### [facility] [address] [place] [address] Dr. Ana Pandey PROF 14(COMP METB)on 07-06-2 022 Albumin [Mass/Vol] 3.5 g/dL Normal 3.4-5.0 [facility] Comment on above: Performed By: #### B NIGHT CLUB MANAGER, CMP #### [facility] [address] [place] [address] Dr. Ana Pandey Albumin/Globulin [Mass ratio] 1.2 {ratio} Normal [facility] Comment on above: Performed By: #### B NIGHT CLUB MANAGER, CMP #### [facility] [address] [place] [address] Dr. Ana Pandey ALP [Catalytic activity/Vol] 67 U/L Normal 46-116 [facility] Comment on above: Performed By: #### B NIGHT CLUB MANAGER, CMP #### [facility] [address] [place] [address] Dr. Ana Pandey ALT [Catalytic activity/Vol] 37 U/L Normal 16-63 [facility] Comment on above: Performed By: #### B NIGHT CLUB MANAGER, CMP #### [facility] [address] [place] [address] Dr. Ana Pandey Anion gap [Moles/Vol] 11.6 mmol/L Normal [facility] Comment on above: Performed By: #### B NIGHT CLUB MANAGER, CMP #### [facility] [address] [place] [address] Dr. Ana Pandey AST [Catalytic activity/Vol] 30 U/L Normal 15-37 [facility] Comment on above: Performed By: #### B NIGHT CLUB MANAGER, CMP #### [facility] [address] [place] [address] Dr. Ana Pandey Bilirubin [Mass/Vol] 0.5 mg/dL Normal 0.2-1.0 [facility] Comment on above: Performed By: #### B NIGHT CLUB MANAGER, CMP #### [facility] [address] [place] [address] Dr. Ana Pandey Calcium [Mass/Vol] 8.9 mg/dL Normal 8.5-10.1 [facility] Comment on above: Performed By: #### B NIGHT CLUB MANAGER, CMP #### [facility] [address] [place] [address] Dr. Ana Pandey Chloride [Moles/Vol] 107 mmol/L Normal 98-107 [facility] Comment on above: Performed By: #### B NIGHT CLUB MANAGER, CMP #### [facility] [address] [place] [address] Dr. Ana Pandey CO2 [Moles/Vol] 26.9 mmol/L Normal 21.0-32.0 [facility] Comment on above: Performed By: #### B NIGHT CLUB MANAGER, CMP #### [facility] [address] [place] [address] Dr. Ana Pandey Creatinine [Mass/Vol] 0.93 mg/dL Normal 0.70-1.30 [facility] Comment on above: Performed By: #### B NIGHT CLUB MANAGER, CMP #### [facility] [address] [place] [address] Dr. Ana Pandey EGFR-AF TUVALUAN >60 Normal >=60 [facility] Comment on above: Performed By: #### B NIGHT CLUB MANAGER, CMP #### [facility] [address] [place] [address] Dr. Ana Pandey EGFR-NON AF TUVALUAN >60 Normal >=60 [facility] Comment on above: Performed By: #### B NIGHT CLUB MANAGER, CMP #### [facility] [address] [place] [address] Dr. Ana Pandey Globulin (S) [Mass/Vol] 2.8 g/dL Normal [facility] Comment on above: Performed By: #### B NIGHT CLUB MANAGER, CMP #### [facility] [address] [place] [address] Dr. Ana Pandey Glucose [Mass/Vol] 169 mg/dL Critically high 74-106 [facility] Comment on above: Performed By: #### B NIGHT CLUB MANAGER, CMP #### [facility] [address] [place] [address] Dr. Ana Pandey Potassium [Moles/Vol] 4.5 mmol/L Normal 3.5-5.1 [facility] Comment on above: Performed By: #### B NIGHT CLUB MANAGER, CMP #### [facility] [address] [place] [address] Dr. Ana Pandey Protein [Mass/Vol] 6.3 g/dL Critically low 6.4-8.2 Th e [facility] Comment on above: Performed By: #### B NIGHT CLUB MANAGER, CMP #### [facility] [address] [place] [address] Dr. Ana Pandey Sodium [Moles/Vol] 141 mmol/L Normal 136-145 [facility] Comment on above: Performed By: #### B NIGHT CLUB MANAGER, CMP #### [facility] [address] [place] [address] Dr. Ana Pandey Urea nitrogen [Mass/Vol] 20.0 mg/dL Critically high 7.0-18.0 [facility] Comment on above: Performed By: #### B NIGHT CLUB MANAGER, CMP #### [facility] [address] [place] [address] Dr. Ana Pandey Urea nitrogen/Creatinine [Mass ratio] 21.5 mg/mg Normal [facility] Comment on above: Performed By: #### B NIGHT CLUB MANAGER, CMP #### [facility] [address] [place] [address] Dr. Ana Pandey XR CHEST 2 Von [...] Normal The [facility] CBC AUTO DIFFon 07-23-2021 BASO # 0.1 103/ul Normal 0.0-0.1 [facility] Comment on above: Performed By: #### C BC #### [facility] [address] [place] [address] Dr. Ana Pandey Basophils/100 WBC (Bld) 0.6 % Normal 0.2-2.0 [facility] Comment on above: Performed By: #### C BC #### [facility] [address] [place] [address] Dr. Ana Pandey EO # 0.2 103/ul Normal 0.0-0.7 [facility] Comment on above: Performed By: #### C BC #### [facility] [address] [place] [address] Dr. Ana Pandey Eosinophils/100 WBC (Bld) 2.5 % Normal 0.9-7.0 [facility] Comment on above: Performed By: #### C BC #### [facility] [address] [place] [address] Dr. Ana Pandey Erythrocyte distribution width (RBC) [Ratio] 15.0 % Normal 11.0-15.0 [facility] Comment on above: Performed By: #### C BC #### [facility] [address] [place] [address] Dr. Ana Pandey Hematocrit (Bld) [Volume fraction] 46.4 % Normal 42.0-54.0 [facility] Comment on above: Performed By: #### C BC #### [facility] [address] [place] [address] Dr. Ana Pandey Hemoglobin (Bld) [Mass/Vol] 14.2 g/dL Normal 14.0-18.0 [facility] Comment on above: Performed By: #### C BC #### [facility] [address] [place] [address] Dr. Ana Pandey IG # 0.02 10e3/ul Normal 0.00-0.03 [facility] Comment on above: Performed By: #### C BC #### [facility] [address] [place] [address] Dr. Ana Pandey IG % 0.2 % Normal 0.0-0.5 [facility] Comment on above: Performed By: #### C BC #### [facility] [address] [place] [address] Dr. Ana Pandey LYMPH # 2.5 103/ul Normal 1.2-3.8 [facility] Comment on above: Performed By: #### C BC #### [facility] [address] [place] [address] Dr. Ana Pandey Lymphocytes/100 WBC (Bld) 27.9 % Normal 20.5-60.0 [facility] Comment on above: Performed By: #### C BC #### [facility] [address] [place] [address] Dr. Ana Pandey MANUAL DIFF REQ NO Normal [facility] Comment on above: Performed By: #### C BC #### [facility] [address] [place] [address] Dr. Ana Pandey MCH (RBC) [Entitic mass] 27.8 pg Normal 25.9-34.0 [facility] Comment on above: Performed By: #### C BC #### [facility] [address] [place] [address] Dr. Ana Pandey MCHC (RBC) [Mass/Vol] 30.6 g/dL Normal 29.9-35.2 [facility] Comment on above: Performed By: #### C BC #### [facility] [address] [place] [address] Dr. Ana Pandey MCV (RBC) [Entitic vol] 90.8 fL Normal 80.0-94.0 [facility] Comment on above: Performed By: #### C BC #### [facility] [address] [place] [address] Dr. Ana Pandey MONO # 0.7 103/ul Normal 0.3-0.8 [facility] Comment on above: Performed By: #### C BC #### [facility] [address] [place] [address] Dr. Ana Pandey Monocytes/100 WBC (Bld) 8.0 % Normal 1.7-12.0 [facility] Comment on above: Performed By: #### C BC #### [facility] [address] [place] [address] Dr. Ana Pandey NEUT # 5.4 103/ul Normal 1.4-6.5 [facility] Comment on above: Performed By: #### C BC #### [facility] [address] [place] [address] Dr. Ana Pandey Neutrophils/100 WBC (Bld) 60.8 % Normal 43.0-75.0 [facility] Comment on above: Performed By: #### C BC #### [facility] [address] [place] [address] Dr. Ana Pandey Platelet mean volume (Bld) [Entitic vol] 10.6 fL Normal 9.5-13.5 [facility] Comment on above: Performed By: #### C BC #### [facility] [address] [place] [address] Dr. Ana Pandey PLT 248 103/ul Normal 150-450 [facility] Comment on above: Performed By: #### C BC #### [facility] [address] [place] [address] Dr. Ana Pandey RBC 5.11 106/ul Normal 4.70-6.10 [facility] Comment on above: Performed By: #### C BC #### [facility] [address] [place] [address] Dr. Ana Pandey WBC 8.8 103/ul Normal 4.0-11.0 [facility] Comment on above: Performed By: #### C BC #### [facility] [address] [place] [address] Dr. Ana Pandey GLYCOHEMOGLOBIN A1Con 2021 ADA RECOMMENDATION SEE BELOW Normal [facility] Comment on above: Result Comment: ADA RECOMMENDED LIMIT 4.0 - 6.0 ADA THERAPEUTIC TARGET < 7.0 ACTION SUGGESTED > 7.0 Performed By: #### A 1C #### [facility] [address] [place] [address] Dr. Ana Pandey Glucose [Mass/Vol] 146 mg/dL Normal [facility] Comment on above: Performed By: #### A 1C #### [facility] [address] [place] [address] Dr. Ana Pandey HbA1c (Bld) [Mass fraction] 6.7 % Critically high 4.5-6.2 [facility] Comment on above: Performed By: #### A 1C #### [facility] [address] [place] [address] Dr. Ana Pandey LIPID PROFILEon 07-23-2021 CHOL-HDL RATIO NORM SEE BELOW Normal [facility] Comment on above: Result Comment: 3.3 - 4.4 LOW RISK 4.4 - 7.1 AVERAGE RISK 7.1 - 11.0 MODERATE RISK >11.0 HIGH RISK Performed By: #### A 1C #### [facility] [address] [address] [address] Ana Pandey Cholesterol [Mass/Vol] 98 mg/dL Normal <=200 [facility] Comment on above: Performed By: #### A 1C #### [facility] [address] [address] [address] Ana Pandey Cholesterol in HDL [Mass/Vol] 42 mg/dL Normal 40-60 [facility] Comment on above: Performed By: #### A 1C #### [facility] [address] [address] [address] Ana Pandey Cholesterol in LDL [Mass/Vol] 43.2 mg/dL Normal [facility] Comment on above: Performed By: #### A 1C #### [facility] [address] [address] [address] Ana Pandey Cholesterol.total/Cho lesterol in HDL [Mass ratio] 2.3 {ratio} Normal [facility] Comment on above: Performed By: #### A 1C #### [facility] [address] [address] [address] Ana Pandey HDL NORMAL > or = 60 mg/dl - LO W CARDIOVASCULAR RISK <40 mg/dl - HIGH CARDIOVASCULAR RISK Normal [facility] Comment on above: Performed By: #### A 1C #### [facility] [address] [address] [address] Ana Pandey LDL CALC NORMAL SEE BELOW Normal [facility] Comment on above: Result Comment: <100 mg/dl OPTIMAL 100 - 129 mg/dl NEAR OR ABOVE OPTIMAL 130 - 159 mg/dl BORDERLINE HIGH 160 - 189 mg/dl HIGH >190 mg/dl VERY HIGH Performed By: #### A 1C #### [facility] [address] [address] [address] Ana Pandey Triglyceride [Mass/Vol] 64 mg/dL Normal <=150 [facility] Comment on above: Performed By: #### A 1C #### [facility] [address] [place] [address] Dr. Ana Pandey VLDL CALC 12.8 mg/dL Normal [facility] Comment on above: Performed By: #### A 1C #### [facility] [address] [place] [address] Dr. Ana Pandey LIVER PROFILEon 07-23-2021 Albumin [Mass/Vol] 3.9 g/dL Normal 3.4-5.0 [facility] Comment on above: Performed By: #### A 1C #### [facility] [address] [place] [address] Dr. Ana Pandey Albumin/Globulin [Mass ratio] 1.2 {ratio} Normal [facility] Comment on above: Performed By: #### A 1C #### [facility] [address] [place] [address] Dr. Ana Pandey ALP [Catalytic activity/Vol] 74 U/L Normal 46-116 [facility] Comment on above: Performed By: #### A 1C #### [facility] [address] [place] [address] Dr. Ana Pandey ALT [Catalytic activity/Vol] 52 U/L Normal 16-63 [facility] Comment on above: Performed By: #### A 1C #### [facility] [address] [place] [address] Dr. Ana Pandey AST [Catalytic activity/Vol] 43 U/L Critically high 15-37 [facility] Comment on above: Performed By: #### A 1C #### [facility] [address] [place] [address] Dr. Ana Pandey BILI, CONJUGATED 0.2 mg/dL Normal 0.0-0.2 [facility] Comment on above: Performed By: #### A 1C #### [facility] [address] [place] [address] Dr. Ana Pandey Bilirubin [Mass/Vol] 0.6 mg/dL Normal 0.2-1.0 [facility] Comment on above: Performed By: #### A 1C #### [facility] [address] [place] [address] Dr. Ana Pandey Globulin (S) [Mass/Vol] 3.2 g/dL Normal [facility] Comment on above: Performed By: #### A 1C #### [facility] [address] [place] [address] Dr. Ana Pandey Protein [Mass/Vol] 7.1 g/dL Normal 6.4-8.2 [facility] Comment on above: Performed By: #### A 1C #### [facility] [address] [place] [address] Dr. Ana Pandey MICROALBUMIN, [place] URon 07-06 mALB 1.8 mg/L Normal <=30.0 [facility] Comment on above: Performed By: #### A 1C #### [facility] [address] [place] [address] Dr. Ana Pandey PROF CHEM 8 (BAS METB)on Anion gap [Moles/Vol] 12.1 mmol/L Normal [facility] Comment on above: Performed By: #### A 1C #### [facility] [address] [place] [address] Dr. Ana Pandey Calcium [Mass/Vol] 8.7 mg/dL Normal 8.5-10.1 [facility] Comment on above: Performed By: #### A 1C #### [facility] [address] [place] [address] Dr. Ana Pandey Chloride [Moles/Vol] 102 mmol/L Normal 98-107 [facility] Comment on above: Performed By: #### A 1C #### [facility] [address] [place] [address] Dr. Ana Pandey CO2 [Moles/Vol] 28.1 mmol/L Normal 21.0-32.0 [facility] Comment on above: Performed By: #### A 1C #### [facility] [address] [place] [address] Dr. Ana Pandey Creatinine [Mass/Vol] 0.94 mg/dL Normal 0.70-1.30 [facility] Comment on above: Performed By: #### A 1C #### [facility] [address] [address] [address] Ana Pandey EGFR-AF TUVALUAN >60 Normal >=60 [facility] Comment on above: Performed By: #### A 1C #### [facility] [address] [address] [address] Ana Pandey EGFR-NON AF TUVALUAN >60 Normal >=60 [facility] Comment on above: Performed By: #### A 1C #### [facility] [address] [address] [address] Ana Pandey Glucose [Mass/Vol] 102 mg/dL Normal 74-106 [facility] Comment on above: Performed By: #### A 1C #### [facility] [address] [place] [address] Dr. Ana Pandey Potassium [Moles/Vol] 4.2 mmol/L Normal 3.5-5.1 [facility] Comment on above: Performed By: #### A 1C #### [facility] [address] [address] [address] Ana Pandey Sodium [Moles/Vol] 138 mmol/L Normal 136-145 [facility] Comment on above: Performed By: #### A 1C #### [facility] [address] [place] [address] Dr. Ana Pandey Urea nitrogen [Mass/Vol] 28.0 mg/dL Critically high 7.0-18.0 [facility] Comment on above: Performed By: #### A 1C #### [facility] [address] [place] [address] Dr. Ana Pandey Urea nitrogen/Creatinine [Mass ratio] 29.8 mg/mg Normal [facility] Comment on above: Performed By: #### A 1C #### [facility] [address] [place] [address] Dr. Ana Pandey TSHon 07-23-2021 TSH 4.104 uIU/mL Critically high 0.358-3.74 0 [facility] Comment on above: Performed By: #### A 1C #### [facility] [address] [place], [place] [address] Dr. Ana Pandey TSH RANGE SEE BELOW Normal [facility] Comment on above: Result Comment: <0.3 4 UIU/ml HYPERTHYROID 0.34-5.60 UIU/ml EUTHYROID >5.60 UIU/ml HYPOTHYROID Performed By: #### A 1C #### [facility] [address] [place], [place] [address] Dr. Ana Pandey COVID Quick Testingon 2020 Result Positive [employer] Other Cardiovascular Lab Reporton 05-05-2017 Cardiovascular Lab Report [facility] Patient Name: Thea Winston [facility] MR #: [id number] Physician: Shantell Gomez,Department of M.D.Medicine Service Date: 05/04/2017Division of Birthdate: 4Cardiology Room #: 3AB [id number] CardiovascularServicesUniv [facility] Center[facility]yev[facility]bp[facility] [place], [place] [address] Fax Cardiovascular Laboratory ReportREFERRING PHYSICIANS: Christian Rosa [...] CAD.6. Outpatient followup with Dr. Jacobo Rosa, [place] Cardiology.7. Okay to refer to cardiac rehabilitation [...] usingultrasound guidance and micropuncture access technique, a 6-Faroese sheathwas placed in the right internal jugular vein. Using a Dougherty catheter,the right heart catheterization was then performed. Pressures wereobtained in the right atrium, right ventricle, pulmonary artery, andpulmonary capillary wedge position. Oxygen saturation was drawn from thepulmonary artery and the Sly cardiac output and cardiac index were thencalculated. The Dougherty catheter was then removed.Next, a 6-Faroese [employer] Glidesheath slender was placed in the [...] check the severity with an FFR testing.A [employer] left 6-Faroese guide was engaged to left main coronaryartery.The [employer] FFR wire was then zeroed outside of [...] 05/04/2017/12:44 P/Shantell Gomez M.D.Date Trans: 05/05/2017 09:35 A/[id number] c: Christian Rosa M.D. [address] [place] [id number] Michael Smith M.D. [facility] [address] [facility] Vital Signs Date Time Vital Sign Value Performing Clinician Facility 12-08-2023 08:55-0400 Body height 188 cm Winston Reyestrick NIGHT CLUB MANAGER Work Phone: [facility] 12-08-2023 08:55-0400 Body mass index (BMI) [Ratio] 29.58 kg/m2 Winston Stroudpatrick NIGHT CLUB MANAGER Work Phone: [facility] 12-08-2023 08:55-0400 Body temperature 96.01 [degF] Winston Stroudpatrick NIGHT CLUB MANAGER Work Phone: [facility] 12-08-2023 08:55-0400 Body weight 104.51 kg Winston Stroudpatrick NIGHT CLUB MANAGER Work Phone: [facility] 12-08-2023 08:55-0400 Diastolic blood pressure 64 mm[Hg] Winston Stroudpatrick NIGHT CLUB MANAGER Work Phone: [facility] 12-08-2023 08:55-0400 Heart rate 59 /min Winston Stroudpatrick NIGHT CLUB MANAGER Work Phone: [facility] 12-08-2023 08:55-0400 Respiratory rate 16 /min Winston Reyestrick NIGHT CLUB MANAGER Work Phone: [facility] 12-08-2023 08:55-0400 SaO2% (BldA) [Mass fraction] 96 % Winston Stroudpatrick NIGHT CLUB MANAGER Work Phone: [facility] 12-08-2023 08:55-0400 Systolic blood pressure 144 mm[Hg] Winston Stroudpatrick NIGHT CLUB MANAGER Work Phone: [facility] 04-22-2023 14:27-0500 Body height 190.5 cm MD Michael Smith Work Phone: [facility] 04-22-2023 14:27-0500 Body mass index (BMI) [Ratio] 29.7 kg/m2 MD Michael Smith Work Phone: [facility] 04-22-2023 14:27-0500 Body temperature 97.6 [degF] MD Michael Smith Work Phone: [facility] 04-22-2023 14:27-0500 Body weight 107.67 kg MD Michael Smith Work Phone: [facility] 04-22-2023 14:27-0500 Heart rate 67 /min MD Michael Smith Work Phone: [facility] 04-22-2023 14:27-0500 Respiratory rate 18 /min MD Michael Smith Work Phone: [facility] 04-22-2023 14:27-0500 SaO2% (BldA) [Mass fraction] 95 % MD Michael Smith Work Phone: [facility] 02-14-2023 12:10-0500 Body height 190.5 cm Mitzy Neves Other [facility] 02-14-2023 12:10-0500 Body mass index (BMI) [Ratio] 30.57 kg/m2 Mitzy Neves Other [employer] Other 02-14-2023 12:10-0500 Body temperature 98 [degF] Mitzy Hoppermond Other [employer] Other 02-14-2023 12:10-0500 Body weight 110.95 kg Mitzy Pura Other [employer] Other 02-14-2023 12:10-0500 Body weight 110.94 kg MD Michael Smith Work Phone: [facility] 02-14-2023 12:10-0500 Diastolic blood pressure 60 mm[Hg] Mitzy Pura Other [facility] 02-14-2023 12:10-0500 Respiratory rate 18 /min Mitzy Pura Other [employer] Other 02-14-2023 12:10-0500 SaO2% (BldA) [Mass fraction] 98 % Mitzy Pura Other [employer] Other 02-14-2023 12:10-0500 Systolic blood pressure 135 mm[Hg] Mitzy Pura Other [facility] 10-05-2022 11:30-0400 Diastolic blood pressure 58 mm[Hg] Genoveva Shamar DO Work Phone: [employer] 10-05-2022 11:30-0400 Heart rate 58 /min Genoveva Shamar DO Work Phone: [employer] 10-05-2022 11:30-0400 Respiratory rate 16 /min Genoveva Shamar DO Work Phone: [facility] [employer] 10-05-2022 11:30-0400 SaO2% (BldA) [Mass fraction] 98 % Genoveva Shamar DO Work Phone: [employer] 10-05-2022 11:30-0400 Systolic blood pressure 126 mm[Hg] Genoveva Ibanez DO Work Phone: [facility] [employer] 10-05-2022 11:11-0400 Body temperature 96.91 [degF] Genoveva Ibanez DO Work Phone: [facility] [employer] 10-05-2022 10:00-0400 Body height 190.5 cm Genoveva Ibanez DO Work Phone: [facility] [employer] 10-05-2022 10:00-0400 Body mass index (BMI) [Ratio] 32.12 kg/m2 Genoveva Ibanez DO Work Phone: [facility] [employer] 10-05-2022 10:00-0400 Body weight 116.57 kg Genoveva Ibanez DO Work Phone: [facility] [employer] 05-26-2022 12:50-0400 Body height 190.5 cm Minerva Irwin Other [employer] Other 05-26-2022 12:50-0400 Body mass index (BMI) [Ratio] 31.87 kg/m2 Minerva Irwin Other [employer] Other 05-26-2022 12:50-0400 Body temperature 97.1 [degF] Minerva Irwin Other [employer] Other 05-26-2022 12:50-0400 Body weight 115.67 kg Minerva Irwin Other [employer] Other 05-26-2022 12:50-0400 Respiratory rate 18 /min Minerva Irwin Other [employer] Other 05-26-2022 12:50-0400 SaO2% (BldA) [Mass fraction] 97 % Minerva Irwin Other [employer] Other 03-20-2022 14:00-0500 Body height 190.5 cm Minerva Irwin Other [employer] Other 03-20-2022 14:00-0500 Body mass index (BMI) [Ratio] 28.74 kg/m2 Minerva Irwin Other [employer] Other 03-20-2022 14:00-0500 Body temperature 97.7 [degF] Minerva Irwin Other [employer] Other 03-20-2022 14:00-0500 Body weight 104.33 kg Minerva Irwin Other [employer] Other 03-20-2022 14:00-0500 Respiratory rate 18 /min Minerva Irwin Other [employer] Other 03-20-2022 14:00-0500 SaO2% (BldA) [Mass fraction] 97 % Minerva Irwin Other [employer] Other 12-05-2020 17:15-0400 Body height 190.5 cm Radha Sawant Other [employer] Other 12-05-2020 17:15-0400 Body temperature 98.8 [degF] Radha Sawant Other [employer] Other 12-05-2020 17:15-0400 SaO2% (BldA) [Mass fraction] 97 % Radha Sawant Other [employer] Other Encounters Encounter Date Encounter Type Care Provider Facility Start: 01-04-2024 ambulatory Merry X Orzech Facilit y:[facility] [place] Start: 12-08-2023 End: 12-08-2023 Bamboo flowsheet Winston Suarez NIGHT CLUB MANAGER Work Phone: [facility] Start: 12-08-2023 End: 12-08-2023 Bamboo flowsheet Winston Suarez NIGHT CLUB MANAGER Work Phone: [facility] Start: 12-08-2023 End: 12-08-2023 Office outpatient visit 25 minutes Winston Suarez NIGHT CLUB MANAGER Work Phone: [facility] Comment on above: Diabetic peripheral neuropathy associated with type 2 diabetes mellitus (CMS/HCC) (Primary Dx); Essential hypertension; Chronic heart failure with preserved ejection fraction (HFpEF) (CMS/HCC); Diabetes mellitus type II, non insulin dependent (CMS/HCC); Dyslipidemia (CMS/HCC) Start: 12-08-2023 End: 12-08-2023 ambulatory WINSOTN SUAREZ Not Available Start: 12-07-2023 End: 12-07-2023 Refill Payal Ledesma MA [facility] Comment on above: Diabetic peripheral neuropathy associated with type 2 diabetes mellitus (CMS/HCC); Diabetes mellitus type II, non insulin dependent (CMS/HCC) Start: 11-23-2023 End: 11-23-2023 ambulatory [facility] Facility:MOHAN Bhandari Start: 11-19-2023 End: 11-[facility] Start: 09-20-2023 End: 09-20-2023 Evaluation and management of inpatient SHANICE BRANDT [facility] Start: 09-20-2023 End: 09-20-2023 Evaluation and management of inpatient GENOVEVA IBANEZ [facility] Start: 2023 End: 2023 ambulatory MAYNOR PINEDA [facility] Start: 2023 Encounter for other preprocedural examination MICHAEL SMITH [facility] Start: 09-01-2023 ambulatory [facility] Facility: MOHAN Bhandari Start: 08-31-2023 End: 08-31-2023 ambulatory TEMPLETON FAWWAD Not Available Start: 07-06-2023 End: 07-06-2023 ambulatory CAMPBELL H TIMMIS Not Available Start: 06-21-2023 End: 06-21-2023 ambulatory CAMPBELL H TIMMIS Not Available Start: 05-31-2023 End: 05-31-2023 ambulatory TEMPLETON FAWWAD Not Available Start: 05-21-2023 End: 05-21-2023 ambulatory CHRISTIANO [facility] Start: 04-26-2023 End: 04-26-2023 ambulatory SHAIKH DORIWAD Not Available Start: 04-22-2023 End: 04-22-2023 ambulatory MD Michael Smith Work Phone: [facility] Work Phone: Start: 04-22-2023 End: 04-22-2023 Patient encounter procedure MD Michael Smith Work Phone: [facility] Work Phone: Start: 04-21-2023 Orders Only Shaikh Lolly PERALES Work Phone: [facility] Comment on above: Coronary arterioscle rosis in [place] artery (CMS/HCC) (Primary Dx) Start: 04-15-2023 Orders Only Shaikh Lolly PERALES Work Phone: [facility] Comment on above: Chronic heart failur e with preserved ejection fraction (HFpEF) (CMS/HCC) (Primary Dx) Start: 03-15-2023 End: 03-15-2023 ambulatory SHAIKH EMELYD Not Available Start: 02-25-2023 Patient encounter procedure Shaikh Lolly PERALES Work Phone: [facility] Start: 02-25-2023 End: 02-25-2023 ambulatory SHAIKH LOLLY Not Available Start: 02-14-2023 End: 02-14-2023 ambulatory Mitzy Neves Other [employer] Other Start: 02-14-2023 Office outpatient vi sit 15 minutes Mitzy Neves [facility] Start: 02-14-2023 End: 02-14-2023 Patient encounter procedure MD Michael Smith Work Phone: [facility] Work Phone: Start: 02-09-2023 End: 02-09-2023 ambulatory AMANDA ROSA Not Available Start: 02-01-2023 End: 02-01-2023 ambulatory Trell James Damian Facility:[facility] Start: 02-01-2023 End: 02-01-2023 ambulatory MD Michael Smith Work Phone: [facility] Work Phone: Start: 02-01-2023 End: 02-01-2023 Patient encounter procedure MD Michael Smith Work Phone: [facility] Work Phone: Start: 10-05-2022 End: 10-05-2022 ambulatory GENOVEVA [facility] Start: 10-05-2022 End: 10-05-2022 Subsequent hospital visit by physician Genoveva Ibanez DO Work Phone: [facility] Start: 07-22-2022 ambulatory MENDEZ Smart lity:[facility] Start: 07-16-2022 End: 07-17-[address] MATIAS MAXWELL . Facility: Start: 06-26-2022 End: 06-26-2022 ambulatory Minerva Irwin Other [employer] Other Start: 06-26-2022 Telephone encounter Minerva Irwin [facility] [employer] Start: 05-26-2022 End: 05-26-2022 ambulatory Minerva Irwin Other [employer] Other Start: 05-26-2022 Office outpatient vi sit 25 minutes Minerva Irwin [facility] Start: 05-08-2022 End: 05-09-[address] MICHAEL SMITH Facility:[facility] Start: 04-03-2022 End: 04-04-2022 ambulatory SHAIKH Vijaya HANKeila Facility:[facility] Start: 03-25-2022 End: 03-26-[address] MICHAEL SMITH Facility:[facility] Start: 03-20-2022 End: 03-20-2022 ambulatory Minerva Irwin Other [employer] Other Start: 03-20-2022 Office outpatient vi sit 25 minutes Minerva Irwin [facility] Start: 12-24-2021 End: 12-25-[address] MICHAEL SMITH Facility:[facility] Start: 09-29-2021 End: 09-30-[address] ADRIA MCGEE Facility:[facility] Start: 09-18-2021 End: 09-19-[address] MICHAEL SMITH Facility:[facility] Start: 09-15-2021 End: 09-16-[address] MICHAEL SMITH Facility:[facility] Start: 09-10-2021 End: 09-11-2021 ambulatory KAYCE SARAVIA Facility:[facility] Start: 07-23-2021 End: 07-24-[address] MICHAEL SMITH Facility:[facility] Start: 12-05-2020 Office outpatient vi sit 15 minutes Radha Sawant [facility] Start: 05-04-2017 End: 05-05-2017 Ambulatory MICHAEL SMITH Facility:[facility] Start: 04-28-2017 End: 04-29-2017 Ambulatory DEFAULT PHYSICIAN Facility:[facility] Procedures Date Procedure Procedure Detail Performing Clinician Start: 05-21-2023 Follow-up visit Follow-up CHRISTIANO DOUGLAS Start: 04-26-2023 History of placement of stent for coronary artery disease H/O heart artery stent Payal Ledesma MA Start: 10-05-2022 GLUCOSE, WHOLE BLOOD Bl air Y Shamar DO Work Phone: Start: 10-05-2022 Ecg routine ecg w/le ast 12 lds w/i&r Genoveva Y Shamar DO Work Phone: Start: 07-23-[address] MICHAEL BLUE Comment on above: Performed By: #### B NIGHT CLUB MANAGER, CMP #### [facility] [address] [address] [address] Ana Pandey History of placement of stent for coronary artery disease H/O heart artery stent MD Michael Smith Work Phone: Plan of Treatment Date Care Activity Detail Author Start: 11-06-2024 Glaucoma screening Diabetes: R etinopathy Screening [facility] Start: 09-01-2024 Urine screening for protein Diabetes: Urine Protein Screening [facility] Start: 03-03-2024 Hemoglobin A1c measurement Diabetes: Hemoglobin A1C [facility] Start: 02-26-2024 Medicare Annual Wellness (AWV) Medicare Annual Wellness (AWV) [facility] Start: 12-08-2023 End: 12-07-2024 Hemoglobin A1c/Hemoglobin.total in Blood Hemoglobin A1c Lab Routine Diabetes mellitus type II, non insulin dependent ([facility]/HCC) Expected: 12/08/2023 (Approximate), Expires: 12/07/2024 [facility] Work Phone: Comment on above: Expected: 12/08/2023 (Approximate), Expires: 12/07/2024 Start: 12-08-2023 End: 12-08-2023 Patient encounter procedure [facility] Comment on above: Diabetic peripheral neuropathy associated with type 2 diabetes mellitus ([facility]/HCC) (Primary Dx); Essential hypertension; Chronic heart failure with preserved ejection fraction (HFpEF) ([facility]); Diabetes mellitus type II, non insulin dependent ([facility]); Dyslipidemia ([facility]) Start: 11-07-2023 Influenza vaccination Influenza Vacc ine (#1) [facility] Start: 05-31-2023 End: 05-31-2023 Patient encounter procedure 05/31/2023 10:45 AM EDT Office Visit [facility] [address] [place] [id number] Shaikh Ambrocio MD [address] [place] [id number] [facility] Start: 05-06-2023 Hemoglobin A1c measurement Diabetes: Hemoglobin A1C [facility] Start: 10-06-2022 Influenza vaccination Flu vaccine (# 1) [facility] Start: 10-05-2022 Annual Wellness Visi t (AWV) Annual Wellness Visit (AWV) [facility] Start: 10-05-2022 End: 10-05-2022 Xcapsl ctrc rmvl insj io lens prosth w/o ecp EYE CATARACT EMULSIFICATION IOL IMPLANT Combined forms of age-related cataract of left eye 10/05/2022 10:44 AM EDT [facility] Start: 07-13-2022 Urine screening for protein Diabetes: Urine Protein Screening [facility] Start: 09-01-2008 Pneumococcal 65+ yea rs Vaccine (1 - PCV) Pneumococcal 65+ years Vaccine (1 - PCV) [facility] Start: 09-01-1993 Shingles vaccine (1 of 2) Shingles vaccine (1 of 2) [facility] Start: 09-01-1962 DTaP/Tdap/Td vaccine (1 - Tdap) DTaP/Tdap/Td vaccine (1 - Tdap) [facility] Start: 09-01-1961 Hepatitis C screening Hepatitis C sc reen [facility] Start: 1955 Depression Screen Depression Screen [facility] Start: 09-01-1953 Lipid panel Lipids [facility] Start: 09-01-1949 Pneumococcal Vaccine : 65+ Years (1 - PCV) Pneumococcal Vaccine: 65+ Years (1 - PCV) [facility] Start: 03-03-1944 COVID-19 Vaccine (#1) COVID-19 Vacci ne (#1) [facility] EKG 12 Lead EKG 12 Lead ECG Routine 10/05/2022 10:15 AM EDT [facility] Oxygen therapy [Mini mum Data Set] Initiate Oxygen Therapy Protocol Respiratory Care Routine Daily until discontinued starting 10/05/2022 [facility] Comment on above: Daily until disconti nued starting 10/05/2022 Oxygen therapy [Mini mum Data Set] Initiate Oxygen Therapy Protocol Respiratory Care Routine Daily until discontinued starting 10/05/2022 [facility] Comment on above: Daily until disconti nued starting 10/05/2022 Immunizations Immunization Date Immunization Notes Care Provider [place] 08-11-2023 Pneumococcal Conjuga te PCV 20 Payal Ledesma MA [facility] 12-25-2022 ABRYSVO - Respirator y syncytial virus (RSV), vaccine, bivalent, protein subunit RSV prefusion F, diluent reconstituted, 0.5 mL, PF Shaikh Lolly PERALES Work Phone: [facility] 11-26-2022 Influenza, High-dose Seasonal, Quadrivalent, Preservative Free Shaikh Lolly PERALES Work Phone: [facility] 11-26-2022 influenza virus vaccine, unspecified formulation Payal Ledesma MA [facility] 12-25-2021 Influenza, Seasonal, Quadrivalent, Adjuvanted Shaikh Lolly PERALES Work Phone: [facility] 12-15-2020 Influenza, High-dose Seasonal, Quadrivalent, Preservative Free Shaikh Lolly PERALES Work Phone: [facility] 12-14-2019 influenza, injectabl e, quadrivalent, preservative free Shaikh Lolly PERALES Work Phone: [facility] 11-28-2019 Influenza, High-dose Seasonal, Quadrivalent, Preservative Free Shaikh Lolly PERALES Work Phone: [facility] 11-28-2019 zoster vaccine recombinant Shaikh Lolly PERALES Work Phone: [facility] 01-02-2018 influenza, high dose seasonal, preservative-free Shaikh Lolly PERALES Work Phone: [facility] 11-29-2016 influenza, high dose seasonal, preservative-free Shaikh Lolly PERALES Work Phone: [facility] 12-13-2015 influenza, high dose seasonal, preservative-free Shaikh Lolly PERALES Work Phone: [facility] 12-24-2014 influenza, high dose seasonal, preservative-free Shaikh Lolly PERALES Work Phone: [facility] 09-10-2013 tetanus toxoid, adsorbed Radha Sawant Other [facility] 02-11-2012 influenza virus vaccine, whole virus Shaikh Lolly PERALES Work Phone: [facility] 01-19-2011 influenza virus vaccine, whole virus Shaikh Lolly PERALES Work Phone: [facility] Payers Date Payer Category Payer Medicare [id number] 2023 Self-pay [id number] 2023 Unknown [id number] 2022 Unknown 2020 Unknown [id number] [id number] .[id number] 1959 Medicare [id number] 2.16.840.1.655048. 1959 Unknown [id number] 2.16.840.1.572496.19 1943 Unknown [id number] 2.16.840.1.408236.3.579.2.59 1943 Unknown [id number] 2.16.840.1.672057.3.579.2.593 1943 Unknown [id number] 2.16.840.1.746058.3.579.2.593 1943 Unknown [id number] 2.16.840.1.185518.3.579.2.593 1943 Unknown [id number] 2.16.840.1.805499.3.579.2.593 1943 Unknown [id number] 2.16.840.1.999208.3.579.2.593 1943 Unknown [id number] 2.16.840.1.718543.3.579.2.593 1943 Unknown [id number] 2.16.840.1.467597.3.579.2.593 1943 Unknown [id number] 2.16.840.1.990618.3.579.2.593 1943 Unknown [id number] 2.16.840.1.880450.3.579.2.593 1943 Unknown [id number] 2.16.840.1.896121.3.579.2.593 1943 Unknown [id number] 2.16.840.1.341808.3.579.2.173 1943 Unknown [id number] 2.840.1.154138.3.579.2.1286 1943 Unknown [id number] 2.16840.1.934699.3.579.2.1286 1943 Unknown [id number] 2.16840.1.556833.3.579.2.1286 1943 Unknown [id number] 2.16840.1.435202.3.579.2.1286 1943 Unknown [id number] 2.840.1.119522.3.579.2.1286 1943 Unknown [id number] 2.16.840.1.510694.3.579.2.1286 1943 Unknown [id number] 2.16.840.1.740905.3.579.2.727 1943 Unknown [id number] 2.16.840.1.660899.3.579.2.727 1943 Unknown [id number] 2.16.840.1.492878.3.579.2.727 1943 Unknown [id number] 2.16.840.1.688281.3.579.2.9 1943 Unknown [id number] 2.16.840.1.427139.3.579.2.1258 1943 Unknown [id number] 2.16.840.1.158899.3.579.2.1258 1943 Unknown [id number] 2.16.840.1.215637.3.579.2.1258 1943 Unknown [id number] 2.16.840.1.721799.3.579.2.1258 1943 Unknown [id number] 2.16.840.1.432131.3.579.2.1258 1943 Unknown [id number] 2.16.840.1.385171.3.579.2.1258 1943 Unknown [id number] 2.16.840.1.367695.3.579.2.1258 1943 Unknown [id number] 2.16.840.1.300096.3.579.2.1259 Medicare [id number] Medicare [employer] [id number] Unknown [id number] 2.16.840.1.406806.3.579.2.531 Social History Date Type Detail Facility Unknown if ever smoked [facility] Other Start: 02-25-2023 End: 07-27-2023 Sex Assigned At [employer] Other Start: 09-22-2022 End: 04-26-2023 Tobacco smoking status NHIS Never smoked tobacco [facility] Start: 09-22-2022 End: 04-26-2023 Tobacco use and exposure Smokeless tobacco non-user [facility] Start: 10-05-2022 End: 12-08-2023 Alcohol intake Lifetime non-drinker (finding) [facility] Start: 1945 Sex Assigned At Not on file B [facility] Start: 1945 Sex Assigned At Male F [facility] Start: 02-25-2023 End: 07-27-2023 History of Social function [facility] Within the last year , have you been afraid of your partner or ex-partner? No [facility] Do you belong to any clubs or organizations such as scientologist groups, unions, fraternal or athletic groups, or school groups? Yes [facility] Are you now , , , , never or living with a partner? [facility] How often to you hav e a drink containing alcohol? Monthly or less [facility] How many standard dr inks containing alcohol do you have on a typical day? 1 or 2 [facility] How often do you hav e 6 or more drinks on 1 occasion? Never [facility] How hard is it for y ou to pay for the very basics like food, housing, medical care, and heating Not very hard [facility] Do you feel stress - tense, restless, nervous, or anxious, or unable to sleep at night because your mind is troubled all the time - these days [OSQ] Only a little [facility] (I/We) worried wheth er (my/our) food would run out before (I/we) got money to buy more. Never true [facility] In the past 12 month s, has lack of transportation kept you from medical appointments or from getting medications? No [facility] NEGATED: Highlighted rowStart: BARR[place] History of tobacco use Passive smoker [facility] Clinical Notes 12-05-2020 to 12-08-2023 Winston Suarez, BILL - 12/08/2023 9:24 AM Arsalan Suarez, BILL - 12/08/2023 9:23 AM Arsalan Suarez NP - 12/08/2023 9:22 AM Arsalan Suarez, BILL - 12/08/2023 9:21 AM EDT Note Date & Type Note Facility 12-08-2023 History of Presen t illness Narrative Associated Problem(s): Diabetic peripheral neuropathy associated with type 2 diabetes mellitus (CMS/HCC) Taking Gabapentin 300mg Pt states he takes it up to twice per day only as needed. Feels symptoms are well controlled. Continue current regimen. Associated Problem(s): Chronic heart failure with preserved ejection fraction (HFpEF) ([facility]) Currently taking Jardiance, Toprol, Aldactone; Follows closely with Cardiology; Euvolemic. Continue current regimen as directed by Cardiology; Associated Problem(s): Essential hypertension Currently taking Metoprolol 100mg Follows closely with Cardiology. Checks BP at home; Averages are 120's; Above goal ion office today; Given BP log, advised pt to record BP and bring log back with them to next visit. Denies orthostatic changes, dizziness, cough, shortness of breath, swelling in extremities. Continue current regimen. Associated Problem(s): Diabetes mellitus type II, non insulin dependent ([facility]) Currently taking Jardiance, Glyburide- Metformin Most recent labs: hemoglobin A1C 8.1% Average FSBS range from BGs range between 130 and 180 No episode of hypoglycemia No medication adverse effects reported by the patient. Patient educated on lifestyle modifications, dietary restrictions, signs and symptoms of hypoglycemia/hyperglycemia and importance of eating regular consistent meals. Stressed upon importance of checking blood glucose at home and bring blood glucose log to appointments. All questions, concerns answered and addressed. Encouraged to call office if persistent hypoglycemia/hyperglycemia on home glucose monitoring noted. Most recent DM Eye Exam: 09/2023- Dr. Ibanez DM Foot Exam: 06/2023 Associated Problem(s): Dyslipidemia ([facility]) Currently taking Atorvastatin 40mg Denies any myalgias. Most recent Lipid Panel 08/2023- WNL Continue current regimen. Images from the original note were not included. Subjective Patient ID: Thea Winston is a 78 y.o. male who presents for Med Refill and Coronary Artery Disease. HPI Specialists: Urology- Dr. Gaytan Cardiology- Dr. Mayorga Ophthalmology- Dr. Ibanez ENT- Dr. Roper HTN: Currently taking Metoprolol 100mg Follows closely with Cardiology. Checks BP at home; Averages are 120's; Above goal ion office today; Given BP log, advised pt to record BP and bring log back with them to next visit. Denies orthostatic changes, dizziness, cough, shortness of breath, swelling in extremities. Continue current regimen. HLD: Currently taking Atorvastatin 40mg Denies any myalgias. Continue current regimen. Component Ref Range & Units 3 mo ago (09/02/23) 3 mo ago (09/02/23) 1 yr ago (10/09/22) Cholesterol 150 - 200 mg/dL 79 Low 79 Low 104 Low Triglycerides 27 - 150 mg/dL 109 65 HDL Cholesterol >39 mg/dL 33 Low 42 CM Comment: HDL <40 mg/dL - High Risk HDL > or = 40mg/dL- Desirable HDL >60 mg/dL - Negative Risk VLDL Cholesterol 0 - 30 mg/dL 22 13 LDL Calculated <130 mg/dL 24 49 CM Comment: LDL <100 mg/dL - Desirable LDL >160 mg/dL - High Risk CHOLESTEROL/HDL RATIO 1.0 - 5.0 2.4 2.5 DMII: Currently taking Jardiance, Glyburide- Metformin Most recent labs: hemoglobin A1C 8.1% Average FSBS range from BGs range between 130 and 180 No episode of hypoglycemia No medication adverse effects reported by the patient. Patient educated on lifestyle modifications, dietary restrictions, signs and symptoms of hypoglycemia/hyperglycemia and importance of eating regular consistent meals. Stressed upon importance of checking blood glucose at home and bring blood glucose log to appointments. All questions, concerns answered and addressed. Encouraged to call office if persistent hypoglycemia/hyperglycemia on home glucose monitoring noted. Education: Check blood sugars daily, notify if <70 or >200. Take medications (pills or insulin) as directed. Monitor for s/s of hypoglycemia (sweaty, dizziness, nausea, vomiting, or shakiness). Watch for increase in thirst, urination, or appetite. Inspect feet frequently monitoring for open wounds , and also recommend yearly eye exam. Pt should attempt to remain as physically active as chronic conditions allow, as well as trying to follow a diet low in carbohydrates, and simple sugars. Review of Systems Constitutional: Negative for activity change, appetite change, chills, diaphoresis, fatigue, fever and unexpected weight change. HENT: Negative for congestion, ear pain, rhinorrhea, sinus pressure, sinus pain, sneezing, sore throat, trouble swallowing and voice change. Eyes: Negative for visual disturbance. Respiratory: Negative for cough, chest tightness, shortness of breath and wheezing. Cardiovascular: Negative for chest pain, palpitations and leg swelling. Gastrointestinal: Negative for abdominal distention, abdominal pain, blood in stool, constipation, diarrhea and vomiting. Genitourinary: Negative for decreased urine volume, dysuria, flank pain, frequency, hematuria and urgency. Musculoskeletal: Negative for arthralgias, gait problem, joint swelling and myalgias. Skin: Negative for rash. Neurological: Negative for dizziness, tremors, syncope, weakness, light-headedness and headaches. Psychiatric/Behavioral: Negative for decreased concentration and suicidal ideas. The patient is not nervous/anxious. Hematological: Does not bruise/bleed easily. Endocrine: Negative for cold intolerance, heat intolerance, polydipsia, polyphagia and polyuria. Objective Physical Exam Vitals reviewed. Constitutional: Appearance: Normal appearance. HENT: Head: Normocephalic and atraumatic. Right Ear: Tympanic membrane normal. Left Ear: Tympanic membrane normal. Nose: Nose normal. Mouth/Throat: Mouth: Mucous membranes are moist. Pharynx: Oropharynx is clear. Eyes: Pupils: Pupils are equal, round, and reactive to light. Cardiovascular: Rate and Rhythm: Normal rate and regular rhythm. Pulses: Normal pulses. Heart sounds: Normal heart sounds. Pulmonary: Effort: Pulmonary effort is normal. Breath sounds: Normal breath sounds. Abdominal: General: Abdomen is flat. Bowel sounds are normal. Palpations: Abdomen is soft. Musculoskeletal: General: Normal range of motion. Cervical back: Normal range of motion. Skin: General: Skin is warm and dry. Capillary Refill: Capillary refill takes less than 2 seconds. Neurological: General: No focal deficit present. Mental Status: He is alert and oriented to person, place, and time. Psychiatric: Mood and Affect: Mood normal. Behavior: Behavior normal. Assessment/Plan Problem List Items Addressed This Visit Diabetes mellitus type II, non insulin dependent ([facility]/HCC) Currently taking Jardiance, Glyburide- Metformin Most recent labs: hemoglobin A1C 8.1% Average FSBS range from BGs range between 130 and 180 No episode of hypoglycemia No medication adverse effects reported by the patient. Patient educated on lifestyle modifications, dietary restrictions, signs and symptoms of hypoglycemia/hyperglycemia and importance of eating regular consistent meals. Stressed upon importance of checking blood glucose at home and bring blood glucose log to appointments. All questions, concerns answered and addressed. Encouraged to call office if persistent hypoglycemia/hyperglycemia on home glucose monitoring noted. Most recent DM Eye Exam: 09/2023- Dr. Ibanez DM Foot Exam: 06/2023 Dyslipidemia ([facility]) Currently taking Atorvastatin 40mg Denies any myalgias. Most recent Lipid Panel 08/2023- WNL Continue current regimen. Essential hypertension (Chronic) Currently taking Metoprolol 100mg Follows closely with Cardiology. Checks BP at home; Averages are 120's; Above goal ion office today; Given BP log, advised pt to record BP and bring log back with them to next visit. Denies orthostatic changes, dizziness, cough, shortness of breath, swelling in extremities. Continue current regimen. Diabetic peripheral neuropathy associated with type 2 diabetes mellitus ([facility]) - Primary Taking Gabapentin 300mg Pt states he takes it up to twice per day only as needed. Feels symptoms are well controlled. Continue current regimen. Chronic heart failure with preserved ejection fraction (HFpEF) ([facility]) Currently taking Jardiance, Toprol, Aldactone; Follows closely with Cardiology; Euvolemic. Continue current regimen as directed by Cardiology; documented in this encounter [facility] 12-08-2023 Instructions Winston Suarez NP - 12/08/2023 9:00 AM EDT Education: Check blood sugars daily, notify if <70 or >200. Take medications (pills or insulin) as directed. Monitor for s/s of hypoglycemia (sweaty, dizziness, nausea, vomiting, or shakiness). Watch for increase in thirst, urination, or appetite. Inspect feet frequently monitoring for open wounds , and also recommend yearly eye exam. Pt should attempt to remain as physically active as chronic conditions allow, as well as trying to follow a diet low in carbohydrates, and simple sugars. documented in this encounter [facility] 12-07-2023 Telephone encounter Note [facility] a [facility] TONIE: NOV:12/08/2023 [facility] 12-07-2023 Miscellaneous Notes Pt needs a refill of his Jardiance sent to [facility] TONIE: NOV:12/08/2023 documented in this encounter [facility] 11-19-2023 Note Lipid abnormalities are well-controlled with Lipitor 40 mg daily Liver function remains normal [facility] 11-19-2023 Note Hypertension current ly well-controlled, 138/71 Continue all medications including Toprol, spironolactone and Lasix Renal function remains stable electrolytes stable [facility] 11-19-2023 Note [facility] II-currently eu volemic without exacerbation overall doing very well Continue GDMT-continue aspirin, Lipitor, Toprol and spironolactone. He is taking Lasix daily for Diuretic therapy Monitor daily weights, I&O, fluid restriction 1.5-2L/day, Renal function remains stable no acute concerns [facility] 11-19-2023 Note [facility] CARDIOLOGY PROGR ESS NOTE [...] Do not crush or chew. 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 spironolactone [...] CV Testin09/02/23 EKG- sinus rhythm with prolonged NC 06/03/23 TTE Assessment/Plan: Chronic heart failure with preserved ejection fraction (HFpEF) (CMS/HCC) [facility] II-currently euvolemic without exacerbation overall doing [...] normal RTC 6 months to 1 year [facility] 11-19-2023 Note Pt is here for a six month follow up. Pt denies sob, chest pain, and Palpatations. Review of Systems All other systems reviewed and are negative. [facility] 05-21-2023 Note Cardiology Follow Up Progress Note [...] by mouth in the morning. 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 ferrous [...] red flag sympt (more content not included)... [facility] 05-21-2023 Note Review of Systems All other systems reviewed and are negative. Right shoulder pain but has had surgery on shoulder [facility] 02-14-2023 Evaluation note Encounter Date Diagnosis Assessment Notes Feb, Bronchitis (ICD-10 - J40) Drink plenty fluids, get plenty of rest. Continue home medications as prescribed. Take the doxycycline as prescribed until gone. Take the Medrol Dosepak as prescribed until gone. Use the albuterol inhaler as prescribed as needed for cough or shortness of breath. Continue to take [id number] er cough medicine as needed for cough. Follow-up with your family physician if no improvement in 2 to 3 days [employer] Other 07-31-2023 History of Present illness Narrative* [...] July from [facility] received in this office. * Noelle Leary [...] PAT phone [facility]. [facility]* Discharge Instructions* Mervat [...] the healing period. The office number is [phone]. Take surgery bag and all eye drops to Dr. Ibanez's office tomorrow at 9:20am. You may resume your normal diet. Start your eye drops tomorrow after your post-op appointment: Ofloxacin/Polytrim one drop to the operated eye 4 times daily Prednisolone one drop to the operated eye 4 times daily [facility] note* Encounter Date Diagnosis Assessment [...] understanding and is agreeable to treatment plan [employer] Other 01-13-2023 Evaluation note* Encounter Date Diagnosis [...] understanding and is agreeable to treatment plan [employer] Other 07-25-2022 NoteCARDIAC STRESS TEST Requesting Physician: [...] separate dictation.[id number] Evaluation note* Encounter Date Diagnosis Assessment Notes Treatment Notes Treatment Clinical Notes Nov, Contact with and (suspected) exposure to other viral communicable diseases (ICD-10 - Z20.828) Nov, COVID-19 (ICD-10 - U07.1) Today you tested positive for the COVID virus. This mean you need to follow all CDC quarantine guidelines found at [email or web address] v. It is important to rest, increase [...] Patient care instructions given in writting by [facility] Care At Home document. [employer] Other Evaluation noteNo InformationNort [employer] Other Evaluation note* Diagnosis Combined forms of age-related cataract of left eye- Primary Other and combined forms of senile cataract [facility] assessment information available [facility] Work Phone: Evaluation note* Diagnosis Chronic heart failure with preserved ejection fraction (HFpEF) ([facility])- Primary documented in this encounter [facility] Healthcare[facility]* Diagnosis Coronary arteriosclerosis in [place] artery ([facility]/HCC)- Primary documented in this encounter [facility] Healthcare[facility]* Diagnosis Onset Date Resolution Status Viral URI with cough acute [facility] Work Phone: Evalurunoq note* Diagnosis Diabetic peripheral neuropathy associated with type 2 diabetes mellitus ([facility]) Diabetes mellitus type II, non insulin dependent ([facility]/HCC) Type II or unspecified type diabetes mellitus without mention of complication, not stated as uncontrolled documented in this encounter [facility] Healthcare[facility]* Diagnosis Diabetic peripheral neuropathy associated with type 2 diabetes mellitus ([facility]/HCC)- Primary Essential hypertension Unspecified essential hypertension Chronic heart failure with preserved ejection fraction (HFpEF) ([facility]) Diabetes mellitus type II, non insulin dependent ([facility]/HCC) Type II or unspecified type diabetes mellitus without mention of complication, not stated as uncontrolled Dyslipidemia ([facility]/HCC) Other and unspecified hyperlipidemia documented in this encounter [facility] HealthcareHistory general Narrative - Reported* Type Description Date Medical History DM Medical History HTN Medical History Arthritis Medical History hypercholesterolemia Surgical History Cyst off back Surgical History Polyps removed Surgical History heart stent Surgical History shoulder Hospitalization History see above [employer] Other History general Narrative - Reported* Type Description Date Medical History DM Medical History HTN Medical History Arthritis Medical History hypercholesterolemia Surgical History Cyst off back Surgical History Polyps removed Surgical History heart stent Surgical History shoulder Surgical History cataract surgery 07/2022 Hospitalization History see above [employer] Other Summary Purpose Family History Relationship Condition Age at Onset Recorded Date/T jeannie brother Unknown father Hypertension Unknown Unknown Not Specified Unknown Advance Directives Latest Code Status on File Code Status Date [...] section and content) DATE CREATED AUTHOR 08/27/2017 [facility] DATE CREATED AUTHOR AUTHOR'S ORGANIZ ATION 07/20/2022 [facility] DATE CREATED AUTHOR AUTHOR'S ORGANIZ ATION 10/05/2022 [facility] DATE CREATED AUTHOR AUTHOR'S ORGANIZ ATION 04/16/2023 [facility] DATE CREATED AUTHOR AUTHOR'S ORGANIZ ATION 09/23/2023 [facility] DATE CREATED AUTHOR AUTHOR'S ORGANIZ ATION 11/21/2023 [facility] DATE CREATED AUTHOR AUTHOR'S ORGANIZ ATION 11/25/2023 [facility] DATE CREATED AUTHOR AUTHOR'S ORGANIZ ATION 12/09/2023 [facility] dical Specialists EPIC REASON FOR VISIT (unrecogniz ed section and content) Specialty Diagnoses / Procedures Referred By Korey gan Referred To Contact Diagnoses Combined forms of age-related cataract of left eye Combined forms of age-related cataract of left eye [H25.812] Procedures NC XCAPSL CTRC RMVL INSJ IO LENS PROSTH W/O ECP EYE CATARACT EMULSIFICATION IOL IMPLANT Genoveva Ibanez Y, DO [address] [place] [address] [facility] [address] [place] [address] Referral ID Status Reason Start Date Expiration Date Visits Re quested Visits Authorized [id number] 1 1 Reason Onset Date Comments Med Refill 12/07/2023 Reason Comments Med Refill Coronary Artery Disease Scheduled Active and Recently Administ ered Medications (unrecognized section and content) Medication Order 10/03/2022 10/04/2022 10/05/2022 phenylephrine (MYDFRIN) 2.5 % ophthalmic solution 1 drop 1 drop, Left Eye, SEE ADMIN INSTRUCTIONS, Starting on Wed10/05/22 at 0957, Until Discontinued, To operative eye(s) for 3-5 doses every 5 minutes, starting 30 minutes prior to surgery until dilated, [facility] - enter number of doses based on [...] surgery) 1042 (Canceled Entry - Provider: Elizabeth Williamson, AAN) lactated ringers IV soln infusion IntraVENous, at 100 mL/hr, CONTINUOUS, Starting on Wed10/05/22 at 1015, Pre-op (day of surgery) 1038 (New Bag - Prov ider: Elizabeth Williamson, ANA) PRN Medication Order 10/03/2022 10/04/2022 10/05/2022 0.9 [...] Intra-op 1123 (Given - Provid er: Genoveva Ibanez, DO) lidocaine PF 1 % injection (CANCELED) PRN, Starting on Wed10/05/22 at 1054, Until Wed10/05/22 at 1109, Intra-op 1054 (Given - Provid er: Genoveva Ibanez DO) sodium chloride flush 0.9 % injection [...] Intra-op 1040 (Given - Provid er: Genoveva Ibanez DO) Care Teams (unrecognized sec tion and content) Team Status: Active Member Role Status Dates Michael Smith MD Primary Care Provider Active Team Status: Inactive Member Role Status Dates Trell Damian DO Attending Provider Natasha Smith MD Primary Care Provider Active Book Repairer Relationship Specialty Start Date End Date Michael Smith MD [address] [place] [id number] PCP - [facility] 12/06/22 Shaikh Ambrocio MD [address] [place] [phone] PCP - General Internal Medicine 02/25/23 Book Repairer Relationship Specialty Start Date End Date Michael Smith MD [address] [place] [phone] PCP - [facility] 12/06/22 Shaikh Ambrocio MD [address] [place] [address] PCP - General Internal Medicine 02/25/23 [...] April 22, 2023 End: April 22, 2023 Book Repairer Relationship Specialty Start Date End Date Michael Smith MD [address] [place] [phone] PCP - [facility] 03/08/22 Michael Smith MD [address] [place] [phone] PCP - General Family Medicine 10/12/23 Winston Suarez NP [address] [place] [address] Nurse Practitioner Family Medicine 10/12/23 Kenyetta Tierney LPN Licensed Practical Nurse Family Medicine 11/19/23 Book Repairer Relationship Specialty Start Date End Date Michael Smith MD [address] [place] [phone] PCP - [facility] 03/08/22 Michael Smith MD [address] [place] [phone] PCP - General Family Medicine 10/12/23 Winston Suarez NP [address] [place] [address] Nurse Practitioner Family Medicine 10/12/23 Kenyetta Tierney LPN Licensed Practical Nurse Family Medicine 11/19/23 Book Repairer Relationship Specialty Start Date End Date Michael Smith MD [address] [place] [phone] PCP - [facility] 03/08/22 Michael Smith MD [address] [place] [phone] PCP - General Family Medicine 10/12/23 Winston Suarez NP [address] [place] [address] Nurse Practitioner Family Medicine 10/12/23 Kenyetta Tierney LPN Licensed Practical Nurse Family Medicine 11/19/23 Goals (unrecognized section and content) Goals may [...] BE BASED ON THE PRIMARY CLINICAL RECORDS. [facility] [employer] provides no warranty or guarantee of the accuracy or completeness of information in this document.
[2023-12-17 11:31] LABS: Estimated Average Glucose 157 mg/dL; Glycohemoglobin A1C 7.1 % (4.5-6.2)
== END 2023-12-17 10:52 | disposition home or self-care (01) ==
LOC: LAB 10:54
DX: E11.9 Type 2 diabetes mellitus without complications (principal)
CPT/HCPCS: 36415; 83036